=== PATIENT | male | born 1965 ===

== ENCOUNTER → 2020-02-02 14:14 | Outpatient (BNVA) | payer BC, SELFPAY | PROVIDERS: PCP Internal Medicine; Referring Provider Internal Medicine; Visit Provider Student in an Organized Health Care Education/Training Program | DX: Z76.89 Persons encountering health services in other specified circumstances (principal) ==

== ENCOUNTER → 2020-03-29 17:08 | Outpatient (BNVA) | payer BC, SELFPAY | PROVIDERS: PCP Internal Medicine; Visit Provider Student in an Organized Health Care Education/Training Program ==

== ENCOUNTER 2020-05-01 15:11 | Outpatient (REF) | payer BC, SELFPAY ==
--- NOTE | ~2020-05-01 | XR_ITS ---
EXAMINATION: XR WRIST, RIGHT CLINICAL INFORMATION: Pain COMPARISON: Previous x-ray August 2019 TECHNIQUE: PA, lateral, and oblique views of the right wrist. FINDINGS: Bone alignment is normal. No acute fracture or dislocation is seen. There is evidence of old trauma to the fifth metacarpal bone. There is arthritis at the distal radial ulnar and radiocarpal joints with joint space narrowing. There arecystic changes seen in the carpal bones, distal ulna and ulnar styloid and base of the second metacarpal bone. There are small erosions seen in the ulnar styloid and scaphoid bone. There is soft tissue swelling about the wrist. Findings are suggestive of inflammatory arthritis. XR/XR wrist RT min 3V IMPRESSION: Inflammatory arthritis.
== END 2020-05-01 15:12 | disposition home or self-care (01) ==
LOC: HO.HOSX 15:11
PROVIDERS: Visit Provider Orthopaedic Surgery
DX: M25.531 Pain in right wrist (principal)
CPT/HCPCS: 73110

== ENCOUNTER → 2020-05-02 12:54 | Outpatient (BNVA) | payer BC, SELFPAY | PROVIDERS: Visit Provider Orthopaedic Surgery | DX: M65.831 Other synovitis and tenosynovitis, right forearm (principal); M79.89 Other specified soft tissue disorders ==

== ENCOUNTER 2020-07-31 16:08 | Outpatient (REF) | payer OTHER, SELFPAY ==
--- NOTE | ~2020-07-31 | XR_ITS ---
EXAMINATION: XR ANKLE, RIGHT XR ANKLE, LEFT CLINICAL INFORMATION: M05.9 - Rheumatoid arthritis with rheumatoid factor. COMPARISON: None TECHNIQUE: Each ankle is imaged in 3 views. There are a total of 6 views. FINDINGS: Both ankles show normal bony mineralization with no fracture, dislocation, or destructive process. There is no definite ankle capsular effusion on either side. The ankle joints show no narrowing or erosive change or chondrocalcinosis. There is no osteochondral lesion of the talar dome. The subtalar joints are unremarkable. The retrocalcaneal recess is preserved on each side. XR/XR ankle RT 2V IMPRESSION: Unremarkable bilateral ankles.
--- NOTE | ~2020-07-31 | XR_ITS ---
EXAMINATION: XR ANKLE, RIGHT XR ANKLE, LEFT CLINICAL INFORMATION: M05.9 - Rheumatoid arthritis with rheumatoid factor. COMPARISON: None TECHNIQUE: Each ankle is imaged in 3 views. There are a total of 6 views. FINDINGS: Both ankles show normal bony mineralization with no fracture, dislocation, or destructive process. There is no definite ankle capsular effusion on either side. The ankle joints show no narrowing or erosive change or chondrocalcinosis. There is no osteochondral lesion of the talar dome. The subtalar joints are unremarkable. The retrocalcaneal recess is preserved on each side. XR/XR ankle LT 2V IMPRESSION: Unremarkable bilateral ankles.
== END 2020-07-31 16:09 | disposition home or self-care (01) ==
LOC: HO.XRAY 16:08
PROVIDERS: PCP Internal Medicine; Visit Provider Student in an Organized Health Care Education/Training Program
DX: M05.9 Rheumatoid arthritis with rheumatoid factor, unspecified (principal); F17.210 Nicotine dependence, cigarettes, uncomplicated; Z79.52 Long term (current) use of systemic steroids; Z79.899 Other long term (current) drug therapy
CPT/HCPCS: 73600

== ENCOUNTER → 2020-08-13 15:41 | Outpatient (BNVA) | payer OTHER, SELFPAY | PROVIDERS: Visit Provider Orthopaedic Surgery ==

== ENCOUNTER 2020-08-21 08:20 | Day surgery (SDC) | payer OTHER, SELFPAY ==
--- NOTE | 2020-08-17 08:44 | HO.ANESPROP2 ---
Documented by User: Norma Suze 08/17/20 08:46 HPI - Anesthesia Eval Consult details Narrative: 54yo M for Right Tenosynovectomy right wrist,and right sm finger, Excisional Biopsy right dorsal wrist mass,right proximal forearm mass Prednisone daily for RA PMFSH Active Problems Active Problems: All Active Problems (Updated 05/02/20 @ 15:09 by Lennei Mackey MD) Extensor tenosynovitis of right wrist (Acute) Mass of soft tissue of right upper extremity (Acute) Ganglion cyst of dorsum of right wrist (Acute) Seropositive rheumatoid arthritis (Acute) Past Medical History Medical History Seropositive rheumatoid arthritis Social History Social History Alcohol intake: current Alcohol intake frequency: 3 or more drinks per day Patient Tobacco Use Status: Current everyday Tobacco user Tobacco use type: Cigarette Cigarettes Per Day: 20 Years Smoked: 35 Second Hand Smoke Exposure: No Use of substances other than those prescribed or required for medical reasons: No Are you DNR?: No Advance Directives: No Advance Directives Information Provided: Yes Advance Directives on File: No Current occupational status: 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 missing Assessment and Plan Assessment Anesthesia Assessment: Chart Reviewed Documented by User: Cyrus Mcdonald MD 08/21/20 10:44 [facility] Past Medical History Medical History Seropositive rheumatoid arthritis Social History Social History Alcohol intake: current Alcohol intake frequency: 3 or more drinks per day Patient Tobacco Use Status: Current everyday Tobacco user Tobacco use type: Cigarette Cigarettes Per Day: 20 Years Smoked: 35 Second Hand Smoke Exposure: No Use of substances other than those prescribed or required for medical reasons: No Are you DNR?: No Advance Directives: No Advance Directives Information Provided: Yes Advance Directives on File: No Current occupational status: 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 missing Loose/Missing/Broken Teeth: Yes Heart: RRR Assessment and Plan Assessment Anesthesia Assessment: Anesthesia Plan Discussed and Chart Reviewed Final Anesthetic Review NPO: Yes ASA Class: II Final Preanesthetic Review: No Changes in Pt Med Stat, Meds/Allgs Chart Reviewed, Consent Obtained/Reviewed and Anes Risks/Benef Reviewed Patient Risk: Low Procedure Risk: Low Anesthetic Plan Anesthetic Plan: GA and Regional Block Disposition: Standard PACU
[2020-08-21 08:31] VITALS: BMI 23.6
[2020-08-21 08:45] VITALS: BP 152/104; PULSE 95; RESP 18; TEMP 36.7; O2SAT 96
[2020-08-21] MEDS: Lactated Ringers 1,000 ML 100 ML IVCONT (08:51)
--- NOTE | 2020-08-21 09:13 | MHC.SHP ---
Pre-Procedural Eval Section A Date of Service: 08/21/20 Section B Chief Complaint: tenosynovitis,ganglion,soft tissue disorder Allergies: Allergies Allergy/AdvReac Type Severity Reaction Status Date / Time No Known Allergies Allergy Verified 08/13/20 16:33 Plan I have reviewed the history and physical and performed a pertinent physical examination on my patient. No changes have occurred unless specified.
--- NOTE | 2020-08-21 09:13 | W.PM.OPN ---
Operative Note Operative Note Date of Service: 08/21/20 Narrative: Operative Note Narrative: Preop diagnosis: 1. right dorsal wrist mass 2. right wrist extensor tenosynovitis 3. Right proximal forearm soft tissue mass 4. Right small finger trigger finger in patient with rheumatoid arthritis Postop diagnosis: Same Procedure: 1. Right dorsal wrist mass excisional biopsy 2. right wrist extensor tenosynovectomies of compartments 2, 3,4, 5 and 6 3. Right proximal forearm mass excisional biopsy 4. Right small finger FDS and FDP tenosynovectomies Surgeon: Lennie Mackey MD Anesthesia: General plus regional block Findings: -- abundant house soft tissue mass about the extensor tendons of right wrist dorsal compartments 2 through 6, consistent with rheumatoid arthritis related extensor tenosynovitis. Invasion of EPL, and several of the EDC tendons noted. tendon involvement from approximately 5 cm proximal to the extensor retinaculum down to approximately the mid metacarpal area. -- Generalized inflammatory tenosynovium about the right small finger FDP and FDS tendons with invasion of the FDP and FDS tendons. A1 daphne release necessary after T no sign of ectomy in to prevent locking and catching. -- Two white soft tissue mass is each measuring perhaps 8-10 mm in diameter were removed from the extensor surface of the olecranon. Most consistent with possible rheumatoid nodules. Implants: none Tourniquet time: 104 minutes EBL: 5.0 ml Specimen: 1. Right proximal forearm soft tissue mass sent for histopathology 2. right small finger T no synovial and sent for histopathology 3. right dorsal wrist extensor tenosynovium sent for histopathology and also for cultures including AFB and fungus. Drains: None Complications: None Disposition: Brought to the recovery room in stable condition Plan: Follow-up in 10-14 days for wound check, suture removal and to check pathology Consider possible OT consult for tendon gliding exercises. Consider contact with factory clerk regarding significant rheumatoid related tenosynovitis Indications: The patient is a 54-year-old man with rheumatoid arthritis. He has a soft tissue mass over the right olecranon on, a right small finger trigger finger, and a soft tissue mass with evidence of extensor tenosynovitis involving the dorsal aspect of the right wrist. . The risks and benefits of operative treatment, including but not limited to risk of damage to blood vessels, nerves, tendons, infection, recurrence, persistent pain or numbness, incomplete resolution of preoperative symptoms, or need for further surgery were discussed with the patient and they wished to proceed with surgery. Procedure: Once consent was obtained patient was brought back to the operating suite and placed in the operating table in a supine position. A regional block was performed by the anesthesia team. Perioperative antibiotics and anesthesia was administered by the anesthesia team. A tourniquet was applied to the proximal aspect of the Right upper extremity and the limb was prepped and draped in a standard surgical fashion. The limb was elevated exsanguinated with Esmarch bandage and the tourniquet inflated to 250 mm of mercury for a total tourniquet time of 104 minutes. a Cassandra is a incision was made over the volar aspect of the right small finger. The incision was made through the skin to the subcutaneous tissues using a 15. Blade. I carefully dissected down to the level of the flexor tendon sheath using tenotomy scissors. A portion of the A1 daphne was opened longitudinally using a 15. Blade leaving the majority of the A1 daphne intact. I also opened up the flexor tendon sheath just proximal and distal to the A1 daphne using tenotomy scissors. tenosynovectomies were performed about the flexor digitorum superficialis and flexor digitorum profundus tendons. there was noted to be invasion of the FDP and FDS tendons themselves.. The finger was then taken through flexion and extension and there was Persistent catching with passive motion. at this point in A1 daphne release was performed using tenotomy scissors. The wound was irrigated with normal saline and the skin edges reapproximated with some 5 0 nylon suture material. Attention was then turned to the mass over the extensor aspect of the right forearm over the olecranon . A 2 cm longitudinal incision was made centered over the mass using a 15. Blade. The incision was made through the skin to the subcutaneous tissues using a 15. Blade. Careful dissection was then made down to the mass. there were 2 white soft tissue mass is that each measured between 8 and 10 mm in diameter. They were excised and placed on the back table to be sent for histopathology. the wound was then irrigated with normal saline. The subcutaneous layer was reapproximated with some 4-0 Vicryl suture material and the skin edges reapproximated with some 5 0 nylon suture material. I then turned my attention to the Rightdorsal wrist mass. An 8 cm central longitudinal incision was made over the dorsal aspect of the patient's right wrist. The incision was made through the skin to the subcutaneous tissues using a 15. Blade. I then carefully dissected down to the level of the mass and the extensor retinaculum and extensor tendons. there was abundant house soft tissue material about the extensor tendons extending from a point about 5 cm proximal to the extensor retinaculum to a point at about the middle of the metacarpals. Involvement was present in the 2nd 3rd 4th 5th and 6th dorsal compartments. A meticulous tenosynovectomy was performed using tenotomy scissors and a 15. Blade, as well as a rongeur. Care was taken to preserve an approximately 1.5 cm width of the extensor retinaculum. A 1 cm portion of the more proximal retinaculum was incised to facilitate tenosynovectomy, and repaired at the end of the procedure. There was some invasion of the EPL tendon as well as several of the EDC tendons, but all tendons were grossly intact. The soft tissue material was sent for histopathology as well as cultures including aerobic anaerobic,AFB and fungal cultures. At this point the tourniquet was deflated and hemostasis obtained with a brief period of local pressure and bipolar electrocautery. The Wounds were copiously irrigated with normal saline. the proximal aspect of the extensor retinaculum was reapproximated with some 5 0 Prolene suture material. The subcutaneous layer was closed with 4-0 Vicryl suture, and the skin edges were reapproximated with 4-0 And 5-0 Prolene suture. The wounds were infiltrated with some 1% lidocaine with epinephrine for postop pain control and a sterile dressings were applied. a volar wrist splint was also applied.. The patient appears to have tolerated the procedure well and with no complications. All digits were well vascularized conclusion of the case.
[2020-08-21] MEDS: ceFAZolin Sodium/Dextrose,Iso 2 GM/50 ML PIGGYBACK IV (09:23)
[2020-08-21 13:20] VITALS: BP 138/95; PULSE 87; RESP 16; TEMP 36.1; O2SAT 98
[2020-08-21 13:25] VITALS: BP 127/80; PULSE 82; RESP 14; O2SAT 99
[2020-08-21 13:30] VITALS: BP 111/74; PULSE 81; RESP 16; O2SAT 95
[2020-08-21 13:35] VITALS: BP 118/77; PULSE 84; RESP 18; O2SAT 97
[2020-08-21 13:48] VITALS: BP 134/88; PULSE 82; RESP 18; TEMP 36.3; O2SAT 97
== END 2020-08-21 14:15 ==
LOC: HO.SSS 08:20
PROVIDERS: PCP Internal Medicine; Visit Provider Orthopaedic Surgery
PROC: (CPT 26145; principal; 2020-08-21 10:00)
PROC: (CPT 26145; 2020-08-21 10:00)
DX: M79.89 Other specified soft tissue disorders (principal); M65.831 Other synovitis and tenosynovitis, right forearm; M65.841 Other synovitis and tenosynovitis, right hand; M06.341 Rheumatoid nodule, right hand; M06.031 Rheumatoid arthritis without rheumatoid factor, right wrist; M65.351 Trigger finger, right little finger
CPT/HCPCS: 26145; 26055; 25116; 25075; 87071; 87073; 87116; 87205; 88304; J0690; J1100; J2250; J2405; J3010

== ENCOUNTER → 2020-09-03 09:58 | Outpatient (BNVA) | payer OTHER, SELFPAY | PROVIDERS: Visit Provider Physician Assistant ==

== ENCOUNTER → 2020-09-17 12:39 | Outpatient (BNVA) | payer OTHER, SELFPAY | PROVIDERS: Visit Provider Physician Assistant ==

== ENCOUNTER → 2020-11-05 15:39 | Outpatient (BNVA) | payer OTHER, SELFPAY | PROVIDERS: Visit Provider Orthopaedic Surgery ==

== ENCOUNTER → 2020-11-14 09:35 | Outpatient (BNVA) | payer OTHER, SELFPAY | PROVIDERS: PCP Internal Medicine; Visit Provider Nurse Practitioner Family ==

== ENCOUNTER 2021-01-14 15:53 | Outpatient (REF) | payer OTHER, SELFPAY ==
[2021-01-14 16:11] LABS: MANUAL DIFF FLAG NO
[2021-01-14 16:37] LABS: Basophils Absolute Auto 0.1 X10*3/uL (0.0-0.2); Basophils Percent Auto 0.5 % (0-2); Eosinophils Absolute Auto 0.1 X10*3/uL (0.0-0.4); Eosinophils Percent Auto 0.6 % (0-4); Hematocrit 42.3 % (42.0-52.0); Hemoglobin 14.8 g/dl (14.0-18.0); Imm Gran Abs Auto 0.03 X10*3/uL (0.00-0.03); Imm Gran Pct Auto 0.3 % (0.0-0.4); Lymphocytes Percent Auto 40.5 % (20-40); Mean Corpuscular Hemoglobin 31.7 pg (27.0-33.0); Mean Corpuscular Volume 90.6 fL (80.0-98.0); Mean Platelet Volume 9.8 fL (9.4-12.4); Monocytes Absolute Auto 0.9 X10*3/uL (0.1-1.2); Monocytes Percent Auto 8.8 % (2-11); Neutrophils Absolute Auto 4.8 x10*3/uL (2.0-8.3); Neutrophils Percent Auto 49.3 % (45-73); Platelet Count 266 X10*3/uL (160-400); Red Blood Count 4.67 X10*6/uL (4.60-5.80); Red Cell Distribution Width 13.2 % (11.0-16.0); White Blood Count 9.8 X10*3/uL (4.8-10.8)
[2021-01-14 16:55] LABS: Alanine Aminotransferase 53 U/L (0-40); Albumin Level 4.5 g/dL (3.5-5.0); Alkaline Phosphatase 102 U/L (39-117); Anion Gap 15 (12-20); Aspartate Amino Transferase 32 U/L (5-37); Bilirubin Total 0.5 mg/dL (0.0-1.0); Blood Urea Nitrogen 15 mg/dL (9-16); C Reactive Protein 0.22 mg/dL (< or = 0.50); Calcium 10.2 mg/dL (8.4-10.2); Carbon Dioxide 25 mmol/L (22-29); Chloride 103 mmol/L (96-108); Cholesterol 270 mg/dL; Estimated Glomerular Filt Rate > 60; Glucose Random 100 mg/dL (60-115); HDL Cholesterol 36 mg/dL; Potassium 4.7 mmol/L (3.3-5.1); Sodium 138 mmol/L (135-145); Total Protein 7.7 g/dL (6.5-8.0); Triglycerides 613 mg/dL
[2021-01-14 17:37] LABS: Erythrocyte Sedimentation Rate 5 MM/HR (0-15)
[2021-01-14 18:34] LABS: Reflex LDLD? Yes
[2021-01-15 12:17] LABS: LDL Cholesterol Direct 108 mg/dL (<100)
== END 2021-01-14 15:54 | disposition home or self-care (01) ==
LOC: HO.LAB 15:53
PROVIDERS: PCP Internal Medicine; Visit Provider Nurse Practitioner Family
DX: M05.9 Rheumatoid arthritis with rheumatoid factor, unspecified (principal)
CPT/HCPCS: 36415; 80053; 80061; 83721; 85025; 85652; 86140

== ENCOUNTER 2021-03-14 16:18 | Outpatient (REF) | payer OTHER, SELFPAY ==
[2021-03-14 16:39] LABS: MANUAL DIFF FLAG NO
[2021-03-14 17:20] LABS: Basophils Absolute Auto 0.1 X10*3/uL (0.0-0.2); Basophils Percent Auto 0.5 % (0-2); Eosinophils Absolute Auto 0.1 X10*3/uL (0.0-0.4); Eosinophils Percent Auto 0.9 % (0-4); Hematocrit 41.6 % (42.0-52.0); Hemoglobin 14.2 g/dl (14.0-18.0); Imm Gran Abs Auto 0.02 X10*3/uL (0.00-0.03); Imm Gran Pct Auto 0.2 % (0.0-0.4); Lymphocytes Absolute Auto 4.3 X10*3/uL (1.2-4.9); Mean Corpuscular HGB Conc 34.1 g/dl (31.0-36.0); Mean Corpuscular Hemoglobin 31.6 pg (27.0-33.0); Mean Corpuscular Volume 92.4 fL (80.0-98.0); Mean Platelet Volume 10.3 fL (9.4-12.4); Monocytes Percent Auto 9.7 % (2-11); Neutrophils Absolute Auto 4.6 x10*3/uL (2.0-8.3); Neutrophils Percent Auto 45.7 % (45-73); Platelet Count 313 X10*3/uL (160-400); Red Cell Distribution Width 12.2 % (11.0-16.0)
[2021-03-14 17:42] LABS: Alanine Aminotransferase 45 U/L (0-40); Albumin Level 4.6 g/dL (3.5-5.0); Alkaline Phosphatase 107 U/L (39-117); Anion Gap 13 (12-20); Aspartate Amino Transferase 28 U/L (5-37); Bilirubin Total 0.4 mg/dL (0.0-1.0); Blood Urea Nitrogen 10 mg/dL (9-16); C Reactive Protein 0.11 mg/dL (< or = 0.50); Calcium 10.2 mg/dL (8.4-10.2); Carbon Dioxide 27 mmol/L (22-29); Chloride 100 mmol/L (96-108); Estimated Glomerular Filt Rate > 60; Glucose Random 98 mg/dL (60-115); Sodium 135 mmol/L (135-145); Total Protein 8.1 g/dL (6.5-8.0)
[2021-03-14 18:14] LABS: Erythrocyte Sedimentation Rate 7 MM/HR (0-15)
== END 2021-03-14 16:19 | disposition home or self-care (01) ==
LOC: HO.LAB 16:18
PROVIDERS: Absent Provider Internal Medicine; PCP Internal Medicine; Visit Provider Nurse Practitioner Family
DX: M05.9 Rheumatoid arthritis with rheumatoid factor, unspecified (principal)
CPT/HCPCS: 36415; 80053; 85025; 85652; 86140

== ENCOUNTER → 2021-04-19 08:21 | Outpatient (BNVA) | payer OTHER, SELFPAY | PROVIDERS: PCP Internal Medicine; Visit Provider Nurse Practitioner Family ==

== ENCOUNTER 2021-06-28 16:26 | Outpatient (REF) | payer OTHER, SELFPAY ==
[2021-06-28 16:38] LABS: MANUAL DIFF FLAG NO
[2021-06-28 16:47] LABS: Basophils Absolute Auto 0.1 X10*3/uL (0.0-0.2); Basophils Percent Auto 0.7 % (0-2); Eosinophils Absolute Auto 0.1 X10*3/uL (0.0-0.4); Eosinophils Percent Auto 1.1 % (0-4); Hematocrit 40.7 % (42.0-52.0); Hemoglobin 14.3 g/dl (14.0-18.0); Imm Gran Abs Auto 0.04 X10*3/uL (0.00-0.03); Imm Gran Pct Auto 0.3 % (0.0-0.4); Lymphocytes Absolute Auto 4.6 X10*3/uL (1.2-4.9); Lymphocytes Percent Auto 38.4 % (20-40); Mean Corpuscular HGB Conc 35.1 g/dl (31.0-36.0); Mean Corpuscular Hemoglobin 31.6 pg (27.0-33.0); Mean Platelet Volume 9.3 fL (9.4-12.4); Monocytes Absolute Auto 0.8 X10*3/uL (0.1-1.2); Neutrophils Absolute Auto 6.3 x10*3/uL (2.0-8.3); Neutrophils Percent Auto 52.5 % (45-73); Platelet Count 284 X10*3/uL (160-400); Red Blood Count 4.52 X10*6/uL (4.60-5.80); Red Cell Distribution Width 12.6 % (11.0-16.0); White Blood Count 11.9 X10*3/uL (4.8-10.8)
[2021-06-28 17:16] LABS: Alanine Aminotransferase 44 U/L (0-40); Albumin Level 4.6 g/dL (3.5-5.0); Alkaline Phosphatase 99 U/L (39-117); Anion Gap 13 (12-20); Aspartate Amino Transferase 27 U/L (5-37); Bilirubin Total 0.4 mg/dL (0.0-1.0); Blood Urea Nitrogen 10 mg/dL (9-16); Calcium 10.2 mg/dL (8.4-10.2); Carbon Dioxide 26 mmol/L (22-29); Chloride 102 mmol/L (96-108); Cholesterol 253 mg/dL; Estimated Glomerular Filt Rate > 60; Glucose Random 103 mg/dL (60-115); HDL Cholesterol 38 mg/dL; Potassium 4.6 mmol/L (3.3-5.1); Sodium 136 mmol/L (135-145); Triglycerides 403 mg/dL
[2021-06-28 17:39] LABS: Erythrocyte Sedimentation Rate 5 MM/HR (0-15)
[2021-06-28 17:59] LABS: Reflex LDLD? Yes
[2021-06-29 15:36] LABS: LDL Cholesterol Direct 129 mg/dL (<100)
== END 2021-06-28 16:27 | disposition home or self-care (01) ==
LOC: HO.LAB 16:26
PROVIDERS: PCP Internal Medicine; Visit Provider Nurse Practitioner Family
DX: M05.9 Rheumatoid arthritis with rheumatoid factor, unspecified (principal)
CPT/HCPCS: 36415; 80053; 80061; 83721; 85025; 85652; 86140

== ENCOUNTER → 2021-07-19 08:42 | Outpatient (BNVA) | payer OTHER, SELFPAY | PROVIDERS: PCP Internal Medicine; Visit Provider Nurse Practitioner Family | DX: Z13.89 Encounter for screening for other disorder (principal) ==

== ENCOUNTER 2021-10-05 09:27 | Outpatient (REF) | payer OTHER, SELFPAY ==
[2021-10-05 09:37] LABS: MANUAL DIFF FLAG NO
[2021-10-05 10:03] LABS: Basophils Absolute Auto 0.1 X10*3/uL (0.0-0.2); Basophils Percent Auto 0.8 % (0-2); Eosinophils Absolute Auto 0.2 X10*3/uL (0.0-0.4); Hematocrit 42.2 % (42.0-52.0); Hemoglobin 14.8 g/dl (14.0-18.0); Imm Gran Abs Auto 0.05 X10*3/uL (0.00-0.03); Imm Gran Pct Auto 0.4 % (0.0-0.4); Lymphocytes Absolute Auto 2.7 X10*3/uL (1.2-4.9); Lymphocytes Percent Auto 22.5 % (20-40); Mean Corpuscular HGB Conc 35.1 g/dl (31.0-36.0); Mean Corpuscular Hemoglobin 31.6 pg (27.0-33.0); Mean Corpuscular Volume 90.2 fL (80.0-98.0); Mean Platelet Volume 9.6 fL (9.4-12.4); Monocytes Absolute Auto 1.1 X10*3/uL (0.1-1.2); Monocytes Percent Auto 9.2 % (2-11); Neutrophils Absolute Auto 7.9 x10*3/uL (2.0-8.3); Neutrophils Percent Auto 65.1 % (45-73); Platelet Count 254 X10*3/uL (160-400); Red Blood Count 4.68 X10*6/uL (4.60-5.80); Red Cell Distribution Width 13.1 % (11.0-16.0); White Blood Count 12.1 X10*3/uL (4.8-10.8)
[2021-10-05 10:10] LABS: Alanine Aminotransferase 49 U/L (0-40); Aspartate Amino Transferase 30 U/L (5-37); C Reactive Protein 0.13 mg/dL (< or = 0.50); Estimated Glomerular Filt Rate > 60
[2021-10-05 10:56] LABS: Erythrocyte Sedimentation Rate 4 MM/HR (0-15)
== END 2021-10-05 09:28 | disposition home or self-care (01) ==
LOC: HO.LAB 09:27
PROVIDERS: PCP Internal Medicine; Visit Provider Nurse Practitioner Family
DX: M05.9 Rheumatoid arthritis with rheumatoid factor, unspecified (principal); Z79.899 Other long term (current) drug therapy
CPT/HCPCS: 36415; 82565; 84450; 84460; 85025; 85652; 86140

== ENCOUNTER 2021-12-06 16:01 | Outpatient (REF) | payer OTHER, SELFPAY ==
[2021-12-06 16:14] LABS: MANUAL DIFF FLAG NO
[2021-12-06 17:18] LABS: Basophils Absolute Auto 0.1 X10*3/uL (0.0-0.2); Basophils Percent Auto 0.8 % (0-2); Eosinophils Absolute Auto 0.1 X10*3/uL (0.0-0.4); Eosinophils Percent Auto 1.5 % (0-4); Hematocrit 40.7 % (42.0-52.0); Hemoglobin 14.6 g/dl (14.0-18.0); Imm Gran Abs Auto 0.02 X10*3/uL (0.00-0.03); Imm Gran Pct Auto 0.2 % (0.0-0.4); Lymphocytes Absolute Auto 3.9 X10*3/uL (1.2-4.9); Lymphocytes Percent Auto 44.5 % (20-40); Mean Corpuscular HGB Conc 35.9 g/dl (31.0-36.0); Mean Corpuscular Hemoglobin 32.6 pg (27.0-33.0); Mean Corpuscular Volume 90.8 fL (80.0-98.0); Mean Platelet Volume 10.2 fL (9.4-12.4); Monocytes Absolute Auto 0.8 X10*3/uL (0.1-1.2); Monocytes Percent Auto 8.9 % (2-11); Neutrophils Absolute Auto 3.9 x10*3/uL (2.0-8.3); Neutrophils Percent Auto 44.1 % (45-73); Platelet Count 295 X10*3/uL (160-400); Red Blood Count 4.48 X10*6/uL (4.60-5.80); Red Cell Distribution Width 12.9 % (11.0-16.0); White Blood Count 8.8 X10*3/uL (4.8-10.8)
[2021-12-06 17:28] LABS: Alanine Aminotransferase 72 U/L (0-40); Aspartate Amino Transferase 48 U/L (5-37); Estimated Glomerular Filt Rate > 60
[2021-12-06 18:02] LABS: Erythrocyte Sedimentation Rate 2 MM/HR (0-15)
== END 2021-12-06 16:02 | disposition home or self-care (01) ==
LOC: HO.LAB 16:01
PROVIDERS: Visit Provider Nurse Practitioner Family
DX: M05.9 Rheumatoid arthritis with rheumatoid factor, unspecified (principal); Z79.899 Other long term (current) drug therapy
CPT/HCPCS: 36415; 82565; 84450; 84460; 85025; 85652; 86140

== ENCOUNTER 2021-12-21 09:15 | Outpatient (REF) | payer OTHER, SELFPAY ==
[2021-12-21 10:45] LABS: Alanine Aminotransferase 64 U/L (0-40); Aspartate Amino Transferase 37 U/L (5-37)
== END 2021-12-21 09:16 | disposition home or self-care (01) ==
LOC: HO.LAB 09:15
PROVIDERS: PCP Internal Medicine; Visit Provider Nurse Practitioner Family
DX: Z79.899 Other long term (current) drug therapy (principal)
CPT/HCPCS: 36415; 84450; 84460

== ENCOUNTER → 2022-02-24 11:02 | Outpatient (BNVA) | payer OTHER, SELFPAY | PROVIDERS: PCP Internal Medicine; Visit Provider Nurse Practitioner Family | DX: Z13.89 Encounter for screening for other disorder (principal) ==

== ENCOUNTER 2022-02-24 19:25 | Emergency (ER) | payer OTHER, SELFPAY ==
--- NOTE | ~2022-02-24 | XR_ITS ---
EXAMINATION: XR CHEST CLINICAL INFORMATION: Chest pain COMPARISON: 08/26/2019 TECHNIQUE: Frontal view of the chest was obtained. FINDINGS: No significant abnormality is noted involving the heart, lungs, mediastinum, bony thorax or soft tissues. XR/XR chest 1V IMPRESSION: Unremarkable examination.
--- NOTE | ~2022-02-24 | CT_ITS ---
EXAMINATION: CT HEAD WITHOUT CONTRAST CLINICAL INFORMATION: Headache. Hypertension. COMPARISON: None. TECHNIQUE: Contiguous axial imaging was performed from the skull base to vertex without intravenous administration of contrast. Coronal and sagittal reformatted images are performed at the CT scanner. [This CT examination was performed using dose optimization techniques as appropriate, variously including the following: *Automated exposure control *Adjustment of mA and/or kV according to patient size (this includes techniques or standardized protocols for targeted exams where dose is matched to indication/reason for exam; i.e. extremities or head) *Use of iterative reconstruction technique] DLP: 679 mGy-cm. FINDINGS: There is no evidence of acute intracranial hemorrhage or territorial infarction. No abnormal mass-effect or midline shift is seen. Sena to white matter differentiation is well preserved. No extra-axial fluid collections are identified. The ventricles are normal in size. There is no abnormal attenuation within the brain parenchyma. There is no osseous abnormality. The mastoid air cells and visualized portions of the paranasal sinuses are well-aerated. CT/CT head/brain wo IV con IMPRESSION: No acute intracranial pathology.
[2022-02-24 19:40] VITALS: BP 186/106; PULSE 99; RESP 16; TEMP 36.8; O2SAT 98; BMI 26.7
--- NOTE | 2022-02-24 19:40 | ED_ITS ---
HPI - General Adult General Chief complaint: General Medical <HEMANT Balderas - Last Filed: 02/24/22 19:45> Stated complaint: high blood pressure? upper abd pain <HEMANT Balderas - Last Filed: 02/24/22 19:45> Time Seen by Provider: 02/24/22 22:03 <HEMANT Balderas - Last Filed: 02/24/22 19:45> Source: patient <Hannah De Los Santso NP - Last Filed: 02/25/22 02:19> Mode of arrival: ambulatory <Hannah De Los Santos NP - Last Filed: 02/25/22 02:19> Limitations: no limitations <Hannah De Los Santos NP - Last Filed: 02/25/22 02:19> History of Present Illness HPI narrative: 56-year-old male presents from his rheumatology appointment for elevated blood pressure. <Hannah De Los Santos NP - Last Filed: 02/25/22 02:19> Onset (ago): unknown <Hannah De Los Santos NP - Last Filed: 02/25/22 02:19> Severity: mild <Hannah D eLos Santos NP - Last Filed: 02/25/22 02:19> Associated symptoms: denies other symptoms <Hannah De Los Santos NP - Last Filed: 02/25/22 02:19> Treatments prior to arrival: none <Hannah De Los Santos NP - Last Filed: 02/25/22 02:19> Related Data Home medications: Home Medications Medication Instructions Recorded Confirmed omega-3 fatty acids 1,000 mg 2,000 mg PO DAILY 02/02/20 10/01/21 capsule (Fish Oil Concentrate) Previous Rx's Medication Instructions Recorded prednisone 2.5 mg tablet 2.5 mg PO DAILY #30 tabs 01/22/22 upadacitinib 15 mg tablet,extended 15 mg PO DAILY #30 tabs 02/21/22 release 24 hr (Rinvoq) lisinopril 5 mg tablet 5 mg PO DAILY #30 tabs 02/24/22 <HEMANT Balderas - Last Filed: 02/24/22 19:45> Allergies/adverse reactions: Allergies Allergy/AdvReac Type Severity Reaction Status Date / Time No Known Allergies Allergy Verified 02/24/22 11:21 <HEMANT Balderas - Last Filed: 02/24/22 19:45> Review of Systems Review of Systems: Constitutional: No Fever, No Chills Cardiovascular: No Chest Pain, No SOB Respiratory: No Cough, No Dyspnea Gastrointestinal: No Nausea, No Vomiting, No Diarrhea, No abdominal Pain Musculoskeletal: No joint pain, No Myalgias, No Joint Swelling Skin: No Skin lacerations, No rash Neuro: No Weakness, No Numbness, No Paresthesias, No Dizziness, no Headache <Hannah De Los Santos NP - Last Filed: 02/25/22 02:19> Yes all other systems are reviewed and are negative <Hannah De Los Santos NP - Last Filed: 02/25/22 02:19> [facility] Past Medical History Attestation statement: The following information was validated with the patient. <Hannah De Los Santos NP - Last Filed: 02/25/22 02:19> Source: old records reviewed <Hannah De Los Santos NP - Last Filed: 02/25/22 02:19> Medical History: Medical History Seropositive rheumatoid arthritis <HEMANT Balderas - Last Filed: 02/24/22 19:45> Surgical History: Surgical History H/O wrist surgery <HEMANT Balderas - Last Filed: 02/24/22 19:45> Family History Family History: Family History Other Mental health disorder <HEMANT Balderas - Last Filed: 02/24/22 19:45> Social History Social History: Social History Housing: House Alcohol intake: current Alcohol intake frequency: 3 or more drinks per day Alcohol type: beer Patient Tobacco Use Status: Current everyday Tobacco user Tobacco use type: Cigarette Cigarettes Per Day: 30 Years Smoked: 35 Smoked in Last 30 Days: Yes e-Cigarette/Vaping Use: Never Used Second Hand Smoke Exposure: No Advance Directives: No Advance Directives Information Provided: No Current occupational status: 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 Cognitive needs: No Hearing needs: No Vision needs: Yes <HEMANT Balderas - Last Filed: 02/24/22 19:45> Physical Exam ED Vital Signs: Vital Signs - 24 hr 02/24/22 19:40 02/24/22 21:20 02/24/22 22:55 Temperature 98.2 F 97.8 F 98.3 F Pulse Rate 99 86 76 Respiratory Rate 16 16 Blood Pressure 186/106 H 186/109 H 160/98 H Pulse Oximetry 98 96 97 Oxygen Delivery Method Room Air Room Air Room Air BMI result Body Mass Index 26.7 <HEMANT Balderas - Last Filed: 02/24/22 19:45> Vital Signs - 24 hr 02/24/22 19:40 02/24/22 21:20 02/24/22 22:55 Temperature 98.2 F 97.8 F 98.3 F Pulse Rate 99 86 76 Respiratory Rate 16 16 Blood Pressure 186/106 H 186/109 H 160/98 H Pulse Oximetry 98 96 97 Oxygen Delivery Method Room Air Room Air Room Air BMI result Body Mass Index 26.7 <Hannah De Los Santos NP - Last Filed: 02/25/22 02:19> Appearance: Alert. Oriented X3. No acute distress. Eyes: Pupils equal, round and reactive to light. ENT: Pharynx normal. Neck: Normal inspection. Neck supple. CVS: Normal heart rate and rhythm. Pulses normal. Respiratory: No respiratory distress. Breath sounds normal. Skin: Skin warm and dry. Normal skin color. Normal skin turgor. Extremities: No lower extremity edema. Gait well-balanced well coordinated. Neuro: No motor deficit. No sensory deficit. Cranial nerves 2-12 intact <Hannah De Los Santos NP - Last Filed: 02/25/22 02:19> Course Course Course Narrative: RME--56yo M w/PMHx RA c/o sent in from rheumatology office for hypertension noted in their office, patient also reports chest pain and headache x today. Patient not currently on antihypertensives. Ambulating with steady gait, blood pressure 186/106 in triage EKG, labs, head CT ordered <HEMANT Balderas - Last Filed: 02/24/22 19:45> RME--56yo M w/PMHx RA c/o sent in from rheumatology office for hypertension noted in their office, patient also reports chest pain and headache x today. Patient not currently on antihypertensives. Ambulating with steady gait, blood pressure 186/106 in triage EKG, labs, head CT ordered 56-year-old male presents for elevated blood pressure. Patient does not take any medications for blood pressure, he was referred to the emergency department by Rheumatology. He does have rheumatoid arthritis and takes prednisone and upadacitinib. Patient had labs and CT scan of head while in the emergency department waiting room. White count is elevated at 15.9, which is consistent with his prednisone use. CT scan of head is negative for acute findings requiri ng emergent intervention. NIH stroke scale is 0. Will order chest x-ray. Chest x-ray is negative for acute findings. Troponin is negative. Plan of care is to start patient on a blood pressure medication, lisinopril. Will give 1 dose tonight. Will give lisinopril 5 mg daily. I will give 3 mon ths of medication as it is difficult to get into primary care physician due to volume overload. 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 Patient verbalized understanding of and agrees to plan of care discharge home. Verbalized understanding of signs and symptoms indicating need for emergent intervention <Hannah De Los Santos NP - Last Filed: 02/25/22 02:19> Medications Administered Discontinued Medications Generic Name Dose Route Start Last Admin Trade Name Freq PRN Reason Stop Dose Admin Lisinopril 10 mg 02/24/22 22:30 02/24/22 22:44 Lisinopril 10 Mg Tablet PO 02/24/22 22:31 10 mg ONCE ONE Administration Protocol <HEMANT Balderas - Last Filed: 02/24/22 19:45> Medications Administered Discontinued Medications Generic Name Dose Route Start Last Admin Trade Name Freq PRN Reason Stop Dose Admin Lisinopril 10 mg 02/24/22 22:30 02/24/22 22:44 Lisinopril 10 Mg Tablet PO 02/24/22 22:31 10 mg ONCE ONE Administration Protocol <Hannah De Los Santos NP - Last Filed: 02/25/22 02:19> Medical Decision Making Differential Diagnosis Differential Diagnoses: The differential diagnosis associated with the presentation includes <Hannah De Los Santos NP - Last Filed: 02/25/22 02:19> Hypertension <Hannah De Los Santos NP - Last Filed: 02/25/22 02:19> Lab Data MDM Lab Attestation statement: I reviewed the patient's lab results. <Hannah De Los Santos NP - Last Filed: 02/25/22 02:19> Result Diagrams: 02/24/22 20:15 02/24/22 20:15 <HEMANT Balderas - Last Filed: 02/24/22 19:45> Labs: Lab Results 02/24/22 02/24/22 02/24/22 Range/Units 20:15 20:15 20:15 WBC 15.9 H (4.8-10.8) X10*3/uL RBC 4.99 (4.60-5.80) X10*6/uL Hgb 15.8 (14.0-18.0) g/dl Hct 45.7 (42.0-52.0) % MCV 91.6 (80.0-98.0) fL MCH 31.7 (27.0-33.0) pg MCHC 34.6 (31.0-36.0) g/dl RDW 12.6 (11.0-16.0) % Plt Count 319 (160-400) X10*3/uL MPV 9.5 (9.4-12.4) fL Immature Gran % (Auto) 0.4 (0.0-0.4) % Neut % (Auto) 67.8 (45-73) % Lymph % (Auto) 22.5 (20-40) % Horry % (Auto) 8.5 (2-11) % Eos % (Auto) 0.4 (0-4) % Baso % (Auto) 0.4 (0-2) % Lymph # (Auto) 3.6 (1.2-4.9) X10*3/uL H[place] # (Auto) 1.4 H (0.1-1.2) X10*3/uL Eos # (Auto) 0.1 (0.0-0.4) X10*3/uL Baso # (Auto) 0.1 (0.0-0.2) X10*3/uL Abs Immat Gran (auto) 0.06 H (0.00-0.03) X10*3/uL Absolute Neuts (auto) 10.8 H (2.0-8.3) x10*3/uL Absolute Nucleated RBC 0.000 (0.0-0.012) X10*3/uL Nucleated RBC % (auto) 0.0 (0.0-0.2) /100WBC PT (10.0-13.1) SEC INR (0.9-1.1) Sodium 136 (135-145) mmol/L Potassium 4.3 (3.3-5.1) mmol/L Chloride 99 (96-108) mmol/L Carbon Dioxide 24 (22-29) mmol/L Anion Gap 17 (12-20) BUN 10 (9-16) mg/dL Creatinine 0.83 (0.5-1.4) mg/dL Estim Creat Clear Calc 108.3 Estimated GFR > 60 Random Glucose 102 (60-115) mg/dL Calcium 10.1 (8.4-10.2) mg/dL Magnesium 2.4 (1.6-2.6) mg/dL Troponin I High Sens < 3.5 (<3.5-35.0) ng/L 02/24/22 Range/Units 20:15 WBC (4.8-10.8) X10*3/uL RBC (4.60-5.80) X10*6/uL Hgb (14.0-18.0) g/dl Hct (42.0-52.0) % MCV (80.0-98.0) fL MCH (27.0-33.0) pg MCHC (31.0-36.0) g/dl RDW (11.0-16.0) % Plt Count (160-400) X10*3/uL MPV (9.4-12.4) fL Immature Gran % (Auto) (0.0-0.4) % Neut % (Auto) (45-73) % Lymph % (Auto) (20-40) % Horry % (Auto) (2-11) % Eos % (Auto) (0-4) % Baso % (Auto) (0-2) % Lymph # (Auto) (1.2-4.9) X10*3/uL Horry # (Auto) (0.1-1.2) X10*3/uL Eos # (Auto) (0.0-0.4) X10*3/uL Baso # (Auto) (0.0-0.2) X10*3/uL Abs Immat Gran (auto) (0.00-0.03) X10*3/uL Absolute Neuts (auto) (2.0-8.3) x10*3/uL Absolute Nucleated RBC (0.0-0.012) X10*3/uL Nucleated RBC % (auto) (0.0-0.2) /100WBC PT 10.7 (10.0-13.1) SEC INR 0.9 (0.9-1.1) Sodium (135-145) mmol/L Potassium (3.3-5.1) mmol/L Chloride (96-108) mmol/L Carbon Dioxide (22-29) mmol/L Anion Gap (12-20) BUN (9-16) mg/dL Creatinine (0.5-1.4) mg/dL Estim Creat Clear Calc Estimated GFR Random Glucose (60-115) mg/dL Calcium (8.4-10.2) mg/dL Magnesium (1.6-2.6) mg/dL Troponin I High Sens (<3.5-35.0) ng/L <HEMANT Balderas - Last Filed: 02/24/22 19:45> Lab Results 02/24/22 02/24/22 02/24/22 Range/Units 20:15 20:15 20:15 WBC 15.9 H (4.8-10.8) X10*3/uL RBC 4.99 (4.60-5.80) X10*6/uL Hgb 15.8 (14.0-18.0) g/dl Hct 45.7 (42.0-52.0) % MCV 91.6 (80.0-98.0) fL MCH 31.7 (27.0-33.0) pg MCHC 34.6 (31.0-36.0) g/dl RDW 12.6 (11.0-16.0) % Plt Count 319 (160-400) X10*3/uL MPV 9.5 (9.4-12.4) fL Immature Gran % (Auto) 0.4 (0.0-0.4) % Neut % (Auto) 67.8 (45-73) % Lymph % (Auto) 22.5 (20-40) % Horry % (Auto) 8.5 (2-11) % Eos % (Auto) 0.4 (0-4) % Baso % (Auto) 0.4 (0-2) % Lymph # (Auto) 3.6 (1.2-4.9) X10*3/uL Horry # (Auto) 1.4 H (0.1-1.2) X10*3/uL Eos # (Auto) 0.1 (0.0-0.4) X10*3/uL Baso # (Auto) 0.1 (0.0-0.2) X10*3/uL Abs Immat Gran (auto) 0.06 H (0.00-0.03) X10*3/uL Absolute Neuts (auto) 10.8 H (2.0-8.3) x10*3/uL Absolute Nucleated RBC 0.000 (0.0-0.012) X10*3/uL Nucleated RBC % (auto) 0.0 (0.0-0.2) /100WBC PT (10.0-13.1) SEC INR (0.9-1.1) Sodium 136 (135-145) mmol/L Potassium 4.3 (3.3-5.1) mmol/L Chloride 99 (96-108) mmol/L Carbon Dioxide 24 (22-29) mmol/L Anion Gap 17 (12-20) BUN 10 (9-16) mg/dL Creatinine 0.83 (0.5-1.4) mg/dL Estim Creat Clear Calc 108.3 Estimated GFR > 60 Random Glucose 102 (60-115) mg/dL Calcium 10.1 (8.4-10.2) mg/dL Magnesium 2.4 (1.6-2.6) mg/dL Troponin I High Sens < 3.5 (<3.5-35.0) ng/L 02/24/22 Range/Units 20:15 WBC (4.8-10.8) X10*3/uL RBC (4.60-5.80) X10*6/uL Hgb (14.0-18.0) g/dl Hct (42.0-52.0) % MCV (80.0-98.0) fL MCH (27.0-33.0) pg MCHC (31.0-36.0) g/dl RDW (11.0-16.0) % Plt Count (160-400) X10*3/uL MPV (9.4-12.4) fL Immature Gran % (Auto) (0.0-0.4) % Neut % (Auto) (45-73) % Lymph % (Auto) (20-40) % H[place] % (Auto) (2-11) % Eos % (Auto) (0-4) % Baso % (Auto) (0-2) % Lymph # (Auto) (1.2-4.9) X10*3/uL [place] # (Auto) (0.1-1.2) X10*3/uL Eos # (Auto) (0.0-0.4) X10*3/uL Baso # (Auto) (0.0-0.2) X10*3/uL Abs Immat Gran (auto) (0.00-0.03) X10*3/uL Absolute Neuts (auto) (2.0-8.3) x10*3/uL Absolute Nucleated RBC (0.0-0.012) X10*3/uL Nucleated RBC % (auto) (0.0-0.2) /100WBC PT 10.7 (10.0-13.1) SEC INR 0.9 (0.9-1.1) Sodium (135-145) mmol/L Potassium (3.3-5.1) mmol/L Chloride (96-108) mmol/L Carbon Dioxide (22-29) mmol/L Anion Gap (12-20) BUN (9-16) mg/dL Creatinine (0.5-1.4) mg/dL Estim Creat Clear Calc Estimated GFR Random Glucose (60-115) mg/dL Calcium (8.4-10.2) mg/dL Magnesium (1.6-2.6) mg/dL Troponin I High Sens (<3.5-35.0) ng/L <ABBY Lindo Last Filed: 02/25/22 02:19> Independent Interpretation I performed an independent interpretation of an: EKG, Plain X-Ray and CT Scan <ABBY Lindo Last Filed: 02/25/22 02:19> Interpretation: Vent. rate 88 BPM TX interval 208 ms QRS duration 86 ms QT/QTc 346/418 ms P-R-T axes 44 51 14 Normal sinus rhythm Normal ECG No previous ECGs available 24-FEB-2022 20:05:41 <ABBY Lindo Last Filed: 02/25/22 02:19> Radiology Impression Discussion of test interpretation with radiology: I have reviewed the radiologist's reading. <ABBY Lindo Last Filed: 02/25/22 02:19> Radiologist Impression: FINDINGS: There is no evidence of acute intracranial hemorrhage or territorial infarction. No abnormal mass-effect or midline shift is seen. Sena to white matter differentiation is well preserved. No extra-axial fluid collections are identified. The ventricles are normal in size. There is no abnormal attenuation within the brain parenchyma. There is no osseous abnormality. The mastoid air cells and visualized portions of the paranasal sinuses are well-aerated. ? CT/CT head/brain wo IV con IMPRESSION: No acute intracranial pathology. ? EXAMINATION: XR CHEST CLINICAL INFORMATION: Chest pain COMPARISON: 08/26/2019 TECHNIQUE: Frontal view of the chest was obtained. FINDINGS: No significant abnormality is noted involving the heart, lungs, mediastinum, bony thorax or soft tissues. XR/XR chest 1V IMPRESSION: Unremarkable examination. <ABBY Lindo Last Filed: 02/25/22 02:19> Independent Historian Clinical information obtained from an independent historian. History obtained from or confirmed by: Spouse <ABBY Lindo Last Filed: 02/25/22 02:19> External Record Review External record reviewed: Outpatient record and Prior outpatient labs <ABBY Lindo Last Filed: 02/25/22 02:19> Prescription Management I considered prescription management with: Other (Blood pressure medication) <ABBY Lindo Last Filed: 02/25/22 02:19> Chronic Conditions Patient?s care impacted by: Hypertension <Hannah De Los Santos NP - Last Filed: 02/25/22 02:19> Discharge Plan Discharge Clinical Impression: Hypertension <HEMANT Balderas - Last Filed: 02/24/22 19:45> Patient Disposition: Home, Self-Care <HEMANT Balderas - Last Filed: 02/24/22 19:45> Instructions: Hypertension (ED) <HEMANT Balderas - Last Filed: 02/24/22 19:45> Additional Instructions: You were evaluated for elevated blood pressure. Please take lisinopril 5 mg daily. Follow up with your primary care physician in 1 month. I do understand that it is difficult to get into your primary care physician, I have given you 3 months of medication. Record your blood pressures daily, try to ta ke your blood pressure at least 5 hours after taking your medication. You will need repeat lab values to make sure that your electrolytes stay within normal limits. Your CT scan of the head is negative for acute findings there is no evidence of stroke on this image. Your chest x-ray is normal. Your EKG is normal sinus rhythm. Your cardiac enzymes are negative. Your white blood cell count is elevated, this is normal for the medications that you are taking for your rheumatoid arthritis Thank you for choosing this emergency department for evaluation. Please follow-up with primary care physician as needed. Return to the emergency department for any new, concerning, or worsening symptoms. <HEMANT Balderas - Last Filed: 02/24/22 19:45> Prescriptions: New lisinopril 5 mg tablet 5 mg PO DAILY Qty: 30 3RF No Action prednisone 2.5 mg tablet 2.5 mg PO DAILY Qty: 30 2RF Rinvoq 15 mg tablet extended release 24 hr 15 mg PO DAILY Qty: 30 1RF omega-3 fatty acids [Fish Oil Concentrate] 1,000 mg capsule 2,000 mg PO DAILY <HEMANT Balderas - Last Filed: 02/24/22 19:45> Referrals: Edinson Calle MD [Primary Care Provider] - 03/24/22 (Follow-up in 1 month for elevated blood pressure.) <HEMANT Balderas - Last Filed: 02/24/22 19:45> Interventions: ED Discharge Assessment Last Done: 02/24/22 22:56 <HEMANT Balderas - Last Filed: 02/24/22 19:45> Discharge Date/Time: 02/24/22 22:56 <HEMANT Balderas - Last Filed: 02/24/22 19:45>
--- NOTE | 2022-02-24 19:43 | ECG_ITS ---
Test Reason : chest pain Blood Pressure : / mmHG Vent. Rate : 088 BPM Atrial Rate : 088 BPM P-R Int : 208 ms QRS Dur : 086 ms QT Int : 346 ms P-R-T Axes : 044 051 014 degrees QTc Int : 418 ms Normal sinus rhythm Normal ECG No previous ECGs available Referred By: Lucina Hurd Electronically Signed By:Dimitri Wang
[2022-02-24 20:19] LABS: MANUAL DIFF FLAG NO
[2022-02-24 20:21] LABS: Basophils Absolute Auto 0.1 X10*3/uL (0.0-0.2); Basophils Percent Auto 0.4 % (0-2); Eosinophils Absolute Auto 0.1 X10*3/uL (0.0-0.4); Eosinophils Percent Auto 0.4 % (0-4); Hematocrit 45.7 % (42.0-52.0); Hemoglobin 15.8 g/dl (14.0-18.0); Imm Gran Abs Auto 0.06 X10*3/uL (0.00-0.03); Imm Gran Pct Auto 0.4 % (0.0-0.4); Lymphocytes Absolute Auto 3.6 X10*3/uL (1.2-4.9); Lymphocytes Percent Auto 22.5 % (20-40); Mean Corpuscular HGB Conc 34.6 g/dl (31.0-36.0); Mean Corpuscular Hemoglobin 31.7 pg (27.0-33.0); Mean Corpuscular Volume 91.6 fL (80.0-98.0); Mean Platelet Volume 9.5 fL (9.4-12.4); Monocytes Absolute Auto 1.4 X10*3/uL (0.1-1.2); Monocytes Percent Auto 8.5 % (2-11); Neutrophils Absolute Auto 10.8 x10*3/uL (2.0-8.3); Neutrophils Percent Auto 67.8 % (45-73); Platelet Count 319 X10*3/uL (160-400); Red Blood Count 4.99 X10*6/uL (4.60-5.80); Red Cell Distribution Width 12.6 % (11.0-16.0); White Blood Count 15.9 X10*3/uL (4.8-10.8)
[2022-02-24 20:26] LABS: INTERNATIONAL NORM RATIO 0.9 (0.9-1.1); Prothrombin Time 10.7 SEC (10.0-13.1)
[2022-02-24 20:37] LABS: Anion Gap 17 (12-20); Blood Urea Nitrogen 10 mg/dL (9-16); Calcium 10.1 mg/dL (8.4-10.2); Carbon Dioxide 24 mmol/L (22-29); Chloride 99 mmol/L (96-108); Creatinine Clr Calc Pharmacy 108.3; Estimated Glomerular Filt Rate > 60; Glucose Random 102 mg/dL (60-115); Magnesium 2.4 mg/dL (1.6-2.6); Potassium 4.3 mmol/L (3.3-5.1); Sodium 136 mmol/L (135-145)
[2022-02-24 20:44] LABS: Troponin-I High Sensitivity < 3.5 ng/L (<3.5-35.0)
[2022-02-24 21:20] VITALS: BP 186/109; PULSE 86; TEMP 36.6; O2SAT 96
[2022-02-24] MEDS: lisinopriL 10 MG TABLET PO (22:44)
[2022-02-24 22:55] VITALS: BP 160/98; PULSE 76; RESP 16; TEMP 36.8; O2SAT 97
== END 2022-02-24 22:56 | disposition home or self-care (01) ==
PROVIDERS: Physician Assistant; Emergency Provider Internal Medicine; PCP Internal Medicine
DX: I10 Essential (primary) hypertension (principal); M05.9 Rheumatoid arthritis with rheumatoid factor, unspecified
CPT/HCPCS: 36415; 70450; 71045; 80048; 83735; 84484; 85025; 85610; 93005; 99284

== ENCOUNTER 2022-03-07 06:05 | Outpatient (REF) | payer OTHER, SELFPAY ==
[2022-03-07 06:16] LABS: MANUAL DIFF FLAG NO
[2022-03-07 07:24] LABS: Basophils Absolute Auto 0.1 X10*3/uL (0.0-0.2); Basophils Percent Auto 0.8 % (0-2); Eosinophils Absolute Auto 0.2 X10*3/uL (0.0-0.4); Eosinophils Percent Auto 1.6 % (0-4); Hematocrit 42.1 % (42.0-52.0); Hemoglobin 14.3 g/dl (14.0-18.0); Imm Gran Abs Auto 0.03 X10*3/uL (0.00-0.03); Imm Gran Pct Auto 0.3 % (0.0-0.4); Lymphocytes Absolute Auto 1.9 X10*3/uL (1.2-4.9); Lymphocytes Percent Auto 18.7 % (20-40); Mean Corpuscular Hemoglobin 31.8 pg (27.0-33.0); Mean Corpuscular Volume 93.6 fL (80.0-98.0); Mean Platelet Volume 10.1 fL (9.4-12.4); Monocytes Absolute Auto 0.9 X10*3/uL (0.1-1.2); Monocytes Percent Auto 8.8 % (2-11); Neutrophils Percent Auto 69.8 % (45-73); Platelet Count 282 X10*3/uL (160-400); Red Cell Distribution Width 12.4 % (11.0-16.0); White Blood Count 10.1 X10*3/uL (4.8-10.8)
[2022-03-07 07:47] LABS: Alanine Aminotransferase 53 U/L (0-40); Aspartate Amino Transferase 31 U/L (5-37); C Reactive Protein 0.28 mg/dL (< or = 0.50); Estimated Glomerular Filt Rate > 60
[2022-03-07 08:15] LABS: Erythrocyte Sedimentation Rate 6 MM/HR (0-15)
== END 2022-03-07 06:06 | disposition home or self-care (01) ==
LOC: HO.LAB 06:05
PROVIDERS: PCP Internal Medicine; Visit Provider Nurse Practitioner Family
DX: M05.9 Rheumatoid arthritis with rheumatoid factor, unspecified (principal); Z79.899 Other long term (current) drug therapy
CPT/HCPCS: 36415; 82565; 84450; 84460; 85025; 85652; 86140

== ENCOUNTER → 2022-04-28 07:46 | Outpatient (REF) | payer OTHER, SELFPAY ==
--- NOTE | 2022-04-28 07:56 | CA_ITS ---
Acquisition Time: 2022-04-28 09:04:19 Total Exercise Time: 00:06:00 Test Indications: CP Medications: SEE H Protocol: BEN Max HR: 151 BPM 90% of Pred: 166 BPM Max BP: 210/080 mmHG Max Work Load: 7.0 METS Exercise stress test with exercise 6 min of Ben protocol, achieving 90% MPHR, with mild sob, no chest discomfort, with one ventricular cuplet in early recovery, with normotensive response to exercise, with baseline EKG showing slight downslope of ST in leads III, aVF and V4-V6, with EKG at peak not showing ischemic changes however EKG in recovery has recurrent downsloping STs inferiorly and V4-V6. Ischemia can't entirely be excluded. Test reviewed with Dr Wang. Referred By: Edinson Calle Overread By: RODRÍGUEZ BORDEN
--- NOTE | 2022-04-28 07:56 | CA_ITS ---
Transthoracic Echocardiogram Patient (Last, First, Middle): Teddy Chin, Gender: Male Date of : 1965 Age: 56 Procedure Date: 04/28/2022 Procedure Type: Transthoracic Echocardiogram Location: OP Height: 177.8 cm Weight: 81.65 kg BSA: 2.00 m2 Heart Rate: bpm BP: 134 / 90 mmHg Photography Assistant: TO Referring MD: Edinson Calle MD Symptoms: I10 - Essential (primary) hypertension Study Quality: Fair ECG Rhythm: Sinus Conclusions: - The left ventricular systolic function is normal. The calculated ejection fraction is 62% by biplane method. - No obvious valvular pathology seen on this study. Findings Left Ventricle Normal left ventricular cavity size. There is normal left ventricular wall thickness. The left ventricular systolic function is normal. The calculated ejection fraction is 62% by biplane method. There is no evidence of regional wall motion abnormalities. Diastolic function is normal for age. Right Ventricle Normal right ventricular cavity size and systolic function. Atria Both atria are normal in size. Aortic Valve There is a normal trileaflet aortic valve. There is no aortic valve stenosis. There is no aortic valve regurgitation. Mitral Valve The mitral valve appears normal. There is no mitral valve regurgitation. There is no mitral valve stenosis. Pulmonic Valve The pulmonic valve is likely normal. Tricuspid Valve Normal tricuspid valve structure. There is trace tricuspid valve regurgitation. There is no evidence of pulmonary hypertension. Great Vessels The asc aorta is normal in size. Venous The inferior vena cava is normal in size and collapses greater than 50% with inspiration. Pericardium/Pleural There is no evidence of pericardial effusion. Prior Study Comparison No prior study available for comparison. Recommendations, Care & Conclusions No obvious valvular pathology seen on this study. Measurements 2D Linear Measurements IVSd: 0.99 0.6-0.9/0.6-1.0 cm LVIDd: 4.47 3.9-5.3/4.2-5.9 cm LVIDd Index: 2.24 2.4-3.2/2.2-3.1 cm/m2 LVIDs: 3.07 2.0-3.6 cm LVPWd: 0.92 0.7-1.1 cm LA Diam: 3.00 2.7-3.8/3.0-4.0 cm LAIDs Index: 1.50 1.5-2.3 cm/m2 LV Mass: 176.81 67-162/88-224 g LV Mass Index: 88.41 43-95/49-115 g/m2 LVOT Diam: 2.20 3.0+(-)1.3 cm 2D Systolic Function EF 4C: 62.90 >55% EF 2C: 57.70 >55% EF BiP: 61.60 >55% Mitral Valve MV Pk E: 0.61 MV PK A: 0.76 MV Decel Time: 147.00 E/A: 0.80 E'Lateral: 9.79 E'Medial: 5.44 E/E' Med: 11.20 E/E' Lat: 6.20 PHT: 43.00 MVA PHT: 5.12 Decel Pinal: 4.13 Aortic Valve AoV Pk Ad: 1.23 AoV Mn Ad: 0.86 AoV VTI: 0.19 AoV Pk Grad: 6.00 Aov Mn Grad: 3.00 TAMI Cont.VTI: 3.54 LVOT LVOT Pk Ad: 1.04 LVOT Mn Ad: 0.69 LVOT VTI: 0.18 LVOT Pk Grad: 4.00 LVOT Mn Grad: 2.00 LVOT Diam: 2.20 LVOT Area: 3.80 Diastolic Function MV Pk E: 0.61 MV Pk A: 0.76 E/A: 0.80 E'Medial: 5.44 E/E' Med: 11.20 E' Laterial: 9.79 E/E' Lat: 6.20 Right Ventricle TAPSE (mm): 19.40 TVS' Ad: 12.10 Tricuspid Valve TR Pk Ad: 2.08 TR Pk Grad: 17.00 RA Press: 3.00 RVSP: 20.00 Great Vessels Aorta Sinus of Valsalva: 3.56 2.0-3.5 cm Ao Asc: 3.10 2.1-3.4 cm Updated in Other Vendor System with Status of Final Ney Vega MD electronically signed on 04/28/2022 4:01:05 PM with status of Final
== END ==
LOC: HO.CARD 07:46
PROVIDERS: Visit Provider Internal Medicine
DX: R07.89 Other chest pain (principal); I10 Essential (primary) hypertension
CPT/HCPCS: 93017; 93306

== ENCOUNTER 2022-05-22 15:43 | Outpatient (REF) | payer OTHER, SELFPAY ==
[2022-05-22 15:54] LABS: MANUAL DIFF FLAG NO
[2022-05-22 17:25] LABS: Basophils Absolute Auto 0.1 X10*3/uL (0.0-0.2); Basophils Percent Auto 0.7 % (0-2); Eosinophils Absolute Auto 0.1 X10*3/uL (0.0-0.4); Eosinophils Percent Auto 1.1 % (0-4); Hematocrit 40.6 % (42.0-52.0); Hemoglobin 13.9 g/dl (14.0-18.0); Imm Gran Abs Auto 0.03 X10*3/uL (0.00-0.03); Imm Gran Pct Auto 0.3 % (0.0-0.4); Lymphocytes Absolute Auto 3.6 X10*3/uL (1.2-4.9); Lymphocytes Percent Auto 41.1 % (20-40); Mean Corpuscular HGB Conc 34.2 g/dl (31.0-36.0); Mean Corpuscular Hemoglobin 31.4 pg (27.0-33.0); Mean Corpuscular Volume 91.6 fL (80.0-98.0); Mean Platelet Volume 10.3 fL (9.4-12.4); Monocytes Absolute Auto 0.9 X10*3/uL (0.1-1.2); Monocytes Percent Auto 10.3 % (2-11); Neutrophils Absolute Auto 4.1 x10*3/uL (2.0-8.3); Neutrophils Percent Auto 46.5 % (45-73); Platelet Count 264 X10*3/uL (160-400); Red Blood Count 4.43 X10*6/uL (4.60-5.80); Red Cell Distribution Width 12.7 % (11.0-16.0); White Blood Count 8.7 X10*3/uL (4.8-10.8)
[2022-05-22 18:13] LABS: Alanine Aminotransferase 62 U/L (0-40); Albumin Level 4.2 g/dL (3.5-5.0); Alkaline Phosphatase 82 U/L (39-117); Anion Gap 17 (12-20); Aspartate Amino Transferase 35 U/L (5-37); Bilirubin Total 0.4 mg/dL (0.0-1.0); Blood Urea Nitrogen 11 mg/dL (9-16); C Reactive Protein 0.11 mg/dL (< or = 0.50); Calcium 9.3 mg/dL (8.4-10.2); Carbon Dioxide 23 mmol/L (22-29); Chloride 106 mmol/L (96-108); Estimated Glomerular Filt Rate > 60; Glucose Random 101 mg/dL (60-115); Total Protein 6.9 g/dL (6.5-8.0)
[2022-05-22 19:19] LABS: Erythrocyte Sedimentation Rate 9 MM/HR (0-15)
== END 2022-05-22 15:44 | disposition home or self-care (01) ==
LOC: HO.LAB 15:43
PROVIDERS: PCP Internal Medicine; Visit Provider Nurse Practitioner Family
DX: M05.9 Rheumatoid arthritis with rheumatoid factor, unspecified (principal)
CPT/HCPCS: 36415; 80053; 85025; 85652; 86140

== ENCOUNTER → 2022-06-12 11:16 | Outpatient (BNVA) | payer OTHER, SELFPAY | PROVIDERS: PCP Internal Medicine; Visit Provider Nurse Practitioner Family | DX: Z13.89 Encounter for screening for other disorder (principal) ==

== ENCOUNTER → 2022-08-11 14:38 | Outpatient (BNVA) | payer OTHER, SELFPAY | PROVIDERS: PCP Internal Medicine; Referring Provider Internal Medicine; Visit Provider Internal Medicine ==

== ENCOUNTER 2022-08-27 10:01 | Outpatient (AMB) | payer OTHER, SELFPAY ==
--- NOTE | 2022-08-27 10:03 | MHC.PC.OV ---
Vital Signs 08/27/22 10:06 Height 5 ft 11 in Weight 190 lb BMI 26.5 BP 132/68 Blood Pressure Location Rt brachial Position Sitting Pulse 84 Pulse Source Pulse Oximeter Pulse Oximetry (%) 97 Oxygen Delivery Method Room Air Intake Visit Reasons: 4 month followup Allergies No Known Allergies Allergy (Verified 08/27/22 10:08) Medication List - Last Reconciled 08/27/22 by Edinson Calle MD atenolol 25 mg PO DAILY lisinopril 40 mg PO DAILY omega-3 fatty acids (Fish Oil Concentrate) 2,000 mg PO DAILY pantoprazole 40 mg PO DAILY prednisone 2 mg (2 x 1 mg) PO DAILY qzxvrkm-pqpf-wqgse-oreg-capryl 100 mg-150 mg- 50 mg-150 mg caps PO upadacitinib ER (Rinvoq) 15 mg PO DAILY Tobacco use date assessed: 08/27/22 Dental Screening Dental Screen Date: 08/27/22 Did you have a dental visit in the last 12 months?: No Did you have a dental problem in the last 6 months where you did not have access to dental care?: No Was dental information given to patient?: No HPI 4 month followup HPI Details Patient is a 56-year-old gentleman came in today for follow-up on blood pressure Patient has seen Cardiology Dr. Vega August 08, note reviewed, his stress test was slightly abnormal, CTA chest was ordered patient is still waiting the appointment. Patient does admit to drinking alcohol daily , he tells me that he has cut down to half of what he was drinking before Last visit I added pantoprazole 40 mg any complain of continues throat irritation. He is feeling better Hypertension: Blood pressure is 132/68 patient is on atenolol 25 mg and lisinopril 40 mg, tolerating medications no side effects. Rheumatoid arthritis management through rheumatology [facility]. Patient says that he has labs ordered by Rheumatology, we will review those and will add if more labs are needed before next visit. Follow-up 4 months [facility] Medical History Essential hypertension Seropositive rheumatoid arthritis Surgical History H/O wrist surgery Family History Father Hypertension Stented coronary artery Mother Hypertension Other Mental health disorder Social History Housing: House Alcohol intake: current Alcohol intake frequency: 3 or more drinks per day Alcohol type: beer Patient Tobacco Use Status: Current everyday Tobacco user Tobacco use type: Cigarette Cigarettes Per Day: 30 Years Smoked: 35 e-Cigarette/Vaping Use: Never Used Second Hand Smoke Exposure: No Current occupational status: 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 How often do you have a drink containing alcohol?: 4 or more times a week 2. How many drinks containing alcohol do you have on a typical day when you are drinking?: 3 or 4 3. How often do you have six or more drinks on one occasion?: Never Total Score: 5 Score Reviewed/Action Taken: Yes COLUMBA-7 AMB Questionnaire COLUMBA-7 Date COLUMBA - 7 assessed: 01/22/21 Source: Developed by Drs. Lorenzo Rojas, Shira Roche, Agus Chen and colleagues, with an educational mer from [employer]. Review of Systems Const Denies chills and Denies fever(s) ENT Denies epistaxis and Denies nasal discharge Card Denies chest pain Resp Denies chest congestion, Denies cough and Denies hemoptysis GI Denies diarrhea and Denies nausea Skin/Breast Denies rash Neuro Reports no additional complaints Psych Reports no additional complaints Endo Reports no additional complaints Physical exam (Primary Care) Vital Signs: Last Vital Signs Pulse 84 08/27/22 10:06 BP 132/68 08/27/22 10:06 Pulse Ox 97 08/27/22 10:06 Oxygen Delivery Method Room Air 08/27/22 10:06 BMI result Body Mass Index 26.5 Tobacco/Smoking Status: Tobacco use Status Tobacco use date assessed 08/27/22 08/27/22 10:08 Patient Tobacco Use Status Current everyday Tobacco 08/27/22 10:04 Tobacco use type Cigarette 08/27/22 10:04 e-Cigarette/Vaping Use Never Used 08/27/22 10:04 Thrive Assessment: Date of Thrive Assessment Date Thrive assessed 01/22/21 08/27/22 10:04 Const General: cooperative, comfortable and no acute distress Orientation/consciousness: patient oriented x3 HENMT Head: Yes normocephalic Eyes General: appearance normal, both eyes and all related structures Neck Neck: Yes supple Resp Effort & Inspection: normal respiratory effort, no cough and no stridor Cardio Rhythm: regular rhythm Heart sounds: S1 normal heart sound present and S2 normal heart sound present Skin General skin exam: turgor normal Neuro General: patient oriented x3, tone normal and moves all extremities Extrem Right lower extremity: no edema Left lower extremity: no edema Assessment and Plan Assessment & Plan (1) Essential hypertension: Code(s): I10 - Essential (primary) hypertension (2) Chronic GERD: Code(s): K21.9 - Gastro-esophageal reflux disease without esophagitis (3) Alcoholism: Comment: CONSEQUENCES OF DRINKING PROBLEMS There are a number of serious consequences of drinking alcohol excessively -------Excessive alcohol consumption is a leading preventable cause of in the [place]. --------Drinking alcohol increases the risk of traffic accidents, suicide, drowning, and other serious injuries. -------Alcohol use continues to be the leading cause of injuries treated in trauma centers and emergency departments . --------Alcohol-related liver disease may lead to end-stage liver disease (cirrhosis) and . --------Alcohol increases the risk of certain cancers of the mouth, esophagus, throat, liver, and breast. Code(s): F10.20 - Alcohol dependence, uncomplicated (4) Abnormal stress test: Code(s): R94.39 - Abnormal result of other cardiovascular function study (5) Rheumatoid arthritis: Code(s): M06.9 - Rheumatoid arthritis, unspecified Plan Patient is a 56-year-old gentleman came in today for follow-up on blood pressure Patient has seen Cardiology Dr. Vega August 08, note reviewed, his stress test was slightly abnormal, CTA chest was ordered patient is still waiting the appointment. Patient does admit to drinking alcohol daily , he tells me that he has cut down to half of what he was drinking before Last visit I added pantoprazole 40 mg any complain of continues throat irritation. He is feeling better Hypertension: Blood pressure is 132/68 patient is on atenolol 25 mg and lisinopril 40 mg, tolerating medications no side effects. Rheumatoid arthritis management through rheumatology [facility]. Patient says that he has labs ordered by Rheumatology, we will review those and will add if more labs are needed before next visit. Follow-up 4 months Coding Level of Care Code Est Pt Level 4 (04561) Diagnoses Essential hypertension I10 Chronic GERD K21.9 Alcoholism F10.20 Abnormal stress test R94.39 Rheumatoid arthritis M06.9
[2022-08-27 10:06] VITALS: BP 132/68; PULSE 84; O2SAT 97; BMI 26.5
== END 2022-08-27 11:18 | disposition home or self-care (01) ==
PROVIDERS: Visit Provider Internal Medicine
DX: I10 Essential (primary) hypertension (principal); K21.9 Gastro-esophageal reflux disease without esophagitis; F10.20 Alcohol dependence, uncomplicated; M06.9 Rheumatoid arthritis, unspecified; R94.39 Abnormal result of other cardiovascular function study
CPT/HCPCS: 99214

== ENCOUNTER 2022-10-09 10:05 | Outpatient (AMB) | payer OTHER, SELFPAY ==
--- NOTE | 2022-10-09 10:17 | A.OFFVIS_ITS ---
Intake Vital Signs 10/09/22 10:18 Height 5 ft 11 in Weight 188 lb 7.924 oz BMI 26.3 BP 120/60 Blood Pressure Location Lt brachial Position Sitting Pulse 104 H Pulse Source Pulse Oximeter Temp 98.8 F Temp Source Skin Pulse Oximetry (%) 96 Oxygen Delivery Method Room Air Intake Visit Reasons: ra Intake Note: Here for RA follow up Direct Customer Service Representative Required: No Accompanied by: Self / Same As Patient Allergies No Known Allergies Allergy (Verified 10/09/22 10:18) Medication List - Last Reconciled 10/09/22 by Ace Houston MD atenolol 25 mg PO DAILY lisinopril 40 mg PO DAILY omega-3 fatty acids (Fish Oil Concentrate) 2,000 mg PO DAILY pantoprazole 40 mg PO DAILY prednisone 2 mg (2 x 1 mg) PO DAILY rosuvastatin (Crestor) 20 mg PO DAILY tptqyzt-ptib-rvrtm-oreg-capryl 100 mg-150 mg- 50 mg-150 mg caps PO upadacitinib ER (Rinvoq) 15 mg PO DAILY HPI HPI Comments History of Present Illness Details The patient returns for evaluation of his rheumatoid arthritis. He was last seen by Lennie in May. He remains on Rinvoq 15 mg daily and prednisone 2 mg daily. On good days he occasionally does not take the prednisone. Recently there has been about a week or two of pain in the left wrist. This is felt on the dorsum but no redness or swelling has been noted. He has not had any injury to the area. There are much less frequent times of discomfort in the left knee, mostly laterally. There is also some occasional left instep pain. He is undergoing cardiac workup for possible coronary disease. He did have an equivocal stress test. Cardiac CT is being planned. 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 There is a history of a tenosynovectomy in the right wrist done about 2 years ago. That does not seem to bother him. [facility] Medical History Essential hypertension Seropositive rheumatoid arthritis Surgical History H/O wrist surgery Family History (Updated 10/09/22 @ 10:29 by MYKEL [facility]) Father Hypertension Stented coronary artery Mother Hypertension Other Mental health disorder Social History Housing: House Alcohol intake: current Alcohol intake frequency: 3 or more drinks per day Alcohol type: beer Patient Tobacco Use Status: Current everyday Tobacco user Tobacco use type: Cigarette Cigarettes Per Day: 30 Years Smoked: 35 e-Cigarette/Vaping Use: Never Used Second Hand Smoke Exposure: No Current occupational status: 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 Card Details: Negative chest pain, edema and syncope Resp Details: Negative for SOB, cough and wheezing GI Details: Negative indigestion/heartburn, nausea, abdominal pain, bowel changes, diarrhea, constipation and bloody stool. Endo Details: Negative for polyuria and polydypsia Aníbal/Lymph Details: Negative for excessive bruising or bleeding. Physical Exam Vital Signs: Last Vital Signs Temp 98.8 F 10/09/22 10:18 Pulse 104 H 10/09/22 10:18 BP 120/60 10/09/22 10:18 Pulse Ox 96 10/09/22 10:18 Oxygen Delivery Method Room Air 10/09/22 10:18 BMI result Body Mass Index 26.3 APPEARANCE: Patient in no acute distress EYES no redness, pupils equal and reactive to light, eyelids normal EXTREMITIES: No edema, no calf tenderness, normal peripheral pulses. JOINT EXAM: Cervical Spine: Full range of motion without pain; no tenderness. Thoracic Spine:?No tenderness on palpation. Lumbar Spine: Alignment normal.? Full range of motion without pain, no tenderness. Hands:? LEFT: Normal pain-free range of motion without tenderness, swelling, increased warmth or erythema. There is some slight tenderness and bony enlargement at the 3rd PIP. No thenar atrophy or sensory loss. Able to make a full fist and has good grinder set up operator universal strength. ? RIGHT:? Normal pain free range of motion without tenderness, swelling, increased warmth or erythema.? Able to make a full fist and has good grinder set up operator universal strength.? Well-healed scar over the dorsum of the hand. No thenar atrophy or sensory loss. Wrists: Right: Normal pain-free range of motion without tenderness, swelling, increased warmth or erythema. There is a large scar on the dorsum of the wrist which is the side of the extensor tendon synovectomy. This seems well healed without tenderness. Left: Pain-free range of motion to 75 degrees flexion or extension. There is some slight dorsal tenderness but no redness or swelling. Elbows: Normal pain-free range of motion without tenderness, swelling, increased warmth or erythema. Shoulders:? Full range of motion without pain. No tenderness, weakness, swelling, increased warmth or erythema. Hips: Full range of motion without pain. Hip bursa:? No tenderness. Knees:? Normal pain-free range of motion without tenderness.? There is no effusion or crepitation Ankles: Left: Normal pain-free range of motion with some slight lateral tenderness. Normal pain-free range of motion without tenderness, swelling, increased warmth or erythema. Feet:? Left: Slight bony enlargement at the 1st MTP but no tenderness. Right: Normal pain-free range of motion without tenderness, swelling, increased warmth or erythema. Results Reviewed Results Reviewed: Laboratory Tests 05/22/22 05/22/22 05/22/22 15:52 15:52 15:52 WBC 8.7 Hgb 13.9 L ESR 9 Creatinine 0.86 AST 35 ALT 62 H C-Reactive Protein 0.11 Assessment & Plan Assessment & Plan (1) Hyperlipidemia: Code(s): E78.5 - Hyperlipidemia, unspecified (2) Long-term use of immunosuppressant medication: Code(s): Z79.60 - MCFP (current) use of unspecified immunomodulators and immunosuppressants (3) Seropositive rheumatoid arthritis: Comment: Humira 09/04- 03/2020 Enbrel March 2020 - September 2020 discontinued due to insurance O[place] denied by insurance Rinvoq September 2020 - present Prednisone 09/05/2019 - present Code(s): M05.9 - Rheumatoid arthritis with rheumatoid factor, unspecified Plan RA with good control of synovitis with present treatment. The left wrist is not swollen but it is tender. There could be long-standing change there due to RA given the cystic and erosive change in the right wrist so we will check an xray. He wants to check his lipids so we will order a lipid panel. Labs are due to monitor the Rinvoq use. A follow-up at three months is recommended. For now we will keep the prednisone at 2 mg daily. Orders: Orders XR hand LT min 3V Today M05.9 - Rheumatoid arthritis with rheumatoid factor, unspecified Lipid Panel Today E78.5 - Hyperlipidemia, unspecified Coding Level of Care Code Est Pt Level 3 (88576) Diagnoses Hyperlipidemia E78.5 Long-term use of immunosuppressant medication Z79.60 Seropositive rheumatoid arthritis M05.9
[2022-10-09 10:18] VITALS: BP 120/60; PULSE 104; TEMP 37.1; O2SAT 96; BMI 26.3
== END 2022-10-09 11:11 | disposition home or self-care (01) ==
PROVIDERS: PCP Internal Medicine; Visit Provider Internal Medicine Rheumatology
DX: M05.732 Rheumatoid arthritis with rheumatoid factor of left wrist without organ or systems involvement (principal); Z79.52 Long term (current) use of systemic steroids; Z79.60 Long term (current) use of unspecified immunomodulators and immunosuppressants; E78.5 Hyperlipidemia, unspecified
CPT/HCPCS: 99213

== ENCOUNTER → 2022-10-09 10:05 | Outpatient (BNVA) | payer OTHER, SELFPAY | PROVIDERS: PCP Internal Medicine; Visit Provider Internal Medicine Rheumatology ==

== ENCOUNTER 2022-10-13 13:36 | Outpatient (AMB) | payer OTHER, SELFPAY ==
--- NOTE | 2022-10-13 14:00 | A.OFFVIS_ITS ---
Intake Vital Signs 10/13/22 14:01 Height 5 ft 11 in Weight 189 lb 9.561 oz BMI 26.4 BP 140/82 H Blood Pressure Location Lt brachial Position Sitting Pulse 88 Pulse Source Pulse Oximeter Intake Visit Reasons: FOLLOW UP AFTER CTA. Intake Note: f/u after CTA Expediter Clerk Required: No Allergies No Known Allergies Allergy (Verified 10/13/22 14:04) Medication List - Last Reconciled 10/13/22 by Bessie Potter NP-C atenolol 25 mg PO DAILY lisinopril 40 mg PO DAILY omega-3 fatty acids (Fish Oil Concentrate) 2,000 mg PO DAILY pantoprazole 40 mg PO DAILY prednisone 2 mg (2 x 1 mg) PO DAILY rosuvastatin (Crestor) 20 mg PO DAILY syqvpvi-btuh-vbbhd-oreg-capryl 100 mg-150 mg- 50 mg-150 mg caps PO upadacitinib ER (Rinvoq) 15 mg PO DAILY HPI FOLLOW UP AFTER CTA. HPI Details Teddy is a 56-year-old male with past medical history of hypertension, hyperlipidemia, alcohol use, previously reported chest discomfort and underwent a stress test which was abnormal. He then had a coronary artery CTA and now presents for follow-up. Today he reports he has been feeling very well recently. He has no reports of chest discomfort at rest or with activity. He has not been getting the burning sensation that he had felt in the past. He denies shortness of breath, palpitations, dizziness, presyncope, syncope, PND, orthopnea or edema. He is taking his medications as directed. 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 Cognitive needs: No Hearing needs: No Vision needs: Yes Review of Systems Const All systems reviewed & are unremarkable except as noted in HPI and below ENT Denies dizziness Card Denies chest pain, Denies chest pain at rest, Denies chest pain with activity, Denies rapid heart rate, Denies pedal edema, Denies edema, Denies leg edema, Denies lightheadedness, Denies palpitations, Denies dyspnea, Denies dyspnea on exertion and Denies orthopnea Resp Denies cough, Denies dyspnea and Denies dyspnea on exertion GI Denies hematochezia and Denies change in stool character Musc Denies abnormal gait, Denies limited range of motion, Denies muscle cramps, Denies muscle weakness, Denies numbness, Denies radiating pain into limb, Denies stiffness and Denies tingling Neuro Denies abnormal gait, Denies dizziness, Denies numbness and Denies tingling Endo Denies palpitations Physical Exam Vital Signs: Last Vital Signs Pulse 88 10/13/22 14:01 BP 140/82 H 10/13/22 14:01 BMI result Body Mass Index 26.4 Const General: cooperative, healthy appearing, comfortable and no acute distress Orientation/consciousness: patient oriented x3 Neck Neck: Yes normal visual inspection and Yes no JVD Resp Effort & Inspection: normal respiratory effort Auscultation: clear to auscultation bilaterally, no crackles, no rales, no rhonchi and no wheezes Cardio Jugular venous distension: no JVD Rate: regular rate Rhythm: regular rhythm Heart sounds: S1 normal heart sound present, S2 normal heart sound present, no gallops, no murmurs and no rubs Neuro General: patient oriented x3 Extrem General: Yes normal to inspection and No no pedal edema Psych Appearance: grossly normal Mental Status: mental status grossly normal Speech and movement: Normal speech and movement present Assessment & Plan Assessment & Plan (1) Abnormal stress test: Code(s): R94.39 - Abnormal result of other cardiovascular function study Plan: Prior reports of chest discomfort, burning. Exercise stress test done on 04/28/2022 showed exercise 6 minutes with mild shortness of breath, no chest discomfort with EKG changes, ischemia could not be excluded. He has cardiac risk factors of hypertension, hyperlipidemia. He underwent a CTA of the coronary arteries on 10/03/2022 showing mild coronary artery calcifications, lad less than 40% stenosis, left circumflex overall mild to moderate plaque burden, proximal 40% stenosis, mid up to 50% stenosis, RCA proximal normal, mid degraded by cardiac motion, distal normal. Reviewed findings of coronary artery atherosclerosis with him. Signs and symptoms of angina reviewed. At this point he denies having any chest discomfort at rest or with exertion. His prior burning has resolved. He is on atenolol, Crestor. Will have him start aspirin 81 mg daily. Instructed to call this office if he has any recurrent symptoms, angiogram will then be recommended. Emergency care if needed for symptoms. Cardiology office visit in 6 months, sooner if needed (2) Coronary atherosclerosis: Code(s): I25.10 - Atherosclerotic heart disease of [place] coronary artery without angina pectoris (3) Essential hypertension: Code(s): I10 - Essential (primary) hypertension Plan: Mildly elevated today. Recheck done by me 130/80. He tells me his home blood pressures range 110 to 120 systolic. Will have him continue on atenolol and lis inopril. (4) Hyperlipidemia: Code(s): E78.5 - Hyperlipidemia, unspecified Plan: [place] LDL goal less than 70. He is on Crestor 20 mg daily. He tells me he is due for labs by his PCP including lipid profile. Further titrate Crestor dose if warranted Coding Level of Care Code Est Pt Level 4 (17585) Diagnoses Abnormal stress test R94.39 Coronary atherosclerosis I25.10 Essential hypertension I10 Hyperlipidemia E78.5 Time Spent (min) 28 Comment Chart review, documentation, interview, assessment
[2022-10-13 14:01] VITALS: BP 140/82; PULSE 88; BMI 26.4
== END 2022-10-13 14:41 | disposition home or self-care (01) ==
PROVIDERS: PCP Internal Medicine; Referring Provider Internal Medicine; Visit Provider Nurse Practitioner Family
DX: R94.39 Abnormal result of other cardiovascular function study (principal); I25.10 Atherosclerotic heart disease of native coronary artery without angina pectoris; I10 Essential (primary) hypertension; E78.5 Hyperlipidemia, unspecified
CPT/HCPCS: 99214

== ENCOUNTER 2022-10-13 13:36 | Outpatient (REF) | payer OTHER, SELFPAY ==
--- NOTE | ~2022-10-13 | XR_ITS ---
EXAMINATION: XR HAND, LEFT CLINICAL INFORMATION: Rheumatoid arthritis. COMPARISON: Radiographs dated 05/02/2020 and 08/26/2019. TECHNIQUE: PA, lateral, and oblique views of the left hand. FINDINGS: Bony alignment and mineralization are normal. There is a mild ulnar positive variance. No fracture or dislocation is seen. Small cysts are again seen within the carpal bones, in particular the trapezium. A small cyst is again noted within the base of the second metacarpal bone. No fracture or dislocation is seen. There is a small periarticular calcification seen adjacent to the second distal interphalangeal joint. No focal bone erosion is seen. There is no focal soft tissue swelling, gas or foreign body. XR/XR hand LT min 3V IMPRESSION: There are cystic degenerative changes of the distal carpal row and second metacarpal base. No abnormal bone erosion is seen. No fracture or dislocation is seen.
== END 2022-10-13 13:37 | disposition home or self-care (01) ==
LOC: HO.XRAY 13:36
PROVIDERS: PCP Internal Medicine; Referring Provider Internal Medicine; Visit Provider Nurse Practitioner Family
DX: M05.9 Rheumatoid arthritis with rheumatoid factor, unspecified (principal)
CPT/HCPCS: 73130

== ENCOUNTER 2022-10-16 06:15 | Outpatient (REF) | payer OTHER, SELFPAY ==
[2022-10-16 06:33] LABS: MANUAL DIFF FLAG NO
[2022-10-16 07:03] LABS: Basophils Absolute Auto 0.1 X10*3/uL (0.0-0.2); Basophils Percent Auto 0.9 % (0-2); Eosinophils Absolute Auto 0.2 X10*3/uL (0.0-0.4); Eosinophils Percent Auto 1.5 % (0-4); Hematocrit 41.4 % (42.0-52.0); Hemoglobin 14.5 g/dl (14.0-18.0); Imm Gran Abs Auto 0.05 X10*3/uL (0.00-0.03); Imm Gran Pct Auto 0.5 % (0.0-0.4); Lymphocytes Absolute Auto 2.4 X10*3/uL (1.2-4.9); Lymphocytes Percent Auto 22.5 % (20-40); Mean Corpuscular Hemoglobin 32.1 pg (27.0-33.0); Mean Corpuscular Volume 91.6 fL (80.0-98.0); Monocytes Percent Auto 9.8 % (2-11); Neutrophils Absolute Auto 6.9 x10*3/uL (2.0-8.3); Neutrophils Percent Auto 64.8 % (45-73); Platelet Count 241 X10*3/uL (160-400); Red Blood Count 4.52 X10*6/uL (4.60-5.80); White Blood Count 10.6 X10*3/uL (4.8-10.8)
[2022-10-16 07:22] LABS: Aspartate Amino Transferase 39 U/L (5-37); C Reactive Protein 0.17 mg/dL (< or = 0.50); Cholesterol 262 mg/dL (<200); Estimated Glomerular Filt Rate > 60; HDL Cholesterol 32 mg/dL (>40); Triglycerides 542 mg/dL (<150)
[2022-10-16 07:52] LABS: Erythrocyte Sedimentation Rate 6 MM/HR (0-15)
== END 2022-10-16 06:16 | disposition home or self-care (01) ==
LOC: HO.LAB 06:15
PROVIDERS: PCP Internal Medicine; Visit Provider Internal Medicine Rheumatology
DX: M05.9 Rheumatoid arthritis with rheumatoid factor, unspecified (principal); E78.5 Hyperlipidemia, unspecified; Z79.899 Other long term (current) drug therapy
CPT/HCPCS: 36415; 80061; 82565; 84450; 85025; 85652; 86140

== ENCOUNTER 2022-10-30 15:04 | Outpatient (REF) | payer OTHER, SELFPAY ==
--- NOTE | ~2022-10-30 | US_ITS ---
EXAMINATION: US EXTRACRANIAL CAROTID DUPLEX, BILATERAL CLINICAL INFORMATION: Coronary artery disease. COMPARISON: None available. TECHNIQUE: Real-time ultrasound and Doppler techniques (integrating B-mode 2-D vascular images, Doppler spectral analysis and color-flow Doppler imaging) were utilized to interrogate the extracranial carotid arteries, the vertebral arteries and proximal subclavian arteries bilaterally. The degree of stenosis is determined by criteria similar to NASCET. FINDINGS: Right Side: 1. There is mild atherosclerotic plaque seen in the bifurcation/proximal ICA region. 2. The common carotid artery PSV proximally is 159 cm/s and distally 122 cm/s. 3. The proximal internal carotid artery velocities are 79 cm/s systolic and 38 cm/s diastolic. 4. The proximal external carotid artery PSV is 123 cm/s. 5. The vertebral artery shows antegrade flow. 6. The subclavian artery waveforms are normal. Left Side: 1. There is mild atherosclerotic plaque seen in the bifurcation/proximal ICA region. 2. The common carotid artery PSV proximally is 117 cm/s and distally 104 cm/s. 3. The proximal internal carotid artery velocities are 104 cm/s systolic and 39 cm/s diastolic. 4. The proximal external carotid artery PSV is 101 cm/s. 5. The vertebral artery shows and to flow. 6. The subclavian artery waveforms are normal. US/US carotid duplex BI IMPRESSION: 1. RIGHT: Minimal, non-hemodynamically significant stenosis of the proximal right internal carotid artery corresponding to a 0-49% stenosis by velocity criteria. 2. LEFT: Minimal, non-hemodynamically significant stenosis of the proximal left internal carotid artery corresponding to a 0-49% stenosis by velocity criteria.
== END 2022-10-30 15:05 | disposition home or self-care (01) ==
LOC: HO.US 15:04
PROVIDERS: PCP Internal Medicine; Visit Provider Nurse Practitioner Family
DX: I25.10 Atherosclerotic heart disease of native coronary artery without angina pectoris (principal); I70.0 Atherosclerosis of aorta; R09.89 Other specified symptoms and signs involving the circulatory and respiratory systems
CPT/HCPCS: 93880

== ENCOUNTER 2022-12-22 11:43 | Emergency (ER) | payer OTHER, SELFPAY ==
--- NOTE | ~2022-12-22 | XR_ITS ---
EXAMINATION: XR RIBS, RIGHT CLINICAL INFORMATION: Right-sided rib pain post fall COMPARISON: None available. TECHNIQUE: Frontal view the chest and 3 oblique views of the right ribs were obtained. FINDINGS: Lungs are clear. No consolidation, pneumothorax, or pleural effusion. The cardiomediastinal silhouette and pulmonary vasculature are normal. On one oblique view there is a subtle nondisplaced fracture of the posterior lateral right 10th rib XR/XR ribs RT min 3V w CXR1V IMPRESSION: Subtle nondisplaced fracture of the posterior lateral right 10th rib.
--- NOTE | ~2022-12-22 | XR_ITS ---
EXAMINATION: XR THORACIC SPINE CLINICAL INFORMATION: Back pain post fall COMPARISON: 08/26/2019 TECHNIQUE: 3 views of the thoracic spine were obtained. FINDINGS: Bones are in normal anatomic alignment with no acute fracture or spondylolisthesis. Vertebral body heights and disc heights are preserved. Mild anterior osteophyte formation seen in the lower thoracic spine. Paravertebral soft tissues unremarkable. XR/XR thoracic spine 3V IMPRESSION: Mild degenerative changes but no acute fracture or spondylolisthesis.
--- NOTE | ~2022-12-22 | XR_ITS ---
EXAMINATION: XR LUMBOSACRAL SPINE CLINICAL INFORMATION: Fall COMPARISON: None available. TECHNIQUE: Three views of the lumbosacral spine. FINDINGS: Bone alignment is normal. No fracture or dislocation. Mild disc space narrowing at L5-S1. Lower lumbar spine facet arthritis. Mild atherosclerotic disease. XR/XR lumbar spine 2-3V IMPRESSION: No fracture or dislocation. Mild degenerative changes.
[2022-12-22 12:47] VITALS: BP 131/80; PULSE 103; RESP 18; TEMP 36.7; O2SAT 98; BMI 26.5
--- NOTE | 2022-12-22 12:48 | ED_ITS ---
HPI - General Adult General Chief complaint: Back Pain/Injury Stated complaint: lower back pain Time Seen by Provider: 12/22/22 15:35 Source: patient, RN notes reviewed and old records reviewed Mode of arrival: ambulatory History of Present Illness HPI narrative: 57-year-old male with a past medical history of rheumatoid arthritis, CAD, HTN, presenting to the ED complaining of right upper back/side pain s/p syncopal episode with fall landing on corner of countertop yesterday. Patient states he was smoking cigarette developed coughing fit which caused him to syncopized falling backwards, denies head trauma, + LOC. Denies taking anticoagulation. Denies injury to other area, or symptoms prior to fall including lightheadedness/dizziness, CP/SOB. Denies CP/SOB at present, abdominal pain, nausea/vomiting, incontinence/retention, hematuria Related Data Home Medications Medication Instructions Recorded Confirmed omega-3 fatty acids 1,000 mg 2,000 mg PO DAILY 02/02/20 10/13/22 capsule (Fish Oil Concentrate) tumeric 100 mg-adolph 150 mg-olive cap PO 04/15/22 10/13/22 50 mg-oreg 150 mg-caprylate capsule Previous Rx's Medication Instructions Recorded prednisone 1 mg tablet 2 mg (2 x 1 mg) PO DAILY #60 tabs 09/19/22 rosuvastatin 20 mg tablet (Crestor) 20 mg PO DAILY #30 tabs 10/07/22 pantoprazole 40 mg tablet,delayed 40 mg PO DAILY #90 tabs 10/31/22 release upadacitinib 15 mg tablet,extended 15 mg PO DAILY #30 tabs 11/06/22 release 24 hr (Rinvoq) atenolol 25 mg tablet 25 mg PO DAILY 90 days #90 tabs 11/07/22 lisinopril 40 mg tablet 40 mg PO DAILY #90 tabs 11/18/22 acetaminophen 500 mg tablet 500 mg PO Q6H PRN fever or pain 12/22/22 (Tylenol Extra Strength) #14 tabs cyclobenzaprine 5 mg tablet 5 mg PO Q8H PRN pain (scale score 12/22/22 7-10) 5 days #14 tabs ketorolac 10 mg tablet 10 mg PO TID PRN pain 5 days #15 12/22/22 tabs lidocaine 5 % topical patch 1 patch topical DAILY PRN pain #30 12/22/22 (Lidoderm) ea Allergies Allergy/AdvReac Type Severity Reaction Status Date / Time No Known Allergies Allergy Verified 10/13/22 14:04 Review of Systems 2 Review of Systems: Constitutional: No Fever, No Chills, No Fatigue, No Malaise ENT/Mouth: No Ear Pain, No Nasal Congestion, No sore throat, No Rhinorrhea, No Swallowing Difficulty Eyes: No Eye Pain, No Swelling, No Redness, No Vision Changes Cardiovascular: +Posterior Chest Wall Pain, No SOB, No Edema, No Palpitations Respiratory: No Cough, No Sputum, No Dyspnea Gastrointestinal: No Nausea, No Vomiting, No Diarrhea, No Constipation, No Abdominal pain Genitourinary: No Dysuria, No Urinary Frequency, No Hematuria, No Urinary Incontinence/retention, No Flank Pain Musculoskeletal: No joint pain, No Myalgias, No Joint Swelling Skin: No Skin Lesions, No rash Neuro: No Weakness, No Numbness, No Paresthesias, + Loss of Consciousness, No Dizziness, No Headache Yes all other systems are reviewed and are negative Constitutional: Constitutional: Reports as per HPI Neurologic: Denies Abnormal speech present FOR[facility] Past Medical History Attestation statement: The following information was validated with the patient. Source: old records reviewed Medical History Thoracic aortic atherosclerosis Essential hypertension Seropositive rheumatoid arthritis Surgical History H/O wrist surgery Family History Family History Father Hypertension Stented coronary artery Mother Hypertension Other Mental health disorder Social History Social History Housing: House Alcohol intake: current Alcohol intake frequency: 3 or more drinks per day Alcohol type: beer Patient Tobacco Use Status: Current everyday Tobacco user Tobacco use type: Cigarette Cigarettes Per Day: 30 Years Smoked: 35 e-Cigarette/Vaping Use: Never Used Second Hand Smoke Exposure: No Advance Directives: No Advance Directives Information Provided: No Current occupational status: 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 Cognitive needs: No Hearing needs: No Vision needs: Yes Physical Exam ED Vital Signs: Vital Signs - 24 hr 12/22/22 12:47 Temperature 98.0 F Pulse Rate 103 H Respiratory Rate 18 Blood Pressure 131/80 Pulse Oximetry 98 Oxygen Delivery Method Room Air BMI result Body Mass Index 26.5 Const General: cooperative, healthy appearing and no acute distress Orientation/consciousness: patient oriented x3 Limitations: no limitations HENMT Head: Yes normal to inspection, Yes atraumatic, No Arango's sign and No raccoon eyes Ears: hearing grossly normal bilaterally General nose exam: Normal external nose present Face and sinus: Yes normal facial exam Mouth: Normal oral and palatal mucosa present Throat: Yes posterior oropharynx normal, Yes tonsils normal, Yes uvula midline, No peritonsillar mass, No uvula laterally displaced and No uvular edema Eyes General: appearance normal, both eyes and all related structures Pupils: Equal, round and reactive pupils present EOM: EOMs intact bilaterally Neck Neck: Yes normal visual inspection and Yes no meningeal signs Resp Effort & Inspection: normal respiratory effort and no respiratory distress Auscultation: clear to auscultation bilaterally, no rhonchi and no wheezes Cardio Rate: regular rate Heart sounds: S1 normal heart sound present and S2 normal heart sound present GI Inspection: Yes normal to inspection Palpation (GI): Soft to palpation, nontender, no guarding and not rigid General: Yes no CVA tenderness Back/Spine/Pelvis Other: No midline cervical/thoracic/lumbar spinous tenderness/step-off or deformity. + right upper thoracic paraspinal/MSK/posterior lateral rib tenderness to palpation, reproducing subjective complaint. No erythema/ecchymosis, rash or swelling. No flail chest. Back: no CVA tenderness Skin Rashes: no rashes Wounds: no wounds Neuro Other: Strength intact throughout. No saddle anesthesia. Sensation intact to light touch. Neurovascular intact distally General: patient oriented x3, gait normal, tone normal, moves all extremities, no meningeal signs, no focal motor deficits and CN's II-XI intact bilaterally Cranial nerves: Yes CN's II-XII intact bilaterally, Yes Equal, round and reactive pupils present and Yes Bilaterally intact EOM present Cognition (Neuro): normal cognition Speech: No Abnormal speech present Gait exam (Neuro): Normal gait present Motor exam (neuro): 5/5 motor strength present throughout Extrem General: Yes normal to inspection Course Course Course Narrative: RME- 57-year-old male presents for evaluation lower back pain after falling into a countertop yesterday. Plan for x-ray -1735--mild leukocytosis of 11.4. AST/ALT acute on chronically elevated -COVID and influenza negative -troponin negative. Orthostatic vital signs negative XR thoracic spine 3V IMPRESSION: Mild degenerative changes but no acute fracture or spondylolisthesis. XR ribs RT min 3V w CXR1V IMPRESSION: Subtle nondisplaced fracture of the posterior lateral right 10th rib. XR lumbar spine 2-3V IMPRESSION: No fracture or dislocation. Mild degenerative changes. Results discussed with patient including worrisome signs and symptoms and strict return precautions, and when to return to the emergency department. They verbalized understanding and feel safe for discharge at this time. Medications Administered Discontinued Medications Generic Name Dose Route Start Last Admin Trade Name Freq PRN Reason Stop Dose Admin Cyclobenzaprine HCl 10 mg 12/22/22 16:07 12/22/22 16:42 Cyclobenzaprine Hcl 10 Mg Tablet PO 12/22/22 16:08 10 mg ONCE ONE Administration Ketorolac Tromethamine 30 mg 12/22/22 16:07 12/22/22 16:43 Ketorolac Tromethamine 30 Mg/Ml Vial IM 12/22/22 16:08 30 mg ONCE ONE Administration Lidocaine 1 patch 12/22/22 17:34 12/22/22 17:43 Lidocaine 4 % Patch Adh..Patch TRANSDERMA 12/22/22 17:35 1 patch ONCE ONE Administration Protocol Medical Decision Making Medical Decision Making MDM Narrative: 57-year-old male with a past medical history of rheumatoid arthritis, CAD, HTN, presenting to the ED complaining of right upper back/side pain s/p syncopal episode with fall landing on corner of countertop yesterday. On exam mildly tachycardic likely from pain, appears uncomfortable, physical exam as above, no midline spinous tenderness throughout, right-sided posterior lateral rib/back tenderness noted without appreciable deformity. No focal neuro deficits. Ambulating with steady gait. Concern for rib fracture vs contusion. Concern for vasovagal syncope secondary to coughing fit. Low suspicion for ACS/PE or pneumonia. Unlikely ICH, CVA, intrathoracic/intra-abdominal bleeding/hematoma or renal stone. Unlikely cauda equina/cord compression or epidural abscess Plan: EKG, labs, UA, x-rays, orthostatics, pain control, re-evaluate Please refer to course for remaining clinical decision making, interpretation of labs/imaging results, and discussions with consultants and/or family members. Differential Diagnosis Differential Diagnoses: The differential diagnosis associated with the presentation includes As above Admission/Observation Consideration of admission/observation: Escalation of care including admission/observation considered Lab Data MDM Lab Attestation statement: I reviewed the patient's lab results. 12/22/22 16:54 12/22/22 16:54 Labs: Lab Results 12/22/22 12/22/22 Range/Units 16:54 17:31 WBC 11.4 H (4.8-10.8) X10*3/uL RBC 4.68 (4.60-5.80) X10*6/uL Hgb 14.8 (14.0-18.0) g/dl Hct 42.6 (42.0-52.0) % MCV 91.0 (80.0-98.0) fL MCH 31.6 (27.0-33.0) pg MCHC 34.7 (31.0-36.0) g/dl RDW 12.3 (11.0-16.0) % Plt Count 283 (160-400) X10*3/uL MPV 9.7 (9.4-12.4) fL Immature Gran % (Auto) 0.3 (0.0-0.4) % Neut % (Auto) 61.0 (45-73) % Lymph % (Auto) 30.2 (20-40) % [place] % (Auto) 7.4 (2-11) % Eos % (Auto) 0.7 (0-4) % Baso % (Auto) 0.4 (0-2) % Lymph # (Auto) 3.5 (1.2-4.9) X10*3/uL [place] # (Auto) 0.9 (0.1-1.2) X10*3/uL Eos # (Auto) 0.1 (0.0-0.4) X10*3/uL Baso # (Auto) 0.1 (0.0-0.2) X10*3/uL Abs Immat Gran (auto) 0.04 H (0.00-0.03) X10*3/uL Absolute Neuts (auto) 7.0 (2.0-8.3) x10*3/uL Absolute Nucleated RBC 0.000 (0.0-0.012) X10*3/uL Nucleated RBC % (auto) 0.0 (0.0-0.2) /100WBC Sodium 136 (135-145) mmol/L Potassium 4.8 (3.3-5.1) mmol/L Chloride 102 (96-108) mmol/L Carbon Dioxide 25 (22-29) mmol/L Anion Gap 14 (12-20) BUN 10 (9-16) mg/dL Creatinine 0.80 (0.5-1.4) mg/dL Estim Creat Clear Calc 107.7 Estimated GFR > 60 Random Glucose 101 (60-115) mg/dL Calcium 10.2 D (8.4-10.2) mg/dL Magnesium 2.2 (1.6-2.6) mg/dL Total Bilirubin 0.6 (0.0-1.0) mg/dL Direct Bilirubin 0.2 (0.0-0.5) mg/dL AST 61 H (5-37) U/L ALT 109 H (0-40) U/L Alkaline Phosphatase 94 (39-117) U/L Troponin I High Sens < 2.7 (<3.5-35.0) ng/L Total Protein 8.1 H (6.5-8.0) g/dL Albumin 4.7 (3.5-5.0) g/dL Urine Color Yellow Urine Appearance Clear Urine pH 5.5 (5.0-9.0) Ur Specific Brick 1.010 (1.005-1.025) Urine Protein Negative (Neg-Trace) mg/dL Urine Glucose (UA) Negative (Negative) mg/dL Urine Ketones Negative (Negative) mg/dL Urine Blood Negative (Negative) Urine Nitrite Negative (Negative) Ur Leukocyte Esterase Negative (Negative) COVID-19 (CHRISTI) Negative (Negative) COVID-19 Clin Com See Note Influenza Type A (MAYITO) Negative (Negative) Influenza Type B (MAYITO) Negative (Negative) Influenza A & B Note See Note Independent Interpretation I performed an independent interpretation of an: EKG (My interpretation EKG normal sinus rhythm with first-degree AV block rate of 82. QRS 80. QTC 413. No STEMI) Radiology Impression Discussion of test interpretation with radiology: I have reviewed the radiologist's reading. External Record Review External record reviewed: Inpatient record, Office record, Outpatient record, Prior outpatient labs, Prior outpatient radiology, Primary care record and Outside ED record Tests considered The following testing was considered but not selected: As above Discharge Plan Discharge Clinical Impression: Closed rib fracture, Syncope Patient Disposition: Home, Self-Care Instructions: Syncope (DC), Contusion in Adults (ED), Back Pain (ED) Additional Instructions: Your blood work is reassuring You have a 10th rib fracture. Please use incentive spirometer at home daily Flexeril is a muscle relaxer, take at night as it makes you drowsy, do not drive, drink alcohol, or operate machinery while taking it Toradol as an anti-inflammatory / pain medication, take with food. Please do not take both Toradol and ibuprofen/Motrin/Aleve and or naproxen as they are similar medications, pick 1 Lidoderm patches are numbing patches, apply to painful area In addition take Tylenol at home If symptoms persist or worsen, pain becomes unbearable, you developed urinary retention or incontinence, or weakness return to the ED Prescriptions: New acetaminophen [Tylenol Extra Strength] 500 mg tablet 500 mg PO Q6H PRN (Reason: fever or pain) Qty: 14 0RF ketorolac 10 mg tablet 10 mg PO TID PRN (Reason: pain) 5 Days Qty: 15 0RF lidocaine [Lidoderm] 5 % adhesive patch,medicated 1 patch topical DAILY MDD remove after 12 hours PRN (Reason: pain) Qty: 30 0RF Rx Instructions: leave on most painful area for up to 12 hrs cyclobenzaprine 5 mg tablet 5 mg PO Q8H PRN (Reason: pain (scale score 7-10)) 5 Days Qty: 14 0RF No Action prednisone 1 mg tablet 2 mg PO DAILY Qty: 60 3RF rosuvastatin [Crestor] 20 mg tablet 20 mg PO DAILY Qty: 30 5RF pantoprazole 40 mg tablet,delayed release (DR/EC) 40 mg PO DAILY Qty: 90 0RF Rinvoq 15 mg tablet extended release 24 hr 15 mg PO DAILY Qty: 30 1RF atenolol 25 mg tablet 25 mg PO DAILY 90 Days Qty: 90 3RF lisinopril 40 mg tablet 40 mg PO DAILY Qty: 90 0RF reektvk-wryj-wdwbm-oreg-capryl 100 mg-150 mg- 50 mg-150 mg capsule PO omega-3 fatty acids [Fish Oil Concentrate] 1,000 mg capsule 2,000 mg PO DAILY Referrals: Edinson Calle MD [Primary Care Provider] - 5 days
[2022-12-22 16:06] VITALS: BP 151/88; PULSE 72
--- NOTE | 2022-12-22 16:06 | ECG_ITS ---
Test Reason : CHEST PAIN Blood Pressure : / mmHG Vent. Rate : 082 BPM Atrial Rate : 082 BPM P-R Int : 218 ms QRS Dur : 080 ms QT Int : 354 ms P-R-T Axes : 031 056 036 degrees QTc Int : 413 ms Sinus rhythm with 1st degree A-V block Otherwise normal ECG When compared with ECG of 24-FEB-2022 20:05, No significant change was found Referred By: Lucina Hurd Electronically Signed By:DAVID DUTTON MD
--- NOTE | 2022-12-22 16:16 | PC.NURSE ---
pt currently in xray at this time.
[2022-12-22] MEDS: Cyclobenzaprine HCl 10 MG TABLET PO (16:42)
[2022-12-22] MEDS: Ketorolac Tromethamine 30 MG/ML VIAL IM (16:43)
[2022-12-22 17:01] LABS: MANUAL DIFF FLAG NO
[2022-12-22 17:02] LABS: Basophils Absolute Auto 0.1 X10*3/uL (0.0-0.2); Basophils Percent Auto 0.4 % (0-2); Eosinophils Absolute Auto 0.1 X10*3/uL (0.0-0.4); Eosinophils Percent Auto 0.7 % (0-4); Hematocrit 42.6 % (42.0-52.0); Hemoglobin 14.8 g/dl (14.0-18.0); Imm Gran Abs Auto 0.04 X10*3/uL (0.00-0.03); Imm Gran Pct Auto 0.3 % (0.0-0.4); Lymphocytes Absolute Auto 3.5 X10*3/uL (1.2-4.9); Lymphocytes Percent Auto 30.2 % (20-40); Mean Corpuscular HGB Conc 34.7 g/dl (31.0-36.0); Mean Corpuscular Hemoglobin 31.6 pg (27.0-33.0); Mean Platelet Volume 9.7 fL (9.4-12.4); Monocytes Absolute Auto 0.9 X10*3/uL (0.1-1.2); Monocytes Percent Auto 7.4 % (2-11); Platelet Count 283 X10*3/uL (160-400); Red Blood Count 4.68 X10*6/uL (4.60-5.80); Red Cell Distribution Width 12.3 % (11.0-16.0); White Blood Count 11.4 X10*3/uL (4.8-10.8)
[2022-12-22 17:20] LABS: COVID-19 Test Negative (Negative); IDNOW Serial# 9DB6401D; IDNOW Serial# BCCEAD1C; Influenza A Negative (Negative); Influenza B2 Negative (Negative)
[2022-12-22 17:32] LABS: Alanine Aminotransferase 109 U/L (0-40); Albumin Level 4.7 g/dL (3.5-5.0); Alkaline Phosphatase 94 U/L (39-117); Anion Gap 14 (12-20); Aspartate Amino Transferase 61 U/L (5-37); Bilirubin Direct 0.2 mg/dL (0.0-0.5); Bilirubin Total 0.6 mg/dL (0.0-1.0); Blood Urea Nitrogen 10 mg/dL (9-16); Calcium 10.2 mg/dL (8.4-10.2); Carbon Dioxide 25 mmol/L (22-29); Chloride 102 mmol/L (96-108); Creatinine Clr Calc Pharmacy 107.7; Estimated Glomerular Filt Rate > 60; Glucose Random 101 mg/dL (60-115); Magnesium 2.2 mg/dL (1.6-2.6); Potassium 4.8 mmol/L (3.3-5.1); Sodium 136 mmol/L (135-145); Total Protein 8.1 g/dL (6.5-8.0)
[2022-12-22] MEDS: Lidocaine 4 % Patch ADH..PATCH 1 PATCH TRANSDERMA (17:43)
[2022-12-22 17:45] LABS: Troponin-I High Sensitivity < 2.7 ng/L (<3.5-35.0)
[2022-12-22 17:45] LABS: Appearance Urine Clear; Color Urine Yellow; Glucose Urine UA Negative (Negative); Leukocyte Esterase Urine Negative (Negative); Nitrite Urine Negative (Negative); PH 5.5 (5.0-9.0); Urine Blood Negative (Negative); Urine Ketones Negative (Negative); Urine Protein Negative (Neg-Trace)
--- NOTE | 2022-12-22 17:46 | PC.NURSE ---
medication administered per provider order. pt verbalizing no relief in prior medication administration - still stating 8/10 level at this time. will reassess pain level shortly. bedside.
[2022-12-22 18:15] VITALS: BP 140/88; BP 142/81; PULSE 77; PULSE 79
--- NOTE | 2022-12-22 18:27 | PC.NURSE ---
pt provided w/ incentive spirometer teaching. pt understands/demonstrated teachback method.
== END 2022-12-22 18:28 | disposition home or self-care (01) ==
PROVIDERS: Physician Assistant; Emergency Provider Student in an Organized Health Care Education/Training Program; PCP Internal Medicine
DX: S22.31XA Fracture of one rib, right side, initial encounter for closed fracture (principal); R55 Syncope and collapse; M54.50 Low back pain, unspecified; R07.89 Other chest pain; I25.10 Atherosclerotic heart disease of native coronary artery without angina pectoris; I10 Essential (primary) hypertension; F17.210 Nicotine dependence, cigarettes, uncomplicated; R05.9 Cough, unspecified; W01.10XA Fall on same level from slipping, tripping and stumbling with subsequent striking against unspecified object, initial encounter; Y93.9 Activity, unspecified; Y92.9 Unspecified place or not applicable; Y99.9 Unspecified external cause status; Z71.6 Tobacco abuse counseling; Z79.899 Other long term (current) drug therapy
CPT/HCPCS: 71101; 72072; 72100; 80048; 80076; 81003; 83735; 84484; 85025; 87502; 87635; 93005; 96372; 99284; J1885

== ENCOUNTER 2022-12-30 11:48 | Outpatient (AMB) | payer OTHER, SELFPAY ==
[2022-12-30 11:50] VITALS: BP 138/60; PULSE 107; O2SAT 98; BMI 28.2
--- NOTE | 2022-12-30 11:50 | MHC.PC.OV ---
Vital Signs 12/30/22 11:50 Height 5 ft 10 in Weight 196 lb 8 oz BMI 28.2 BP 138/60 Blood Pressure Location Rt brachial Position Sitting Pulse 107 H Pulse Source Pulse Oximeter Pulse Oximetry (%) 98 Oxygen Delivery Method Room Air Intake Visit Reasons: 4m follow up Allergies No Known Allergies Allergy (Verified 12/30/22 11:50) Medication List - Last Reconciled 12/30/22 by Edinson Calle MD acetaminophen (Tylenol Extra Strength) 500 mg PO Q6H PRN atenolol 25 mg PO DAILY 90 days lidocaine 5% (Lidoderm) 1 patch topical DAILY PRN MDD remove after 12 hours lisinopril 40 mg PO DAILY omega-3 fatty acids (Fish Oil Concentrate) 2,000 mg PO DAILY pantoprazole 40 mg PO DAILY prednisone 2 mg (2 x 1 mg) PO DAILY rosuvastatin (Crestor) 20 mg PO DAILY okkylls-kpdu-rrulz-oreg-capryl 100 mg-150 mg- 50 mg-150 mg caps PO upadacitinib ER (Rinvoq) 15 mg PO DAILY Tobacco use date assessed: 12/30/22 Dental Screening Dental Screen Date: 12/30/22 Did you have a dental visit in the last 12 months?: Yes Did you have a dental problem in the last 6 months where you did not have access to dental care?: No Was dental information given to patient?: Patient has dentist HPI 4m follow up HPI Details Patient is a 57-year-old gentleman came in today for follow-up on blood pressure Patient is on atenolol 25 mg, and lisinopril 40 mg, blood pressure is stable he is tolerating medications Patient is seeing Dr. Vega, his stress test was slightly abnormal, Currently patient is taking Crestor for lipid control, his triglycerides are very high He has appointment with cardiology coming up in March I have ordered a new set of labs for the patient to be done fasting before the visit.. Patient does admit to drinking alcohol daily , he tells me that he drinks beer Recent labs shows his liver enzymes getting worse there are double off his baseline. In March if they continue to increase his statin will need to be stopped. Meanwhile we talked about alcohol consumption and liver toxicity, I would recommend that he stop drinking. Patient had upper respiratory tract infection and was having coughing fit Her recently he had fracture of his right 10th rib. He is recovering gradually. His cough is better. Rheumatoid arthritis management through rheumatology [facility]. He is smoking for many years, currently smoking 1 pack per day He says that he has tried many time and has failed. He is not interested in any help at this time. Since patient has fractured rib currently I will order pulmonary function test when I will see him in April Patient have follow-up appointment in April [facility] Medical History Thoracic aortic atherosclerosis Essential hypertension Seropositive rheumatoid arthritis Surgical History H/O wrist surgery Family History Father Hypertension Stented coronary artery Mother Hypertension Other Mental health disorder Social History Housing: House Alcohol intake: current Alcohol intake frequency: 3 or more drinks per day Alcohol type: beer Patient Tobacco Use Status: Current everyday Tobacco user Tobacco use type: Cigarette Cigarettes Per Day: 30 Years Smoked: 35 Packs per year/per ci.50 e-Cigarette/Vaping Use: Never Used Second Hand Smoke Exposure: No Current occupational status: 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 1. Little interest or pleasure in doing things: not at all 2. Feeling down, depressed, or hopeless: not at all 3. Trouble falling or staying asleep, or sleeping too much: several days 4. Feeling tired or having little energy: several days 5. Poor appetite or overeating: not at all 6. Feeling bad about yourself - or that you are a failure or have let yourself or your family down: not at all 7. Trouble concentrating on things, such as reading the newspaper or watching television: not at all 8. Moving or speaking so slowly that other people could have noticed. Or the opposite - being so fidgety or restless that you have been moving around a lot more than usual: not at all 9. Thoughts that you would be better off or of hurting yourself in some way: not at all Total score: 2 Depression Screening Interpretation: Negative Depression Screening Done: Yes 73502 - PHQ-9 Billing: Yes Source: Developed by Drs. Lorenzo Rojas, Shira Roche, Agus Chen and colleagues, with an educational mer from [employer]. Thrive Questionnaire Date Thrive assessed: 01/22/21 AUDIT C Alcohol Use Questionnaire (AUDIT-C) 1. How often do you have a drink containing alcohol?: Never 3. How often do you have six or more drinks on one occasion?: Never Total Score: 0 Score Reviewed/Action Taken: Yes COLUMBA-7 AMB Questionnaire COLUMBA-7 Date COLUMBA - 7 assessed: 01/22/21 Source: Developed by Drs. Lorenzo Rojas, Shira Roche, Agus Chen and colleagues, with an educational mer from [employer]. Review of Systems Const Denies chills and Denies fever(s) ENT Denies epistaxis and Denies nasal discharge Resp Denies chest congestion and Denies hemoptysis GI Denies diarrhea and Denies nausea Skin/Breast Denies rash Neuro Reports no additional complaints Psych Reports no additional complaints Endo Reports no additional complaints Physical exam (Primary Care) Vital Signs: Last Vital Signs Pulse 107 H 12/30/22 11:50 BP 138/60 12/30/22 11:50 Pulse Ox 98 12/30/22 11:50 Oxygen Delivery Method Room Air 12/30/22 11:50 BMI result Body Mass Index 28.2 Tobacco/Smoking Status: Tobacco use Status Tobacco use date assessed 12/30/22 12/30/22 11:56 Patient Tobacco Use Status Current everyday Tobacco 12/30/22 11:56 Tobacco use type Cigarette 12/30/22 11:56 e-Cigarette/Vaping Use Never Used 12/30/22 11:56 Depression Screening Interpretation: Negative Thrive Assessment: Date of Thrive Assessment Date Thrive assessed 01/22/21 12/30/22 11:56 Const General: cooperative, comfortable and no acute distress Orientation/consciousness: patient oriented x3 HENMT Head: Yes normocephalic Eyes General: appearance normal, both eyes and all related structures Neck Neck: Yes supple Chest Other: Tender over right 10th rib posteriorly Resp Effort & Inspection: normal respiratory effort, no cough and no stridor Cardio Rhythm: regular rhythm Heart sounds: S1 normal heart sound present and S2 normal heart sound present Skin General skin exam: turgor normal Neuro General: patient oriented x3, tone normal and moves all extremities Extrem Right lower extremity: no edema Left lower extremity: no edema Assessment and Plan Assessment & Plan (1) LFT elevation: Code(s): R79.89 - Other specified abnormal findings of blood chemistry (2) Right rib fracture: Code(s): S22.31XA - Fracture of one rib, right side, initial encounter for closed fracture Qualifiers: Encounter type: initial encounter Fracture type: closed Rib fracture type: single rib Qualified Code(s): S22.31XA - Fracture of one rib, right side, initial encounter for closed fracture (3) Thoracic aortic atherosclerosis: Comment: CTA coronary artery shows moderate atherosclerosis of the descending aorta with mural thrombus 10/06/2022 Code(s): I70.0 - Atherosclerosis of aorta (4) Coronary atherosclerosis: Code(s): I25.10 - Atherosclerotic heart disease of [place] coronary artery without angina pectoris Qualifiers: Associated angina: without angina Coronary Disease-Associated Artery/Lesion type: [place] artery [place] vs. transplanted heart: [place] heart Qualified Code(s): I25.10 - Atherosclerotic heart disease of [place] coronary artery without angina pectoris (5) Long-term use of immunosuppressant medication: Code(s): Z79.60 - detention (current) use of unspecified immunomodulators and immunosuppressants (6) Chronic GERD: Code(s): K21.9 - Gastro-esophageal reflux disease without esophagitis (7) Smoking: Code(s): F17.200 - Nicotine dependence, unspecified, uncomplicated (8) Essential hypertension: Code(s): I10 - Essential (primary) hypertension (9) Alcoholism: Comment: CONSEQUENCES OF DRINKING PROBLEMS There are a number of serious consequences of drinking alcohol excessively -------Excessive alcohol consumption is a leading preventable cause of in the [place]. --------Drinking alcohol increases the risk of traffic accidents, suicide, drowning, and other serious injuries. -------Alcohol use continues to be the leading cause of injuries treated in trauma centers and emergency departments . --------Alcohol-related liver disease may lead to end-stage liver disease (cirrhosis) and . --------Alcohol increases the risk of certain cancers of the mouth, esophagus, throat, liver, and breast. Code(s): F10.20 - Alcohol dependence, uncomplicated (10) Seropositive rheumatoid arthritis: Comment: Davon 09/04- 03/2020 Enbrel March 2020 - September 2020 discontinued due to insurance Orencia denied by insurance Rinvoq September 2020 - present Prednisone 09/05/2019 - present Code(s): M05.9 - Rheumatoid arthritis with rheumatoid factor, unspecified Plan Patient is a 57-year-old gentleman came in today for follow-up on blood pressure Patient is on atenolol 25 mg, and lisinopril 40 mg, blood pressure is stable he is tolerating medications Patient is seeing Dr. Vega, his stress test was slightly abnormal, Currently patient is taking Crestor for lipid control, his triglycerides are very high He has appointment with cardiology coming up in March I have ordered a new set of labs for the patient to be done fasting before the visit.. Patient does admit to drinking alcohol daily , he tells me that he drinks beer Recent labs shows his liver enzymes getting worse there are double off his baseline. In March if they continue to increase his statin will need to be stopped. Meanwhile we talked about alcohol consumption and liver toxicity, I would recommend that he stop drinking. Patient had upper respiratory tract infection and was having coughing fit Her recently he had fracture of his right 10th rib. He is recovering gradually. His cough is better. Rheumatoid arthritis management through rheumatology [facility]. He is smoking for many years, currently smoking 1 pack per day He says that he has tried many time and has failed. He is not interested in any help at this time. Since patient has fractured rib currently I will order pulmonary function test when I will see him in April Patient have follow-up appointment in April Orders: Orders Complete Blood Count Auto Diff Today F10.20 - Alcohol dependence, uncomplicated, F17.200 - Nicotine dependence, unspecified, uncomplicated, I10 - Essential (primary) hypertension, I25.10 - Atherosclerotic heart disease of [place] coronary artery without angina pectoris, I70.0 - Atherosclerosis of aorta, K21.9 - Gastro-esophageal reflux disease without esophagitis, M05.9 - Rheumatoid arthritis with rheumatoid factor, unspecified, R79.89 - Other specified abnormal findings of blood chemistry, Z79.60 - superintendent container terminal (current) use of unspecified immunomodulators and immunosuppressants Comprehensive [place]. Panel Fast Today F10.20 - Alcohol dependence, uncomplicated, F17.200 - Nicotine dependence, unspecified, uncomplicated, I10 - Essential (primary) hypertension, I25.10 - Atherosclerotic heart disease of [place] coronary artery without angina pectoris, I70.0 - Atherosclerosis of aorta, K21.9 - Gastro-esophageal reflux disease without esophagitis, M05.9 - Rheumatoid arthritis with rheumatoid factor, unspecified, R79.89 - Other specified abnormal findings of blood chemistry, Z79.60 - superintendent container terminal (current) use of unspecified immunomodulators and immunosuppressants Lipid Panel Today F10.20 - Alcohol dependence, uncomplicated, F17.200 - Nicotine dependence, unspecified, uncomplicated, I10 - Essential (primary) hypertension, I25.10 - Atherosclerotic heart disease of [place] coronary artery without angina pectoris, I70.0 - Atherosclerosis of aorta, K21.9 - Gastro-esophageal reflux disease without esophagitis, M05.9 - Rheumatoid arthritis with rheumatoid factor, unspecified, R79.89 - Other specified abnormal findings of blood chemistry, Z79.60 - detention (current) use of unspecified immunomodulators and immunosuppressants Medications: Refilled atenolol 25 mg PO DAILY 90 tabs 3RF 90 days Coding Level of Care Code Est Pt Level 4 (85757) Diagnoses LFT elevation R79.89 Closed fracture of one rib of right side, initial encounter S22.31XA Encounter type: initial encounter Fracture type: closed Rib fracture type: single rib Thoracic aortic atherosclerosis I70.0 Atherosclerosis of [place] coronary artery of [place] heart without angina pectoris I25.10 Associated angina: without angina Coronary Disease-Associated Artery/Lesion type: [place] artery [place] vs. transplanted heart: [place] heart Long-term use of immunosuppressant medication Z79.60 Chronic GERD K21.9 Smoking F17.200 Essential hypertension I10 Alcoholism F10.20 Seropositive rheumatoid arthritis M05.9
== END 2022-12-30 12:46 | disposition home or self-care (01) ==
PROVIDERS: PCP Internal Medicine; Visit Provider Internal Medicine
DX: R79.89 Other specified abnormal findings of blood chemistry (principal); I70.0 Atherosclerosis of aorta; F10.20 Alcohol dependence, uncomplicated; M05.9 Rheumatoid arthritis with rheumatoid factor, unspecified; S22.31XA Fracture of one rib, right side, initial encounter for closed fracture; I25.10 Atherosclerotic heart disease of native coronary artery without angina pectoris; Z79.60 Long term (current) use of unspecified immunomodulators and immunosuppressants; K21.9 Gastro-esophageal reflux disease without esophagitis; F17.210 Nicotine dependence, cigarettes, uncomplicated; I10 Essential (primary) hypertension
CPT/HCPCS: 99214

== ENCOUNTER 2023-01-06 10:08 | Outpatient (AMB) | payer OTHER, SELFPAY ==
--- NOTE | 2023-01-06 10:27 | A.OFFVIS_ITS ---
Intake Vital Signs 01/06/23 10:28 Height 5 ft 10 in Weight 190 lb 4.143 oz BMI 27.3 BP 130/66 Blood Pressure Location Lt brachial Position Sitting Pulse 101 H Pulse Source Pulse Oximeter Temp 98.1 F Temp Source Skin Pulse Oximetry (%) 97 Oxygen Delivery Method Room Air Intake Visit Reasons: RA Intake Note: Patient presents today to follow up on RA. Last seen by Dr. Houston on 10/09/22. Reports falling at home about 2 wks ago. Seen at [facility]. Reprots having broken ribs. [employer] Director Required: No Accompanied by: Self / Same As Patient Allergies No Known Allergies Allergy (Verified 01/06/23 10:29) Medication List - Last Reconciled 01/06/23 by Ace Houston MD atenolol 25 mg PO DAILY 90 days chlorhexidine gluconate 0.12% PO lidocaine 5% (Lidoderm) 1 patch topical DAILY PRN MDD remove after 12 hours lisinopril 40 mg PO DAILY omega-3 fatty acids (Fish Oil Concentrate) 2,000 mg PO DAILY pantoprazole 40 mg PO DAILY prednisone 2 mg (2 x 1 mg) PO DAILY rosuvastatin (Crestor) 20 mg PO DAILY icprduo-iwmb-wvhrr-oreg-capryl 100 mg-150 mg- 50 mg-150 mg caps PO upadacitinib ER (Rinvoq) 15 mg PO DAILY HPI HPI Comments History of Present Illness Details The patient returns for evaluation of his rheumatoid arthritis. At his last visit he was having some left wrist pain but that eventually subsided. So currently he has no swollen or painful joints. He remains on Rinvoq 15 mg daily and prednisone 2 mg daily with good control of joint symptoms. He finally had a workup to look for coronary disease and was found to have 2 vessel disease with modest, 40% or less, occlusions. He remains on cholesterol medicine, aspirin, but unfortunately still is smoking. The transaminases have been mildly elevated. His PCP advised him to stop the alcohol use. He says he finds that easier to do than the smoking. He has been a steady smoker without any days off for the last 10 or 12 years. He smokes around 1 pack to 1 and 1/2 pack per day. There are no cardiac symptoms currently. [facility] Medical History Thoracic aortic atherosclerosis Essential hypertension Seropositive rheumatoid arthritis Surgical History H/O wrist surgery Family History Father Hypertension Stented coronary artery Mother Hypertension Other Mental health disorder Housing: House Alcohol intake: current Alcohol intake frequency: 3 or more drinks per day Alcohol type: beer Patient Tobacco Use Status: Current everyday Tobacco user Tobacco use type: Cigarette Cigarettes Per Day: 30 Years Smoked: 35 e-Cigarette/Vaping Use: Never Used Second Hand Smoke Exposure: No Current occupational status: 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 Skin/Breast Details: Negative for itching, rash, hives, Raynaud's symptoms, sun sensitivity, and skin cancer Psych Details: Negative for anxiety, depression and stress Endo Details: Negative for polyuria and polydypsia Aníbal/Lymph Details: Negative for excessive bruising or bleeding. Physical Exam Vital Signs: Last Vital Signs Temp 98.1 F 01/06/23 10:28 Pulse 101 H 01/06/23 10:28 BP 130/66 01/06/23 10:28 Pulse Ox 97 01/06/23 10:28 Oxygen Delivery Method Room Air 01/06/23 10:28 BMI result Body Mass Index 27.3 APPEARANCE: Patient in no acute distress EYES no redness, pupils equal and reactive to light, eyelids normal Joint exam: Cervical Spine: Full range of motion without pain; no tenderness. Thoracic Spine:?No tenderness on palpation. Lumbar Spine: Alignment normal.? Full range of motion without pain, no tenderness. Hands:? LEFT: Normal pain-free range of motion without tenderness, swelling, increased warmth or erythema. There is some slight nontender bony enlargement at the 3rd PIP. No thenar atrophy or sensory loss. Able to make a full fist and has good mechanical door repairer strength. ? RIGHT:? Normal pain free range of motion without tenderness, swelling, increased warmth or erythema.? Able to make a full fist and has good mechanical door repairer strength.? Well-healed scar over the dorsum of the hand. No thenar atrophy or sensory loss. Wrists: Right: Normal pain-free range of motion without tenderness, swelling, increased warmth or erythema. There is a large scar on the dorsum of the wrist which is the side of the extensor tendon synovectomy. This seems well healed without tenderness. Left: Pain-free range of motion to 75 degrees flexion or extension. There is no tenderness, no tenderness, redness or swelling. Elbows: Normal pain-free range of motion without tenderness, swelling, increased warmth or erythema. Shoulders:? Full range of motion without pain. No tenderness, weakness, swelling, increased warmth or erythema. Hips: Full range of motion without pain. Hip bursa:? No tenderness. Knees:? Normal pain-free range of motion without tenderness.? There is no effusion or crepitation Ankles: Left: Normal pain-free range of motion with some slight lateral tenderness. Normal pain-free range of motion without tenderness, swelling, increased warmth or erythema. Feet:? Left: Slight bony enlargement at the 1st MTP but no tenderness. Right: Normal pain-free range of motion without tenderness, swelling, increased warmth or erythema. Results Reviewed Results Reviewed: Laboratory Tests 10/16/22 10/16/22 12/22/22 06:31 06:31 16:54 WBC 11.4 H ESR 6 AST ALT C-Reactive Protein 0.17 12/22/22 16:54 WBC ESR AST 61 H ALT 109 H C-Reactive Protein Assessment & Plan Assessment & Plan (1) Long-term use of immunosuppressant medication: Code(s): Z79.60 - MCFP (current) use of unspecified immunomodulators and immunosuppressants (2) LFT elevation: Code(s): R79.89 - Other specified abnormal findings of blood chemistry (3) Coronary atherosclerosis: Comment: 09/2022 [facility] heart: 40-50% stenosis in LAD, left circumflex Code(s): I25.10 - Atherosclerotic heart disease of [place] coronary artery without angina pectoris Qualifiers: Associated angina: without angina Coronary Disease-Associated Artery/Lesion type: [place] artery [place] vs. transplanted heart: [place] heart Qualified Code(s): I25.10 - Atherosclerotic heart disease of [place] coronary artery without angina pectoris (4) Seropositive rheumatoid arthritis: Comment: Humira 09/04- 03/2020 Enbrel March 2020 - September 2020 discontinued due to insurance Orencia denied by insurance Rinvoq September 2020 - present Prednisone 09/05/2019 - present Code(s): M05.9 - Rheumatoid arthritis with rheumatoid factor, unspecified Plan Rheumatoid arthritis with excellent control of synovitis with current regimen. Indeed with the lack of swelling and tenderness in joints this is a remission. However I am concerned bout now is that he has now a certain diagnosis of coronary artery disease. He is on appropriate measures to mitigate the risk although still is unable to stop smoking. So the risk of the Rinvoq use is that it may increase the likelihood of coronary artery thromboses or other blood clotting events given his heavy cardiac risk profile. Additionally the transaminases are elevated; this could be related to alcohol use or the Rinvoq. I think therefore we need to try to get approval of a different medication for his RA. My choice would be the TNF inhibitor, Humira. He says previous insurance would not allow that to be used but we will see if we can convince them otherwise. In the meantime he will stay with the Rinvoq. I will check for serologic evidence for hepatitis and TB infection. We will get back to him if and when we get approval of the use of Humira. He had previously used an in jectable, he thinks it might have been Enbrel so he is probably able to do the injections but may need some supervision. We will aim for follow-up at 3 months, hopefully by then he will be established on the Humira and further attempts at reducing his prednisone can be pursued. Orders: Orders Erythrocyte Sedimentation Rate Today M05.9 - Rheumatoid arthritis with rheumatoid factor, unspecified, Z79.60 - MCFP (current) use of unspecified immunomodulators and immunosuppressants T Spot TB Today M05.9 - Rheumatoid arthritis with rheumatoid factor, unspecified, Z79.60 - energy trader (current) use of unspecified immunomodulators and immunosuppressants Hepatitis A,B,C Profile Today M05.9 - Rheumatoid arthritis with rheumatoid factor, unspecified, Z79.60 - MCFP (current) use of unspecified immunomodulators and immunosuppressants Complete Blood Count Auto Diff Today M05.9 - Rheumatoid arthritis with rheumatoid factor, unspecified, Z79.60 - energy trader (current) use of unspecified immunomodulators and immunosuppressants C Reactive Protein Today M05.9 - Rheumatoid arthritis with rheumatoid factor, unspecified, Z79.60 - energy trader (current) use of unspecified immunomodulators and immunosuppressants Medications: Refilled upadacitinib ER (Rinvoq) 15 mg PO DAILY 30 tabs 1RF M05.9 - Rheumatoid arthritis with rheumatoid factor, unspecified Coding Level of Care Code Est Pt Level 4 (17212) Diagnoses Long-term use of immunosuppressant medication Z79.60 LFT elevation R79.89 Atherosclerosis of [place] coronary artery of [place] heart without angina pectoris I25.10 Associated angina: without angina Coronary Disease-Associated Artery/Lesion type: [place] artery [place] vs. transplanted heart: [place] heart Seropositive rheumatoid arthritis M05.9
[2023-01-06 10:28] VITALS: BP 130/66; PULSE 101; TEMP 36.7; O2SAT 97; BMI 27.3
== END 2023-01-06 11:00 | disposition home or self-care (01) ==
PROVIDERS: PCP Internal Medicine; Visit Provider Internal Medicine Rheumatology
DX: M05.79 Rheumatoid arthritis with rheumatoid factor of multiple sites without organ or systems involvement (principal); Z79.60 Long term (current) use of unspecified immunomodulators and immunosuppressants; R79.89 Other specified abnormal findings of blood chemistry; I25.10 Atherosclerotic heart disease of native coronary artery without angina pectoris
CPT/HCPCS: 99214

== ENCOUNTER → 2023-01-06 10:08 | Outpatient (BNVA) | payer OTHER, SELFPAY | PROVIDERS: PCP Internal Medicine; Visit Provider Internal Medicine Rheumatology ==

== ENCOUNTER 2023-01-06 11:07 | Outpatient (REF) | payer OTHER, SELFPAY ==
[2023-01-06 13:12] LABS: MANUAL DIFF FLAG NO
[2023-01-06 13:18] LABS: Basophils Absolute Auto 0.1 X10*3/uL (0.0-0.2); Basophils Percent Auto 0.6 % (0-2); Eosinophils Absolute Auto 0.1 X10*3/uL (0.0-0.4); Eosinophils Percent Auto 0.8 % (0-4); Hematocrit 42.4 % (42.0-52.0); Hemoglobin 14.7 g/dl (14.0-18.0); Imm Gran Abs Auto 0.05 X10*3/uL (0.00-0.03); Imm Gran Pct Auto 0.5 % (0.0-0.4); Lymphocytes Absolute Auto 2.9 X10*3/uL (1.2-4.9); Lymphocytes Percent Auto 26.7 % (20-40); Mean Corpuscular HGB Conc 34.7 g/dl (31.0-36.0); Mean Corpuscular Hemoglobin 32.1 pg (27.0-33.0); Mean Corpuscular Volume 92.6 fL (80.0-98.0); Mean Platelet Volume 10.4 fL (9.4-12.4); Monocytes Absolute Auto 0.8 X10*3/uL (0.1-1.2); Neutrophils Percent Auto 64.4 % (45-73); Platelet Count 294 X10*3/uL (160-400); Red Blood Count 4.58 X10*6/uL (4.60-5.80); Red Cell Distribution Width 12.4 % (11.0-16.0); White Blood Count 10.8 X10*3/uL (4.8-10.8)
[2023-01-06 13:32] LABS: C Reactive Protein 0.32 mg/dL (< or = 0.50)
[2023-01-06 14:01] LABS: Erythrocyte Sedimentation Rate 7 MM/HR (0-15)
[2023-01-07 04:39] LABS: HBS Num1 60.81 mIU/mL (0-7.99); HBc Num1 0.07 S/CO (0.00-0.79); HBsAGNum1 0.37 S/CO (0.00-0.99); Hepatitis B Core Antibody Nonreactive (Nonreactive); Hepatitis B Surface Antigen Negative (Negative); ~Hepatitis B Surface Antibody REACTIVE (Nonreactive); ~Hepatitis C Antibody Nonreactive (Nonreactive)
[2023-01-07 05:05] LABS: Hepatitis A Antibody IgM 0.76 Index (0-0.79); ~Hepatitis A Antibody IgM Nonreactive (Nonreactive)
[2023-01-08 22:59] LABS: TS Negative Control Passed; TS Panel A 1; TS Panel B 0; TS Positive Control Passed; TSpotTB Negative (Negative)
== END 2023-01-06 11:08 | disposition home or self-care (01) ==
LOC: HO.10HDL 11:07
PROVIDERS: Visit Provider Internal Medicine Rheumatology
DX: Z11.1 Encounter for screening for respiratory tuberculosis (principal); M05.9 Rheumatoid arthritis with rheumatoid factor, unspecified; Z79.60 Long term (current) use of unspecified immunomodulators and immunosuppressants
CPT/HCPCS: 36415; 85025; 85652; 86140; 86481; 86704; 86706; 86709; 86803; 87340

== ENCOUNTER 2023-02-12 08:12 | Outpatient (AMB) | payer OTHER, SELFPAY ==
--- NOTE | 2023-02-12 08:15 | MHC.OFFVIS ---
Intake Vital Signs 02/12/23 08:24 Height 5 ft 10 in Weight 188 lb 7.924 oz BMI 27.0 BP 102/68 Blood Pressure Location Lt brachial Position Sitting Pulse 113 H Pulse Source Pulse Oximeter Temp 97.9 F Temp Source Skin Pulse Oximetry (%) 98 Oxygen Delivery Method Room Air Intake Visit Reasons: Follow Up (Allergic Reaction) Intake Note: Patient presents today for possible allergic reaction to Humira. Reports using Humira in the past with no reaction. Reports using only one those. Vp [employer] Partnerships Required: No Accompanied by: Self / Same As Patient Allergies No Known Allergies Allergy (Verified 02/12/23 08:16) HPI HPI Comments History of Present Illness Details The patient presents for evaluation of skin rash. This developed about 5 days ago. It is slightly itchy involving just the face and ears. He does not recall similar rashes. He had been started on Humira about 10 days ago for his rheumatoid arthritis. We had switched him off the Rinvoq because he had developed coronary artery disease and we were concerned about Rinvoq exacerbating that condition. He had been on the Humira years ago. He does not recall exactly why it was stopped but he does not think it was related to any kind of skin rash or side effect. He thinks it was effective for his RA. He thinks it might have been mostly an insurance issue. The joints have been stable. He has tried some moisturizing cream to the face. 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 He gets that lubricating substance on his hands usually but not on his face. The hands are not involved with the rash. [facility] Medical History Thoracic aortic atherosclerosis Essential hypertension Seropositive rheumatoid arthritis Surgical History H/O wrist surgery Family History Father Hypertension Stented coronary artery Mother Hypertension Other Mental health disorder Social History Housing: House Alcohol intake: current Alcohol intake frequency: 3 or more drinks per day Alcohol type: beer Patient Tobacco Use Status: Current everyday Tobacco user Tobacco use type: Cigarette Cigarettes Per Day: 30 Years Smoked: 35 e-Cigarette/Vaping Use: Never Used Second Hand Smoke Exposure: No Current occupational status: 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 Card Details: Negative chest pain, edema and syncope Resp Details: Negative for SOB, cough and wheezing GI Details: Negative indigestion/heartburn, nausea, abdominal pain, bowel changes, diarrhea, constipation and bloody stool. Endo Details: Negative for polyuria and polydypsia Aníbal/Lymph Details: Negative for excessive bruising or bleeding. Physical Exam Vital Signs: Last Vital Signs Temp 97.9 F 02/12/23 08:24 Pulse 113 H 02/12/23 08:24 BP 102/68 02/12/23 08:24 Pulse Ox 98 02/12/23 08:24 Oxygen Delivery Method Room Air 02/12/23 08:24 BMI result Body Mass Index 27.0 APPEARANCE: Patient in no acute distress EYES no redness, pupils equal and reactive to light, eyelids normal EARS: External ear normal, canal clear and tympanic membrane normal. EXTREMITIES: No edema, no calf tenderness, normal peripheral pulses. Mouth: No oral lesions. SKIN: Face has some rather diffuse redness. This is a bit more prominent over the ears where there also is some fine scaling. There is some scaling at the scalp margin over the forehead as well. There are no palpable lesions. There are no signs of psoriasis in the scalp. Examination of the chest, abdomen, arms, hands, and legs failed to reveal any other skin rash. The side of the Humira injection was in the abdominal wall on the right and there is no skin inflammation at that point. Assessment & Plan Assessment & Plan (1) Long-term use of immunosuppressant medication: Code(s): Z79.60 - nursing home (current) use of unspecified immunomodulators and immunosuppressants (2) Seropositive rheumatoid arthritis: Comment: Humira 09/04- 03/2020 Enbrel March 2020 - September 2020 discontinued due to insurance Orencia denied by insurance Rinvoq September 2020 - present Prednisone 09/05/2019 - present Code(s): M05.9 - Rheumatoid arthritis with rheumatoid factor, unspecified (3) Seborrheic dermatitis: Code(s): L21.9 - Seborrheic dermatitis, unspecified Plan The picture looks like mostly some seborrheic dermatitis involving the face. The localized skin reaction here is not typical of course for allergic reactions to medications. I am prescribing 1% hydrocortisone ointment to put on twice a day. He should avoid soaps on the face. We will hold the next dose of Humira this week but when the rash starts to improve I think he could restart it. We talked about a dermatology evaluation but he wants to see if the hydrocortisone works first. He does have a follow-up with us in March. Medications: New hydrocortisone 1% 1 appl topical BID 28.35 grams 2RF L21.9 - Seborrheic dermatitis, unspecified Coding Level of Care Code Est Pt Level 3 (80775) Diagnoses Long-term use of immunosuppressant medication Z79.60 Seropositive rheumatoid arthritis M05.9 Seborrheic dermatitis L21.9
[2023-02-12 08:24] VITALS: BP 102/68; PULSE 113; TEMP 36.6; O2SAT 98; BMI 27.0
== END 2023-02-12 08:53 | disposition home or self-care (01) ==
PROVIDERS: PCP Internal Medicine; Visit Provider Internal Medicine Rheumatology
DX: M05.79 Rheumatoid arthritis with rheumatoid factor of multiple sites without organ or systems involvement (principal); Z79.60 Long term (current) use of unspecified immunomodulators and immunosuppressants; L21.9 Seborrheic dermatitis, unspecified
CPT/HCPCS: 99213

== ENCOUNTER → 2023-02-12 08:12 | Outpatient (BNVA) | payer OTHER, SELFPAY | PROVIDERS: PCP Internal Medicine; Visit Provider Internal Medicine Rheumatology ==

== ENCOUNTER 2023-02-24 08:51 | Outpatient (AMB) | payer OTHER, SELFPAY ==
--- NOTE | 2023-02-24 09:04 | MHC.PC.OV ---
Vital Signs 02/24/23 09:06 Height 5 ft 10 in Weight 187 lb 4 oz BMI 26.9 BP 136/80 Blood Pressure Location Lt brachial Position Sitting Pulse 93 Pulse Source Pulse Oximeter Pulse Oximetry (%) 96 Oxygen Delivery Method Room Air Intake Visit Reasons: rash on hands and face Allergies No Known Allergies Allergy (Verified 02/24/23 09:09) Medication List - Last Reconciled 02/24/23 by Edinson Calle MD adalimumab (Humira(CF) Pen) 40 mg (0.4 mL) subcut Q2W 56 days atenolol 25 mg PO DAILY 90 days chlorhexidine gluconate 0.12% PO hydrocortisone 1% 1 appl topical BID lisinopril 40 mg PO DAILY omega-3 fatty acids (Fish Oil Concentrate) 2,000 mg PO DAILY pantoprazole 40 mg PO DAILY rosuvastatin (Crestor) 20 mg PO DAILY rcewhcj-zmvz-mpmnl-oreg-capryl 100 mg-150 mg- 50 mg-150 mg caps PO Tobacco use date assessed: 02/24/23 Dental Screening Dental Screen Date: 02/24/23 Did you have a dental visit in the last 12 months?: Yes Did you have a dental problem in the last 6 months where you did not have access to dental care?: No Was dental information given to patient?: Patient has dentist HPI rash on hands and face HPI Details Patient is a 57-year-old a history of rheumatoid arthritis and is seeing Rheumatology patient is being treated with Humira Came in to be evaluated for the rash she has developed on his hands Patient says that similar rash appeared on his face which is better and the rash on his hands is getting better as well He has not taken his Humira injection in past few days, usually he takes it 2 times a month He has discussed with his geochemistry teacher who has suggested to skip the dose. His rash is erythematous with scales at the edges on hand both side left worse than right mostly dorsum of the hand and in between the fingers I am treating him with Lotrisone cream he can use the cream at night or b.i.d. for 10 days and then stop. [facility] Medical History Thoracic aortic atherosclerosis Essential hypertension Seropositive rheumatoid arthritis Surgical History H/O wrist surgery Family History Father Hypertension Stented coronary artery Mother Hypertension Other Mental health disorder Social History Housing: House Alcohol intake: current Alcohol intake frequency: 3 or more drinks per day Alcohol type: beer Patient Tobacco Use Status: Current everyday Tobacco user Tobacco use type: Cigarette Cigarettes Per Day: 30 Years Smoked: 35 Packs per year/per ci.50 e-Cigarette/Vaping Use: Never Used Second Hand Smoke Exposure: No Current occupational status: 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 33840 - PHQ-9 Billing: Patient declined-do not bill Source: Developed by Drs. Lorenzo Rojas, Shira Roche, Agus Chen and colleagues, with an educational mer from [employer]. Thrive Questionnaire Date Thrive assessed: 02/24/23 I am a: Patient What is your living situation today?: I choose not to answer this question Within the past 12 months, did the food you bought not last and you didn't have the money to get more?: I choose not to answer this question Within the past 12 months, did you worry whether your food would run out before you got money to buy more?: I choose not to answer this question Do you have trouble paying for medicines?: I choose not to answer this question Do you have trouble getting transportation to medical appointments?: I choose not to answer this question Do you have trouble paying your heating and electricity bill?: I choose not to answer this question Do you have trouble taking care of your child, family member or friend?: I choose not to answer this question Do you have trouble with day-to-day activities such as bathing, preparing meals, shopping, managing finances, etc.?: I choose not to answer this question Are you currently unemployed and looking for a job?: I choose not to answer this question Are you interested in more education?: I choose not to answer this question Currently or been in a relationship where the following occur: no concerns reported AUDIT C Alcohol Use Questionnaire (AUDIT-C) 1. How often do you have a drink containing alcohol?: Never 3. How often do you have six or more drinks on one occasion?: Never Total Score: 0 Score Reviewed/Action Taken: Yes COLUMBA-7 AMB Questionnaire COLUMBA-7 Date COLUMBA - 7 assessed: 02/24/23 Source: Developed by Drs. Lorenzo Rojas, Shira Roche, Agus Chen and colleagues, with an educational mer from [employer]. COLUMBA-7 Assessment Billing COLUMBA-7 Assessment Tool: pt declined-do not bill Review of Systems Const Denies chills and Denies fever(s) ENT Denies epistaxis and Denies nasal discharge Card Denies chest pain Resp Denies chest congestion, Denies cough and Denies hemoptysis GI Denies diarrhea and Denies nausea Neuro Reports no additional complaints Psych Reports no additional complaints Endo Reports no additional complaints Physical exam (Primary Care) Vital Signs: Last Vital Signs Pulse 93 02/24/23 09:06 BP 136/80 02/24/23 09:06 Pulse Ox 96 02/24/23 09:06 Oxygen Delivery Method Room Air 02/24/23 09:06 BMI result Body Mass Index 26.9 Tobacco/Smoking Status: Tobacco use Status Tobacco use date assessed 02/24/23 02/24/23 09:10 Patient Tobacco Use Status Current everyday Tobacco 02/24/23 09:06 Tobacco use type Cigarette 02/24/23 09:06 e-Cigarette/Vaping Use Never Used 02/24/23 09:06 Thrive Assessment: Date of Thrive Assessment Date Thrive assessed 02/24/23 02/24/23 09:13 Currently or been in a relationship where the following occur: no concerns reported Const General: cooperative, comfortable and no acute distress Orientation/consciousness: patient oriented x3 HENMT Head: Yes normocephalic Eyes General: appearance normal, both eyes and all related structures Neck Neck: Yes supple Resp Effort & Inspection: normal respiratory effort, no cough and no stridor Cardio Rhythm: regular rhythm Heart sounds: S1 normal heart sound present and S2 normal heart sound present Skin General skin exam: turgor normal Neuro General: patient oriented x3, tone normal and moves all extremities Extrem Other: Scaly erythematous rash dorsum aspect of both hands left more than right Right lower extremity: no edema Left lower extremity: no edema Assessment and Plan Assessment & Plan (1) Rash of both hands: Code(s): R21 - Rash and other nonspecific skin eruption (2) Seropositive rheumatoid arthritis: Comment: Humira 09/04- 03/2020 Enbrel March 2020 - September 2020 discontinued due to insurance Orencia denied by insurance Rinvoq September 2020 - present Prednisone 09/05/2019 - present Code(s): M05.9 - Rheumatoid arthritis with rheumatoid factor, unspecified (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 His rash is erythematous with scales at the edges on hand both side left worse than right mostly dorsum of the hand and in between the fingers I am treating him with Lotrisone cream he can use the cream at night or b.i.d. for 10 days and then stop. 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
[2023-02-24 09:06] VITALS: BP 136/80; PULSE 93; O2SAT 96; BMI 26.9
== END 2023-02-24 09:59 | disposition home or self-care (01) ==
PROVIDERS: PCP Internal Medicine; Visit Provider Internal Medicine
DX: R21 Rash and other nonspecific skin eruption (principal); M05.9 Rheumatoid arthritis with rheumatoid factor, unspecified; Z79.69 Long term (current) use of other immunomodulators and immunosuppressants
CPT/HCPCS: 99214

== ENCOUNTER 2023-03-12 11:12 | Outpatient (AMB) | payer OTHER, SELFPAY ==
--- NOTE | 2023-03-12 11:18 | MHC.OFFVIS ---
Intake Vital Signs 03/12/23 11:20 Height 5 ft 10 in Weight 189 lb 2.506 oz BMI 27.1 BP 140/92 H Blood Pressure Location Lt brachial Position Sitting Pulse 96 Pulse Source Pulse Oximeter Temp 96.8 F Temp Source Skin Pulse Oximetry (%) 97 Oxygen Delivery Method Room Air Intake Visit Reasons: Humira Intake Note: Patient last seen January, by Dr. Houston, presents today for medication discussion. Requesting work note. [employer] Supervisor Required: No Accompanied by: Self / Same As Patient Allergies No Known Allergies Allergy (Verified 03/12/23 11:26) HPI HPI Comments History of Present Illness Details Mr. Farris, 57 yoM patient presents for urgent follow-up of skin rash and to discuss new medication options. He dis see DERM and was told not to restart HUMIRA. Since then, the joints have flared. He says the pain jumps from limb to limb but today it is the right wrist and left knee mainly. He received a 5 day course of Prednisone 20 mg QD from PCP. Prior visit 01/2023: This developed about 5 days ago. It is slightly itchy involving just the face and ears. He does not recall similar rashes. He had been started on Humira about 10 days ago for his rheumatoid arthritis. We had switched him off the Rinvoq because he had developed coronary artery disease and we were concerned about Rinvoq exacerbating that condition. He had been on the Humira years ago. He does not recall exactly why it was stopped but he does not think it was related to any kind of skin rash or side effect. He thinks it was effective for his RA. He thinks it might have been mostly an insurance issue. The joints have been stable. He has tried some moisturizing cream to the face. 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 He gets that lubricating substance on his hands usually but not on his face. The hands are not involved with the rash. [facility] Medical History (Updated 03/12/23 @ 11:43 by ALEJANDRA Lobo) Pain in joint involving multiple sites Rheumatoid arthritis flare Thoracic aortic atherosclerosis Essential hypertension Seropositive rheumatoid arthritis Surgical History H/O wrist surgery Family History Father Hypertension Stented coronary artery Mother Hypertension Other Mental health disorder Social History Housing: House Alcohol intake: current Alcohol intake frequency: 3 or more drinks per day Alcohol type: beer Patient Tobacco Use Status: Current everyday Tobacco user Tobacco use type: Cigarette Cigarettes Per Day: 30 Years Smoked: 35 e-Cigarette/Vaping Use: Never Used Second Hand Smoke Exposure: No Current occupational status: 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 EYES no redness, eyelids normal EARS: External ear normal, canal clear and tympanic membrane normal. EXTREMITIES: No edema, no calf tenderness, normal peripheral pulses. Tenderness to right wrist with mild swelling and tenderness to left knee, no swelling but no redness, increased warmth or erythema. Mouth: No oral lesions. SKIN: Face has some rather diffuse redness that is resolving. The rash over the ears has resolved. There is some scaling at the scalp margin over the forehead as well. There are no palpable lesions. There are no signs of psoriasis in the scalp. Examination of the chest, abdomen, arms, hands, and legs failed to reveal any other skin rash. The side of the Humira injection was in the abdominal wall on the right and there is no skin inflammation at that point. Assessment & Plan Assessment & Plan (1) Long-term use of immunosuppressant medication: Code(s): Z79.60 - [facility] (current) use of unspecified immunomodulators and immunosuppressants (2) Seropositive rheumatoid arthritis: Comment: Humira 09/04- 03/2020 Enbrel March 2020 - September 2020 discontinued due to insurance Orencia denied by insurance Rinvoq September 2020 - present Prednisone 09/05/2019 - present Code(s): M05.9 - Rheumatoid arthritis with rheumatoid factor, unspecified (3) Rheumatoid arthritis flare: Code(s): M06.9 - Rheumatoid arthritis, unspecified Plan #SeroPosRA/Flare: We will switch the patient to ACTEMRA so I have sen the PA for that. Given the past medication profile and insurance preferences we hope this will be approved. The patient had inquired about oral medication options. I did explain, that the oral medications available were of the same class of medication (ALIZA) as RINVOQ which was stopped because of his CV profile. To mitigate the flare, I will RX Prednisone 5mg. He can take 2 to 3 pills per day until he starts the ACTEMRA and overlapp until Actemra ramps up for about 1 month. I have also given an RX for Ibuprofen 800 md TID PRN and cautioned him to take with food and to stop for any adverse effects. His Kidney function is adequate for the NSAID at this time. #[employer] Use: He will obtain monitoring labs 1 week before next visit in 6 weeks. Orders: Orders Erythrocyte Sedimentation Rate Today M05.9 - Rheumatoid arthritis with rheumatoid factor, unspecified C Reactive Protein Today M05.9 - Rheumatoid arthritis with rheumatoid factor, unspecified Medications: New prednisone Can take up to three tablets per day if needed 10 mg (2 x 5 mg) PO DIRECTED 60 tabs 0RF M06.9 - Rheumatoid arthritis, unspecified ibuprofen 800 mg PO TID PRN 90 tabs 0RF pain M06.9 - Rheumatoid arthritis, unspecified, M25.50 - Pain in unspecified joint Discontinued prednisone Discontinued Reason: Doctor's Order 20 mg PO DAILY 5 days 5 tabs 0RF adalimumab (Humira(CF) Pen) Discontinued Reason: Doctor's Order 40 mg (0.4 mL) subcut Q2W 56 days 1.6 ea 5RF M05.9 - Rheumatoid arthritis with rheumatoid factor, unspecified Coding Level of Care Code Est Pt Level 3 (36423) Diagnoses Long-term use of immunosuppressant medication Z79.60 Seropositive rheumatoid arthritis M05.9 Rheumatoid arthritis flare M06.9
[2023-03-12 11:20] VITALS: BP 140/92; PULSE 96; TEMP 36; O2SAT 97; BMI 27.1
== END 2023-03-12 12:01 | disposition home or self-care (01) ==
PROVIDERS: PCP Internal Medicine; Visit Provider Nurse Practitioner Family
DX: M05.79 Rheumatoid arthritis with rheumatoid factor of multiple sites without organ or systems involvement (principal); Z79.60 Long term (current) use of unspecified immunomodulators and immunosuppressants
CPT/HCPCS: 99214

== ENCOUNTER → 2023-03-12 11:12 | Outpatient (BNVA) | payer OTHER, SELFPAY | PROVIDERS: PCP Internal Medicine; Visit Provider Nurse Practitioner Family ==

== ENCOUNTER 2023-04-03 06:13 | Outpatient (REF) | payer OTHER, SELFPAY ==
[2023-04-03 06:31] LABS: MANUAL DIFF FLAG NO
[2023-04-03 07:32] LABS: Basophils Absolute Auto 0.1 X10*3/uL (0.0-0.2); Basophils Percent Auto 1.4 % (0-2); Eosinophils Absolute Auto 0.3 X10*3/uL (0.0-0.4); Eosinophils Percent Auto 3.5 % (0-4); Hematocrit 41.2 % (42.0-52.0); Hemoglobin 14.2 g/dl (14.0-18.0); Imm Gran Abs Auto 0.01 X10*3/uL (0.00-0.03); Imm Gran Pct Auto 0.1 % (0.0-0.4); Lymphocytes Absolute Auto 2.3 X10*3/uL (1.2-4.9); Lymphocytes Percent Auto 31.2 % (20-40); Mean Corpuscular HGB Conc 34.5 g/dl (31.0-36.0); Mean Corpuscular Hemoglobin 30.3 pg (27.0-33.0); Mean Corpuscular Volume 87.8 fL (80.0-98.0); Mean Platelet Volume 9.9 fL (9.4-12.4); Monocytes Percent Auto 13.1 % (2-11); Neutrophils Absolute Auto 3.7 x10*3/uL (2.0-8.3); Neutrophils Percent Auto 50.7 % (45-73); Platelet Count 287 X10*3/uL (160-400); Red Blood Count 4.69 X10*6/uL (4.60-5.80); Red Cell Distribution Width 12.6 % (11.0-16.0); White Blood Count 7.3 X10*3/uL (4.8-10.8)
[2023-04-03 07:53] LABS: C Reactive Protein < 0.10 mg/dL (< or = 0.50)
[2023-04-03 07:54] LABS: Alanine Aminotransferase 63 U/L (0-40); Albumin Level 4.2 g/dL (3.5-5.0); Alkaline Phosphatase 79 U/L (39-117); Anion Gap 14 (12-20); Aspartate Amino Transferase 35 U/L (5-37); Bilirubin Total 0.5 mg/dL (0.0-1.0); Blood Urea Nitrogen 11 mg/dL (9-16); Calcium 9.5 mg/dL (8.4-10.2); Carbon Dioxide 25 mmol/L (22-29); Chloride 102 mmol/L (96-108); Cholesterol 162 mg/dL (<200); Estimated Glomerular Filt Rate > 60; Glucose Fasting 108 mg/dL (60-99); Glucose Random 107 mg/dL (60-115); HDL Cholesterol 34 mg/dL (>40); LDL Cholesterol Calculated 62 mg/dL (<100); Potassium 3.6 mmol/L (3.3-5.1); Sodium 137 mmol/L (135-145); Total Protein 7.1 g/dL (6.5-8.0); Triglycerides 332 mg/dL (<150)
[2023-04-03 08:30] LABS: Erythrocyte Sedimentation Rate 7 MM/HR (0-15)
[2023-04-04 12:23] LABS: LDL Cholesterol Direct 75 mg/dL (<100)
== END 2023-04-03 06:14 | disposition home or self-care (01) ==
LOC: HO.LAB 06:13
PROVIDERS: Absent Provider Internal Medicine; PCP Internal Medicine; Visit Provider Nurse Practitioner Family
DX: M05.9 Rheumatoid arthritis with rheumatoid factor, unspecified (principal); I70.0 Atherosclerosis of aorta; I25.10 Atherosclerotic heart disease of native coronary artery without angina pectoris; Z79.60 Long term (current) use of unspecified immunomodulators and immunosuppressants; K21.9 Gastro-esophageal reflux disease without esophagitis; F17.200 Nicotine dependence, unspecified, uncomplicated; I10 Essential (primary) hypertension; F10.20 Alcohol dependence, uncomplicated; E78.5 Hyperlipidemia, unspecified; R94.39 Abnormal result of other cardiovascular function study; R07.89 Other chest pain; R79.89 Other specified abnormal findings of blood chemistry
CPT/HCPCS: 36415; 80048; 80053; 80061; 83721; 85025; 85652; 86140

== ENCOUNTER 2023-04-09 09:51 | Outpatient (AMB) | payer OTHER, SELFPAY ==
[2023-04-09 09:59] VITALS: BP 124/70; PULSE 108; O2SAT 97; BMI 27.6
--- NOTE | 2023-04-09 09:59 | A.OFFVIS_ITS ---
Intake Vital Signs 04/09/23 09:59 Height 5 ft 10 in Weight 192 lb 3.889 oz BMI 27.6 BP 124/70 Blood Pressure Location Lt brachial Position Sitting Pulse 108 H Pulse Source Pulse Oximeter Pulse Oximetry (%) 97 Oxygen Delivery Method Room Air Intake Visit Reasons: 6 mth f/up Intake Note: pt presents to office today for a 6 month follow up. Allergies adalimumab [From Humira] Allergy (Intermediate, Verified 04/09/23 10:03) Rash Medication List - Last Reconciled 04/09/23 by Ney Vega MD aspirin (Aspirin Childrens) 81 mg PO DAILY chlorhexidine gluconate 0.12% PO ibuprofen 800 mg PO TID PRN lisinopril 40 mg PO DAILY omega-3 fatty acids (Fish Oil Concentrate) 2,000 mg PO DAILY pantoprazole 40 mg PO DAILY prednisone 10 mg (2 x 5 mg) PO DIRECTED rosuvastatin 20 mg PO DAILY tocilizumab (Actemra ACTPen) 162 mg (0.9 mL) subcut QWEEK gipimsyo-vsao-fnmfx-oreg-capry 100 mg-150 mg- 50 mg-150 mg caps PO HPI HPI Comments History of Present Illness Details Teddy returns for follow-up. Recently seen in consultation regarding chest discomfort. Nonexertional and was happening randomly. However, he states that is completely gone at this time he does not have it anymore. History of hypertension, smoking. He underwent a comprehensive workup including echocardiogram, stress test as well as coronary CTA. Overall, he states he is feeling fine. No new issues. No further chest pains. [facility] Medical History Pain in joint involving multiple sites Rheumatoid arthritis flare Thoracic aortic atherosclerosis Essential hypertension Seropositive rheumatoid arthritis Surgical History H/O wrist surgery Family History Father Hypertension Stented coronary artery Mother Hypertension Other Mental health disorder Social History (Updated 04/09/23 @ 10:07 by Alaina Bedolla MA) Housing: House Alcohol intake: current Alcohol intake frequency: a few times a week Alcohol type: beer Patient Tobacco Use Status: Current everyday Tobacco user Tobacco use type: Cigarette Cigarettes Per Day: 30 Years Smoked: 35 e-Cigarette/Vaping Use: Never Used Second Hand Smoke Exposure: No Current occupational status: 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 Cognitive needs: No Hearing needs: No Vision needs: Yes Review of Systems Const All systems reviewed & are unremarkable except as noted in HPI and below Reports as per HPI and Reports no additional complaints Eyes Reports as per HPI and Denies no additional complaints ENT Denies no additional complaints and Reports as per HPI Card Denies as per HPI, Denies no additional complaints, Denies acrocyanosis, Denies chest pain, Denies chest pain at rest, Denies chest pain with activity, Denies diaphoresis, Denies syncope, Denies rapid heart rate, Denies pedal edema, Denies edema, Denies irregular heart rhythm, Denies claudication, Denies leg ulcers, Denies leg edema, Denies lightheadedness, Denies radiating jaw, neck or arm pain, Denies palpitations, Denies dyspnea, Denies dyspnea on exertion, Denies orthopnea, Denies paroxysmal nocturnal dyspnea, Denies slow heart rate and Denies other Resp Denies dyspnea and Denies dyspnea on exertion GI Reports as per HPI and Denies no additional complaints Reports no additional complaints and Reports as per HPI Musc Reports no additional complaints and Reports as per HPI Skin/Breast Reports system reviewed and no additional complaints, except as documented Neuro Denies syncope Psych Reports no additional complaints and Reports as per HPI Endo Denies palpitations Aníbal/Lymph Reports no additional complaints and Reports as per HPI Aller/Immun Reports no additional complaints and Reports as per HPI Physical Exam Vital Signs: Last Vital Signs Pulse 108 H 04/09/23 09:59 BP 124/70 04/09/23 09:59 Pulse Ox 97 04/09/23 09:59 Oxygen Delivery Method Room Air 04/09/23 09:59 BMI result Body Mass Index 27.6 Const General: comfortable and no acute distress Orientation/consciousness: patient oriented x3 HEENT Other: Unremarkable Head: Yes normal to inspection Neck Neck: Yes normal visual inspection Chest Chest palpation & inspection: normal inspection of the chest Resp Auscultation: clear to auscultation bilaterally Cardio Palpation: normal PMI Heart sounds: S1 normal heart sound present, S2 normal heart sound present, no gallops, no murmurs and no rubs GI Palpation (GI): Soft to palpation Back/Spine/Pelvis Other: unremarkable Skin General skin exam: no rashes or lesions noted Neuro General: patient oriented x3 Extrem General: Yes normal to inspection Psych Mental Status: mental status grossly normal Assessment & Plan Assessment & Plan (1) Atherosclerotic cardiovascular disease: Code(s): I25.10 - Atherosclerotic heart disease of [place] coronary artery without angina pectoris (2) Essential hypertension: Code(s): I10 - Essential (primary) hypertension (3) Smoking: Code(s): F17.200 - Nicotine dependence, unspecified, uncomplicated (4) Hyperlipidemia: Code(s): E78.5 - Hyperlipidemia, unspecified Plan Cardiac studies reviewed. Baseline EKG shows sinus rhythm at 94/Min; possible left atrial enlargement; no nspecific inferior changes; normal CT and corrected QT. Echocardiogram with LVEF of 60%. No wall motion abnormalities. Otherwise unremarkable. In the stress test, he is 90% of max predicted heart rate with some shortness of breath but no chest pain. Borderline EKG changes. Hypertensive blood pressure response. In the coronary CTA, mostly nonobstructive CAD with mild to moderate stenosis. RCA not well visualized due to motion artifact. Distal RCA described to be normal supplying a small PDA/PLV. There was moderate atherosclerosis of the descending aorta with mural thrombus. Overall, established CAD, smoking, hypertension, high triglycerides. Discussed about smoking cessation again today. He states difficult to do that as he is smoked for many years. Blood pressure seems stable. LDL seems okay but triglycerides still high. We can increase the statins further and recheck lipids in 3 months. He does have slightly abnormal alt and hence that needs to be followed as well. Orders: Orders Liver Panel 3 Months I25.10 - Atherosclerotic heart disease of [place] coronary artery without angina pectoris Medications: New rosuvastatin (Crestor) 40 mg PO DAILY 90 tabs 3RF Discontinued rosuvastatin Discontinued Reason: Doctor's Order 20 mg PO DAILY 90 tabs 3RF Coding Level of Care Code Est Pt Level 4 (03177) Diagnoses Atherosclerotic cardiovascular disease I25.10 Essential hypertension I10 Smoking F17.200 Hyperlipidemia E78.5
== END 2023-04-09 10:21 | disposition home or self-care (01) ==
PROVIDERS: PCP Internal Medicine; Visit Provider Internal Medicine
DX: I25.10 Atherosclerotic heart disease of native coronary artery without angina pectoris (principal); I10 Essential (primary) hypertension; F17.200 Nicotine dependence, unspecified, uncomplicated; E78.5 Hyperlipidemia, unspecified
CPT/HCPCS: 99214

== ENCOUNTER → 2023-04-09 09:51 | Outpatient (BNVA) | payer OTHER, SELFPAY | PROVIDERS: PCP Internal Medicine; Visit Provider Internal Medicine ==

== ENCOUNTER 2023-04-20 11:32 | Outpatient (AMB) | payer OTHER, SELFPAY ==
--- NOTE | 2023-04-20 11:36 | A.OFFVIS_ITS ---
Intake Vital Signs 04/20/23 11:44 Height 5 ft 10 in Weight 186 lb 1.122 oz BMI 26.7 BP 124/70 Blood Pressure Location Rt brachial Position Sitting Pulse 122 H Pulse Source Pulse Oximeter Temp 97 F Temp Source Skin Pulse Oximetry (%) 98 Oxygen Delivery Method Room Air Intake Visit Reasons: RA Intake Note: Patient last seen 03/12/23 by Marcella, presents today for follow up and test results. c/o shelbie hand pain, shelbie shoulder pain- everyday pain, worse in the morning Small Stock Facer Required: No Accompanied by: Self / Same As Patient Allergies adalimumab [From Humira] Allergy (Intermediate, Verified 04/20/23 11:37) Rash HPI HPI Comments History of Present Illness Details Mr. Farris, 57 yoM patient presents for urgent follow-up rheumatoid arthritis. He has recently started Actemra 162 mg q.week. Actemra was prescribed after he encountered skin rash on Humira. He has had some improvement in his joints that he found favorable considering that he has been off Humira for the better part of 2 months. There is some morning stiffness that does not last more than 10 minutes and the deep med allergies shoulder pain persist. However, he is feeling better overall but hopes to see more improvement as he continues to use Actemra. 03/12/2023 Mr. Farris, 57 yoM patient presents for urgent follow-up of skin rash and to discuss new medication options. He dis see DERM and was told not to restart HUMIRA. Since then, the joints have flared. He says the pain jumps from limb to limb but today it is the right wrist and left knee mainly. He received a 5 day course of Prednisone 20 mg QD from PCP. Prior visit 01/2023: This developed about 5 days ago. It is slightly itchy involving just the face and ears. He does not recall similar rashes. He had been started on Humira about 10 days ago for his rheumatoid arthritis. We had switched him off the Rinvoq because he had developed coronary artery disease and we were concerned about Rinvoq exacerbating that condition. He had been on the Humira years ago. He does not recall exactly why it was stopped but he does not think it was related to any kind of skin rash or side effect. He thinks it was effective for his RA. He thinks it might have been mostly an insurance issue. The joints have been stable. He has tried some moisturizing cream to the face. 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 He gets that lubricating substance on his hands usually but not on his face. The hands are not involved with the rash. [facility] Medical History Pain in joint involving multiple sites Rheumatoid arthritis flare Thoracic aortic atherosclerosis Essential hypertension Seropositive rheumatoid arthritis Surgical History H/O wrist surgery Family History Father Hypertension Stented coronary artery Mother Hypertension Other Mental health disorder Social History Housing: House Alcohol intake: current Alcohol intake frequency: a few times a week Alcohol type: beer Patient Tobacco Use Status: Current everyday Tobacco user Tobacco use type: Cigarette Cigarettes Per Day: 30 Years Smoked: 35 e-Cigarette/Vaping Use: Never Used Second Hand Smoke Exposure: No Current occupational status: 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 EYES no redness, eyelids normal EARS: External ear normall. HEART:? Regular rhythm, S1-S2 heard, no murmurs, rubs or gallops. LUNG:? Clear to percussion and auscultation EXTREMITIES: No edema, no calf tenderness, normal peripheral pulses. Tenderness to right wrist with mild swelling and tenderness to left knee, no swelling but no redness, increased warmth or erythema. Mouth: No oral lesions. SKIN: There are no palpable lesions. There are no signs of psoriasis in the scalp. Examination of the chest, abdomen, arms, hands, and legs failed to reveal any other skin rash. The side of the Humira injection was in the abdominal wall on the right and there is no skin inflammation at that point. Cervical Spine: Full range of motion without pain; no tenderness. Thoracic Spine:?No tenderness on palpation. Lumbar Spine: Alignment normal.? Full range of motion without pain, no tenderness. Hands:? LEFT: Normal pain-free range of motion without tenderness, swelling, increased warmth or erythema. There is some slight tenderness and bony enlargement at the 3rd PIP. No thenar atrophy or sensory loss. Able to make a full fist and has good barrel rifler broach strength. ? RIGHT:? Normal pain free range of motion without tenderness, swelling, increased warmth or erythema.? Able to make a full fist and has good barrel rifler broach strength.? Well-healed scar over the dorsum of the hand. No thenar atrophy or sensory loss. Wrists: Right: Normal pain-free range of motion without tenderness, swelling, increased warmth or erythema. There is a large scar on the dorsum of the wrist which is the side of the extensor tendon synovectomy. This seems well healed without tenderness. Left: Pain-free range of motion to 75 degrees flexion or extension. There is some slight dorsal tenderness but no redness or swelling. Elbows: Normal pain-free range of motion without tenderness, swelling, increased warmth or erythema. Shoulders:? Full range of motion without pain. No tenderness, weakness, swelling, increased warmth or erythema. Hips: Full range of motion without pain. Hip bursa:? No tenderness. Knees:? Normal pain-free range of motion without tenderness.? There is no effusion or crepitation Ankles: Left: Normal pain-free range of motion with some slight lateral tenderness. Normal pain-free range of motion without tenderness, swelling, increased warmth or erythema. Feet:? Left: Slight bony enlargement at the 1st MTP but no tenderness. Right: Normal pain-free range of motion without tenderness, swelling, increased warmth or erythema. Results Reviewed Results Reviewed: Laboratory Tests 04/03/23 04/03/23 04/03/23 06:25 06:30 06:30 WBC 7.3 RBC 4.69 Hgb 14.2 Hct 41.2 L ESR 7 Creatinine 0.72 Estimated GFR > 60 AST 35 ALT 63 H C-Reactive Protein < 0.10 Triglycerides 332 H Cholesterol 162 Assessment & Plan Assessment & Plan (1) Long-term use of immunosuppressant medication: Code(s): Z79.60 - joint terminal attack controller (current) use of unspecified immunomodulators and immunosuppressants (2) Seropositive rheumatoid arthritis: Comment: Humira 09/04- 03/2020 Enbrel March 2020 - September 2020 discontinued due to insurance [employer] denied by insurance Rinvoq September 2020 - present Prednisone 09/05/2019 - present Rinvoq: Elevated liver Enzymes and Cholesterol Humira 11/2022: Skin Rash Code(s): M05.9 - Rheumatoid arthritis with rheumatoid factor, unspecified (3) Rheumatoid arthritis flare: Code(s): M06.9 - Rheumatoid arthritis, unspecified Plan #SeroPosRA/Flare: We have switched the patient to ACTEMRA 162 mg q.week. Given the past medication profile and insurance preferences we hope this will be effective. The patient had inquired about oral medication options. I did explain, that the oral medications available were of the same class of medication (ALIZA) as RINVOQ which was stopped because of his CV profile, elevated liver enzymes and cholesterol. He will continue prednisone 5 mg for 2 more weeks and then stopped. He can also continue to take Ibuprofen 800 md TID PRN and I cautioned him to take with food and to stop for any adverse effects. His Kidney function is adequate for the NSAID at this time. #Prison Use: He will obtain monitoring labs 1 week before next visit in 12 weeks. I spent 25 minutes assessing and discussing treatment options with patient and documenting Coding Level of Care Code Est Pt Level 3 (84788) Diagnoses Long-term use of immunosuppressant medication Z79.60 Seropositive rheumatoid arthritis M05.9 Rheumatoid arthritis flare M06.9
[2023-04-20 11:44] VITALS: BP 124/70; PULSE 122; TEMP 36.1; O2SAT 98; BMI 26.7
== END 2023-04-20 12:18 | disposition home or self-care (01) ==
PROVIDERS: PCP Internal Medicine; Visit Provider Nurse Practitioner Family
DX: M05.79 Rheumatoid arthritis with rheumatoid factor of multiple sites without organ or systems involvement (principal); Z79.60 Long term (current) use of unspecified immunomodulators and immunosuppressants
CPT/HCPCS: 99213

== ENCOUNTER → 2023-04-20 11:32 | Outpatient (BNVA) | payer OTHER, SELFPAY | PROVIDERS: PCP Internal Medicine; Visit Provider Nurse Practitioner Family ==

== ENCOUNTER 2023-04-28 09:35 | Outpatient (AMB) | payer OTHER, SELFPAY ==
[2023-04-28 09:36] VITALS: BP 140/66; PULSE 103; O2SAT 96; BMI 27.0
--- NOTE | 2023-04-28 09:36 | MHC.PC.OV ---
Vital Signs 04/28/23 09:36 Height 5 ft 10 in Weight 188 lb 6 oz BMI 27.0 BP 140/66 H Blood Pressure Location Rt brachial Position Sitting Pulse 103 H Pulse Source Pulse Oximeter Pulse Oximetry (%) 96 Oxygen Delivery Method Room Air Intake Visit Reasons: 8m follow up Allergies adalimumab [From Humira] Allergy (Intermediate, Verified 04/28/23 09:42) Rash Medication List - Last Reconciled 04/28/23 by Edinson Calle MD aspirin (Aspirin Childrens) 81 mg PO DAILY chlorhexidine gluconate 0.12% PO ibuprofen 800 mg PO TID PRN lisinopril 40 mg PO DAILY omega-3 fatty acids (Fish Oil Concentrate) 2,000 mg PO DAILY pantoprazole 40 mg PO DAILY prednisone 5 mg PO DIRECTED rosuvastatin (Crestor) 40 mg PO DAILY tocilizumab (Actemra ACTPen) 162 mg (0.9 mL) subcut QWEEK lmkdrgbe-mgvo-ffxyv-oreg-capry 100 mg-150 mg- 50 mg-150 mg caps PO Tobacco use date assessed: 04/28/23 Dental Screening Dental Screen Date: 04/28/23 Did you have a dental visit in the last 12 months?: Yes Did you have a dental problem in the last 6 months where you did not have access to dental care?: No Was dental information given to patient?: Patient has dentist HPI 8m follow up HPI Details Patient is a 57-year-old gentleman came in today for follow-up Continued to have nasal congestion off and on he is using Flonase nasal spray which is helping However he is not using it regularly, advised patient to start using it regularly. Need to follow-up on liver enzymes and sugar Last labs his ALT was 63 and fasting sugar was 106 patient is prediabetic Patient is on lisinopril 40 mg, blood pressure is slightly elevated today Patient is seeing Dr. Vega, his stress test was slightly abnormal, patient has appointment coming up next month Currently patient is taking Crestor for lipid control, his triglycerides are very high managed by Cardiology He complained of feeling of bloating sensation in his epigastric area, currently patient is on pantoprazole 40 mg We talked about stopping alcohol altogether today, and I have placed a referral for to see Gastroenterology he is due for colonoscopy as well Rheumatoid arthritis management through rheumatology [facility]. He is smoking for many years, currently smoking 1 pack per day He says that he has tried many time and has failed. He is not interested in any help at this time. Follow-up 6 months [facility] Medical History Pain in joint involving multiple sites Rheumatoid arthritis flare Thoracic aortic atherosclerosis Essential hypertension Seropositive rheumatoid arthritis Surgical History H/O wrist surgery Family History Father Hypertension Stented coronary artery Mother Hypertension Other Mental health disorder Social History Housing: House Alcohol intake: current Alcohol intake frequency: a few times a week Alcohol type: beer Patient Tobacco Use Status: Current everyday Tobacco user Tobacco use type: Cigarette Cigarettes Per Day: 30 Years Smoked: 35 e-Cigarette/Vaping Use: Never Used Second Hand Smoke Exposure: No Current occupational status: 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 How often do you have a drink containing alcohol?: Never 3. How often do you have six or more drinks on one occasion?: Never Total Score: 0 Score Reviewed/Action Taken: Yes COLUMBA-7 AMB Questionnaire COLUMBA-7 Date COLUMBA - 7 assessed: 02/24/23 Source: Developed by Drs. Lorenzo Rojas, Shira Roche, Agus Chen and colleagues, with an educational mer from [employer]. Review of Systems Const Denies chills and Denies fever(s) ENT Denies epistaxis and Denies nasal discharge Card Denies chest pain Resp Denies chest congestion, Denies cough and Denies hemoptysis GI Denies diarrhea and Denies nausea Skin/Breast Denies rash Neuro Reports no additional complaints Psych Reports no additional complaints Endo Reports no additional complaints Physical exam (Primary Care) Vital Signs: Last Vital Signs Pulse 103 H 04/28/23 09:36 BP 140/66 H 04/28/23 09:36 Pulse Ox 96 04/28/23 09:36 Oxygen Delivery Method Room Air 04/28/23 09:36 BMI result Body Mass Index 27.0 Tobacco/Smoking Status: Tobacco use Status Tobacco use date assessed 04/28/23 04/28/23 09:44 Patient Tobacco Use Status Current everyday Tobacco 04/28/23 09:37 Tobacco use type Cigarette 04/28/23 09:37 e-Cigarette/Vaping Use Never Used 04/28/23 09:37 Thrive Assessment: Date of Thrive Assessment Date Thrive assessed 02/24/23 04/28/23 09:37 Const General: cooperative, comfortable and no acute distress Orientation/consciousness: patient oriented x3 HENMT Head: Yes normocephalic Eyes General: appearance normal, both eyes and all related structures Neck Neck: Yes supple Resp Effort & Inspection: normal respiratory effort, no cough and no stridor Cardio Rhythm: regular rhythm Heart sounds: S1 normal heart sound present and S2 normal heart sound present Skin General skin exam: turgor normal Neuro General: patient oriented x3, tone normal and moves all extremities Extrem Right lower extremity: no edema Left lower extremity: no edema Assessment and Plan Assessment & Plan (1) Essential hypertension: Code(s): I10 - Essential (primary) hypertension (2) Seropositive rheumatoid arthritis: Comment: Humira 09/04- 03/2020 Enbrel March 2020 - September 2020 discontinued due to insurance Orencia denied by insurance Rinvoq September 2020 - present Prednisone 09/05/2019 - present Rinvoq: Elevated liver Enzymes and Cholesterol Humira 11/2022: Skin Rash Tocilizumab Code(s): M05.9 - Rheumatoid arthritis with rheumatoid factor, unspecified (3) Smoking: Code(s): F17.200 - Nicotine dependence, unspecified, uncomplicated (4) Chronic GERD: Code(s): K21.9 - Gastro-esophageal reflux disease without esophagitis (5) Hyperlipidemia: Code(s): E78.5 - Hyperlipidemia, unspecified Qualifiers: Hyperlipidemia type: mixed hyperlipidemia Qualified Code(s): E78.2 - Mixed hyperlipidemia (6) Long-term use of immunosuppressant medication: 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 immunomodulators and immunosuppressants (7) LFT elevation: Code(s): R79.89 - Other specified abnormal findings of blood chemistry (8) Seborrheic dermatitis: Code(s): L21.9 - Seborrheic dermatitis, unspecified (9) Atherosclerotic cardiovascular disease: Code(s): I25.10 - Atherosclerotic heart disease of [place] coronary artery without angina pectoris (10) Impaired fasting blood sugar: Code(s): R73.01 - Impaired fasting glucose (11) Alcoholism: Comment: CONSEQUENCES OF DRINKING PROBLEMS There are a number of serious consequences of drinking alcohol excessively -------Excessive alcohol consumption is a leading preventable cause of in the [place]. --------Drinking alcohol increases the risk of traffic accidents, suicide, drowning, and other serious injuries. -------Alcohol use continues to be the leading cause of injuries treated in trauma centers and emergency departments . --------Alcohol-related liver disease may lead to end-stage liver disease (cirrhosis) and . --------Alcohol increases the risk of certain cancers of the mouth, esophagus, throat, liver, and breast. Code(s): F10.20 - Alcohol dependence, uncomplicated (12) Bloating: Code(s): R14.0 - Abdominal distension (gaseous) Plan Patient is a 57-year-old gentleman came in today for follow-up Continued to have nasal congestion off and on he is using Flonase nasal spray which is helping However he is not using it regularly, advised patient to start using it regularly. Need to follow-up on liver enzymes and sugar Last labs his ALT was 63 and fasting sugar was 106 patient is prediabetic Patient is on lisinopril 40 mg, blood pressure is slightly elevated today Patient is seeing Dr. Vega, his stress test was slightly abnormal, patient has appointment coming up next month Currently patient is taking Crestor for lipid control, his triglycerides are very high managed by Cardiology He complained of feeling of bloating sensation in his epigastric area, currently patient is on pantoprazole 40 mg We talked about stopping alcohol altogether today, and I have placed a referral for to see Gastroenterology he is due for colonoscopy as well Rheumatoid arthritis management through rheumatology [facility]. He is smoking for many years, currently smoking 1 pack per day He says that he has tried many time and has failed. He is not interested in any help at this time. Follow-up 6 months Orders: Orders Comprehensive Met. Panel Today E78.5 - Hyperlipidemia, unspecified, F17.200 - Nicotine dependence, unspecified, uncomplicated, I10 - Essential (primary) hypertension, I25.10 - Atherosclerotic heart disease of [place] coronary artery without angina pectoris, K21.9 - Gastro-esophageal reflux disease without esophagitis, L21.9 - Seborrheic dermatitis, unspecified, M05.9 - Rheumatoid arthritis with rheumatoid factor, unspecified, R73.01 - Impaired fasting glucose, R79.89 - Other specified abnormal findings of blood chemistry, Z79.60 - [facility] (current) use of unspecified immunomodulators and immunosuppressants Hemoglobin A1c Today E78.5 - Hyperlipidemia, unspecified, F17.200 - Nicotine dependence, unspecified, uncomplicated, I10 - Essential (primary) hypertension, I25.10 - Atherosclerotic heart disease of [place] coronary artery without angina pectoris, K21.9 - Gastro-esophageal reflux disease without esophagitis, L21.9 - Seborrheic dermatitis, unspecified, M05.9 - Rheumatoid arthritis with rheumatoid factor, unspecified, R73.01 - Impaired fasting glucose, R79.89 - Other specified abnormal findings of blood chemistry, Z79.60 - [facility] (current) use of unspecified immunomodulators and immunosuppressants Referrals Gastroenterology Referral K21.9 - Gastro-esophageal reflux disease without esophagitis, R14.0 - Abdominal distension (gaseous) Coding Level of Care Code Est Pt Level 4 (18762) Diagnoses Essential hypertension I10 Seropositive rheumatoid arthritis M05.9 Smoking F17.200 Chronic GERD K21.9 Mixed hyperlipidemia E78.2 Hyperlipidemia type: mixed hyperlipidemia Long-term use of immunosuppressant medication Z79.60 LFT elevation R79.89 Seborrheic dermatitis L21.9 Atherosclerotic cardiovascular disease I25.10 Impaired fasting blood sugar R73.01 Alcoholism F10.20 Bloating R14.0
== END 2023-04-28 10:02 | disposition home or self-care (01) ==
PROVIDERS: PCP Internal Medicine; Visit Provider Internal Medicine
DX: I10 Essential (primary) hypertension (principal); M05.9 Rheumatoid arthritis with rheumatoid factor, unspecified; F10.20 Alcohol dependence, uncomplicated; F17.200 Nicotine dependence, unspecified, uncomplicated; K21.9 Gastro-esophageal reflux disease without esophagitis; E78.2 Mixed hyperlipidemia; Z79.60 Long term (current) use of unspecified immunomodulators and immunosuppressants; R79.89 Other specified abnormal findings of blood chemistry; L21.9 Seborrheic dermatitis, unspecified; I25.10 Atherosclerotic heart disease of native coronary artery without angina pectoris; R73.01 Impaired fasting glucose; R14.0 Abdominal distension (gaseous)
CPT/HCPCS: 99214

== ENCOUNTER 2023-07-10 06:21 | Outpatient (REF) | payer OTHER, SELFPAY ==
[2023-07-10 08:05] LABS: Estimated Average Glucose 114 mg/dL; Hemoglobin A1c % 5.6 % (<6.0)
[2023-07-10 08:11] LABS: Alanine Aminotransferase 85 U/L (0-40); Albumin Level 4.3 g/dL (3.5-5.0); Alkaline Phosphatase 62 U/L (39-117); Anion Gap 12 (12-20); Aspartate Amino Transferase 46 U/L (5-37); Bilirubin Direct 0.2 mg/dL (0.0-0.5); Bilirubin Total 0.8 mg/dL (0.0-1.0); Blood Urea Nitrogen 11 mg/dL (9-16); Calcium 9.2 mg/dL (8.4-10.2); Carbon Dioxide 24 mmol/L (22-29); Chloride 103 mmol/L (96-108); Cholesterol 161 mg/dL (<200); Estimated Glomerular Filt Rate > 60; Glucose Random 100 mg/dL (60-115); HDL Cholesterol 35 mg/dL (>40); LDL Cholesterol Calculated 69 mg/dL (<100); Potassium 3.8 mmol/L (3.3-5.1); Sodium 135 mmol/L (135-145); Triglycerides 287 mg/dL (<150)
== END 2023-07-10 06:22 | disposition home or self-care (01) ==
LOC: HO.LAB 06:21
PROVIDERS: Absent Provider Internal Medicine; PCP Internal Medicine; Visit Provider Internal Medicine
DX: I10 Essential (primary) hypertension (principal); M05.9 Rheumatoid arthritis with rheumatoid factor, unspecified; F17.200 Nicotine dependence, unspecified, uncomplicated; K21.9 Gastro-esophageal reflux disease without esophagitis; E78.5 Hyperlipidemia, unspecified; R79.89 Other specified abnormal findings of blood chemistry; L21.9 Seborrheic dermatitis, unspecified; I25.10 Atherosclerotic heart disease of native coronary artery without angina pectoris; R73.01 Impaired fasting glucose; Z79.60 Long term (current) use of unspecified immunomodulators and immunosuppressants
CPT/HCPCS: 36415; 80053; 80061; 82248; 83036

== ENCOUNTER 2023-07-21 09:56 | Outpatient (REF) | payer OTHER, SELFPAY ==
--- NOTE | ~2023-07-21 | XR_ITS ---
EXAMINATION: XR SHOULDER, LEFT CLINICAL INFORMATION: Pain in left shoulder COMPARISON: Same-day right shoulder TECHNIQUE: AP external rotation, Grashey, scapular Y, and axillary views of the left shoulder. FINDINGS: The bones are intact. No fracture. Glenohumeral and acromioclavicular alignment is anatomic with normal glenohumeral joint space. Mild degenerative change of the acromioclavicular joint. No abnormal soft tissue calcifications. XR/XR shoulder LT min 2V IMPRESSION: Mild degenerative change of the acromioclavicular joint.
--- NOTE | ~2023-07-21 | XR_ITS ---
EXAMINATION: XR SHOULDER, RIGHT CLINICAL INFORMATION: Pain in right shoulder COMPARISON: None available. TECHNIQUE: AP external rotation, Grashey, scapular Y, and axillary views of the right shoulder. FINDINGS: The bones are intact. No fracture. Glenohumeral and acromioclavicular alignment is anatomic with normal glenohumeral joint space. Mild degenerative change of acromioclavicular joint. Small sliver of ossific or calcific density seen adjacent to the acromium. This may be related to old trauma. No abnormal soft tissue calcifications concerning for calcific tendinitis. XR/XR shoulder RT min 2V IMPRESSION: 1. No acute bony abnormality. 2. Mild degenerative change of the acromioclavicular joint. 3. No evidence of calcific tendinitis.
== END 2023-07-21 09:57 | disposition home or self-care (01) ==
LOC: HO.XRAY 09:56
PROVIDERS: PCP Internal Medicine; Visit Provider Nurse Practitioner Family
DX: M05.9 Rheumatoid arthritis with rheumatoid factor, unspecified (principal); M25.511 Pain in right shoulder; M25.512 Pain in left shoulder; G89.29 Other chronic pain; Z79.60 Long term (current) use of unspecified immunomodulators and immunosuppressants
CPT/HCPCS: 73030

== ENCOUNTER 2023-07-21 09:56 | Outpatient (AMB) | payer OTHER, SELFPAY ==
[2023-07-21 09:57] VITALS: BP 130/70; PULSE 105; O2SAT 97; BMI 26.9
--- NOTE | 2023-07-21 09:57 | MHC.OFFVIS ---
Vital Signs 07/21/23 09:57 Height 5 ft 10 in Weight 187 lb 6.287 oz BMI 26.9 BP 130/70 Blood Pressure Location Rt brachial Position Sitting Pulse 105 H Pulse Oximetry (%) 97 Intake Visit Reasons: RA Intake Note: Patient last seen 04/20/23 by Marcella, presents today for RA follow up. Patient reports he does not think new medication, Actemra, is working. Allergies adalimumab [From Humira] Allergy (Intermediate, Verified 08/03/23 10:04) Rash HPI Comments Details: Mr. Espinal, 57 yoM patient presents for follow-up rheumatoid arthritis. He has recently started Actemra 162 mg q.week. Actemra was prescribed after he encountered skin rash on Humira. At last visit, he has had some improvement in his joints that he found favorable considering that he had been off Humira for the better part of 2 months. At the last visit he also identified morning stiffness that does not last more than 10 minutes but the shoulder pain persisted. At that time he was feeling better overall but hopes to see more improvement as he continued to use Actemra. Today the story is different, that flares are more frequent, the shoulder pain and hand swelling too and knee and he does not think this is as effective as the RINVOQ and desires to switch back to RINVOQ despite the reasons he was told. He reports being on RINVOQ is the best he felt with RA. 04/20/2023: Mr. Espinal, 57 yoM patient presents for urgent follow-up rheumatoid arthritis. He has recently started Actemra 162 mg q.week. Actemra was prescribed after he encountered skin rash on Humira. He has had some improvement in his joints that he found favorable considering that he has been off Humira for the better part of 2 months. There is some morning stiffness that does not last more than 10 minutes and the deep med allergies shoulder pain persist. However, he is feeling better overall but hopes to see more improvement as he continues to use Actemra. 03/12/2023 Mr. Farris, 57 yoM patient presents for urgent follow-up of skin rash and to discuss new medication options. He dis see DERM and was told not to restart HUMIRA. Since then, the joints have flared. He says the pain jumps from limb to limb but today it is the right wrist and left knee mainly. He received a 5 day course of Prednisone 20 mg QD from PCP. Prior visit 01/2023: This developed about 5 days ago. It is slightly itchy involving just the face and ears. He does not recall similar rashes. He had been started on Humira about 10 days ago for his rheumatoid arthritis. We had switched him off the Rinvoq because he had developed coronary artery disease and we were concerned about Rinvoq exacerbating that condition. He had been on the Humira years ago. He does not recall exactly why it was stopped but he does not think it was related to any kind of skin rash or side effect. He thinks it was effective for his RA. He thinks it might have been mostly an insurance issue. The joints have been stable. He has tried some moisturizing cream to the face. 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 He gets that lubricating substance on his hands usually but not on his face. The hands are not involved with the rash. [facility], [facility] Medical History Bilateral shoulder pain Pain in joint involving multiple sites Rheumatoid arthritis flare Thoracic aortic atherosclerosis Essential hypertension Seropositive rheumatoid arthritis Surgical History H/O wrist surgery Family History Father Hypertension Stented coronary artery Mother Hypertension Other Mental health disorder Social History Housing: House Alcohol intake: current Alcohol intake frequency: a few times a week Alcohol type: beer Patient Tobacco Use Status: Current everyday Tobacco user Tobacco use type: Cigarette Cigarettes Per Day: 30 Years Smoked: 35 e-Cigarette/Vaping Use: Never Used Second Hand Smoke Exposure: No Current occupational status: 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 EYES no redness, eyelids normal EARS: External ear normall. HEART:? Regular rhythm, S1-S2 heard, no murmurs, rubs or gallops. LUNG:? Clear to percussion and auscultation EXTREMITIES: No edema, no calf tenderness, normal peripheral pulses. The Tenderness to right wrist with mild swelling has improved, there is no more swelling. tenderness to left knee, no swelling but no redness, increased warmth or erythema. Mouth: No oral lesions. SKIN: There are no palpable lesions. There are no signs of psoriasis in the scalp. Examination of the chest, abdomen, arms, hands, and legs failed to reveal any other skin rash. The side of the Humira injection was in the abdominal wall on the right and there is no skin inflammation at that point. Cervical Spine: Full range of motion without pain; no tenderness. Thoracic Spine:?No tenderness on palpation. Lumbar Spine: Alignment normal.? Full range of motion without pain, no tenderness. Hands:? LEFT: Normal pain-free range of motion without tenderness, swelling, increased warmth or erythema. There is some slight tenderness and bony enlargement at the 3rd PIP. No thenar atrophy or sensory loss. Able to make a full fist and has good commissioned sales associate strength. ? RIGHT:? Normal pain free range of motion without tenderness, swelling, increased warmth or erythema.? Able to make a full fist and has good commissioned sales associate strength.? Well-healed scar over the dorsum of the hand. No thenar atrophy or sensory loss. Wrists: Right: Normal pain-free range of motion without tenderness, swelling, increased warmth or erythema. There is a large scar on the dorsum of the wrist which is the side of the extensor tendon synovectomy. This seems well healed without tenderness. Left: Pain-free range of motion to 75 degrees flexion or extension. There is some slight dorsal tenderness but no redness or swelling. Elbows: Normal pain-free range of motion without tenderness, swelling, increased warmth or erythema. Shoulders:? Full range of motion without pain. No tenderness, weakness, swelling, increased warmth or erythema. Hips: Full range of motion without pain. Hip bursa:? No tenderness. Knees:? Normal pain-free range of motion without tenderness.? There is no effusion or crepitation Ankles: Left: Normal pain-free range of motion with some slight lateral tenderness. Normal pain-free range of motion without tenderness, swelling, increased warmth or erythema. Feet:? Left: Slight bony enlargement at the 1st MTP but no tenderness. Right: Normal pain-free range of motion without tenderness, swelling, increased warmth or erythema. 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 of unspecified immunomodulators and immunosuppressants Category: Medical (2) Seropositive rheumatoid arthritis: Comment: Humira 09/04- 03/2020 Enbrel March 2020 - September 2020 discontinued due to insurance Orencia denied by insurance Rinvoq September 2020 - present Prednisone 09/05/2019 - present Rinvoq: Elevated liver Enzymes and Cholesterol Humira 11/2022: Skin Rash Tocilizumab since 03/2023 Code(s): M05.9 - Rheumatoid arthritis with rheumatoid factor, unspecified Category: Medical (3) Bilateral shoulder pain: Code(s): M25.511 - Pain in right shoulder; M25.512 - Pain in left shoulder Category: Medical Qualifiers: Chronicity: chronic Qualified Code(s): M25.511 - Pain in right shoulder; M25.512 - Pain in left shoulder; G89.29 - Other chronic pain Plan #SeroPosRA/Flare: We had switched the patient to ACTEMRA 162 mg q.week. Given his Tried medication profiles and insurance formulary preferences we had hoped ACTEMRA would be effective for this RA. I do believe it provided releif but his flares are frequent and he has had to use Prednisone twice since the last visit in April 2023. When the patient had inquired about oral medication options. I did explain, that the oral medications available were of the same class of medication (ALIZA) as RINVOQ which was stopped because of his CV profile, elevated liver enzymes and cholesterol. Today patient expresses strongly that he desires to switch back to RINVOQ. Patient feels none of the other medication works as well as the RINVOQ and desires to restart. I discussed at length with him his CV risk - smoker, elevated lipids, and possible elevated liver enzymes. We discussed signs and symptoms of thrombocenthesis. He is aware and still wants to proceed. He will finish the last two weeks of Actemra and restart the RINVOQ. I did discuss with Dr. Kwon who also recommends that we restart the RINVOQ to better control the RA. He will continue the prednisone for 2 weeks. He can also continue to take Ibuprofen 800 md TID PRN and I cautioned him to take with food and to stop for any adverse effects. His Kidney function is adequate for the NSAID at this time. #Foot Miter Operator Use: His liver enzymes have increased with since being on ACTEMRA. He will obtain monitoring labs 1 week before next visit in 8 weeks. #Bilateral Shoulder Pain: Possible OA. 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 I did explain to him the the shoulder pain is likely OA related and can be due to overuse with work. We will obtain Xray to assess. Cortisone injections is an option but it has to be timed so that he will have a few days to rest the shoulder before returning to work, likely a Thursday since he does not work on the weekends. I spent 30 minutes assessing and discussing treatment options with patient and documenting Orders: Orders Complete Blood Count Auto Diff 07/21/23 Z79.60 - quality control tester (current) use of unspecified immunomodulators and immunosuppressants, M05.9 - Rheumatoid arthritis with rheumatoid factor, unspecified Comprehensive Met. Panel 07/21/23 Z79.60 - [facility] (current) use of unspecified immunomodulators and immunosuppressants, M05.9 - Rheumatoid arthritis with rheumatoid factor, unspecified C Reactive Protein 07/21/23 Z79.60 - [facility] (current) use of unspecified immunomodulators and immunosuppressants, M05.9 - Rheumatoid arthritis with rheumatoid factor, unspecified XR shoulder RT min 2V 07/21/23 M25.511 - Pain in right shoulder, M25.512 - Pain in left shoulder XR shoulder LT min 2V 07/21/23 M25.511 - Pain in right shoulder, M25.512 - Pain in left shoulder Erythrocyte Sedimentation Rate 07/21/23 Z79.60 - [facility] (current) use of unspecified immunomodulators and immunosuppressants, M05.9 - Rheumatoid arthritis with rheumatoid factor, unspecified Medications: New upadacitinib ER (Rinvoq) 15 mg PO DAILY 90 tabs 0RF M05.9 - Rheumatoid arthritis with rheumatoid factor, unspecified upadacitinib ER (Rinvoq) 15 mg PO DAILY 90 tabs 0RF M05.9 - Rheumatoid arthritis with rheumatoid factor, unspecified Changed From prednisone Can take up to three tablets per day if needed 10 mg (2 x 5 mg) PO DAILY 20 tabs 0RF M06.9 - Rheumatoid arthritis, unspecified To prednisone 10 mg (2 x 5 mg) PO DAILY PRN 30 tabs 0RF Hand Swelling and pain M06.9 - Rheumatoid arthritis, unspecified Coding Level of Care Code Est Pt Level 4 (84496) Complex EM visit Add On G2211 Diagnoses Long-term use of immunosuppressant medication Z79.60 Seropositive rheumatoid arthritis M05.9 Chronic pain of both shoulders M25.511; M25.512; G89.29 Chronicity: chronic
== END 2023-07-21 11:45 | disposition home or self-care (01) ==
PROVIDERS: PCP Internal Medicine; Visit Provider Nurse Practitioner Family
DX: M05.79 Rheumatoid arthritis with rheumatoid factor of multiple sites without organ or systems involvement (principal); Z79.60 Long term (current) use of unspecified immunomodulators and immunosuppressants; M25.511 Pain in right shoulder; M25.512 Pain in left shoulder; G89.29 Other chronic pain
CPT/HCPCS: 99214; G2211

== ENCOUNTER 2023-08-03 09:49 | Outpatient (AMB) | payer OTHER, SELFPAY ==
--- NOTE | 2023-08-03 09:59 | A.OFFVIS_ITS ---
Vital Signs 08/03/23 10:04 Height 5 ft 10 in Weight 184 lb 11.958 oz BMI 26.5 BP 140/80 H Blood Pressure Location Rt brachial Position Sitting Pulse 98 Pulse Source Pulse Oximeter Pulse Oximetry (%) 96 Oxygen Delivery Method Room Air Intake Visit Reasons: GERD/colo screening Intake Note: Teddy presents in office today for a scheduled colo scrn; CC: Pt has hx of bloating and GERD sx which prompted referral for routine colo s.p. Pt reports that his sx are related more to a pressure he feels underneath his rib cage as well as unspecified bloating. Pt reports that he often eats small meals and feels more full than he should. Autism Teacher Required: No Allergies adalimumab [From Humira] Allergy (Intermediate, Verified 08/03/23 10:04) Rash HPI HPI GERD/colo screening: Details: 57 year old? male with past medical history of atherosclerotic cardiovascular disease, rheumatoid arthritis, transaminitis, hyperlipidemia, chronic GERD, hypertension, ETOH use is here today for pre colonoscopy screening.? Patient was sent to us by his PCP.? This is his first colonoscopy screening.? Patient reports chronic acid reflux and postprandial epigastric pain. Patient has been on pantoprazole for over a year. Patient drinks alcohol daily. Patient reports that he feels sometimes like he does not empty his bowels well. He does not feel like he is constipated though.? Denies any personal or family history of gastrointestinal disease, colon polyps, or CRC.? Denies history of difficulty with sedation or anesthesia in the past.? Negative for history of sleep apnea.? Denies any history of cardiac, renal, pulmonary, or hepatic disease.?? No history of infectious? diseases like hepatitis A, B, C, HIV or tuberculosis.? Patient is on low-dose aspirin PFSH Medical History Bilateral shoulder pain Pain in joint involving multiple sites Rheumatoid arthritis flare Thoracic aortic atherosclerosis Essential hypertension Seropositive rheumatoid arthritis Surgical History H/O wrist surgery Family History Father Hypertension Stented coronary artery Mother Hypertension Other Mental health disorder Social History Housing: House Alcohol intake: current Alcohol intake frequency: a few times a week Alcohol type: beer Patient Tobacco Use Status: Current everyday Tobacco user Tobacco use type: Cigarette Cigarettes Per Day: 30 Years Smoked: 35 e-Cigarette/Vaping Use: Never Used Second Hand Smoke Exposure: No Current occupational status: 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 Cognitive needs: No Hearing needs: No Vision needs: Yes Review of Systems Const Denies weight gain and Denies weight loss ENT Reports no additional complaints, Denies dysphagia and Denies odynophagia Card Reports no additional complaints Resp Reports no additional complaints GI Denies abdominal pain, Denies belching, Denies melena, Denies bloating, Denies change in bowel habits, Denies dysphagia, Denies excessive flatus, Denies dyspe psia, Denies heartburn, Denies diarrhea, Denies loose stools, Denies nausea, Denies odynophagia and Denies vomiting Reports no additional complaints Musc Reports no additional complaints Neuro Reports no additional complaints Psych Reports no additional complaints Endo Reports no additional complaints Physical Exam Vital Signs: Last Vital Signs Pulse 98 08/03/23 10:04 BP 140/80 H 08/03/23 10:04 Pulse Ox 96 08/03/23 10:04 Oxygen Delivery Method Room Air 08/03/23 10:04 BMI result Body Mass Index 26.5 Const General: healthy appearing, no acute distress and well developed Nutritional Appearance: well nourished Orientation/consciousness: patient oriented x3 HEENT Throat: Yes posterior oropharynx normal, Yes tonsils normal and Yes uvula midline Neck Neck: Yes normal visual inspection, Yes full ROM and Yes trachea midline Thyroid: Thyroid normal Resp Effort & Inspection: normal respiratory effort, able to speak in complete sentences, no tracheal deviation and symmetric chest movement Auscultation: clear to auscultation bilaterally Cardio Rate: regular rate GI Inspection: Yes normal to inspection and No distended Palpation (GI): Soft to palpation, not firm, nontender and No hepatosplenomegaly present Auscultation: normal bowel sounds General: Yes no CVA tenderness Back/Spine/Pelvis Back: no CVA tenderness Skin General skin exam: elasticity normal, turgor normal and dry skin Neuro General: patient oriented x3 Psych Appearance: grossly normal Mental Status: mental status grossly normal Assessment & Plan Assessment & Plan (1) Chronic GERD: Code(s): K21.9 - Gastro-esophageal reflux disease without esophagitis Category: Medical (2) Screen for colon cancer: Code(s): Z12.11 - Encounter for screening for malignant neoplasm of colon (3) Postprandial abdominal bloating: Code(s): R14.0 - Abdominal distension (gaseous) (4) Postprandial epigastric pain: Code(s): R10.13 - Epigastric pain Plan Patient denies any cardiac or respiratory symptoms.? However patient does have a history of coronary artery disease and is following with management technician. Patient has an appointment in September and we will ask for risk stratification before sending him for procedure. Denies any issues with anesthesia in the past.? Denies any history of sleep apnea.? Patient is an every day smoker smokes about 30 cigarettes a day. No history infectious diseases in the past or present.? Patient is on low-dose aspirin.? No family or personal history of colon cancer or polyps.? Patient reports to occasionally feel like he does not empty his bowels completely. Patient will increase fluid intake and activity to promote better bowel motility. Patient will try to take Dulcolax few days before procedure to help him empty better. Patient reports that he has been having acid reflux for over a year and has been taking pantoprazole daily. Discussed with patient the importance of avoiding alcohol. Importance of avoiding dietary triggers and late night snacking discussed with patient as well. Patient denies melena, hematochezia, unintentional weight loss or ribbon like stools.? Discussed at length the pre-procedure,? prep, diet & medications as well as what to expect prior, during and after the procedure.?? Stressed the importance of good bowel prep.? Recommended the use of Vaseline or Calmoseptine OTC & baby wipes with bowel movements to promote comfort.? ?Patient verbalizes understanding and agrees to plan of care.? She was given the opportunity to ask questions and all questions answered.? We will see her after the procedure.? Medications: New bisacodyl (Dulcolax (bisacodyl)) Start taking 2 tablet every night 7 days before the procedure and 1 day before procedure take 4 tablets at noon time followed by MiraLax prep 10 mg (2 x 5 mg) PO BEDTIME 16 tabs 0RF Z12.11 - Encounter for screening for malignant neoplasm of colon bisacodyl (Dulcolax (bisacodyl)) Start taking 2 tablet every night 7 days before the procedure and 1 day before procedure take 4 tablets at noon time followed by MiraLax prep 10 mg (2 x 5 mg) PO BEDTIME 16 tabs 0RF Z12.11 - Encounter for screening for malignant neoplasm of colon polyethylene glycol 3350 (Miralax) As directed by gastroenterology department at [facility] 238 grams PO ONCE 238 grams 0RF Z12.11 - Encounter for screening for malignant neoplasm of colon polyethylene glycol 3350 (Miralax) As directed by gastroenterology department at [facility] 238 gra ms PO ONCE 238 grams 0RF Z12.11 - Encounter for screening for malignant neoplasm of colon Coding Level of Care Code New Pt Level 4 (05311) Diagnoses Chronic GERD K21.9 Screen for colon cancer Z12.11 Postprandial abdominal bloating R14.0 Postprandial epigastric pain R10.13 Time Spent (min) 45 Comment 30 minutes spent with patient and additional 15 minutes spent reviewing his records
[2023-08-03 10:04] VITALS: BP 140/80; PULSE 98; O2SAT 96; BMI 26.5
== END 2023-08-03 10:40 | disposition home or self-care (01) ==
PROVIDERS: PCP Internal Medicine; Visit Provider Nurse Practitioner Family
DX: K21.9 Gastro-esophageal reflux disease without esophagitis (principal); Z12.11 Encounter for screening for malignant neoplasm of colon; R14.0 Abdominal distension (gaseous); R10.13 Epigastric pain
CPT/HCPCS: 99204

== ENCOUNTER → 2023-08-03 09:49 | Outpatient (BNVA) | payer OTHER, SELFPAY | PROVIDERS: PCP Internal Medicine; Visit Provider Nurse Practitioner Family ==

== ENCOUNTER 2023-09-18 06:13 | Outpatient (REF) | payer OTHER, SELFPAY ==
[2023-09-18 06:31] LABS: MANUAL DIFF FLAG NO
[2023-09-18 07:22] LABS: Basophils Absolute Auto 0.1 X10*3/uL (0.0-0.2); Basophils Percent Auto 0.7 % (0-2); Eosinophils Absolute Auto 0.2 X10*3/uL (0.0-0.4); Eosinophils Percent Auto 1.4 % (0-4); Hemoglobin 14.1 g/dl (14.0-18.0); Imm Gran Abs Auto 0.03 X10*3/uL (0.00-0.03); Imm Gran Pct Auto 0.2 % (0.0-0.4); Lymphocytes Absolute Auto 3.9 X10*3/uL (1.2-4.9); Lymphocytes Percent Auto 30.5 % (20-40); Mean Corpuscular HGB Conc 35.3 g/dl (31.0-36.0); Mean Corpuscular Hemoglobin 31.3 pg (27.0-33.0); Mean Corpuscular Volume 88.9 fL (80.0-98.0); Mean Platelet Volume 9.7 fL (9.4-12.4); Monocytes Percent Auto 7.6 % (2-11); Neutrophils Absolute Auto 7.5 x10*3/uL (2.0-8.3); Neutrophils Percent Auto 59.6 % (45-73); Platelet Count 267 X10*3/uL (160-400); Red Cell Distribution Width 12.5 % (11.0-16.0); White Blood Count 12.6 X10*3/uL (4.8-10.8)
[2023-09-18 07:46] LABS: Alanine Aminotransferase 82 U/L (0-40); Albumin Level 4.4 g/dL (3.5-5.0); Alkaline Phosphatase 74 U/L (39-117); Anion Gap 14 (12-20); Aspartate Amino Transferase 52 U/L (5-37); Bilirubin Total 0.8 mg/dL (0.0-1.0); Blood Urea Nitrogen 10 mg/dL (9-16); C Reactive Protein < 0.04 mg/dL (< or = 0.50); Calcium 9.9 mg/dL (8.4-10.2); Carbon Dioxide 25 mmol/L (22-29); Chloride 102 mmol/L (96-108); Estimated Glomerular Filt Rate > 60; Glucose Random 108 mg/dL (60-115); Sodium 137 mmol/L (135-145); Total Protein 7.3 g/dL (6.5-8.0)
[2023-09-18 08:08] LABS: Erythrocyte Sedimentation Rate 4 MM/HR (0-15)
== END 2023-09-18 06:14 | disposition home or self-care (01) ==
LOC: HO.LAB 06:13
PROVIDERS: PCP Internal Medicine; Visit Provider Nurse Practitioner Family
DX: Z79.60 Long term (current) use of unspecified immunomodulators and immunosuppressants (principal); M05.9 Rheumatoid arthritis with rheumatoid factor, unspecified
CPT/HCPCS: 36415; 80053; 85025; 85652; 86140

== ENCOUNTER 2023-09-23 09:52 | Outpatient (AMB) | payer OTHER, SELFPAY ==
[2023-09-23 09:55] VITALS: BP 134/70; PULSE 94; BMI 26.6
--- NOTE | 2023-09-23 09:55 | A.OFFVIS_ITS ---
Vital Signs 09/23/23 09:55 Height 5 ft 10 in Weight 185 lb 3.013 oz BMI 26.6 BP 134/70 Blood Pressure Location Lt brachial Position Sitting Pulse 94 Intake Visit Reasons: 6 month /clearance for colonoscopy Day Care Supervisor Required: No Accompanied by: Self / Same As Patient Allergies adalimumab [From Humira] Allergy (Intermediate, Verified 08/03/23 10:04) Rash Medication List - Last Reconciled 09/23/23 by Ney Vega MD aspirin (Aspirin Childrens) 81 mg PO DAILY bisacodyl (Dulcolax (bisacodyl)) 10 mg (2 x 5 mg) PO BEDTIME ibuprofen 800 mg PO TID PRN lisinopril 40 mg PO DAILY omega-3 fatty acids (Fish Oil Concentrate) 2,000 mg PO DAILY pantoprazole 40 mg PO DAILY polyethylene glycol 3350 (Miralax) 238 grams PO ONCE prednisone 10 mg (2 x 5 mg) PO DAILY PRN rosuvastatin (Crestor) 40 mg PO DAILY izpkykme-whzl-guuja-oreg-capry 100 mg-150 mg- 50 mg-150 mg caps PO upadacitinib ER (Rinvoq) 15 mg PO DAILY HPI Comments Details: Teddy returns for follow-up regarding coronary artery disease. In the past, he was seen regarding nonexertional chest discomfort which led to further workup. Heavy smoker and still smokes about 30 cigarettes a day. History of hypertension. He underwent a comprehensive workup including echocardiogram, stress test as well as coronary CTA. Now he needs to go for endoscopy/colonoscopy. Hence requesting preoperative clearance. From cardiac, no specific symptoms. No angina. [facility] Medical History Bilateral shoulder pain Pain in joint involving multiple sites Rheumatoid arthritis flare Thoracic aortic atherosclerosis Essential hypertension Seropositive rheumatoid arthritis Surgical History H/O wrist surgery Family History Father Hypertension Stented coronary artery Mother Hypertension Other Mental health disorder Social History Housing: House Alcohol intake: current Alcohol intake frequency: a few times a week Alcohol type: beer Patient Tobacco Use Status: Current everyday Tobacco user Tobacco use type: Cigarette Cigarettes Per Day: 30 Years Smoked: 35 e-Cigarette/Vaping Use: Never Used Second Hand Smoke Exposure: No Current occupational status: 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 Cognitive needs: No Hearing needs: No Vision needs: Yes Review of Systems Const Denies chills, Denies fatigue, Denies fever(s), Denies weight gain and Denies weight loss ENT Denies dizziness Card Denies chest pain, Denies leg edema, Denies lightheadedness, Denies palpitations, Denies dyspnea on exertion, Denies orthopnea and Denies other Resp Denies cough and Denies dyspnea on exertion GI Denies hematochezia and Denies change in stool character Musc Denies abnormal gait, Denies muscle weakness, Denies numbness, Denies radiating pain into limb and Denies tingling Neuro Denies abnormal gait, Denies dizziness, Denies numbness and Denies tingling Endo Denies fatigue and Denies palpitations Physical Exam Vital Signs: Last Vital Signs Pulse 94 09/23/23 09:55 BP 134/70 09/23/23 09:55 BMI result Body Mass Index 26.6 Const General: comfortable and no acute distress Orientation/consciousness: patient oriented x3 HEENT Other: Unremarkable Head: Yes normal to inspection Neck Neck: Yes normal visual inspection Chest Chest palpation & inspection: normal inspection of the chest Resp Auscultation: clear to auscultation bilaterally Cardio Palpation: normal PMI Heart sounds: S1 normal heart sound present, S2 normal heart sound present, no gallops, no murmurs and no rubs GI Palpation (GI): Soft to palpation Back/Spine/Pelvis Other: unremarkable Skin General skin exam: no rashes or lesions noted Neuro General: patient oriented x3 Extrem General: Yes normal to inspection Psych Mental Status: mental status grossly normal Office Procedures EKG Details: EKG with underlying sinus rhythm at 94/Min; slight downsloping STs in the inferior leads and V5/V6 but otherwise unremarkable. Borderline IL prolongation to 202 millisecond; normal corrected QT. no significant change compared to prior. [id number], Complete Assessment & Plan Assessment & Plan (1) Atherosclerotic cardiovascular disease: Code(s): I25.10 - Atherosclerotic heart disease of [place] coronary artery without angina pectoris Category: Medical (2) Essential hypertension: Code(s): I10 - Essential (primary) hypertension Category: Medical (3) Smoking: Code(s): F17.200 - Nicotine dependence, unspecified, uncomplicated Category: Social Hx (4) Hyperlipidemia: Code(s): E78.5 - Hyperlipidemia, unspecified Category: Medical Qualifiers: Hyperlipidemia type: mixed hyperlipidemia Qualified Code(s): E78.2 - Mixed hyperlipidemia (5) Preoperative cardiovascular examination: Code(s): Z01.810 - Encounter for preprocedural cardiovascular examination Category: Medical Plan Cardiac studies reviewed. Echocardiogram with LVEF of 60%. No wall motion abnormalities. Otherwise unremarkable. In the stress test, he reached 90% of max predicted heart rate, 7 METS, some shortness of breath but no chest pain. Borderline EKG changes. Hypertensive blood pressure response. In the coronary CTA, mostly nonobstructive CAD with mild to moderate stenosis. RCA not well visualized due to motion artifact. Distal RCA described to be normal supplying a small PDA/PLV. There was moderate atherosclerosis of the descending aorta with mural thrombus. For meds, continue aspirin, blood pressure meds, statins. He does have slightly abnormal LFTs which have been chronic. They will need to be followed why he is on statins. Otherwise, mainly smoking cessation. Discussed about this but unclear if he will actually stopped. A prior carotid Doppler does not show any significant carotid disease. Obtain screening ultrasound for abdominal aortic aneurysm. With regard to GI workup, may proceed as planned. Low to intermediate cardiac risk. Orders: Orders US abdominal aortic aneurysm Today I71.40 - Abdominal aortic aneurysm, without rupture, unspecified Coding Level of Care Code Est Pt Level 4 (12379) Diagnoses Atherosclerotic cardiovascular disease I25.10 Essential hypertension I10 Smoking F17.200 Mixed hyperlipidemia E78.2 Hyperlipidemia type: mixed hyperlipidemia Preoperative cardiovascular examination Z01.810 CPT Codes EKG - CPT: 04261-[id number], Complete ([id number])
== END 2023-09-23 10:22 | disposition home or self-care (01) ==
PROVIDERS: PCP Internal Medicine; Visit Provider Internal Medicine
DX: I25.10 Atherosclerotic heart disease of native coronary artery without angina pectoris (principal); I10 Essential (primary) hypertension; F17.200 Nicotine dependence, unspecified, uncomplicated; E78.2 Mixed hyperlipidemia; Z01.810 Encounter for preprocedural cardiovascular examination
CPT/HCPCS: 93010; 99214

== ENCOUNTER → 2023-09-23 09:52 | Outpatient (BNVA) | payer OTHER, SELFPAY | PROVIDERS: PCP Internal Medicine; Visit Provider Internal Medicine | DX: Z01.810 Encounter for preprocedural cardiovascular examination (principal); I25.10 Atherosclerotic heart disease of native coronary artery without angina pectoris; I10 Essential (primary) hypertension; E78.5 Hyperlipidemia, unspecified; F17.210 Nicotine dependence, cigarettes, uncomplicated | CPT/HCPCS: 93005 ==

== ENCOUNTER 2023-09-24 07:49 | Outpatient (AMB) | payer OTHER, SELFPAY ==
--- NOTE | 2023-09-24 07:52 | A.OFFVIS_ITS ---
Vital Signs 09/24/23 07:55 Height 5 ft 10 in Weight 187 lb 6.287 oz BMI 26.9 BP 132/80 Blood Pressure Location Lt brachial Position Sitting Pulse 75 Pulse Source Pulse Oximeter Pulse Oximetry (%) 98 Oxygen Delivery Method Room Air Intake Visit Reasons: RA/Rinvoq/CM Intake Note: Patient presents for RA/Rinvoq. Allergies adalimumab [From Humira] Allergy (Intermediate, Verified 09/24/23 07:56) Rash Medication List - Last Reconciled 09/24/23 by Martha Kwon MD aspirin (Aspirin Childrens) 81 mg PO DAILY bisacodyl (Dulcolax (bisacodyl)) 10 mg (2 x 5 mg) PO BEDTIME ibuprofen 800 mg PO TID PRN lisinopril 40 mg PO DAILY omega-3 fatty acids (Fish Oil Concentrate) 2,000 mg PO DAILY pantoprazole 40 mg PO DAILY polyethylene glycol 3350 (Miralax) 238 grams PO ONCE prednisone 10 mg (2 x 5 mg) PO DAILY PRN rosuvastatin (Crestor) 40 mg PO DAILY chsyuacd-yzym-sfmpp-oreg-capry 100 mg-150 mg- 50 mg-150 mg caps PO upadacitinib ER (Rinvoq) 15 mg PO DAILY HPI Comments Details: This is a 57-year-old male with seropositive RA who presents for follow-up. Patient was on Actemra last visit and it did not work well for him and he was switched back to Rinvoq. He has been taking Rinvoq for the last 2 months now. States that he feels much better overall. Not use prednisone in the last month. Does not have any side effects related to Rinvoq. Continues to smoke at least a pack and half a day. [facility] Medical History Bilateral shoulder pain Pain in joint involving multiple sites Rheumatoid arthritis flare Thoracic aortic atherosclerosis Essential hypertension Seropositive rheumatoid arthritis Surgical History H/O wrist surgery Family History Father Hypertension Stented coronary artery Mother Hypertension Other Mental health disorder Social History Housing: House Alcohol intake: current Alcohol intake frequency: a few times a week Alcohol type: beer Patient Tobacco Use Status: Current everyday Tobacco user Tobacco use type: Cigarette Cigarettes Per Day: 30 Years Smoked: 35 e-Cigarette/Vaping Use: Never Used Second Hand Smoke Exposure: No 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 occupational 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: 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 Cognitive needs: No Hearing needs: No Vision needs: Yes Review of Systems Musc Denies arthralgias, Denies joint swelling and Denies stiffness Physical Exam Vital Signs: Last Vital Signs Pulse 75 09/24/23 07:55 BP 132/80 09/24/23 07:55 Pulse Ox 98 09/24/23 07:55 Oxygen Delivery Method Room Air 09/24/23 07:55 BMI result Body Mass Index 26.9 Const General: cooperative, healthy appearing and comfortable Nutritional Appearance: obese Orientation/consciousness: patient oriented x3 Limitations: no limitations HEENT Head: Yes normocephalic and Yes atraumatic Mouth: moist mucous membranes Resp Effort & Inspection: normal respiratory effort and able to speak in complete sentences Auscultation: clear to auscultation bilaterally Cardio Rate: regular rate Rhythm: regular rhythm Skin General skin exam: no rashes or lesions noted Neuro General: patient oriented x3 Extrem Other: No active synovitis today Assessment & Plan Assessment & Plan (1) Seropositive rheumatoid arthritis: Comment: +++RF+++CCP Humira 09/04- 03/2020 Enbrel March 2020 - September 2020 discontinued due to insurance [employer] denied by insurance Rinvoq September 2020 - present Prednisone 09/05/2019 - present Rinvoq: Elevated liver Enzymes and Cholesterol Humira 11/2022: Skin Rash Tocilizumab since 03/2023 DC 07/2023 ineffective Rinvoq restarted 07/2023 effective Code(s): M05.9 - Rheumatoid arthritis with rheumatoid factor, unspecified Category: Medical Plan: This is a 57-year-old male with seropositive RA who presents for follow-up. This is 1st visit with me. Patient has been taking Rinvoq regularly for the last 2 months. Doing much better overall with no active synovitis on exam. Inflammatory markers are normal. Patient has multiple factors for cardiovascular disease including heavy smoking, dyslipidemia, patient has known nonobstructive CAD as well. In his case patient failed multiple DMARDs. Rinvoq seems to be most effective. With regards to lowering cardiovascular risk it is important to maximize RA control which seems to be achieved with Rinvoq in his case. I again reiterated the importance of controlling his cardiovascular risks, he continues to smoke heavily and has no intention to quit Has nonobstructive CAD and is on baby aspirin He has significant dyslipidemia and is on high doses of rosuvastatin Continue Rinvoq 15 mg p.o. daily. 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 Patient fully aware. Advised patient to seek medical care ANAMARIA if patient has an infection and advised patient to stop the medication until the infection is resolved. I will discuss risks vaccination next visit (3) LFT elevation: Code(s): R79.89 - Other specified abnormal findings of blood chemistry Category: Medical Plan: I think patient should be formally evaluated by GI for his chronic transaminitis. Will discuss next visit (4) Smoking: Code(s): F17.200 - Nicotine dependence, unspecified, uncomplicated Category: Social Hx Plan This is patient's First visit with me I spent 46 minutes reviewing patient's ch art, evaluating patient, ordering diagnostic workup, counseling patient and documenting in the chart Orders: Orders Comprehensive Met. Panel 3 Months M05.9 - Rheumatoid arthritis with rheumatoid factor, unspecified C Reactive Protein 3 Months M05.9 - Rheumatoid arthritis with rheumatoid factor, unspecified Complete Blood Count Auto Diff 3 Months M05.9 - Rheumatoid arthritis with rheumatoid factor, unspecified Erythrocyte Sedimentation Rate 3 Months M05.9 - Rheumatoid arthritis with rheumatoid factor, unspecified Coding Level of Care Code Est Pt Level 5 (28488) Diagnoses Seropositive rheumatoid arthritis M05.9 Long-term use of immunosuppressant medication Z79.60 LFT elevation R79.89 Smoking F17.200
[2023-09-24 07:55] VITALS: BP 132/80; PULSE 75; O2SAT 98; BMI 26.9
== END 2023-09-24 08:43 | disposition home or self-care (01) ==
PROVIDERS: PCP Internal Medicine; Visit Provider Student in an Organized Health Care Education/Training Program
DX: M05.79 Rheumatoid arthritis with rheumatoid factor of multiple sites without organ or systems involvement (principal); Z79.60 Long term (current) use of unspecified immunomodulators and immunosuppressants; R79.89 Other specified abnormal findings of blood chemistry; F17.200 Nicotine dependence, unspecified, uncomplicated
CPT/HCPCS: 99215

== ENCOUNTER → 2023-09-24 07:49 | Outpatient (BNVA) | payer OTHER, SELFPAY | PROVIDERS: PCP Internal Medicine; Visit Provider Student in an Organized Health Care Education/Training Program ==

== ENCOUNTER 2023-10-02 07:50 | Outpatient (REF) | payer OTHER, SELFPAY ==
--- NOTE | ~2023-10-02 | US_ITS ---
EXAMINATION: US RETROPERITONEAL LIMITED (AORTA) CLINICAL INFORMATION: Hypertension, hyperlipidemia. COMPARISON: None available. TECHNIQUE: Sena-scale, color Doppler and spectral Doppler evaluation of the abdominal aorta. FINDINGS: Atherosclerotic plaque in the abdominal aorta. The measurements of the aorta in maximum AP and transverse dimensions respectively are as follows: Proximal: 2.7 x 2.6 cm. Mid: 2.2 x 2.2 cm. Distal: 1.7 x 1.7 cm. PSV: 61.5 cm/s. The measurements of the common iliac arteries in maximum AP and TRV dimensions are as follows: Right Common Iliac Artery: 1.1 x 1.1 cm. Left Common Iliac Artery: 1.3 x 1.4 cm. US/US aorta IMPRESSION: No sonographic evidence of abdominal aortic aneurysm.
== END 2023-10-02 07:51 | disposition home or self-care (01) ==
LOC: HO.US 07:50
PROVIDERS: PCP Internal Medicine; Visit Provider Internal Medicine
DX: I71.40 Abdominal aortic aneurysm, without rupture, unspecified (principal)
CPT/HCPCS: 76775

== ENCOUNTER 2023-11-03 10:54 | Outpatient (AMB) | payer OTHER, SELFPAY ==
--- NOTE | 2023-11-03 11:00 | MHC.PC.OV ---
Vital Signs 11/03/23 11:01 Height 5 ft 10 in Weight 185 lb BMI 26.5 BP 162/84 H Blood Pressure Location Rt brachial Position Sitting Pulse 102 H Pulse Source Pulse Oximeter Pulse Oximetry (%) 98 Oxygen Delivery Method Room Air Intake Visit Reasons: Annual PE - see comments Allergies adalimumab [From Humira] Allergy (Intermediate, Verified 11/03/23 11:02) Rash Medication List - Last Reconciled 11/03/23 by Edinson Calle MD aspirin (Aspirin Childrens) 81 mg PO DAILY bisacodyl (Dulcolax (bisacodyl)) 10 mg (2 x 5 mg) PO BEDTIME ibuprofen 800 mg PO TID PRN lisinopril 40 mg PO DAILY omega-3 fatty acids (Fish Oil Concentrate) 2,000 mg PO DAILY pantoprazole 40 mg PO DAILY polyethylene glycol 3350 (Miralax) 238 grams PO ONCE rosuvastatin (Crestor) 40 mg PO DAILY wntrdjtz-frhi-sgwfm-oreg-capry 100 mg-150 mg- 50 mg-150 mg caps PO upadacitinib ER (Rinvoq) 15 mg PO DAILY Tobacco use date assessed: 11/03/23 Dental Screening Dental Screen Date: 11/03/23 Did you have a dental visit in the last 12 months?: Yes Did you have a dental problem in the last 6 months where you did not have access to dental care?: No Was dental information given to patient?: Patient has dentist HPI Annual PE - see comments HPI Details Patient is a 58-year-old gentleman came today for physical examination Blood pressure is elevated today at 162/84, his heart rate is also elevated Patient says that he monitor his blood pressure every now and then in it runs usually high 130s systolic He will be having colonoscopies in December at [facility] Complaining of nasal congestion most nights which is causing difficulty sleeping and then feel tired all day I am prescribing Flonase nasal spray 1 squirt each nostril every night He also have history of rib fracture posterior right side Complaining of pain mid back and in that area X-ray order placed for thoracic spine and rib along with lung Patient will return in 4 weeks for follow-up appointment LFT continued to be elevated mildly, once again we talked about quitting alcohol altogether Patient has cut down a lot he tells me [facility] Medical History Bilateral shoulder pain Pain in joint involving multiple sites Rheumatoid arthritis flare Thoracic aortic atherosclerosis Essential hypertension Seropositive rheumatoid arthritis Surgical History H/O wrist surgery Family History Father Hypertension Stented coronary artery Mother Hypertension Other Mental health disorder Social History Housing: House Alcohol intake: current Alcohol intake frequency: a few times a week Alcohol type: beer Patient Tobacco Use Status: Current everyday Tobacco user Tobacco use type: Cigarette Cigarettes Per Day: 30 Years Smoked: 35 e-Cigarette/Vaping Use: Never Used Second Hand Smoke Exposure: No service: No Current occupational status: 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 1. Little interest or pleasure in doing things: not at all 2. Feeling down, depressed, or hopeless: not at all 3. Trouble falling or staying asleep, or sleeping too much: not at all 4. Feeling tired or having little energy: not at all 5. Poor appetite or overeating: not at all 6. Feeling bad about yourself - or that you are a failure or have let yourself or your family down: not at all 7. Trouble concentrating on things, such as reading the newspaper or watching television: not at all 8. Moving or speaking so slowly that other people could have noticed. Or the opposite - being so fidgety or restless that you have been moving around a lot more than usual: not at all 9. Thoughts that you would be better off or of hurting yourself in some way: not at all Total score: 0 Depression Screening Interpretation: Negative Depression Screening Done: Yes 99407 - PHQ-9 Billing: Yes Source: Developed by Drs. Lorenzo Rojas, Shira Roche, Agus Chen and colleagues, with an educational mer from [employer]. Thrive Questionnaire Date Thrive assessed: 11/03/23 I am a: Patient What is your living situation today?: I choose not to answer this question Within the past 12 months, did the food you bought not last and you didn't have the money to get more?: I choose not to answer this question Within the past 12 months, did you worry whether your food would run out before you got money to buy more?: I choose not to answer this question Do you have trouble paying for medicines?: I choose not to answer this question Do you have trouble getting transportation to medical appointments?: I choose not to answer this question Do you have trouble paying your heating and electricity bill?: I choose not to answer this question Do you have trouble taking care of your child, family member or friend?: I choose not to answer this question Do you have trouble with day-to-day activities such as bathing, preparing meals, shopping, managing finances, etc.?: I choose not to answer this question Are you interested in more education?: I choose not to answer this question Please select the resources that you would like help with: None Currently or been in a relationship where the following occur: I choose not to answer THRIVE Score: 0 AUDIT C Alcohol Use Questionnaire (AUDIT-C) 1. How often do you have a drink containing alcohol?: 4 or more times a week 2. How many drinks containing alcohol do you have on a typical day when you are drinking?: 1 or 2 3. How often do you have six or more drinks on one occasion?: Weekly Total Score: 7 Score Reviewed/Action Taken: Yes COLUMBA-7 AMB Questionnaire COLUMBA-7 Date COLUMBA - 7 assessed: 11/03/23 Feeling nervous, anxious, or on edge: 2 = More than half the days Not being able to stop or control worryin = Several days Worrying too much about different things: 1 = Several days Trouble relaxin = Several days Being so restless that it is hard to sit still: 1 = Several days Becoming easily annoyed or irritable: 1 = Several days Feeling afraid as if something awful might happen: 1 = Several days Total COLUMBA-7 score (0-4 normal; 5-9 mild; 10-14 moderate; 15-21 severe): 8 Source: Developed by Drs. Lorenzo Rojas, Shira Roche, Agus Chen and colleagues, with an educational mer from [employer]. COLUMBA-7 Assessment Billing COLUMBA-7 Assessment Tool: COLUMBA-7 Assessment 85597 Review of Systems Const Denies chills, Denies fever(s) and Denies headache(s) Eyes Denies blurry vision ENT Denies headache(s) and Denies odynophagia Card Denies chest pain at rest and Denies chest pain with activity Resp Denies cough and Denies hemoptysis GI Denies diarrhea, Denies odynophagia, Denies vomiting and Denies hematemesis Reports as per HPI Musc Denies abnormal gait Skin/Breast Reports as per HPI Neuro Denies Neuro-related abnormal movements, Denies Abnormal speech present, Denies abnormal gait, Denies headache(s) and Denies Sensory deficit (Neuro) Psych Denies mood swings and Denies paranoia Endo Reports as per HPI Aníbal/Lymph Reports as per HPI Aller/Immun Reports as per HPI Physical exam (Primary Care) Vital Signs: Last Vital Signs Pulse 102 H 11/03/23 11:01 BP 162/84 H 11/03/23 11:01 Pulse Ox 98 11/03/23 11:01 Oxygen Delivery Method Room Air 11/03/23 11:01 BMI result Body Mass Index 26.5 Tobacco/Smoking Status: Tobacco use Status Tobacco use date assessed 11/03/23 11/03/23 11:02 Patient Tobacco Use Status Current everyday Tobacco 11/03/23 11:02 Tobacco use type Cigarette 11/03/23 11:02 e-Cigarette/Vaping Use Never Used 11/03/23 11:02 PHQ-9: PHQ-9 Score PHQ-9: Total score 0 11/03/23 11:02 Depression Screening Interpretation: Negative Thrive Assessment: Date of Thrive Assessment Date Thrive assessed 11/03/23 11/03/23 11:02 Currently or been in a relationship where the following occur: I choose not to answer Const General: cooperative, comfortable and no acute distress Orientation/consciousness: patient oriented x3 HENMT Head: Yes normocephalic and Yes atraumatic Eyes General: appearance normal, both eyes and all related structures Pupils: Equal, round and reactive pupils present EOM: EOMs intact bilaterally Neck Neck: Yes supple and No lymphadenopathy Thyroid: Thyroid normal Lymphatic: no lymphadenopathy noted Resp Effort & Inspection: normal respiratory effort and able to speak in complete sentences Auscultation: clear to auscultation bilaterally Cardio Heart sounds: S1 normal heart sound present and S2 normal heart sound present GI Palpation (GI): Soft to palpation and nontender Auscultation: normal bowel sounds General: Yes no CVA tenderness Back/Spine/Pelvis Back: no CVA tenderness Back/spine/pelvis image: 1. Site of pain, but no pain with palpation, no skin findings, patient is able to take a deep breath without any pain Skin General skin exam: elasticity normal and turgor normal Neuro General: patient oriented x3 and gait normal Cranial nerves: Yes Equal, round and reactive pupils present Speech: No Abnormal speech present Sensory Exam: No Sensory deficit (Neuro) Coordination: tandem gait normal and Romberg test negative Extrem General: Yes normal exam except as noted and No edema Assessment and Plan Assessment & Plan (1) Encounter for general adult medical examination with abnormal findings: Code(s): Z00.01 - Encounter for general adult medical examination with abnormal findings (2) Mid back pain: Code(s): M54.9 - Dorsalgia, unspecified (3) History of rib fracture: Code(s): Z87.81 - Personal history of (healed) traumatic fracture (4) Impaired fasting blood sugar: Code(s): R73.01 - Impaired fasting glucose (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 --------Drinking alcohol increases the risk of traffic accidents, suicide, drowning, and other serious injuries. -------Alcohol use continues to be the leading cause of injuries treated in trauma centers and emergency departments . --------Alcohol-related liver disease may lead to end-stage liver disease (cirrhosis) and . --------Alcohol increases the risk of certain cancers of the mouth, esophagus, throat, liver, and breast. Code(s): F10.20 - Alcohol dependence, uncomplicated Plan Patient is a 58-year-old gentleman came today for physical examination Blood pressure is elevated today at 162/84, his heart rate is also elevated Patient says that he monitor his blood pressure every now and then in it runs usually high 130s systolic He will be having colonoscopies in December at [facility] Complaining of nasal congestion most nights which is causing difficulty sleeping and then feel tired all day I am prescribing Flonase nasal spray 1 squirt each nostril every night He also have history of rib fracture posterior right side Complaining of pain mid back and in that area X-ray order placed for thoracic spine and rib along with lung Patient will return in 4 weeks for follow-up appointment LFT continued to be elevated mildly, once again we talked about quitting alcohol altogether Patient has cut down a lot he tells me Orders: Orders XR ribs RT min 3V w CXR1V Today M54.9 - Dorsalgia, unspecified, Z87.81 - Personal history of (healed) traumatic fracture XR thoracic spine 2V Today M54.9 - Dorsalgia, unspecified, Z87.81 - Personal history of (healed) traumatic fracture Medications: New fluticasone propionate 50 mcg/actuation (Flonase Allergy Relief) administer into each nostril 1 spray intranasal DAILY 16 grams 1RF Coding Level of Care Code Est Pt Level 3 (33040) Est Pt Prev Care 40-64y(34579) Diagnoses Encounter for general adult medical examination with abnormal findings Z00.01 Mid back pain M54.9 History of rib fracture Z87.81 Impaired fasting blood sugar R73.01 care home (current) use of other immunomodulators and immunosuppressants Z79.69 LFT elevation R79.89 Essential hypertension I10 Alcoholism F10.20 Additional Codes COLUMBA-7 Assessment Billing - COLUMBA-7 Assessment Tool: COLUMBA-7 Assessment 76071 ([id number])
[2023-11-03 11:01] VITALS: BP 162/84; PULSE 102; O2SAT 98; BMI 26.5
== END 2023-11-03 12:08 | disposition home or self-care (01) ==
PROVIDERS: PCP Internal Medicine; Visit Provider Internal Medicine
DX: Z00.00 Encounter for general adult medical examination without abnormal findings (principal); M54.9 Dorsalgia, unspecified; F10.20 Alcohol dependence, uncomplicated; Z87.81 Personal history of (healed) traumatic fracture; R73.01 Impaired fasting glucose; Z79.69 Long term (current) use of other immunomodulators and immunosuppressants; R79.89 Other specified abnormal findings of blood chemistry; I10 Essential (primary) hypertension

== ENCOUNTER → 2023-11-03 10:54 | Outpatient (BNVA) | payer OTHER, SELFPAY | PROVIDERS: PCP Internal Medicine; Visit Provider Internal Medicine | DX: Z00.01 Encounter for general adult medical examination with abnormal findings (principal); M54.9 Dorsalgia, unspecified; R73.01 Impaired fasting glucose; R79.89 Other specified abnormal findings of blood chemistry; I10 Essential (primary) hypertension; F10.20 Alcohol dependence, uncomplicated; Z79.69 Long term (current) use of other immunomodulators and immunosuppressants; Z87.81 Personal history of (healed) traumatic fracture | CPT/HCPCS: 96127 ==

== ENCOUNTER 2023-11-11 06:18 | Outpatient (REF) | payer OTHER, SELFPAY ==
--- NOTE | ~2023-11-11 | XR_ITS ---
EXAMINATION: XR THORACIC SPINE XR RIGHT RIBS CLINICAL INFORMATION: Back pain COMPARISON: XR thoracic spine and right ribs 12/22/2022, chest 03/06/2022 and 08/27/2019. TECHNIQUE: 3 views thoracic spine 3 views right RIBS. Radiopaque marker placed by technologist to indicate the area of concern as indicated by the patient overlying the lower right ribs. FINDINGS: THORACIC SPINE: Levoscoliosis of the thoracic spine. Mild multilevel degenerative changes in the thoracic spine with small anterior osteophytes. Redemonstration of mild loss of height of midthoracic vertebral body. RIGHT RIBS: There are fractures with mild displacement along the posterolateral aspects of the right 9th and 10th ribs. S-shaped thoracolumbar scoliosis. No pleural effusion. Heart size is normal. XR/XR ribs RT min 3V w CXR1V IMPRESSION: 1. Mildly displaced fractures along the posterolateral aspects of the right 9th and 10th ribs. 2. Mild multilevel degenerative changes in the thoracic spine. This study was presented to me on December 14, 2023 for interpretation. PSA staff will provide results to referring provider at this time. Electronically signed by: Cassidy Zavala MD 12/14/2023 06:54 AM EDT
--- NOTE | ~2023-11-11 | XR_ITS ---
EXAMINATION: XR THORACIC SPINE XR RIGHT RIBS CLINICAL INFORMATION: Back pain COMPARISON: XR thoracic spine and right ribs 12/22/2022, chest 03/06/2022 and 08/27/2019. TECHNIQUE: 3 views thoracic spine 3 views right RIBS. Radiopaque marker placed by technologist to indicate the area of concern as indicated by the patient overlying the lower right ribs. FINDINGS: THORACIC SPINE: Levoscoliosis of the thoracic spine. Mild multilevel degenerative changes in the thoracic spine with small anterior osteophytes. Redemonstration of mild loss of height of midthoracic vertebral body. RIGHT RIBS: There are fractures with mild displacement along the posterolateral aspects of the right 9th and 10th ribs. S-shaped thoracolumbar scoliosis. No pleural effusion. Heart size is normal. XR/XR thoracic spine 2V IMPRESSION: 1. Mildly displaced fractures along the posterolateral aspects of the right 9th and 10th ribs. 2. Mild multilevel degenerative changes in the thoracic spine. This study was presented to me on December 14, 2023 for interpretation. PSA staff will provide results to referring provider at this time. Electronically signed by: Cassidy Zavala MD 12/14/2023 06:54 AM EDT
== END 2023-11-11 06:19 | disposition home or self-care (01) ==
LOC: HO.XRAY 06:18
PROVIDERS: PCP Internal Medicine; Visit Provider Internal Medicine
DX: M54.9 Dorsalgia, unspecified (principal); Z87.81 Personal history of (healed) traumatic fracture
CPT/HCPCS: 71101; 72070

== ENCOUNTER 2023-12-09 10:50 | Outpatient (AMB) | payer OTHER, SELFPAY ==
[2023-12-09 10:58] VITALS: BP 148/86; PULSE 99; O2SAT 96; BMI 26.7
--- NOTE | 2023-12-09 10:58 | MHC.PC.OV ---
Vital Signs 12/09/23 10:58 Height 5 ft 10 in Weight 186 lb BMI 26.7 BP 148/86 H Blood Pressure Location Lt brachial Position Sitting Pulse 99 Pulse Source Pulse Oximeter Pulse Oximetry (%) 96 Oxygen Delivery Method Room Air Intake Visit Reasons: 1 month follow up Allergies adalimumab [From Humira] Allergy (Intermediate, Verified 12/09/23 10:59) Rash Medication List - Last Reconciled 12/09/23 by Edinson Calle MD aspirin (Aspirin Childrens) 81 mg PO DAILY bisacodyl (Dulcolax (bisacodyl)) 10 mg (2 x 5 mg) PO BEDTIME fluticasone propionate 50 mcg/actuation (Flonase Allergy Relief) 1 spray intranasal DAILY ibuprofen 800 mg PO TID PRN lisinopril 40 mg PO DAILY omega-3 fatty acids (Fish Oil Concentrate) 2,000 mg PO DAILY pantoprazole 40 mg PO DAILY polyethylene glycol 3350 (Miralax) 238 grams PO ONCE rosuvastatin (Crestor) 40 mg PO DAILY frmrsjfx-dfja-fvgez-oreg-capry 100 mg-150 mg- 50 mg-150 mg caps PO upadacitinib ER (Rinvoq) 15 mg PO DAILY Tobacco use date assessed: 12/09/23 Dental Screening Dental Screen Date: 12/09/23 Did you have a dental visit in the last 12 months?: Yes Did you have a dental problem in the last 6 months where you did not have access to dental care?: No Was dental information given to patient?: Patient has dentist HPI 1 month follow up HPI Details Came in for his follow-up appointment on hypertension Patient is on lisinopril 40 mg, tolerating medication however blood pressure continued to be elevated Changing it to losartan 50-hydrochlorothiazide 12.5 mg, patient is to continue monitoring his blood pressure at home [place] blood pressure for this patient is 120 x 80 systolic Nasal congestion has improved a lot with the use of Flonase nasal spray, refill sent Chest x-ray report is not available still, we will reach out to radiology department Follow-up 4 months [facility] Medical History Bilateral shoulder pain Pain in joint involving multiple sites Rheumatoid arthritis flare Thoracic aortic atherosclerosis Essential hypertension Seropositive rheumatoid arthritis Surgical History H/O wrist surgery Family History Father Hypertension Stented coronary artery Mother Hypertension Other Mental health disorder Social History Housing: House Alcohol intake: current Alcohol intake frequency: a few times a week Alcohol type: beer Patient Tobacco Use Status: Current everyday Tobacco user Tobacco use type: Cigarette Cigarettes Per Day: 30 Years Smoked: 35 e-Cigarette/Vaping Use: Never Used Second Hand Smoke Exposure: No service: No Current occupational status: 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 Cognitive needs: No Hearing needs: No Vision needs: Yes Questionnaire Thrive Questionnaire Date Thrive assessed: 12/09/23 I am a: Patient What is your living situation today?: I choose not to answer this question Within the past 12 months, did the food you bought not last and you didn't have the money to get more?: I choose not to answer this question Within the past 12 months, did you worry whether your food would run out before you got money to buy more?: I choose not to answer this question Do you have trouble paying for medicines?: I choose not to answer this question Do you have trouble getting transportation to medical appointments?: I choose not to answer this question Do you have trouble paying your heating and electricity bill?: I choose not to answer this question Do you have trouble taking care of your child, family member or friend?: I choose not to answer this question Do you have trouble with day-to-day activities such as bathing, preparing meals, shopping, managing finances, etc.?: I choose not to answer this question Are you currently unemployed and looking for a job?: I choose not to answer this question Are you interested in more education?: I choose not to answer this question Please select the resources that you would like help with: None Currently or been in a relationship where the following occur: I choose not to answer THRIVE Score: 0 AUDIT C Alcohol Use Questionnaire (AUDIT-C) 1. How often do you have a drink containing alcohol?: 4 or more times a week 2. How many drinks containing alcohol do you have on a typical day when you are drinking?: 1 or 2 3. How often do you have six or more drinks on one occasion?: Weekly Total Score: 7 Score Reviewed/Action Taken: Yes COLUMBA-7 AMB Questionnaire COLUMBA-7 Date COLUMBA - 7 assessed: 11/03/23 Source: Developed by Drs. Lorenzo Rojas, Shira Roche, Agus Chen and colleagues, with an educational mer from [facility]. Review of Systems Const Denies chills and Denies fever(s) ENT Denies epistaxis and Denies nasal discharge Card Denies chest pain Resp Denies chest congestion, Denies cough and Denies hemoptysis GI Denies diarrhea and Denies nausea Skin/Breast Denies rash Neuro Reports no additional complaints Psych Reports no additional complaints Endo Reports no additional complaints Physical exam (Primary Care) Vital Signs: Last Vital Signs Pulse 99 12/09/23 10:58 BP 148/86 H 12/09/23 10:58 Pulse Ox 96 12/09/23 10:58 Oxygen Delivery Method Room Air 12/09/23 10:58 BMI result Body Mass Index 26.7 Tobacco/Smoking Status: Tobacco use Status Tobacco use date assessed 12/09/23 12/09/23 10:59 Patient Tobacco Use Status Current everyday Tobacco 12/09/23 10:59 Tobacco use type Cigarette 12/09/23 10:59 e-Cigarette/Vaping Use Never Used 12/09/23 10:59 Thrive Assessment: Date of Thrive Assessment Date Thrive assessed 12/09/23 12/09/23 10:59 Currently or been in a relationship where the following occur: I choose not to answer Const General: cooperative, comfortable and no acute distress Orientation/consciousness: patient oriented x3 HENMT Head: Yes normocephalic Eyes General: appearance normal, both eyes and all related structures Neck Neck: Yes supple Resp Effort & Inspection: normal respiratory effort, no cough and no stridor Cardio Rhythm: regular rhythm Heart sounds: S1 normal heart sound present and S2 normal heart sound present Skin General skin exam: turgor normal Neuro General: patient oriented x3, tone normal and moves all extremities Extrem Right lower extremity: no edema Left lower extremity: no edema Coding Level of Care Code Est Pt Level 3 (73021) Diagnoses Essential hypertension I10 Chronic nasal congestion R09.81 Assessment & Plan Assessment & Plan (1) Essential hypertension: Code(s): I10 - Essential (primary) hypertension Category: Medical (2) Chronic nasal congestion: Code(s): R09.81 - Nasal congestion Category: Medical Plan Came in for his follow-up appointment on hypertension Patient is on lisinopril 40 mg, tolerating medication however blood pressure continued to be elevated Changing it to losartan 50-hydrochlorothiazide 12.5 mg, patient is to continue monitoring his blood pressure at home [place] blood pressure for this patient is 120 x 80 systolic Nasal congestion has improved a lot with the use of Flonase nasal spray, refill sent Chest x-ray report is not available still, we will reach out to radiology department Follow-up 4 months Medications: New losartan-hydrochlorothiazide 50-12.5 mg 1 tab PO DAILY 90 tabs 0RF Refilled fluticasone propionate 50 mcg/actuation (Flonase Allergy Relief) administer into each nostril 1 spray intranasal DAILY 16 grams 4RF Discontinued lisinopril Discontinued Reason: Doctor's Order 40 mg PO DAILY 90 tabs 0RF
== END 2023-12-09 11:13 | disposition home or self-care (01) ==
PROVIDERS: PCP Internal Medicine; Visit Provider Internal Medicine
DX: I10 Essential (primary) hypertension (principal); R09.81 Nasal congestion

== ENCOUNTER → 2023-12-09 10:50 | Outpatient (BNVA) | payer OTHER, SELFPAY | PROVIDERS: PCP Internal Medicine; Visit Provider Internal Medicine ==

== ENCOUNTER 2023-12-22 06:02 | Outpatient (REF) | payer OTHER, SELFPAY ==
[2023-12-22 06:16] LABS: MANUAL DIFF FLAG NO
[2023-12-22 07:44] LABS: Basophils Absolute Auto 0.1 X10*3/uL (0.0-0.2); Eosinophils Absolute Auto 0.3 X10*3/uL (0.0-0.4); Hematocrit 43.2 % (42.0-52.0); Hemoglobin 14.9 g/dl (14.0-18.0); Imm Gran Abs Auto 0.04 X10*3/uL (0.00-0.03); Imm Gran Pct Auto 0.4 % (0.0-0.4); Lymphocytes Absolute Auto 2.4 X10*3/uL (1.2-4.9); Lymphocytes Percent Auto 26.4 % (20-40); Mean Corpuscular HGB Conc 34.5 g/dl (31.0-36.0); Mean Corpuscular Hemoglobin 31.4 pg (27.0-33.0); Mean Corpuscular Volume 90.9 fL (80.0-98.0); Mean Platelet Volume 10.2 fL (9.4-12.4); Monocytes Absolute Auto 0.8 X10*3/uL (0.1-1.2); Monocytes Percent Auto 8.4 % (2-11); Neutrophils Absolute Auto 5.5 x10*3/uL (2.0-8.3); Neutrophils Percent Auto 60.8 % (45-73); Platelet Count 294 X10*3/uL (160-400); Red Blood Count 4.75 X10*6/uL (4.60-5.80); Red Cell Distribution Width 12.8 % (11.0-16.0); White Blood Count 9.1 X10*3/uL (4.8-10.8)
[2023-12-22 08:26] LABS: Alanine Aminotransferase 75 U/L (0-40); Albumin Level 4.5 g/dL (3.5-5.0); Alkaline Phosphatase 78 U/L (39-117); Anion Gap 12 (12-20); Aspartate Amino Transferase 46 U/L (5-37); Bilirubin Total 0.6 mg/dL (0.0-1.0); Blood Urea Nitrogen 7 mg/dL (9-16); C Reactive Protein < 0.10 mg/dL (< or = 0.50); Calcium 9.7 mg/dL (8.4-10.2); Carbon Dioxide 25 mmol/L (22-29); Chloride 105 mmol/L (96-108); Estimated Glomerular Filt Rate > 60; Glucose Random 87 mg/dL (60-115); Potassium 4.9 mmol/L (3.3-5.1); Sodium 137 mmol/L (135-145); Total Protein 7.6 g/dL (6.5-8.0)
[2023-12-22 08:32] LABS: Erythrocyte Sedimentation Rate 4 MM/HR (0-15)
== END 2023-12-22 06:03 | disposition home or self-care (01) ==
LOC: HO.LAB 06:02
PROVIDERS: PCP Internal Medicine; Visit Provider Student in an Organized Health Care Education/Training Program
DX: M05.9 Rheumatoid arthritis with rheumatoid factor, unspecified (principal)
CPT/HCPCS: 36415; 80053; 85025; 85652; 86140

== ENCOUNTER 2023-12-24 10:09 | Outpatient (AMB) | payer OTHER, SELFPAY ==
--- NOTE | 2023-12-24 10:14 | A.OFFVIS_ITS ---
Vital Signs 12/24/23 10:18 Height 5 ft 10 in Weight 186 lb 11.704 oz BMI 26.8 BP 134/70 Blood Pressure Location Rt brachial Position Sitting Pulse 93 Pulse Source Pulse Oximeter Pulse Oximetry (%) 97 Oxygen Delivery Method Room Air Intake Visit Reasons: RA/CM Intake Note: Patient presents for RA. Allergies adalimumab [From Humira] Allergy (Intermediate, Verified 12/24/23 10:18) Rash Medication List - Last Reconciled 12/24/23 by Martha Kwon MD aspirin (Aspirin Childrens) 81 mg PO DAILY bisacodyl (Dulcolax (bisacodyl)) 10 mg (2 x 5 mg) PO BEDTIME fluticasone propionate 50 mcg/actuation (Flonase Allergy Relief) 1 spray intranasal DAILY ibuprofen 800 mg PO TID PRN losartan-hydrochlorothiazide 50-12.5 mg 1 tab PO DAILY omega-3 fatty acids (Fish Oil Concentrate) 2,000 mg PO DAILY pantoprazole 40 mg PO DAILY polyethylene glycol 3350 (Miralax) 238 grams PO ONCE rosuvastatin (Crestor) 40 mg PO DAILY hgtqgdjd-obbp-exgfe-oreg-capry 100 mg-150 mg- 50 mg-150 mg caps PO upadacitinib ER (Rinvoq) 15 mg PO DAILY HPI Comments Details: This is a 58-year-old male with seropositive RA who presents for follow-up. Remains on Rinvoq 15 mg p.o. daily. He states that he is doing well overall. 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 He states that sometimes he gets intermittent achy joints, usually in the morning and associated with stiffness lasting 15-30 minutes. Last week he was having pain in his left thumb. He took prednisone 5 mg daily for 7 days with resolution of his symptoms. [facility] Medical History Bilateral shoulder pain Thoracic aortic atherosclerosis Essential hypertension Seropositive rheumatoid arthritis Surgical History H/O wrist surgery Family History Father Hypertension Stented coronary artery Mother Hypertension Other Mental health disorder Social History Housing: House Alcohol intake: current Alcohol intake frequency: a few times a week Alcohol type: beer Patient Tobacco Use Status: Current everyday Tobacco user Tobacco use type: Cigarette Cigarettes Per Day: 30 Years Smoked: 35 e-Cigarette/Vaping Use: Never Used Second Hand Smoke Exposure: No service: No Current occupational status: 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 Cognitive needs: No Hearing needs: No Vision needs: Yes Review of Systems Musc Denies arthralgias, Denies joint swelling and Denies stiffness Physical Exam Vital Signs: Last Vital Signs Pulse 93 12/24/23 10:18 BP 134/70 12/24/23 10:18 Pulse Ox 97 12/24/23 10:18 Oxygen Delivery Method Room Air 12/24/23 10:18 BMI result Body Mass Index 26.8 Const General: cooperative, healthy appearing and comfortable Nutritional Appearance: obese Orientation/consciousness: patient oriented x3 Limitations: no limitations HEENT Head: Yes normocephalic and Yes atraumatic Mouth: moist mucous membranes Resp Effort & Inspection: normal respiratory effort and able to speak in complete sentences Auscultation: clear to auscultation bilaterally Cardio Rate: regular rate Rhythm: regular rhythm Skin General skin exam: no rashes or lesions noted Neuro General: patient oriented x3 Extrem Other: No active synovitis today Assessment & Plan Assessment & Plan (1) Seropositive rheumatoid arthritis: Comment: +++RF+++CCP Humira 09/04- 03/2020 Enbrel March 2020 - September 2020 discontinued due to insurance Orencia denied by insurance Rinvoq September 2020 - present Prednisone 09/05/2019 - present Rinvoq: Elevated liver Enzymes and Cholesterol Humira 11/2022: Skin Rash Tocilizumab since 03/2023 DC 07/2023 ineffective Rinvoq restarted 07/2023 effective Code(s): M05.9 - Rheumatoid arthritis with rheumatoid factor, unspecified Category: Medical Plan: This is a 58-year-old male with seropositive RA who presents for follow-up. This is 1st visit with me. Patient has been taking Rinvoq regularly for the last 2 months. Doing very well with no active synovitis on exam. Inflammatory markers are normal. Patient has multiple factors for cardiovascular disease including heavy smoking, dyslipidemia, patient has known nonobstructive CAD as well. In his case patient failed multiple DMARDs. Rinvoq seems to be most effective. With regards to lowering cardiovascular risk it is important to maximize RA control which seems to be achieved with Rinvoq in his case. I again reiterated the importance of controlling his cardiovascular risks, he continues to smoke heavily and has no intention to quit Has nonobstructive CAD and is on baby aspirin He has significant dyslipidemia and is on high doses of rosuvastatin Continue Rinvoq 15 mg p.o. daily. 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 Patient fully aware. Advised patient to seek medical care ANAMARIA if patient has an infection and advised patient to stop the medication until the infection is resolved. (3) LFT elevation: Code(s): R79.89 - Other specified abnormal findings of blood chemistry Category: Medical Plan: Follow-up with PCP (4) Smoking: Code(s): F17.200 - Nicotine dependence, unspecified, uncomplicated Category: Social Hx Plan: Again discussed the risks of smoking. Patient already has CAD. Discussed the association of smoking with rheumatoid arthritis disease activity. Advised patient to quit (5) Immunization counseling: Code(s): Z71.85 - Encounter for immunization safety counseling Category: Medical Plan: Patient stated that since the COVID vaccine controversy he does not have confidence in vaccination. Discuss they importance of flu vaccine and Shingrix vaccination. Discussed the association of shingles infections with Rinvoq. Patient will think about it Plan I spent 30 minutes reviewing patient's chart, evaluating patient, ordering diagnostic workup, counseling patient and documenting in the chart Orders: Orders Erythrocyte Sedimentation Rate 4 Months M05.9 - Rheumatoid arthritis with rheumatoid factor, unspecified Lipid Panel 4 Months E78.2 - Mixed hyperlipidemia Complete Blood Count Auto Diff 4 Months M05.9 - Rheumatoid arthritis with rheumatoid factor, unspecified Comprehensive Met. Panel 4 Months M05.9 - Rheumatoid arthritis with rheumatoid factor, unspecified C Reactive Protein 4 Months M05.9 - Rheumatoid arthritis with rheumatoid factor, unspecified Medications: New prednisone 5 mg PO DAILY PRN 30 tabs 0RF Joint pain Coding Level of Care Code Est Pt Level 4 (31792) Complex EM visit Add On G2211 Diagnoses Seropositive rheumatoid arthritis M05.9 Long-term use of immunosuppressant medication Z79.60 LFT elevation R79.89 Smoking F17.200 Immunization counseling Z71.85
[2023-12-24 10:18] VITALS: BP 134/70; PULSE 93; O2SAT 97; BMI 26.8
== END 2023-12-24 10:48 | disposition home or self-care (01) ==
LOC: HO.RHE 10:10
PROVIDERS: PCP Internal Medicine; Visit Provider Student in an Organized Health Care Education/Training Program
DX: M05.79 Rheumatoid arthritis with rheumatoid factor of multiple sites without organ or systems involvement (principal); Z79.60 Long term (current) use of unspecified immunomodulators and immunosuppressants; R79.89 Other specified abnormal findings of blood chemistry; F17.200 Nicotine dependence, unspecified, uncomplicated; Z71.85 Encounter for immunization safety counseling
CPT/HCPCS: 99214

== ENCOUNTER 2023-12-31 06:42 | Day surgery (SDC) | payer OTHER, SELFPAY ==
[2023-12-29 13:49] VITALS: BMI 26.8
[2023-12-31 07:22] VITALS: BP 128/84; PULSE 86; RESP 15; TEMP 36.5; O2SAT 98
[2023-12-31] MEDS: Lactated Ringers 1,000 ML 100 ML IVCONT (07:23)
--- NOTE | 2023-12-31 07:25 | HO.ANESPROP2 ---
Documented by User: Norma Arciniega NP 12/30/23 08:38 HPI - Anesthesia Eval Consult details Narrative: 58yo M for Upper Endoscopy and Colonoscopy PRN prednisone for RA Cardiac optimized PMFSH Active Problems Active Problems: All Active Problems Immunization counseling (Acute) Chronic nasal congestion (Acute) History of rib fracture (Acute) Mid back pain (Acute) Preoperative cardiovascular examination (Acute) Bloating (Acute) Impaired fasting blood sugar (Acute) Atherosclerotic cardiovascular disease (Acute) Rash (Acute) senior care (current) use of other immunomodulators and immunosuppressants (Acute) Rash of both hands (Acute) Seborrheic dermatitis (Acute) Right rib fracture (Acute) LFT elevation (Acute) Coronary atherosclerosis (Acute) Long-term use of immunosuppressant medication (Acute) Hyperlipidemia (Acute) Chronic GERD (Acute) Smoking (Acute) Abnormal stress test (Acute) Alcoholism (Acute) Hemorrhoids (Acute) Bilateral shoulder pain (Acute) Thoracic aortic atherosclerosis (Acute) Essential hypertension (Acute) Seropositive rheumatoid arthritis (Acute) Past Medical History Medical History (Updated 12/29/23 @ 13:45 by Alma Delia Smith RN) Impaired fasting glucose Back pain Alcohol dependence GERD (gastroesophageal reflux disease) CAD (coronary artery disease) Bilateral shoulder pain Thoracic aortic atherosclerosis Essential hypertension Seropositive rheumatoid arthritis Family History Family History Father Hypertension Stented coronary artery Mother Hypertension Other Mental health disorder Surgical History Surgical History H/O wrist surgery Social History Social History Housing: House Alcohol intake: current Alcohol intake frequency: a few times a week Alcohol type: beer Patient Tobacco Use Status: Current everyday Tobacco user Tobacco use type: Cigarette Cigarettes Per Day: 30 Years Smoked: 35 e-Cigarette/Vaping Use: Never Used Second Hand Smoke Exposure: No Advance Directives: No Advance Directives Information Provided: Yes service: No Current occupational status: 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 Cognitive needs: No Hearing needs: No Vision needs: Yes Meds Allergies Allergy/AdvReac Type Severity Reaction Status Date / Time adalimumab [From Humira] Allergy Intermediate Rash Verified 12/24/23 10:18 Home Medications ?Medication ?Instructions ?Recorded ?Confirmed ?Last Taken ?Type omega-3 fatty acids 1,000 mg 2,000 mg PO DAILY 02/02/20 12/29/23 Unknown History capsule (Fish Oil Concentrate) turmeric 100 mg-adolph 150 1 cap PO DAILY 04/15/22 12/29/23 Unknown History mg-olive 50 mg-oreg 150 mg-capryl capsule aspirin 81 mg chewable tablet 81 mg PO DAILY 04/09/23 12/29/23 Unknown History (Aspirin Childrens) Exam Height,Weight and Vital Signs: Height 5 ft 10 in Weight 84.822 kg Pertinent Lab Results Pertinent Lab Results: Laboratory Tests 12/22/23 06:14 WBC 9.1 Hgb 14.9 Hct 43.2 Plt Count 294 Sodium 137 Potassium 4.9 D Chloride 105 Carbon Dioxide 25 BUN 7 L Creatinine 0.81 Narrative Narrative: EKG 09/2023 Details: EKG with underlying sinus rhythm at 94/Min; slight downsloping STs in the inferior leads and V5/V6 but otherwise unremarkable. Borderline OH prolongation to 202 millisecond; normal corrected QT. no significant change compared to prior. Per cardiac note: Echocardiogram with LVEF of 60%. No wall motion abnormalities. Otherwise unremarkable. In the stress test, he reached 90% of max predicted heart rate, 7 METS, some shortness of breath but no chest pain. Borderline EKG changes. Hypertensive blood pressure response. In the coronary CTA, mostly nonobstructive CAD with mild to moderate stenosis. RCA not well visualized due to motion artifact. Distal RCA described to be normal supplying a small PDA/PLV. There was moderate atherosclerosis of the descending aorta with mural thrombus. Assessment and Plan Assessment Anesthesia Assessment: Chart Reviewed Documented by User: Joanie Tam DO 12/31/23 07:44 HPI - Anesthesia Eval Consult details Narrative: 58yo M for Upper Endoscopy and Colonoscopy. Jehovah Witness. PRN prednisone for RA Cardiac optimized [facility] Past Medical History Medical History (Updated 12/29/23 @ 13:45 by Alma Delia Smith RN) Impaired fasting glucose Back pain Alcohol dependence GERD (gastroesophageal reflux disease) CAD (coronary artery disease) Bilateral shoulder pain Thoracic aortic atherosclerosis Essential hypertension Seropositive rheumatoid arthritis Family History Family History Father Hypertension Stented coronary artery Mother Hypertension Other Mental health disorder Family history of problems with anesthesia: No Surgical History Surgical History H/O wrist surgery History of Problems with Anesthesia: No Social History Social History Housing: House Alcohol intake: current Alcohol intake frequency: a few times a week Alcohol type: beer Patient Tobacco Use Status: Current everyday Tobacco user Tobacco use type: Cigarette Cigarettes Per Day: 30 Years Smoked: 35 e-Cigarette/Vaping Use: Never Used Second Hand Smoke Exposure: No Advance Directives: No Advance Directives Information Provided: Yes service: No Current occupational status: 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 Cognitive needs: No Hearing needs: No Vision needs: Yes Meds Allergies Allergy/AdvReac Type Severity Reaction Status Date / Time adalimumab [From Humira] Allergy Intermediate Rash Verified 12/24/23 10:18 Home Medications ?Medication ?Instructions ?Recorded ?Confirmed ?Last Taken ?Type omega-3 fatty acids 1,000 mg 2,000 mg PO DAILY 02/02/20 12/29/23 Unknown History capsule (Fish Oil Concentrate) turmeric 100 mg-adolph 150 1 cap PO DAILY 04/15/22 12/29/23 Unknown History mg-olive 50 mg-oreg 150 mg-capryl capsule aspirin 81 mg chewable tablet 81 mg PO DAILY 04/09/23 12/29/23 Unknown History (Aspirin Childrens) Exam Exam Date and Time: 12/31/23 0725 Height,Weight and Vital Signs: Height 5 ft 10 in Weight 84.822 kg Vital Signs Temperature 97.7 F 12/31/23 07:22 Pulse Rate 86 12/31/23 07:22 Respiratory Rate 15 12/31/23 07:22 Blood Pressure 128/84 12/31/23 07:22 Pulse Oximetry 98 12/31/23 07:22 Oxygen Delivery Method Room Air 12/31/23 07:22 Temperature 97.7 F 12/31/23 07:22 Pulse Rate 86 12/31/23 07:22 Respiratory Rate 15 12/31/23 07:22 Blood Pressure 128/84 12/31/23 07:22 Pulse Oximetry 98 12/31/23 07:22 Oxygen Delivery Method Room Air 12/31/23 07:22 Airway Mallampati Class: I TM Dist: >3cm Neck ROM: Full Partial: Upper and Lower Heart: S1S2 Lungs: CTAB Assessment and Plan Assessment Anesthesia Assessment: Anesthesia Plan Discussed and Chart Reviewed Final Anesthetic Review Family History of Problems with Anesthesia: No History of Problems with Anesthesia: No NPO: Yes ASA Class: III Final Preanesthetic Review: No Changes in Pt Med Stat, Meds/Allgs Chart Reviewed, Consent Obtained/Reviewed and Anes Risks/Benef Reviewed Patient Risk: Low Procedure Risk: Low Anesthetic Plan Anesthetic Plan: GA and Agree w/ Assess. and Plan Disposition: Standard PACU
--- NOTE | 2023-12-31 07:46 | P.HPSUR_ITS ---
Pre-Procedural Eval Section A - 24 Hr Update-Section A only Date of Service: 12/31/23 Section B - Complete if H&P > 30 days Chief Complaint: gerd,epigastric pain,abdominal distension Details of Present Illness: Bilateral shoulder pain Pain in joint involving multiple sites Rheumatoid arthritis flare Thoracic aortic atherosclerosis Essential hypertension Seropositive rheumatoid arthritis Surgical History H/O wrist surgery Allergies: Allergies Allergy/AdvReac Type Severity Reaction Status Date / Time adalimumab [From Humira] Allergy Intermediate Rash Verified 12/24/23 10:18 Review of Systems Review of Systems Comment: Ten point ROS negative Exam Exam Comment: Gen appear: No acute distress HEENT: no icterus Chest: No overt resp distress Abd: soft, nontender, nondistended Psych: Stable affect, answering questions appropriately Neuro: A/Ox3 noted to move all extremities spontaneously Ext: no peripheral edema Plan Diagnosis/Plan: Unchanged I have reviewed the history and physical and performed a pertinent physical examination on my patient. No changes have occurred unless specified. Time Spent With Patient Time: Total time managing care of this patient today ____ minutes.
--- NOTE | 2023-12-31 07:51 | P.OPN-COLO_ITS ---
Colonoscopy Operative Note Operative Note Date of Service: 12/31/23 Narrative: Procedure: Upper endoscopy and colonoscopy Indication: GERD, screening Endoscopist: Luz Elena Grayson MD Anesthesia Provider: Adeola Collado CRNA Anesthesia type: MAC Instrument: [id number] and [id number] Colonoscopy Procedure:? The procedure, indications, preparation and potential complications were reviewed with the patient, who indicated understanding and gave written informed consent to proceed. A digital rectal exam was performed which was abnormal for external hemorrhoids. A distal attachment cap was affixed to the tip of the scope and the colonoscope was then inserted through the anus and advanced through the colon and advanced to the cecum at 75 cm and terminal ileum.? Appendiceal orifice and ileocecal valve were identified. Mucosa was carefully examined under high definition white light as the instrument was slowly withdraw n in a retrograde panoramic fashion. Retroflexion was performed in rectum. The procedure was not difficult. The quality of the prep was BBPS: 3+2+3 = adequate Withdrawal time 18 minutes Limitations: No limitations Findings: Mucosa: Ulceration and edema in the cecum. Focal linear ulceration was also noted in the sigmoid colon at 40 cm from the anal orifice. Jumbo forceps biopsies were taken. Remaining colon and terminal ileum mucosa appeared normal endoscopically. Protruding lesions: * 1 sessile polyp of size 3 mm transverse colon. Jumbo cold forceps polypectomy was performed. The polyp was completely removed and retrieved. * 1 sessile polyp of size 5 mm in sigmoid colon. Jumbo cold forceps polypectomy was performed. The polyp was completely removed and retrieved. * 1 pedunculated polyp of size 12 mm in rectum. Hot snare polypectomy was performed. The polyp was completely removed and retrieved. * Large internal hemorrhoids with stigmata of recent bleeding. Excavated lesions: * Mild diverticulosis of left side of the colon. EGD Procedure:?? The patient was then turned for upper endocopy. The endoscope was introduced through the bite block, and advanced to the 2nd part of the duodenum. The mucosa was carefully examined on slow withdrawal of the endoscope. The patient tolerated the procedure well. There were no immediate complications.? EGD Findings:? * Esophagus:? Normal esophageal mucosa was noted. The Z-line was at 38 cm. * Stomach:? Normal gastric mucosa. Retroflexion was performed in the cardia. Random cold forceps biopsies were taken from the stomach to rule out H Pylori. * Duodenum:? Erythema, edema and erosions were noted in the duodenal bulb and sweep. Cold forceps biopsies were taken from the duodenal bulb and 2nd portion of the duodenum for histology. Impression: 1. Normal esophagus 2. Normal stomach (biopsy) 3. Peptic duodenitis (biopsy) 4. Abnormal colon mucosa (biopsy) 5. 3 polyps removed 6. Diverticulosis 7. Internal and external hemorrhoids Recommendations:?? * Follow-up path results for ? inflammatory colitis vs ischemic colitis vs acute colitis * Avoid NSAIDs and smoking. * Start omeprazole 20 mg once daily * H Pylori treatment if biopsies + * Management and repeat colo contingent on results of path. If acute inflammation only, repeat colo in 3 years for polyp surveillance. If ischemic colitis, recommend repeat within 6 months to document healing.
[2023-12-31 08:40] VITALS: BP 95/62; PULSE 83; RESP 16; TEMP 36.1; O2SAT 97
[2023-12-31 08:55] VITALS: BP 127/84; PULSE 81; RESP 18; O2SAT 100
[2023-12-31 09:10] VITALS: BP 154/95; PULSE 66; RESP 18; TEMP 36.3; O2SAT 100
== END 2023-12-31 10:19 | disposition home or self-care (01) ==
PROVIDERS: PCP Internal Medicine; Visit Provider Internal Medicine
PROC: (CPT 45385; principal; 2023-12-31 08:20)
DX: Z12.11 Encounter for screening for malignant neoplasm of colon (principal); D12.3 Benign neoplasm of transverse colon; D12.5 Benign neoplasm of sigmoid colon; D12.8 Benign neoplasm of rectum; K63.3 Ulcer of intestine; K57.30 Diverticulosis of large intestine without perforation or abscess without bleeding; K64.8 Other hemorrhoids; K64.4 Residual hemorrhoidal skin tags; K63.89 Other specified diseases of intestine; R14.0 Abdominal distension (gaseous); R10.13 Epigastric pain; K21.9 Gastro-esophageal reflux disease without esophagitis; K29.80 Duodenitis without bleeding; I10 Essential (primary) hypertension; I70.0 Atherosclerosis of aorta; M05.9 Rheumatoid arthritis with rheumatoid factor, unspecified; Z88.8 Allergy status to other drugs, medicaments and biological substances
CPT/HCPCS: 45385; 45380; 88305; 88313; 88342; J1100; J1596; J2003; J2704

== ENCOUNTER → 2023-12-31 06:42 | Outpatient (BNV) | payer OTHER, SELFPAY | PROVIDERS: PCP Internal Medicine; Visit Provider Internal Medicine | DX: Z12.11 Encounter for screening for malignant neoplasm of colon (principal); D12.3 Benign neoplasm of transverse colon; D12.5 Benign neoplasm of sigmoid colon; D12.8 Benign neoplasm of rectum; K57.30 Diverticulosis of large intestine without perforation or abscess without bleeding; K64.8 Other hemorrhoids; K21.9 Gastro-esophageal reflux disease without esophagitis; K29.80 Duodenitis without bleeding | CPT/HCPCS: 43239; 45380; 45385 ==

== ENCOUNTER 2024-01-13 10:34 | Outpatient (AMB) | payer OTHER, SELFPAY ==
[2024-01-13 10:40] VITALS: BP 140/82; PULSE 94; O2SAT 97; BMI 26.3
--- NOTE | 2024-01-13 10:40 | A.OFFVIS_ITS ---
Vital Signs 01/13/24 10:40 Height 5 ft 10 in Weight 182 lb 15.739 oz BMI 26.3 BP 140/82 H Blood Pressure Location Rt brachial Position Sitting Pulse 94 Pulse Source Pulse Oximeter Pulse Oximetry (%) 97 Oxygen Delivery Method Room Air Intake Visit Reasons: s/p egd/colon Intake Note: Relevant Flags or Indicators ? 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 N Teddy presents in office today for a scheduled s/p FUV Relevant GI Sx as reported per pt? * None ?Hx of any recent surgeries? Double w/ BZ Director [employer]ing Required: No Allergies adalimumab [From Humira] Allergy (Intermediate, Verified 01/13/24 10:40) Rash HPI HPI s/p egd/colon: Details: LAST VISIT: Chronic GERD Screen for colon cancer Postprandial abdominal bloating Postprandial epigastric pain Plan Patient denies any cardiac or respiratory symptoms.? However patient does have a history of coronary artery disease and is following with hog cooler. Patient has an appointment in September and we will ask for risk stratification before sending him for procedure. Denies any issues with anesthesia in the past.? Denies any history of sleep apnea.? Patient is an every day smoker smokes about 30 cigarettes a day. No history infectious diseases in the past or present.? Patient is on low-dose aspirin.? No family or personal history of colon cancer or polyps.? Patient reports to occasionally feel like he does not empty his bowels completely. Patient will increase fluid intake and activity to promote better bowel motility. Patient will try to take Dulcolax few days before procedure to help him empty better. Patient reports that he has been having acid reflux for over a year and has been taking pantoprazole daily. Discussed with patient the importance of avoiding alcohol. Importance of avoiding dietary triggers and late night snacking discussed with patient as well. Patient denies melena, hematochezia, unintentional weight loss or ribbon like stools.? Discussed at length the pre-procedure,? prep, diet & medications as well as what to expect prior, during and after the procedure.?? Stressed the importance of good bowel prep.? Recommended the use of Vaseline or Calmoseptine OTC & baby wipes with bowel movements to promote comfort.? ?Patient verbalizes understanding and agrees to plan of care.? He was given the opportunity to ask questions and all questions answered.? We will see him after the procedure.? Medications New bisacodyl (Dulcolax (bisacodyl)) Start taking 2 tablet every night 7 days before the procedure and 1 day before procedure take 4 tablets at noon time followed by MiraLax prep 10 mg (2 x 5 mg) PO BEDTIME 16 tabs 0RF Z12.11 bisacodyl (Dulcolax (bisacodyl)) Start taking 2 tablet every night 7 days before the procedure and 1 day before procedure take 4 tablets at noon time followed by MiraLax prep 10 mg (2 x 5 mg) PO BEDTIME 16 tabs 0RF Z12.11 polyethylene glycol 3350 (Miralax) As directed by gastroenterology department at [facility] 238 grams PO ONCE 238 grams 0RF Z12.11 polyethylene glycol 3350 (Miralax) As directed by gastroenterology department at [facility] 238 grams PO ONCE 238 grams 0RF Z12.11 ENDOSCOPY AND COLONOSCOPY: Findings: Mucosa: Ulceration and edema in the cecum. Focal linear ulceration was also noted in the sigmoid colon at 40 cm from the anal orifice. Jumbo forceps biopsies were taken. Remaining colon and terminal ileum mucosa appeared normal endoscopically. Protruding lesions: * 1 sessile polyp of size 3 mm transverse colon. Jumbo cold forceps polypectomy was performed. The polyp was completely removed and retrieved. * 1 sessile polyp of size 5 mm in sigmoid colon. Jumbo cold forceps polypectomy was performed. The polyp was completely removed and retrieved. * 1 pedunculated polyp of size 12 mm in rectum. Hot snare polypectomy was performed. The polyp was completely removed and retrieved. * Large internal hemorrhoids with stigmata of recent bleeding. Excavated lesions: * Mild diverticulosis of left side of the colon. EGD Findings:? * Esophagus:? Normal esophageal mucosa was noted. The Z-line was at 38 cm. * Stomach:? Normal gastric mucosa. Retroflexion was performed in the cardia. Random cold forceps biopsies were taken from the stomach to rule out H Pylori. * Duodenum:? Erythema, edema and erosions were noted in the duodenal bulb and sweep. Cold forceps biopsies were taken from the duodenal bulb and 2nd portion of the duodenum for histology. Impression: 1. Normal esophagus 2. Normal stomach (biopsy) 3. Peptic duodenitis (biopsy) 4. Abnormal colon mucosa (biopsy) 5. 3 polyps removed 6. Diverticulosis 7. Internal and external hemorrhoids Recommendations:?? * Follow-up path results for ? inflammatory colitis vs ischemic colitis vs acute colitis * Avoid NSAIDs and smoking. * Start omeprazole 20 mg once daily * H Pylori treatment if biopsies + * Management and repeat colo contingent on results of path. If acute inflammation only, repeat colo in 3 years for polyp surveillance. If ischemic colitis, recommend repeat within 6 months to document healing. PATHOLOGY RESULTS: Diagnosis A. Colon, abnormal cecal mucosa, biopsy: Colonic mucosa with focal ischemic-type mucosal injury/ colitis (see comment). B. Colon, transverse, polypectomy: Tubular adenoma; negative for high-grade dysplasia. C. Colon, sigmoid, polypectomy: Tubular adenoma; negative for high-grade dysplasia. D. Colon, abnormal sigmoid mucosa, biopsy: Colonic mucosa with ischemic-type mucosal injury/colitis (see comment). E. Rectum, polypectomy: Tubular adenoma; negative for high-grade dysplasia. F. Duodenum, biopsy: Duodenal mucosa within normal limits; preserved villous architecture and no increased intraepithelial lymphocytes. G. Stomach, random, biopsy: Gastric antral and body mucosa within normal limits; negative for Helicobacter pylori, intestinal metaplasia and dysplasia. COMMENT (A&D): Possible etiologies for this ischemic-type mucosal injury include true ischemic colitis, infection and a drug reaction (e.g. NSAIDs, etc). Clinical and endoscopic correlation is recommended TODAY'S VISIT Patient is here today for follow-up and to discuss upper endoscopy and colonoscopy results. Patient was found to have tubular adenoma in transverse colon, sigmoid colon and in his rectum. No high-grade dysplasia or carcinoma found. In right part of his colon possible ischemic colitis, recommendation was made for patient to repeat colonoscopy in 6 months to check the right side for healing. Patient denies any melena, hematochezia. Denies dyspepsia, dysphagia or odynophagia. Stomach biopsy without any inflammation, normal duodenum. Patient denies any GI concerning symptoms. Occasional abdominal bloating depending on what he eats. Reports that he is moving his bowels well. [facility] Medical History Impaired fasting glucose Back pain Alcohol dependence GERD (gastroesophageal reflux disease) CAD (coronary artery disease) Bilateral shoulder pain Thoracic aortic atherosclerosis Essential hypertension Seropositive rheumatoid arthritis Surgical History H/O wrist surgery Family History Father Hypertension Stented coronary artery Mother Hypertension Other Mental health disorder Social History Housing: House Alcohol intake: current Alcohol intake frequency: a few times a week Alcohol type: beer Patient Tobacco Use Status: Current everyday Tobacco user Tobacco use type: Cigarette Cigarettes Per Day: 30 Years Smoked: 35 e-Cigarette/Vaping Use: Never Used Second Hand Smoke Exposure: No service: No Current occupational status: 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 Cognitive needs: No Hearing needs: No Vision needs: Yes Review of Systems Const Denies weight gain and Denies weight loss ENT Reports no additional complaints, Denies dysphagia and Denies odynophagia Card Reports no additional complaints Resp Reports no additional complaints GI Denies abdominal pain, Denies belching, Denies melena, Denies bloating, Denies change in bowel habits, Denies dysphagia, Denies excessive flatus, Denies dyspepsia, Denies heartburn, Denies diarrhea, Denies loose stools, Denies nausea, Denies odynophagia and Denies vomiting Reports no additional complaints Musc Reports no additional complaints Neuro Reports no additional complaints Psych Reports no additional complaints Endo Reports no additional complaints Physical Exam Vital Signs: Last Vital Signs Pulse 94 01/13/24 10:40 BP 140/82 H 01/13/24 10:40 Pulse Ox 97 01/13/24 10:40 Oxygen Delivery Method Room Air 01/13/24 10:40 BMI result Body Mass Index 26.3 Const General: healthy appearing, no acute distress and well developed Nutritional Appearance: well nourished Orientation/consciousness: patient oriented x3 Resp Effort & Inspection: normal respiratory effort, able to speak in complete sentences, no tracheal deviation and symmetric chest movement Auscultation: clear to auscultation bilaterally Cardio Rate: regular rate GI Inspection: Yes normal to inspection and No distended Palpation (GI): Soft to palpation, not firm, nontender and No hepatosplenomegaly present Auscultation: normal bowel sounds General: Yes no CVA tenderness Back/Spine/Pelvis Back: no CVA tenderness Skin General skin exam: elasticity normal, turgor normal and dry skin Neuro General: patient oriented x3 Psych Appearance: grossly normal Mental Status: mental status grossly normal Assessment & Plan Assessment & Plan (1) Duodenitis: Code(s): K29.80 - Duodenitis without bleeding Category: Medical (2) Screen for colon cancer: Code(s): Z12.11 - Encounter for screening for malignant neoplasm of colon (3) Postprandial abdominal bloating: Code(s): R14.0 - Abdominal distension (gaseous) (4) Postprandial epigastric pain: Code(s): R10.13 - Epigastric pain (5) Ischemic colitis: Code(s): K55.9 - Vascular disorder of intestine, unspecified Plan Message sent to surgical schedulers to book procedure for patient. Prep discussed with patient. The importance of good bowel prep and clear liquid diet discussed with patient. Avoid dietary triggers and late night snacking. Staying upright for minimum 3 hours after meals discussed with patient. Patient will follow-up in the office after the procedure. He will call us if he will have any GI concerning symptoms. He is agreeable to this plan and verbalizes understanding of instructions. He was given the opportunity to ask questions and all questions answered. Thank you for allowing me to participate in his care Medications: New polyethylene glycol 3350 (Miralax) As directed by gastroenterology department at [facility] 238 grams PO ONCE 238 grams 0RF Z12.11 - Encounter for screening for malignant neoplasm of colon Refilled bisacodyl (Dulcolax (bisacodyl)) Start taking 2 tablet every night 7 days before the procedure and 1 day before procedure take 4 tablets at noon time followed by MiraLax prep 10 mg (2 x 5 mg) PO BEDTIME 16 tabs 0RF Z12.11 - Encounter for screening for malignant neoplasm of colon Coding Level of Care Code Est Pt Level 3 (31544) Diagnoses Duodenitis K29.80 Screen for colon cancer Z12.11 Postprandial abdominal bloating R14.0 Postprandial epigastric pain R10.13 Ischemic colitis K55.9 Time Spent (min) 30 Comment 20 minutes spent with patient and additional 10 minutes spent reviewing his records
== END 2024-01-13 11:40 | disposition home or self-care (01) ==
PROVIDERS: PCP Internal Medicine; Visit Provider Nurse Practitioner Family
DX: K29.80 Duodenitis without bleeding (principal); Z12.11 Encounter for screening for malignant neoplasm of colon; R14.0 Abdominal distension (gaseous); R10.13 Epigastric pain; K55.9 Vascular disorder of intestine, unspecified
CPT/HCPCS: 99213

== ENCOUNTER 2024-03-29 09:52 | Outpatient (AMB) | payer OTHER, SELFPAY ==
--- NOTE | 2024-03-29 09:57 | MHC.OFFVIS ---
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 Required: No Accompanied by: Self / Same As Patient Allergies adalimumab [From Humira] Allergy (Intermediate, Verified 01/13/24 10:40) Rash Medication List - Last Reconciled 03/29/24 by Ney Vega MD aspirin (Aspirin Childrens) 81 mg PO DAILY bisacodyl (Dulcolax (bisacodyl)) 10 mg (2 x 5 mg) PO BEDTIME fluticasone propionate 50 mcg/actuation (Flonase Allergy Relief) 1 spray intranasal DAILY lisinopril 40 mg PO DAILY omega-3 fatty acids (Fish Oil Concentrate) 2,000 mg PO DAILY pantoprazole 20 mg PO DAILY polyethylene glycol 3350 (Miralax) 238 grams PO ONCE prednisone 5 mg PO DAILY PRN rosuvastatin (Crestor) 40 mg PO DAILY rofssmws-yhkh-fakru-oreg-capry 100 mg-150 mg- 50 mg-150 mg 1 cap PO DAILY upadacitinib ER (Rinvoq) 15 mg PO DAILY HPI Comments Details: Teddy returns for follow-up regarding coronary artery disease. In the past, he was seen regarding nonexertional chest discomfort which led to further workup. Heavy smoker and still smokes about 30 cigarettes a day. Also drinks frequently. History of hypertension. He underwent a comprehensive workup including echocardiogram, stress test as well as coronary CTA. From the cardiac perspective, he states he feels fine. Does not have any clear-cut symptoms. No angina. [facility] Medical History Impaired fasting glucose Back pain Alcohol dependence GERD (gastroesophageal reflux disease) CAD (coronary artery disease) Bilateral shoulder pain Thoracic aortic atherosclerosis Essential hypertension Seropositive rheumatoid arthritis Surgical History H/O wrist surgery Family History Father Hypertension Stented coronary artery Mother Hypertension Other Mental health disorder Social History Housing: House Alcohol intake: current Alcohol intake frequency: a few times a week Alcohol type: beer Patient Tobacco Use Status: Current everyday Tobacco user Tobacco use type: Cigarette Cigarettes Per Day: 30 Years Smoked: 35 e-Cigarette/Vaping Use: Never Used Second Hand Smoke Exposure: No service: No 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 occupational status: 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 Cognitive needs: No Hearing needs: No Vision needs: Yes Review of Systems Const Denies chills, Denies fatigue, Denies fever(s), Denies weight gain and Denies weight loss ENT Denies dizziness Card Denies chest pain, Denies leg edema, Denies lightheadedness, Denies palpitations, Denies dyspnea on exertion, Denies orthopnea and Denies other Resp Denies cough and Denies dyspnea on exertion GI Denies hematochezia and Denies change in stool character Musc Denies abnormal gait, Denies muscle weakness, Denies numbness, Denies radiating pain into limb and Denies tingling Neuro Denies abnormal gait, Denies dizziness, Denies numbness and Denies tingling Endo Denies fatigue and Denies palpitations Physical Exam Vital Signs: Last Vital Signs Pulse 81 03/29/24 09:58 BP 148/62 H 03/29/24 09:58 BMI result Body Mass Index 27.5 Const General: comfortable and no acute distress Orientation/consciousness: patient oriented x3 HEENT Other: Unremarkable Head: Yes normal to inspection Neck Neck: Yes normal visual inspection Chest Chest palpation & inspection: normal inspection of the chest Resp Auscultation: clear to auscultation bilaterally Cardio Palpation: normal PMI Heart sounds: S1 normal heart sound present, S2 normal heart sound present, no gallops, no murmurs and no rubs GI Palpation (GI): Soft to palpation Back/Spine/Pelvis Other: unremarkable Skin General skin exam: no rashes or lesions noted Neuro General: patient oriented x3 Extrem General: Yes normal to inspection Psych Mental Status: mental status grossly normal Assessment & Plan Assessment & Plan (1) Atherosclerotic cardiovascular disease: Code(s): I25.10 - Atherosclerotic heart disease of [place] coronary artery without angina pectoris Category: Medical (2) Essential hypertension: Code(s): I10 - Essential (primary) hypertension Category: Medical (3) Smoking: Code(s): F17.200 - Nicotine dependence, unspecified, uncomplicated Category: Social Hx (4) Hyperlipidemia: Code(s): E78.5 - Hyperlipidemia, unspecified Category: Medical Qualifiers: Hyperlipidemia type: mixed hyperlipidemia Qualified Code(s): E78.2 - Mixed hyperlipidemia (5) Alcoholism: Code(s): F10.20 - Alcohol dependence, uncomplicated Category: Medical Plan Cardiac studies reviewed. Echocardiogram with LVEF of 62%. No wall motion abnormalities. Otherwise unremarkable. In the stress test, he reached 90% of max predicted heart rate, 7 METS, some shortness of breath but no chest pain. Borderline EKG changes. Hypertensive blood pressure response. In the coronary CTA, mostly nonobstructive CAD with mild to moderate stenosis. RCA not well visualized due to motion artifact. Distal RCA described to be normal supplying a small PDA/PLV. There was moderate atherosclerosis of the descending aorta with mural thrombus. Carotid Doppler does not show any significant carotid disease. Abdominal ultrasound does not show any evidence of abdominal aortic aneurysm. Mainly risk factor modification. Continue aspirin. Blood pressure is on the higher side. According to PCP note, lisinopril was stopped and losartan/hydrochlorothiazide started but patient is not aware of this. Advised him to check with PCP about the change. With regard to lipids, continue statins. Last LDL 69 mg/dL. Slightly abnormal LFTs but chronic- may be related to alcohol excess. Needs to cut back drinking. Also discussed smoking cessation but not clear how much he will comply. Follow-up in 6 months. Medications: Refilled rosuvastatin (Crestor) 40 mg PO DAILY 90 tabs 3RF Coding Level of Care Code Est Pt Level 4 (96979) Complex EM visit Add On G2211 Diagnoses Atherosclerotic cardiovascular disease I25.10 Essential hypertension I10 Smoking F17.200 Mixed hyperlipidemia E78.2 Hyperlipidemia type: mixed hyperlipidemia Alcoholism F10.20
[2024-03-29 09:58] VITALS: BP 148/62; PULSE 81; BMI 27.5
== END 2024-03-29 10:27 | disposition home or self-care (01) ==
PROVIDERS: PCP Internal Medicine; Visit Provider Internal Medicine
DX: I25.10 Atherosclerotic heart disease of native coronary artery without angina pectoris (principal); I10 Essential (primary) hypertension; F17.200 Nicotine dependence, unspecified, uncomplicated; E78.2 Mixed hyperlipidemia; F10.20 Alcohol dependence, uncomplicated
CPT/HCPCS: 99214

== ENCOUNTER → 2024-03-29 09:52 | Outpatient (BNVA) | payer OTHER, SELFPAY | PROVIDERS: PCP Internal Medicine; Visit Provider Internal Medicine ==

== ENCOUNTER 2024-04-12 10:06 | Outpatient (AMB) | payer OTHER, SELFPAY ==
--- NOTE | 2024-04-12 10:11 | MHC.PC.OV ---
Vital Signs 04/12/24 10:13 Height 5 ft 10 in Weight 192 lb 4 oz BMI 27.6 BP 142/78 H Blood Pressure Location Rt brachial Position Sitting Pulse 108 H Pulse Source Pulse Oximeter Pulse Oximetry (%) 98 Oxygen Delivery Method Room Air Intake Visit Reasons: 4 months follow up Allergies adalimumab [From Humira] Allergy (Intermediate, Verified 04/12/24 10:16) Rash Medication List - Last Reconciled 04/12/24 by Edinson Calle MD aspirin (Aspirin Childrens) 81 mg PO DAILY bisacodyl (Dulcolax (bisacodyl)) 10 mg (2 x 5 mg) PO BEDTIME fluticasone propionate 50 mcg/actuation (Flonase Allergy Relief) 1 spray intranasal DAILY lisinopril 40 mg PO DAILY omega-3 fatty acids (Fish Oil Concentrate) 2,000 mg PO DAILY pantoprazole 20 mg PO DAILY prednisone 5 mg PO DAILY PRN rosuvastatin (Crestor) 40 mg PO DAILY wfzkhvae-zzqe-abjpl-oreg-capry 100 mg-150 mg- 50 mg-150 mg 1 cap PO DAILY upadacitinib ER (Rinvoq) 15 mg PO DAILY Tobacco use date assessed: 04/12/24 Dental Screening Dental Screen Date: 04/12/24 Did you have a dental visit in the last 12 months?: Yes Did you have a dental problem in the last 6 months where you did not have access to dental care?: No Was dental information given to patient?: Patient has dentist HPI 4 months follow up HPI Details - The patient is a 58-year-old male presenting with issues related to blood pressure control and ongoing musculoskeletal and gastrointestinal complaints. - Blood pressure readings have been variable, recorded as high as 142 mmHg, with typical measurements reported in the 130 mmHg range. Current management includes Lisinopril 40 mg daily. - For gastrointestinal complaints, he previously was on Pantoprazole but switched to Omeprazole post-colonoscopy in December 2023 due to findings of tubular adenomas requiring polyp removal and routine follow-up is anticipated in July. - The patient experiences heel pain and chest pain attributed to musculoskeletal conditions. He began a prednisone course 1-2 weeks prior to address arthritis-related symptoms. Through Rheumatology - Hypertension management strategies are critical due to the compounding factor of prednisone contributing to elevated blood pressure. - The patient also expressed fatigue and lack of energy, partially attributed to potential vitamin and mineral deficiencies. Problem List - Essential Hypertension - Gastroesophageal Reflux Disease (GERD) - Tubular Adenoma - Pain secondary to Arthritis - Musculoskeletal Pain Patient Instructions - Continue monitoring blood pressure at home and keep a log of the readings. - Initiate amlodipine 5 mg for blood pressure control if readings exceed 140 mmHg. - Schedule a follow-up colonoscopy with the radiation therapy technologist as advised. - Ensure completion of blood tests for vitamins B and D along with fasting blood tests for cholesterol as ordered. - Resume regular appointments with the occupational medicine officer for arthritis management. - Add a multivitamin and consider Vitamin B group supplementation for fatigue. - Contact my office if any significant changes in symptoms occur prior to the next scheduled visit. Review of Systems - General: No fever no chills - Neurological: No headaches no dizziness - Ear nose throat: No sore throat no hearing difficulty no ear pain - Cardiovascular: No syncope, no chest pain, no palpitations - Gastrointestinal: No nausea vomiting or diarrhea - Endocrine: No polyuria polydipsia no heat intolerance - Genitourinary: No dysuria , no blood in urine Physical Exam General: No acute distress HEENT: No acute findings Neck: Supple Respiratory system: Lungs are clear, able to talk in full sentences, no audible wheeze cardiovascular: S1-S2 regular in rate and rhythm Gastrointestinal: No pain Extremities: Pain on the heel, possibly related to arthritis [employer]CH[employer]: Alert awake oriented x3 motor sensory intact Skin: Normal turgor PFSH Medical History Impaired fasting glucose Back pain Alcohol dependence GERD (gastroesophageal reflux disease) CAD (coronary artery disease) Bilateral shoulder pain Thoracic aortic atherosclerosis Essential hypertension Seropositive rheumatoid arthritis Surgical History H/O wrist surgery Family History Father Hypertension Stented coronary artery Mother Hypertension Other Mental health disorder Social History Housing: House Alcohol intake: current Alcohol intake frequency: a few times a week Alcohol type: beer Patient Tobacco Use Status: Current everyday Tobacco user Tobacco use type: Cigarette Cigarettes Per Day: 30 Years Smoked: 35 Packs per year/per ci.50 e-Cigarette/Vaping Use: Never Used Second Hand Smoke Exposure: No service: No Current occupational status: 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 01206 - PHQ-9 Billing: Patient declined-do not bill Source: Developed by Drs. Lorenzo Rojas, Shira Roche, Agus Chen and colleagues, with an educational mer from [employer]. Thrive Questionnaire Date Thrive assessed: 04/12/24 I am a: Patient What is your living situation today?: I choose not to answer this question Within the past 12 months, did the food you bought not last and you didn't have the money to get more?: I choose not to answer this question Within the past 12 months, did you worry whether your food would run out before you got money to buy more?: I choose not to answer this question Do you have trouble paying for medicines?: I choose not to answer this question Do you have trouble getting transportation to medical appointments?: I choose not to answer this question Do you have trouble paying your heating and electricity bill?: I choose not to answer this question Do you have trouble taking care of your child, family member or friend?: I choose not to answer this question Do you have trouble with day-to-day activities such as bathing, preparing meals, shopping, managing finances, etc.?: I choose not to answer this question Are you currently unemployed and looking for a job?: I choose not to answer this question Are you interested in more education?: I choose not to answer this question Please select the resources that you would like help with: None Currently or been in a relationship where the following occur: I choose not to answer THRIVE Score: 0 AUDIT C Alcohol Use Questionnaire (AUDIT-C) 1. How often do you have a drink containing alcohol?: 4 or more times a week 2. How many drinks containing alcohol do you have on a typical day when you are drinking?: 1 or 2 3. How often do you have six or more drinks on one occasion?: Monthly Total Score: 6 Score Reviewed/Action Taken: Yes COLUMBA-7 AMB Questionnaire COLUMBA-7 Date COLUMBA - 7 assessed: 04/12/24 Feeling nervous, anxious, or on edge: 3 = Nearly every day Not being able to stop or control worryin = Nearly every day Worrying too much about different things: 3 = Nearly every day Trouble relaxin = Nearly every day Being so restless that it is hard to sit still: 3 = Nearly every day Becoming easily annoyed or irritable: 3 = Nearly every day Feeling afraid as if something awful might happen: 3 = Nearly every day Total COLUMBA-7 score (0-4 normal; 5-9 mild; 10-14 moderate; 15-21 severe): 21 Source: Developed by Drs. Lorenzo Rojas, Shira Roche, Agus Chen and colleagues, with an educational mer from [employer]. COLUMBA-7 Assessment Billing COLUMBA-7 Assessment Tool: COLUMBA-7 Assessment 04499 Physical exam (Primary Care) Vital Signs: Last Vital Signs Pulse 108 H 04/12/24 10:13 BP 142/78 H 04/12/24 10:13 Pulse Ox 98 04/12/24 10:13 Oxygen Delivery Method Room Air 04/12/24 10:13 BMI result Body Mass Index 27.6 Tobacco/Smoking Status: Tobacco use Status Tobacco use date assessed 04/12/24 04/12/24 10:17 Patient Tobacco Use Status Current everyday Tobacco 04/12/24 10:17 Tobacco use type Cigarette 04/12/24 10:17 e-Cigarette/Vaping Use Never Used 04/12/24 10:17 Thrive Assessment: Date of Thrive Assessment Date Thrive assessed 04/12/24 04/12/24 10:17 Currently or been in a relationship where the following occur: I choose not to answer Coding Level of Care Code Est Pt Level 4 (54621) Diagnoses Essential hypertension I10 Tired R53.83 Atherosclerotic cardiovascular disease I25.10 Smoking F17.200 Mixed hyperlipidemia E78.2 Hyperlipidemia type: mixed hyperlipidemia Impaired fasting blood sugar R73.01 manager intermediate (current) use of other immunomodulators and immunosuppressants Z79.69 LFT elevation R79.89 Chronic GERD K21.9 Seropositive rheumatoid arthritis M05.9 Additional Codes COLUMBA-7 Assessment Billing - COLUMBA-7 Assessment Tool: COLUMBA-7 Assessment 86521 ([id number]) Assessment & Plan Assessment & Plan (1) Essential hypertension: Code(s): I10 - Essential (primary) hypertension Category: Medical (2) Tired: Code(s): R53.83 - Other fatigue Category: Medical (3) Atherosclerotic cardiovascular disease: Code(s): I25.10 - Atherosclerotic heart disease of [place] coronary artery without angina pectoris Category: Medical (4) Smoking: Comment: Smoking damages our blood vessels, causes scaring of lungs leading to COPD and shortness of breath. It can also cause coronary artery disease leading to heart attack, and can cause degenerative disc disease , it can also predispose our body to certain cancers. Try to decrease cigarette use by 1 to 2 cigarettes/ week. When you are ready to quit let your primary care Know, or you can buy the nicotine patches there [id number]. Code(s): F17.200 - Nicotine dependence, unspecified, uncomplicated Category: Social Hx (5) Hyperlipidemia: Code(s): E78.5 - Hyperlipidemia, unspecified Category: Medical Qualifiers: Hyperlipidemia type: mixed hyperlipidemia Qualified Code(s): E78.2 - Mixed hyperlipidemia (6) Impaired fasting blood sugar: Code(s): R73.01 - Impaired fasting glucose Category: Medical (7) manager intermediate (current) use of other immunomodulators and immunosuppressants: Code(s): Z79.69 - manager intermediate (current) use of other immunomodulators and immunosuppressants Category: Medical (8) LFT elevation: Code(s): R79.89 - Other specified abnormal findings of blood chemistry Category: Medical (9) Chronic GERD: Code(s): K21.9 - Gastro-esophageal reflux disease without esophagitis Category: Medical (10) Seropositive rheumatoid arthritis: Comment: +++RF+++CCP Humira 09/04- 03/2020 Enbrel March 2020 - September 2020 discontinued due to insurance Orencia denied by insurance Rinvoq September 2020 - present Prednisone 09/05/2019 - present Rinvoq: Elevated liver Enzymes and Cholesterol Humira 11/2022: Skin Rash Tocilizumab since 03/2023 DC 07/2023 ineffective Rinvoq restarted 07/2023 effective Code(s): M05.9 - Rheumatoid arthritis with rheumatoid factor, unspecified Category: Medical Plan - The patient is a 58-year-old male presenting with issues related to blood pressure control and ongoing musculoskeletal and gastrointestinal complaints. - Blood pressure readings have been variable, recorded as high as 142 mmHg, with typical measurements reported in the 130 mmHg range. Current management includes Lisinopril 40 mg daily. - For gastrointestinal complaints, he previously was on Pantoprazole but switched to Omeprazole post-colonoscopy in December 2023 due to findings of tubular adenomas requiring polyp removal and routine follow-up is anticipated in July. - The patient experiences heel pain and chest pain attributed to musculoskeletal conditions. He began a prednisone course 1-2 weeks prior to address arthritis-related symptoms. Through Rheumatology - Hypertension management strategies are critical due to the compounding factor of prednisone contributing to elevated blood pressure. - The patient also expressed fatigue and lack of energy, partially attributed to potential vitamin and mineral deficiencies. Problem List - Essential Hypertension - Gastroesophageal Reflux Disease (GERD) - Tubular Adenoma - Pain secondary to Arthritis - Musculoskeletal Pain Patient Instructions - Continue monitoring blood pressure at home and keep a log of the readings. - Initiate amlodipine 5 mg for blood pressure control if readings exceed 140 mmHg. - Schedule a follow-up colonoscopy with the radiation therapy technologist as advised. - Ensure completion of blood tests for vitamins B and D along with fasting blood tests for cholesterol as ordered. - Resume regular appointments with the occupational medicine officer for arthritis management. - Add a multivitamin and consider Vitamin B group supplementation for fatigue. - Contact my office if any significant changes in symptoms occur prior to the next scheduled visit. Orders: Orders Vitamin D 25-OH (D2 and D3) Today R53.83 - Other fatigue Vitamin B12 Today R53.83 - Other fatigue Medications: New amlodipine 5 mg PO DAILY 90 tabs 0RF Discontinued polyethylene glycol 3350 (Miralax) As directed by gastroenterology department at [facility] Discontinued Reason: Doctor's Order 238 grams PO ONCE 238 grams 0RF Z12.11 - Encounter for screening for malignant neoplasm of colon
[2024-04-12 10:13] VITALS: BP 142/78; PULSE 108; O2SAT 98; BMI 27.6
--- OUTSIDE RECORDS SUMMARY | 2024-04-12 11:50 | XMS_ITS | Clinical Summary ---
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 Role Phone Unavailable Primary Care Provider Unavailabl e Social History Tobacco Use Types Packs/Day Years Used Date Smoking Tobacco: Never Assessed Sex and Gender Information Value Date Recorded Sex Assigned at Not on file Legal Sex Male 4:14 PM EST Gender Identity Not on file Sexual Orientation Not on file Plan of Treatment Health Maintenance Due Date Last Done Comments DTaP,Tdap,and Td Vaccines (1 - Tdap) 10/17/1986 Hepatitis B Vaccines (1 of 3 - 19+ 3-dose series) 10/17/1986 Pneumococcal Vaccine: 50+ Ye ars (1 of 1 - PCV) 10/17/2017 Zoster Vaccines (1 of 2) 10/17/2017 COVID-19 Vaccine ( - 2023-2 5 season) 2023 Influenza Vaccine (#1) 2023 HIB Vaccines Aged Out No longer eligi ble based on patient's age to complete this topic HPV Vaccines Aged Out No longer eligi ble based on patient's age to complete this topic Hepatitis A Vaccines Aged Out No long er eligible based on patient's age to complete this topic IPV Vaccines Aged Out No longer eligi ble based on patient's age to complete this topic MMR Vaccines Aged Out No longer eligi ble based on patient's age to complete this topic Meningococcal ACWY Vaccine Aged Out N o longer eligible based on patient's age to complete this topic Meningococcal B Vacine Aged Out No lo nger eligible based on patient's age to complete this topic Pneumococcal Vaccine: Pediat rics (0 to 5 Years) and At-Risk Patients (6 to 64 Years) Aged Out No longer eligible b ased on patient's age to complete this topic RSV Immunization Patients Un quita 20 months Aged Out No longer eligible b ased on patient's age to complete this topic Varicella Vaccines Aged Out No longer eligible based on patient's age to complete this topic
== END 2024-04-12 10:42 | disposition home or self-care (01) ==
PROVIDERS: PCP Internal Medicine; Visit Provider Internal Medicine
DX: I10 Essential (primary) hypertension (principal); R53.83 Other fatigue; I25.10 Atherosclerotic heart disease of native coronary artery without angina pectoris; M05.9 Rheumatoid arthritis with rheumatoid factor, unspecified; F17.200 Nicotine dependence, unspecified, uncomplicated; E78.2 Mixed hyperlipidemia; R73.01 Impaired fasting glucose; Z79.69 Long term (current) use of other immunomodulators and immunosuppressants; R79.89 Other specified abnormal findings of blood chemistry; K21.9 Gastro-esophageal reflux disease without esophagitis

== ENCOUNTER → 2024-04-12 10:06 | Outpatient (BNVA) | payer OTHER, SELFPAY | PROVIDERS: PCP Internal Medicine; Visit Provider Internal Medicine | DX: I10 Essential (primary) hypertension (principal); R53.83 Other fatigue; I25.10 Atherosclerotic heart disease of native coronary artery without angina pectoris; E78.2 Mixed hyperlipidemia; R73.01 Impaired fasting glucose; R79.89 Other specified abnormal findings of blood chemistry; K21.9 Gastro-esophageal reflux disease without esophagitis; M05.9 Rheumatoid arthritis with rheumatoid factor, unspecified; F17.210 Nicotine dependence, cigarettes, uncomplicated; Z79.69 Long term (current) use of other immunomodulators and immunosuppressants | CPT/HCPCS: 96127 ==

== ENCOUNTER 2024-04-16 09:30 | Outpatient (REF) | payer OTHER, SELFPAY ==
--- OUTSIDE RECORDS SUMMARY | 2024-04-16 09:33 | XMS_ITS | Clinical Summary ---
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
[2024-04-16 09:47] LABS: MANUAL DIFF FLAG NO
[2024-04-16 11:09] LABS: Basophils Absolute Auto 0.1 X10*3/uL (0.0-0.2); Basophils Percent Auto 0.6 % (0-2); Eosinophils Absolute Auto 0.1 X10*3/uL (0.0-0.4); Eosinophils Percent Auto 0.9 % (0-4); Hematocrit 44.4 % (42.0-52.0); Hemoglobin 15.3 g/dl (14.0-18.0); Imm Gran Abs Auto 0.06 X10*3/uL (0.00-0.03); Imm Gran Pct Auto 0.4 % (0.0-0.4); Lymphocytes Absolute Auto 2.7 X10*3/uL (1.2-4.9); Lymphocytes Percent Auto 19.4 % (20-40); Mean Corpuscular HGB Conc 34.5 g/dl (31.0-36.0); Mean Corpuscular Hemoglobin 30.9 pg (27.0-33.0); Mean Corpuscular Volume 89.7 fL (80.0-98.0); Mean Platelet Volume 9.5 fL (9.4-12.4); Monocytes Absolute Auto 0.9 X10*3/uL (0.1-1.2); Monocytes Percent Auto 6.7 % (2-11); Platelet Count 300 X10*3/uL (160-400); Red Blood Count 4.95 X10*6/uL (4.60-5.80); Red Cell Distribution Width 12.9 % (11.0-16.0); White Blood Count 13.8 X10*3/uL (4.8-10.8)
[2024-04-16 11:53] LABS: Erythrocyte Sedimentation Rate 3 MM/HR (0-15)
[2024-04-16 12:06] LABS: Alanine Aminotransferase 100 U/L (0-40); Albumin Level 4.8 g/dL (3.5-5.0); Alkaline Phosphatase 88 U/L (39-117); Anion Gap 14 (12-20); Aspartate Amino Transferase 66 U/L (5-37); Bilirubin Total 0.8 mg/dL (0.0-1.0); Blood Urea Nitrogen 14 mg/dL (9-16); C Reactive Protein < 0.04 mg/dL (< or = 0.50); Calcium 9.9 mg/dL (8.4-10.2); Carbon Dioxide 25 mmol/L (22-29); Chloride 101 mmol/L (96-108); Cholesterol 152 mg/dL (<200); Estimated Glomerular Filt Rate > 60; Glucose Random 102 mg/dL (60-115); HDL Cholesterol 47 mg/dL (>40); LDL Cholesterol Calculated 59 mg/dL (<100); Potassium 4.8 mmol/L (3.3-5.1); Sodium 135 mmol/L (135-145); Total Protein 8.2 g/dL (6.5-8.0); Triglycerides 231 mg/dL (<150)
[2024-04-16 12:27] LABS: Vitamin B12 449 pg/mL (200-900)
[2024-04-21 13:32] LABS: Vitamin D 25-OH, D2 <4 ng/mL; Vitamin D 25-OH, D3 9 ng/mL; Vitamin D 25-OH, Total 9 ng/mL (30-100)
== END 2024-04-16 09:31 | disposition home or self-care (01) ==
LOC: HO.LAB 09:30
PROVIDERS: Absent Provider Internal Medicine; PCP Internal Medicine; Visit Provider Student in an Organized Health Care Education/Training Program
DX: M05.9 Rheumatoid arthritis with rheumatoid factor, unspecified (principal); R53.83 Other fatigue; E78.2 Mixed hyperlipidemia; Z13.228 Encounter for screening for other metabolic disorders
CPT/HCPCS: 36415; 80053; 80061; 82306; 82607; 85025; 85652; 86140

== ENCOUNTER 2024-04-22 09:51 | Outpatient (AMB) | payer OTHER, SELFPAY ==
--- NOTE | 2024-04-22 09:54 | MHC.OFFVIS ---
Vital Signs 04/22/24 10:01 Height 5 ft 10 in Weight 192 lb 10.944 oz BMI 27.6 BP 140/80 H Blood Pressure Location Rt brachial Position Sitting Pulse 99 Pulse Source Pulse Oximeter Pulse Oximetry (%) 98 Oxygen Delivery Method Room Air Intake Visit Reasons: RA Intake Note: Patient presents for RA. Allergies adalimumab [From Humira] Allergy (Intermediate, Verified 04/22/24 09:59) Rash Medication List - Last Reconciled 04/22/24 by Maria Mueller MD amlodipine 5 mg PO DAILY aspirin (Aspirin Childrens) 81 mg PO DAILY bisacodyl (Dulcolax (bisacodyl)) 10 mg (2 x 5 mg) PO BEDTIME fluticasone propionate 50 mcg/actuation (Flonase Allergy Relief) 1 spray intranasal DAILY lisinopril 40 mg PO DAILY omega-3 fatty acids (Fish Oil Concentrate) 2,000 mg PO DAILY pantoprazole 20 mg PO DAILY prednisone 5 mg PO DAILY PRN rosuvastatin (Crestor) 40 mg PO DAILY cxlcnyqz-czwj-bmoue-oreg-capry 100 mg-150 mg- 50 mg-150 mg 1 cap PO DAILY upadacitinib ER (Rinvoq) 15 mg PO DAILY HPI Comments Details: Patient is a 58-year-old male current everyday smoker with hypertension complicated by CAD, hyperlipidemia, chronic GERD and seropositive rheumatoid arthritis here today for follow up Interval History: Patient last seen 12/24/[address] Kwon. At that time he was taking Rinvoq 15 mg daily and reported he was doing all over well apart from a few intermittent achy joints and about 15-30 minutes of morning stiffness. He does take 5 mg of prednisone intermittently for intermittent pain. Currently take prednisone 5 mg every day instead of prn Has been having left foot heel pain for the past several weeks and has been taking the prednisolone for this improvement. Denies AM stiffness Rheumatologic History: Seropositive rheumatoid arthritis +++RF+++CCP Humira 09/04- 03/2020 Enbrel March 2020 - September 2020 discontinued due to insurance Orencia denied by insurance Rinvoq September 2020 - present Prednisone 09/05/2019 - present Rinvoq: Elevated liver Enzymes and Cholesterol Humira 11/2022: Skin Rash Tocilizumab since 03/2023 DC 07/2023 ineffective Rinvoq restarted 07/2023 effective Current Rheumatology Medication(s): Rinvoq 15 mg daily Prednisolone 5 mg daily p.r.n. [facility] Medical History Impaired fasting glucose Back pain Alcohol dependence GERD (gastroesophageal reflux disease) CAD (coronary artery disease) Bilateral shoulder pain Thoracic aortic atherosclerosis Essential hypertension Seropositive rheumatoid arthritis Surgical History H/O wrist surgery Family History Father Hypertension Stented coronary artery Mother Hypertension Other Mental health disorder Social History Housing: House Alcohol intake: current Alcohol intake frequency: a few times a week Alcohol type: beer Patient Tobacco Use Status: Current everyday Tobacco user Tobacco use type: Cigarette Cigarettes Per Day: 30 Years Smoked: 35 e-Cigarette/Vaping Use: Never Used Second Hand Smoke Exposure: No service: No Current occupational status: 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 Cognitive needs: No Hearing needs: No Vision needs: Yes Review of Systems Const Details: Review of Systems Constitutional: Denies fever, chills, weight loss ENT: Denies vision changes, eye pain or eye redness, dental caries, dry mouth GI: Denies nausea, vomiting, diarrhea, abdominal pain, change in BM Pulm: Denies SOB, PRICE, hemoptysis, wheezing Cards: Denies chest pain, palpitations Skin: Denies Raynaud's, rash, nail changes, photosensitivity, AIRFIELD DEFENCE GUARD: Denies headaches, weakness, paresthesias, recurrent falls MSK: as per HPI All other systems reviewed and are unremarkable except noted above Physical Exam Vital Signs: Last Vital Signs Pulse 99 04/22/24 10:01 BP 140/80 H 04/22/24 10:01 Pulse Ox 98 04/22/24 10:01 Oxygen Delivery Method Room Air 04/22/24 10:01 BMI result Body Mass Index 27.6 Vital signs reviewed Physical Examination CONSTITUITIONAL Patient alert and cooperative. Well appearing and in no apparent painful distress HEENT Conjunctiva and sclera clear. ?Pupils equal round and reactive to light. ?No lymphadenopathy. ? CHEST/RESPIRATORY SYSTEM Normal respiratory effort and able to speak in complete sentences. ?Clear to auscultation bilaterally. ?No crackles, rales, rhonchi, wheezes heard. CARDIAC SYSTEM Regular rate and rhythm. ?S1 and S2 heard no murmurs. 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 No deformities noted. ?No synovitis noted to the MCPs, PIPs or DIPs. ?No tenderness to palpation of these joints. Wrists: ?Full range of motion at the wrists without pain. ?No tenderness to palpation or synovitis noted to the wrists. Elbows: Full range of motion without pain. No tenderness, weakness, swelling, increased warmth or erythema. Shoulders: Full range of motion without pain. No tenderness, weakness, swelling, increased warmth or erythema. Hips: Full range of motion without pain. Hip bursa: No tenderness to palpation Knees: ?Full range of motion. ?No tenderness, swelling, increased warmth or erythema.?No effusion or crepitations Ankles: Full range of motion. ?No tenderness, swelling, increased warmth or erythema.? Feet: ?Negative squeeze test. ?No tenderness to palpation or swelling of the MTPs. Tenderness to palpation of the left heel Tender points:?No tenderness to palpation of the bilateral trapezius, supraspinatus, greater trochanters, anterior costochondral junctions, bilateral gluteal areas, bilateral suboccipital muscle insertions SKIN Skin intact without rashes. Results Reviewed Results Reviewed: Laboratory Tests 04/16/24 09:45 WBC 13.8 H RBC 4.95 Hgb 15.3 Hct 44.4 Plt Count 300 ESR 3 Sodium 135 Potassium 4.8 Chloride 101 Carbon Dioxide 25 BUN 14 Creatinine 0.81 AST 66 H ALT 100 H Alkaline Phosphatase 88 C-Reactive Protein < 0.04 Total Protein 8.2 H Albumin 4.8 25-OH Vitamin D Total 9 L Immunology labs 08/30/19 06:17 Rheumatoid Factor 362.4 H Cycl Citrul Peptide IgG >250 H Serology labs 01/06/23 11:10 Hepatitis A IgM Ab Nonreactive Hep Bs Antigen Negative Hep Bs Antibody REACTIVE Hep B Core Total Ab Nonreactive Hepatitis C Ab (EIA) Nonreactive TB Test (T-Spot) Com Negative Assessment & Plan Assessment & Plan (1) Seropositive rheumatoid arthritis: Comment: +++RF+++CCP Humira 09/04- 03/2020 Enbrel March 2020 - September 2020 discontinued due to insurance Orencia denied by insurance Rinvoq September 2020 - present Prednisone 09/05/2019 - present Rinvoq: Elevated liver Enzymes and Cholesterol Humira 11/2022: Skin Rash Tocilizumab since 03/2023 DC 07/2023 ineffective Rinvoq restarted 07/2023 effective Code(s): M05.9 - Rheumatoid arthritis with rheumatoid factor, unspecified Category: Medical Plan: #Seropositive RA Patient is a 58-year-old male with seropositive RA who presents for follow-up. This is 1st visit with me. Patient has been taking Rinvoq regularly, doing well with no active synovitis on exam. Inflammatory markers are normal. Patient has multiple factors for cardiovascular disease including heavy smoking, chronic ETOH use (3 beers everyday), and hyperlipidemia with known nonobstructive CAD as well. In his case patient failed multiple DMARDs. Rinvoq seems to be most effective. With regards to lowering cardiovascular risk it is important to maximize RA control which seems to be achieved with Rinvoq in his case. I spoke about the importance of controlling his cardiovascular risks, he continues to smoke heavily and has no intention to quit Plan - Rinvoq 15mg PO daily - Decrease prednisone to 2.5mg PO prn - RTC 3 months - Labs before visit: CBC, CMP, ESR, CRP, hepatitis panel, T spot (2) Transaminitis: Code(s): R74.01 - Elevation of levels of liver transaminase levels Plan: #Transaminitis Patient is a current everyday drinker, drinking about 3 beers every day hormone my suspicion is he is drinking more than that. Today he has worsening LFTs. No ultrasound seen on file we will get an ultrasound with elastography Plan - discussed ETOH cessation patient not interested - ultrasound abdomen with elastography (3) Vitamin D deficiency: Code(s): E55.9 - Vitamin D deficiency, unspecified Plan: #Vit D deficiency Patient with severe vitamin-D deficiency. We will start him on high-dose vitamin-D once a week for the next 3 months and then re check levels Plan - Vitamin d 36032 every week x 3 months - Recheck Vit D before next visit (4) Plantar fasciitis, left: Code(s): M72.2 - Plantar fascial fibromatosis Plan: #Plantar fasciiitis Patient with left heel pain consistent with plantar fasciitis. 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 Plan: #Long-term Use of ALIZA inhibitor: Rinvoq Discussed with patient the benefits and risks of ALIZA inhibitors for the management of the rheumatic condition Benefits include reduce pain, maintenance of remission and reduction of flares Risks include thromboembolic events, skin cancer and nonmelanoma skin cancers, other forms of cancer, cardiovascular alcohol and mortality Advise patient that they are to hold the medication and for up to 1 week after a febrile illness or an open skin wound Plan I spent 45 minutes reviewing the record and labs, taking a history, examining the patient, discussing the treatment plan, smoking cessation and ETOH cessation counseling and documenting in the medical record Orders: Orders US abdomen comp w elastography Today R74.01 - Elevation of levels of liver transaminase levels XR foot LT min 3V Today M72.2 - Plantar fascial fibromatosis Complete Blood Count Auto Diff 3 Months E55.9 - Vitamin D deficiency, unspecified, M05.9 - Rheumatoid arthritis with rheumatoid factor, unspecified Comprehensive Met. Panel 3 Months E55.9 - Vitamin D deficiency, unspecified, M05.9 - Rheumatoid arthritis with rheumatoid factor, unspecified Erythrocyte Sedimentation Rate 3 Months E55.9 - Vitamin D deficiency, unspecified, M05.9 - Rheumatoid arthritis with rheumatoid factor, unspecified Hepatitis A,B,C Profile 3 Months E55.9 - Vitamin D deficiency, unspecified, M05.9 - Rheumatoid arthritis with rheumatoid factor, unspecified T Spot TB 3 Months E55.9 - Vitamin D deficiency, unspecified, M05.9 - Rheumatoid arthritis with rheumatoid factor, unspecified Vitamin D 25-OH (D2 and D3) 3 Months E55.9 - Vitamin D deficiency, unspecified, M05.9 - Rheumatoid arthritis with rheumatoid factor, unspecified C Reactive Protein 3 Months E55.9 - Vitamin D deficiency, unspecified, M05.9 - Rheumatoid arthritis with rheumatoid factor, unspecified Referrals Podiatry Referral M72.2 - Plantar fascial fibromatosis Medications: New cholecalciferol (vitamin D3) 1,250 mcg PO QWEEK 90 days 13 caps 0RF E55.9 - Vitamin D deficiency, unspecified Changed From prednisone 5 mg PO DAILY PRN 30 tabs 2RF Joint pain M05.9 - Rheumatoid arthritis with rheumatoid factor, unspecified To prednisone 2.5 mg (1/2 x 5 mg) PO DAILY PRN 30 tabs 2RF Joint pain M05.9 - Rheumatoid arthritis with rheumatoid factor, unspecified Refilled upadacitinib ER (Rinvoq) 15 mg PO DAILY 30 tabs 3RF M05.9 - Rheumatoid arthritis with rheumatoid factor, unspecified Coding Level of Care Code Est Pt Level 5 (67426) Complex EM visit Add On G2211 Diagnoses Seropositive rheumatoid arthritis M05.9 Transaminitis R74.01 Vitamin D deficiency E55.9 Plantar fasciitis, left M72.2 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
[2024-04-22 10:01] VITALS: BP 140/80; PULSE 99; O2SAT 98; BMI 27.6
--- OUTSIDE RECORDS SUMMARY | 2024-04-22 10:50 | XMS_ITS | Clinical Summary ---
Author Organization [facility] Address [address] [place] [address] Care Team Providers Care Broommaker Name Role Phone Unavailable Primary Care Provider [...]
== END 2024-04-22 10:36 | disposition home or self-care (01) ==
PROVIDERS: PCP Internal Medicine; Visit Provider Student in an Organized Health Care Education/Training Program
DX: M05.79 Rheumatoid arthritis with rheumatoid factor of multiple sites without organ or systems involvement (principal); R74.01 Elevation of levels of liver transaminase levels; E55.9 Vitamin D deficiency, unspecified; M72.2 Plantar fascial fibromatosis; Z79.622 Long term (current) use of Janus kinase inhibitor
CPT/HCPCS: 99215

== ENCOUNTER 2024-04-22 09:51 | Outpatient (REF) | payer OTHER, SELFPAY ==
--- NOTE | ~2024-04-22 | XR_ITS ---
EXAMINATION: XR FOOT 3 OR MORE VIEWS LEFT HISTORY: M72.2 - Plantar fascial fibromatosis COMPARISON: There are no prior studies available for comparison. FINDINGS: Three views of the left foot are submitted. Osseous mineralization is normal. There are small erosions involving the 4th and 5th metatarsal heads and the head of the proximal phalanx of the great toe. There is no fracture or dislocation. The joint spaces are preserved. The soft tissues are unremarkable. XR/XR foot LT min 3V IMPRESSION: Erosions involving the 4th and 5th metatarsal heads in the head of the 1st proximal phalanx. No significant joint space narrowing. Electronically signed by: Lorenzo Simon MD 04/25/2024 01:08 PM EDT
--- OUTSIDE RECORDS SUMMARY | 2024-04-22 12:12 | XMS_ITS | Clinical Summary ---
Author Organization [facility] Address [address] [place] [address] Care Team Providers Care Florist Designer Name Role Phone Unavailable Primary Care Provider [...]
== END 2024-04-22 09:52 | disposition home or self-care (01) ==
LOC: HO.XRAY 09:51
PROVIDERS: PCP Internal Medicine; Visit Provider Student in an Organized Health Care Education/Training Program
DX: M72.2 Plantar fascial fibromatosis (principal); M05.9 Rheumatoid arthritis with rheumatoid factor, unspecified; R74.01 Elevation of levels of liver transaminase levels; E55.9 Vitamin D deficiency, unspecified
CPT/HCPCS: 73630

== ENCOUNTER → 2024-04-22 10:52 | Outpatient (BNV) | payer OTHER, SELFPAY | PROVIDERS: PCP Internal Medicine; Visit Provider Radiology Diagnostic Radiology | DX: M72.2 Plantar fascial fibromatosis (principal) | CPT/HCPCS: 73630 ==

== ENCOUNTER 2024-06-01 08:05 | Outpatient (REF) | payer OTHER, SELFPAY ==
--- NOTE | ~2024-06-01 | US_ITS ---
EXAMINATION: US ABDOMEN COMPLETE WITH LIVER ELASTOGRAPHY HISTORY: R74.01 - Elevation of levels of liver transaminase levels TECHNIQUE: Real-time grayscale ultrasound imaging of the abdomen was performed and images were reviewed. COMPARISON: There are no prior studies for comparison. FINDINGS: Liver: The right lobe of the liver measures 15.6 cm in size. The left lobe of the liver measures 11.1 cm in size. The liver demonstrates increased echotexture, consistent with steatosis. There is focal fatty sparing adjacent to the gallbladder. There is a 1.4 x 1.7 x 1.7 cm irregularly-shaped hypoechoic focus in the right lobe which could represent an additional area of focal fatty sparing or a mass. No intrahepatic biliary ductal dilatation is identified. There is normal hepatopedal flow in the portal vein. Ultrasound elastography of the liver was performed with 10 separate measurements of the liver parenchyma with the patient in the supine position. Measurements were obtained approximately 2 cm below Beata's capsule and perpendicular to the capsule. Images are of satisfactory quality. The median shear wave velocity is 1.67 m/s. The interquartile range/median (IQR/median) is 0.10. The Ultrasound Derived Fat Fraction (UDFF) is 17%. Gallbladder and biliary tree: The gallbladder is unremarkable, without evidence of calculi, wall thickening, or pericholecystic fluid. There is no sonographic Rodríguez sign. The common bile duct is normal in caliber measuring 4 mm. Kidneys: The right kidney measures 11.8 cm in length. The left kidney measures 13.0 cm in length. The kidneys are unremarkable, without evidence of masses, hydronephrosis, or calculi. Pancreas: The pancreatic head, neck, and body are unremarkable. The pancreatic tail is obscured by bowel gas. Spleen: The spleen is normal in size and contour, measuring 8.8 cm in length. Abdominal aorta and inferior vena cava: The visualized portions of the abdominal aorta and inferior vena cava are normal in caliber. There is no free fluid in the abdomen. US/US abdomen comp w elastography IMPRESSION: Hepatomegaly and hepatic steatosis with an Elevated Ultrasound Derived Fat Fraction of 17%. Focal fatty sparing adjacent to the gallbladder. 1.4 x 1.7 x 1.7 cm hypoechoic focus in the right lobe which may represent an additional area of focal fatty sparing or a mass. This could be further evaluated with MRI. The median shear wave velocity in the liver is 1.67 m/s, corresponding to a median liver stiffness of 8.4 kPa. The IQR/median value is 0.10. This is indicative of a quality data set. Findings are indicative of a high elastography value suggestive of compensated advanced chronic liver disease. REFERENCE: Society of Radiologists in Ultrasound Liver Stiffness Thresholds (2020): LIVER STIFFNESS THRESHOLDS: *Shear wave velocity less than 1.3 m/s (Liver Stiffness equal or less than 5 kPa): High probability of being normal. *Shear wave velocity less than 1.7 m/s (Liver Stiffness less than 9 kPa): In the absence of other known clinical signs, rules out compensated advanced chronic liver disease. *Shear wave velocity between 1.7-2.1 m/s (Liver Stiffness 9-13 kPa): Suggestive of compensated advanced chronic liver disease but need further test for confirmation. *Shear wave velocity between 2.1-2.4 m/s (Liver Stiffness 13-17 kPa): Rules in compensated advanced chronic liver disease. *Shear wave velocity greater than 2.4 m/s (Liver Stiffness over 17 kPa): Suggestive of clinically significant portal hypertension. QUALITY OF DATA SET: *IQR/Median value equal or less than 0.15 implies a quality data set. *IQR/Median value over 0.15 implies a poor quality data set. SIGNIFICANT CHANGE FROM PRIOR EXAM: Significant change if liver stiffness measurement is 10% or greater from prior exam. OTHER CONSIDERATIONS: The stage of liver fibrosis may be overestimated in the setting of acute hepatitis, liver inflammation, elevated liver function tests, hepatic vascular congestion, obstructive cholestasis, non-fasting state, and infiltrative diseases such as amyloidosis and lymphoma. In some patients with NAFLD, the liver stiffness thresholds for compensated advanced chronic liver disease may be lower. In causes other than viral hepatitis and NAFLD, liver stiffness thresholds are not well established. Electronically signed by: Lorenzo Simon MD 06/01/2024 09:43 AM EDT
--- OUTSIDE RECORDS SUMMARY | 2024-06-01 08:09 | XMS_ITS | Clinical Summary ---
Author Organization [facility] Address [address] [place] [address] Care Team Providers Care Equipment Manager Name Role Phone Unavailable Primary Care Provider [...] - 2023-2 5 season) 2023 Influenza Vaccine (Season Ended) 2024 HIB Vaccines Aged Out No longer eligi [...] age to complete this topic Meningococcal B Vaccine Aged Out No l onger eligible based on patient's age to complete [...]
== END 2024-06-01 08:06 | disposition home or self-care (01) ==
LOC: HO.US 08:05
PROVIDERS: PCP Internal Medicine; Visit Provider Student in an Organized Health Care Education/Training Program
DX: R74.01 Elevation of levels of liver transaminase levels (principal)
CPT/HCPCS: 76700; 76981

== ENCOUNTER → 2024-06-01 08:06 | Outpatient (BNV) | payer OTHER, SELFPAY | PROVIDERS: PCP Internal Medicine; Visit Provider Radiology Diagnostic Radiology | DX: R74.01 Elevation of levels of liver transaminase levels (principal) | CPT/HCPCS: 76700; 76981 ==

== ENCOUNTER 2024-06-07 14:01 | Outpatient (AMB) | payer OTHER, SELFPAY ==
--- NOTE | 2024-06-07 14:10 | A.OFFVIS_ITS ---
Vital Signs 06/07/24 14:11 Height 5 ft 10 in Weight 191 lb BMI 27.4 BP 126/80 Blood Pressure Location Rt brachial Position Sitting Pulse 86 Pulse Source Pulse Oximeter Pulse Oximetry (%) 96 Oxygen Delivery Method Room Air Intake Visit Reasons: Elevated LFTs. Requested appt - Rheum Intake Note: ESTABLISHED PATIENT for abn lab management. Rhematology requested appt for pt. Chief Complaint; Pt reports that rheumatology is hoping for abd US for the pt based on recent lab work. Pt also reports questions regarding repeat colo that has not been scheduled yet. Fiscal Services Manager Required: No Accompanied by: Self / Same As Patient Allergies adalimumab [From Humira] Allergy (Intermediate, Verified 06/07/24 14:22) Rash HPI HPI Elevated LFTs. Requested appt - Rheum: Details: LAST VISIT: Duodenitis Screen for colon cancer Postprandial abdominal bloating Postprandial epigastric pain Ischemic colitis Plan Message sent to surgical schedulers to book procedure for patient. Prep discussed with patient. The importance of good bowel prep and clear liquid diet discussed with patient. Avoid dietary triggers and late night snacking. Staying upright for minimum 3 hours after meals discussed with patient. Patient will follow-up in the office after the procedure. He will call us if he will have any GI concerning symptoms. He is agreeable to this plan and verbalizes understanding of instructions. He was given the opportunity to ask questions and all questions answered. ? Thank you for allowing me to participate in his care Medications New polyethylene glycol 3350 (Miralax) As directed by gastroenterology department at [facility] 238 grams PO ONCE 238 grams 0RF Z12.11 Refilled bisacodyl (Dulcolax (bisacodyl)) Start taking 2 tablet every night 7 days before the procedure and 1 day before procedure take 4 tablets at noon time followed by MiraLax prep 10 mg (2 x 5 mg) PO BEDTIME 16 tabs 0RF Z12.11 TODAY'S VISIT Patient is here today per request of his key account director. MRI was done and patient was found to have fatty liver. His enzymes elevated. Patient admits to be drinking every day. He has been drinking for very long time. Patient believes that he is eating fairly healthy. However he does admit that occasionally he will eat food that is high in fat. Patient denies any abdominal pain or discomfort. Not on any particular diet. Patient is not exercising regularly. Patient denies melena, hematochezia, unintentional weight loss or ribbon like stools. Patient denies any dyspepsia, dysphagia or odynophagia. Ultrasound was ordered by key account director with liver elastography that showed mass versus fatty sparing. Recommendation was made for MRI. We will order that today. Patient elastography showed compensated advanced chronic liver disease. Patient continues to drink alcohol daily. [facility] Medical History (Updated 06/27/24 @ 20:03 by Vi Gay [facility]) Impaired fasting glucose Back pain Alcohol dependence GERD (gastroesophageal reflux disease) CAD (coronary artery disease) Bilateral shoulder pain Thoracic aortic atherosclerosis Essential hypertension Seropositive rheumatoid arthritis Surgical History H/O wrist surgery Family History Father Hypertension Stented coronary artery Mother Hypertension Other Mental health disorder Social History Housing: House Alcohol intake: current Alcohol intake frequency: a few times a week Alcohol type: beer Patient Tobacco Use Status: Current everyday Tobacco user Tobacco use type: Cigarette Cigarettes Per Day: 30 Years Smoked: 35 e-Cigarette/Vaping Use: Never Used Second Hand Smoke Exposure: No service: No Current occupational status: 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 Cognitive needs: No Hearing needs: No Vision needs: Yes Review of Systems Const Denies weight gain and Denies weight loss ENT Reports no additional complaints, Denies dysphagia and Denies odynophagia Card Reports no additional complaints Resp Reports no additional complaints GI Denies abdominal pain, Denies belching, Denies melena, Denies bloating, Denies change in bowel habits, Denies dysphagia, Denies excessive flatus, Denies dyspepsia, Denies heartburn, Denies diarrhea, Denies loose stools, Denies nausea, Denies odynophagia and Denies vomiting Reports no additional complaints Musc Reports no additional complaints Neuro Reports no additional complaints Psych Reports no additional complaints Endo Reports no additional complaints Physical Exam Vital Signs: Last Vital Signs Pulse 86 06/07/24 14:11 BP 126/80 06/07/24 14:11 Pulse Ox 96 06/07/24 14:11 Oxygen Delivery Method Room Air 06/07/24 14:11 BMI result Body Mass Index 27.4 Const General: healthy appearing, no acute distress and well developed Nutritional Appearance: well nourished Orientation/consciousness: patient oriented x3 Resp Effort & Inspection: normal respiratory effort, able to speak in complete sentences, no tracheal deviation and symmetric chest movement Auscultation: clear to auscultation bilaterally Cardio Rate: regular rate GI Inspection: Yes normal to inspection and No distended Palpation (GI): Soft to palpation, not firm, nontender and No hepatosplenomegaly present Auscultation: normal bowel sounds General: Yes no CVA tenderness Back/Spine/Pelvis Back: no CVA tenderness Skin General skin exam: elasticity normal, turgor normal and dry skin Neuro General: patient oriented x3 Psych Appearance: grossly normal Mental Status: mental status grossly normal Results Reviewed Results Reviewed: ABDOMINAL ULTRASOUND WITH LIVER ELASTOGRAPHY 06/01/2024 IMPRESSION: Hepatomegaly and hepatic steatosis with an Elevated Ultrasound Derived Fat Fraction of 17%. Focal fatty sparing adjacent to the gallbladder. 1.4 x 1.7 x 1.7 cm hypoechoic focus in the right lobe which may represent an additional area of focal fatty sparing or a mass. This could be further evaluated with MRI. The median shear wave velocity in the liver is 1.67 m/s, corresponding to a median liver stiffness of 8.4 kPa. The IQR/median value is 0.10. This is indicative of a quality data set. Findings are indicative of a high elastography value suggestive of compensated advanced chronic liver disease. Assessment & Plan Assessment & Plan (1) LFT elevation: Code(s): R79.89 - Other specified abnormal findings of blood chemistry Category: Medical (2) Chronic GERD: Code(s): K21.9 - Gastro-esophageal reflux disease without esophagitis Category: Medical (3) Alcohol dependence: Code(s): F10.20 - Alcohol dependence, uncomplicated Category: Medical Qualifiers: Substance use status: uncomplicated Qualified Code(s): F10.20 - Alcohol dependence, uncomplicated (4) Transaminitis: Code(s): R74.01 - Elevation of levels of liver transaminase levels (5) Alcohol induced fatty liver: Code(s): K70.0 - Alcoholic fatty liver Plan Will send patient for more lab work. Will rule out autoimmune disorders. Patient will also have MRI as liver ultrasound showed fatty sparing versus mass adjacent to gallbladder. Patient has follow-up with cardiology in September. Will try to send him for colonoscopy end of September, beginning of October. Patient will follow-up with our office after the procedure. He is agreeable to this plan and verbalizes understanding of instructions. He was given the opportunity to ask questions and all questions answered. Thank you for allowing me to participate in his care Orders: Orders Prothrombin Time INR 06/07/24 R74.8 - Abnormal levels of other serum enzymes Smooth Muscle Antibody 06/07/24 R79.89 - Other specified abnormal findings of blood chemistry Transglutaminase IgA 06/07/24 R10.9 - Unspecified abdominal pain Ferritin 06/07/24 R74.8 - Abnormal levels of other serum enzymes Alpha Fetoprotein 06/07/24 R79.89 - Other specified abnormal findings of blood chemistry Ceruloplasmin 06/07/24 R79.89 - Other specified abnormal findings of blood chemistry IRON PROFILE 06/07/24 D64.9 - Anemia, unspecified Mitochondrial Antibody 06/07/24 R79.89 - Other specified abnormal findings of blood chemistry MR abdomen wo/w con 06/13/24 R74.01 - Elevation of levels of liver transaminase levels, K76.9 - Liver disease, unspecified Liver Fibrosis Pnl 06/07/24 K76.0 - Fatty (change of) liver, not elsewhere classified Coding Level of Care Code Est Pt Level 4 (42352) Complex EM visit Add On G2211 Diagnoses LFT elevation R79.89 Chronic GERD K21.9 Uncomplicated alcohol dependence F10.20 Substance use status: uncomplicated Transaminitis R74.01 Alcohol induced fatty liver K70.0 Time Spent (min) 40 Comment 25 minutes spent with patient and additional 15 minutes spent reviewing his records
[2024-06-07 14:11] VITALS: BP 126/80; PULSE 86; O2SAT 96; BMI 27.4
--- OUTSIDE RECORDS SUMMARY | 2024-06-07 16:52 | XMS_ITS | Clinical Summary ---
Author Organization [facility] Address [address] [place] [address] Care Team Providers Care Curer Acid Drum Name Role Phone Unavailable Primary Care Provider [...]
== END 2024-06-07 15:00 | disposition home or self-care (01) ==
PROVIDERS: PCP Internal Medicine; Visit Provider Nurse Practitioner Family
DX: R79.89 Other specified abnormal findings of blood chemistry (principal); K21.9 Gastro-esophageal reflux disease without esophagitis; F10.20 Alcohol dependence, uncomplicated; R74.01 Elevation of levels of liver transaminase levels; K70.0 Alcoholic fatty liver
CPT/HCPCS: 99214

== ENCOUNTER 2024-06-07 14:01 | Outpatient (REF) | payer OTHER, SELFPAY ==
[2024-06-07 15:50] LABS: Prothrombin Time 11.3 SEC (10.9-12.4)
[2024-06-07 16:32] LABS: Iron 57 mcg/dL (45-160); Percent Iron Saturation 20 % (15-50); Total Iron Binding Capacity 291 mcg/dL (228-428); Unsaturated Iron Binding 234 ug/dL
[2024-06-07 16:47] LABS: Ferritin 174 ng/mL (20-250)
--- OUTSIDE RECORDS SUMMARY | 2024-06-07 18:01 | XMS_ITS | Clinical Summary ---
Author Organization [facility] Address [address] [place] [address] Care Team Providers Care Bank Manager Name Role Phone Unavailable Primary Care [...]
[2024-06-08 04:19] LABS: Ceruloplasmin 23 mg/dL (14-30)
[2024-06-08 12:29] LABS: Alpha Fetoprotein 3.4 ng/mL (<6.1)
[2024-06-08 16:49] LABS: Mitochondrial Antibodies NEGATIVE (NEGATIVE)
[2024-06-08 21:48] LABS: Transglutaminase IgA <1.0 U/mL
[2024-06-11 10:04] LABS: Smooth Muscle Antibody <20 U (<20)
[2024-06-11 19:29] LABS: FIB-ALT 48 U/L (9-46); FIB-Alpha-2-Macroglobulin 130 mg/dL (106-279); FIB-Apolipoprotein A1 134 mg/dL (94-176); FIB-GGT 80 U/L (3-85); FIB-Haptoglobin 183 mg/dL (43-212); FIB-Total Bilirubin 0.4 mg/dL (0.2-1.2); Liver Fibrosis Score 0.16; Liver Fibrosis Stage F0; Nec Inflam Act Grade A0-A1; Nec Inflam Act Score 0.23; Reference ID 5456190
== END 2024-06-07 14:02 | disposition home or self-care (01) ==
LOC: HO.LAB 14:01
PROVIDERS: PCP Internal Medicine; Visit Provider Nurse Practitioner Family
DX: R79.89 Other specified abnormal findings of blood chemistry (principal); D64.9 Anemia, unspecified; K76.0 Fatty (change of) liver, not elsewhere classified; R10.9 Unspecified abdominal pain; R74.8 Abnormal levels of other serum enzymes
CPT/HCPCS: 36415; 81596; 82105; 82390; 82728; 83540; 85610; 86015; 86364; 86381

== ENCOUNTER 2024-06-13 15:46 | Outpatient (REF) | payer OTHER, SELFPAY ==
--- NOTE | ~2024-06-13 | MR_ITS ---
CLINICAL HISTORY: R74.01 - Elevation of levels of liver transaminase levels MR abdomen with and without gadolinium Comparison: US/AK/SR - US ABDOMEN COMP W ELASTOGRAPHY - 06/01/24 08:35 EDT Findings: The liver measures 16.8 cm in length. There is a subcentimeter cyst within the caudate lobe. There is a 1 cm nodular focus within the superior aspect of the medial segment of the liver. This demonstrates restricted diffusion and enhancement on arterial phase images (Series 13, image 18).. Minimal residual enhancement on venous phase. The nodule is isointense on remaining sequences There is a very mild degree of fatty infiltration. The spleen is normal-size. The pancreas and adrenal glands are unremarkable. There are 2 tiny cysts within the left kidney. There is no hydronephrosis. The gallbladder is unremarkable. There is no biliary dilatation. There is no free fluid or lymphadenopathy. Visualized bowel is unremarkable. There is no suspicious focal bone lesion. IMPRESSION: 1. 1 cm nonspecific nodule within the superior aspect of the medial segment of the liver. A benign nodule is favored. Suggest follow-up MRI. 2. Very mild fatty infiltration of the liver. This document has been electronically signed by: Perri Hoang MD on 06/13/2024 17:46:07
[2024-06-13] MEDS: gadobutroL 10 ML VIAL IVPUSH (16:38)
--- OUTSIDE RECORDS SUMMARY | 2024-06-13 18:31 | XMS_ITS | Clinical Summary ---
Author Organization [facility] Address [address] [place] [address] Care Team Providers Care Pharmacy Resident Name Role Phone Unavailable Primary Care Provider [...]
== END 2024-06-13 15:47 | disposition home or self-care (01) ==
LOC: HO.MRI 15:46
PROVIDERS: PCP Internal Medicine; Visit Provider Nurse Practitioner Family
DX: K76.9 Liver disease, unspecified (principal); R74.01 Elevation of levels of liver transaminase levels
CPT/HCPCS: 74183; A9585

== ENCOUNTER → 2024-06-13 15:56 | Outpatient (BNV) | payer OTHER, SELFPAY | PROVIDERS: PCP Internal Medicine; Visit Provider Radiology Diagnostic Radiology | DX: K76.89 Other specified diseases of liver (principal) | CPT/HCPCS: 74183 ==

== ENCOUNTER 2024-08-23 11:35 | Outpatient (AMB) | payer OTHER, SELFPAY ==
[2024-08-23 11:39] VITALS: BP 118/70; PULSE 93; O2SAT 97; BMI 26.7
--- NOTE | 2024-08-23 11:39 | MHC.OFFVIS ---
Vital Signs 08/23/24 11:39 Height 5 ft 10 in Weight 186 lb 1.122 oz BMI 26.7 BP 118/70 Blood Pressure Location Lt brachial Position Sitting Pulse 93 Pulse Source Pulse Oximeter Pulse Oximetry (%) 97 Oxygen Delivery Method Room Air Intake Visit Reasons: RA Intake Note: Patient presents today for follow up on RA and lab review. Patient is requesting refill of Rinvoq. Allergies adalimumab (From Humira) Allergy (Intermediate, Verified 08/23/24 11:40) Rash Medication List - Last Reconciled 08/23/24 by Maria Mueller MD amlodipine 5 mg PO DAILY aspirin (Aspirin Childrens) 81 mg PO DAILY cholecalciferol (vitamin D3) 1,250 mcg PO QWEEK 90 days fluticasone propionate 50 mcg/actuation (Flonase Allergy Relief) 1 spray intranasal DAILY omega-3 fatty acids (Fish Oil Concentrate) 2,000 mg PO DAILY omeprazole 20 mg PO DAILY prednisone 2.5 mg (1/2 x 5 mg) PO DAILY PRN rosuvastatin (Crestor) 40 mg PO DAILY ppigdgat-izzu-ojecw-oreg-capry 100 mg-150 mg- 50 mg-150 mg 1 cap PO DAILY upadacitinib ER (Rinvoq) 15 mg PO DAILY HPI Comments Details: Patient is a 58-year-old male current everyday smoker with hypertension complicated by CAD, hyperlipidemia, chronic GERD and seropositive rheumatoid arthritis here today for follow up Interval History: Patient last seen 04/22/24 with me - On Rinvoq 15mg daily - overall improvement but few aches and pains - 15-30 min AM stiffness - prednisone 5mg daily for heel pain - elevated AST/ALT, patient declined EtOH counselling - Decreased prednisone to 2.5mg Today, - Saw podiatry, they recommended exercises and special shoes. pain improved - Has been having joint pain, involving his knees and wrists. Had to take prednisone which improved the pain - Taking prednisone 5mg and not 2.5mg, not taking it everyday Rheumatologic History: Seropositive rheumatoid arthritis +++RF+++CCP Humira 09/04- 03/2020 Enbrel March 2020 - September 2020 discontinued due to insurance Orencia denied by insurance Rinvoq September 2020 - present Prednisone 09/05/2019 - present Rinvoq: Elevated liver Enzymes and Cholesterol Humira 11/2022: Skin Rash Tocilizumab since 03/2023 DC 07/2023 ineffective Rinvoq restarted 07/2023 effective Current Rheumatology Medication(s): Rinvoq 15 mg daily Prednisone 5 mg daily p.r.n. [facility] Medical History (Updated 06/27/24 @ 20:03 by Vi Gay [facility]) Impaired fasting glucose Back pain Alcohol dependence GERD (gastroesophageal reflux disease) CAD (coronary artery disease) Bilateral shoulder pain Thoracic aortic atherosclerosis Essential hypertension Seropositive rheumatoid arthritis Surgical History H/O wrist surgery Family History Father Hypertension Stented coronary artery Mother Hypertension Other Mental health disorder Social History Housing: House Alcohol intake: current Alcohol intake frequency: a few times a week Alcohol type: beer Patient Tobacco Use Status: Current everyday Tobacco user Tobacco use type: Cigarette Cigarettes Per Day: 30 Years Smoked: 35 e-Cigarette/Vaping Use: Never Used Second Hand Smoke Exposure: No service: No Current occupational status: 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 Cognitive needs: No Hearing needs: No Vision needs: Yes Review of Systems Const Details: Review of Systems Constitutional: Denies fever, chills, weight loss ENT: Denies vision changes, eye pain or eye redness, dental caries, dry mouth GI: Denies nausea, vomiting, diarrhea, abdominal pain, change in BM Pulm: Denies SOB, PRICE, hemoptysis, wheezing Cards: Denies chest pain, palpitations Skin: Denies Raynaud's, rash, nail changes, photosensitivity, INDEPENDENT LIVING ADVISOR: Denies headaches, weakness, paresthesias, recurrent falls MSK: as per HPI All other systems reviewed and are unremarkable except noted above Physical Exam Vital Signs: Last Vital Signs Pulse 93 08/23/24 11:39 BP 118/70 08/23/24 11:39 Pulse Ox 97 08/23/24 11:39 Oxygen Delivery Method Room Air 08/23/24 11:39 BMI result Body Mass Index 26.7 Vital signs reviewed Physical Examination CONSTITUITIONAL Patient alert and cooperative. Well appearing and in no apparent painful distress HEENT Conjunctiva and sclera clear. ?Pupils equal round and reactive to light. ?No lymphadenopathy. ? MSK Hands: ?Good senior qa tester strength bilaterally. No deformities noted. ?No synovitis noted to the MCPs, PIPs or DIPs. ?No tenderness to palpation of these joints. Scattered herbedens nodes noted bilaterally Wrists: ?Full range of motion at the wrists without pain. ?No tenderness to palpation or synovitis noted to the wrists. Elbows: Full range of motion without pain. No tenderness, weakness, swelling, increased warmth or erythema. Shoulders: Full range of motion without pain. No tenderness, weakness, swelling, increased warmth or erythema. Knees: ?Full range of motion. ?No tenderness, swelling, increased warmth or erythema.?Crepitations felt bilaterally Ankles: Full range of motion. ?No tenderness, swelling, increased warmth or erythema.? Feet: ?Negative squeeze test. ?No tenderness to palpation or swelling of the MTPs. Tender points:?No tenderness to palpation of the bilateral trapezius, supraspinatus, greater trochanters, anterior costochondral junctions, bilateral gluteal areas, bilateral suboccipital muscle insertions SKIN Skin intact without rashes. Results Reviewed Results Reviewed: Laboratory Tests 04/16/24 09:45 WBC 13.8 H RBC 4.95 Hgb 15.3 Hct 44.4 Plt Count 300 ESR 3 Sodium 135 Potassium 4.8 Chloride 101 Carbon Dioxide 25 BUN 14 Creatinine 0.81 Total Bilirubin 0.8 AST 66 H ALT 100 H C-Reactive Protein < 0.04 Total Protein 8.2 H Albumin 4.8 25-OH Vitamin D Total 9 L Immunology labs 08/30/19 06:17 Rheumatoid Factor 362.4 H Cycl Citrul Peptide IgG >250 H Serology labs 01/06/23 11:10 Hepatitis A IgM Ab Nonreactive Hep Bs Antigen Negative Hep Bs Antibody REACTIVE Hep B Core Total Ab Nonreactive Hepatitis C Ab (EIA) Nonreactive TB Test (T-Spot) Com Negative Assessment & Plan Assessment & Plan (1) Seropositive rheumatoid arthritis: Comment: +++RF+++CCP Humira 09/04- 03/2020 Enbrel March 2020 - September 2020 discontinued due to insurance Orencia denied by insurance Rinvoq September 2020 - present Prednisone 09/05/2019 - present Rinvoq: Elevated liver Enzymes and Cholesterol Humira 11/2022: Skin Rash Tocilizumab since 03/2023 DC 07/2023 ineffective Rinvoq restarted 07/2023 effective Code(s): M05.9 - Rheumatoid arthritis with rheumatoid factor, unspecified Category: Medical Plan: #Seropositive RA Patient is a 58-year-old male with seropositive RA who presents for follow-up. Patient has been taking Rinvoq regularly, doing well with no active synovitis on exam. Inflammatory markers are normal. 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 Patient has multiple factors for cardiovascular disease including heavy smoking, chronic ETOH use (3 beers everyday), and hyperlipidemia with known nonobstructive CAD as well. In his case patient failed multiple DMARDs. Rinvoq seems to be most effective. With regards to lowering cardiovascular risk it is important to maximize RA control which seems to be achieved with Rinvoq in his case. I spoke about the importance of controlling his cardiovascular risks, he continues to smoke heavily and has no intention to quit Plan - Rinvoq 15mg PO daily - Prednisone 5mg x 15 tabs - Follow up labs done today - RTC 6 months - Labs before visit: CBC, CMP, ESR, CRP (2) Transaminitis: Code(s): R74.01 - Elevation of levels of liver transaminase levels Plan: #Transaminitis Patient is a current everyday drinker, drinking about 3 beers every day hormone my suspicion is he is drinking more than that. Elastography done without evidence of cirrhosis at this time. MRI of abdomen also noted Continue follow up with GI Plan - Discussed ETOH cessation patient not interested (3) Vitamin D deficiency: Code(s): E55.9 - Vitamin D deficiency, unspecified Plan: #Vit D deficiency Patient with severe vitamin-D deficiency. 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: Code(s): Z79.622 - residential (current) use of Janus kinase inhibitor Plan: #Long-term Use of ALIZA inhibitor: Rinvoq Discussed with patient the benefits and risks of ALIZA inhibitors for the management of the rheumatic condition Benefits include reduce pain, maintenance of remission and reduction of flares Risks include thromboembolic events, skin cancer and nonmelanoma skin cancers, other forms of cancer, cardiovascular alcohol and mortality Advise patient that they are to hold the medication and for up to 1 week after a febrile illness or an open skin wound (6) exterminator termite current use of systemic steroids: Code(s): Z79.52 - residential (current) use of systemic steroids Plan: #Long-term Use of Steroids Discussed with patient the risks and benefits of steroid for managing the rheumatic condition Benefits include: - Reduced pain, improved mobility, increased participation in activities, and decreased progression of disease Risks include: - GI upset, potential ultrasound worsening or formation (especially in patients > 65 years old), elevated blood pressure/worsening hypertension, elevated blood sugar/worsening diabetes control, worsening of bone density, elevated lipids/worsening triglycerides, cataract formation, weight gain Recommended using proton pump inhibitors (PPIs) for the duration of steroid use to reduce the risk of gastric ulcers and vitamin-D daily to reduce the risk of osteoporosis Labs checked: A1c, T spot, hepatitis-B and C serologies Pneumocystis jiroveci prophylaxis: Patient with risk factors including steroids greater than 50 mg for more than 30 days, age greater than 60 years, and lung involvement from underlying rheumatic disease requires prophylaxis and will be given so Plan I spent 32 minutes reviewing the record and labs, taking a history, examining the patient, discussing the treatment plan, and documenting in the medical record Orders: Orders Comprehensive Met. Panel 6 Months M05.9 - Rheumatoid arthritis with rheumatoid factor, unspecified C Reactive Protein 6 Months M05.9 - Rheumatoid arthritis with rheumatoid factor, unspecified Complete Blood Count Auto Diff 6 Months M05.9 - Rheumatoid arthritis with rheumatoid factor, unspecified Erythrocyte Sedimentation Rate 6 Months M05.9 - Rheumatoid arthritis with rheumatoid factor, unspecified Medications: Changed From prednisone 2.5 mg (1/2 x 5 mg) PO DAILY PRN 30 tabs 2RF Joint pain M05.9 - Rheumatoid arthritis with rheumatoid factor, unspecified To prednisone 5 mg PO DAILY PRN 15 tabs 5RF Joint pain M05.9 - Rheumatoid arthritis with rheumatoid factor, unspecified Refilled upadacitinib ER (Rinvoq) 15 mg PO DAILY 30 tabs 5RF M05.9 - Rheumatoid arthritis with rheumatoid factor, unspecified Coding Level of Care Code Est Pt Level 4 (72789) Complex EM visit Add On G2211 Diagnoses Seropositive rheumatoid arthritis M05.9 Transaminitis R74.01 Vitamin D deficiency E55.9 Plantar fasciitis, left M72.2 exterminator termite (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
--- OUTSIDE RECORDS SUMMARY | 2024-08-23 12:39 | XMS_ITS | Clinical Summary ---
Author Organization [facility] Address [address] [place] [address] Care Team Providers Care Chin Strap Cutter Name Role Phone Unavailable Primary Care Provider [...] 2023-2 5 season) 2023 Influenza Vaccine (#1) 2024 HIB Vaccines Aged Out No longer [...] 5 Years) and At-Risk Patients (6 to 49 Years) Aged Out No longer eligible b ased on patient's age to complete this topic RSV Immunization Patients Un quita 20 months Aged Out No longer eligible b ased on patient's age to complete this topic Varicella Vaccines Aged Out No longer eligible based on patient's age to complete this topic
== END 2024-08-23 12:08 | disposition home or self-care (01) ==
LOC: HO.RHE 11:36
PROVIDERS: PCP Internal Medicine; Visit Provider Student in an Organized Health Care Education/Training Program
DX: M05.79 Rheumatoid arthritis with rheumatoid factor of multiple sites without organ or systems involvement (principal); R74.01 Elevation of levels of liver transaminase levels; E55.9 Vitamin D deficiency, unspecified; M72.2 Plantar fascial fibromatosis; Z79.622 Long term (current) use of Janus kinase inhibitor; Z79.52 Long term (current) use of systemic steroids
CPT/HCPCS: 99214; G2211

== ENCOUNTER 2024-08-23 12:13 | Outpatient (REF) | payer OTHER, SELFPAY ==
[2024-08-23 13:40] LABS: MANUAL DIFF FLAG NO
[2024-08-23 13:56] LABS: Hematocrit 39.1 % (42.0-52.0); Hemoglobin 13.5 g/dl (14.0-18.0); Imm Gran Abs Auto 0.05 X10*3/uL (0.00-0.03); Imm Gran Pct Auto 0.4 % (0.0-0.4); Lymphocytes Absolute Auto 3.1 X10*3/uL (1.2-4.9); Mean Corpuscular HGB Conc 34.5 g/dl (31.0-36.0); Mean Corpuscular Hemoglobin 30.7 pg (27.0-33.0); Mean Corpuscular Volume 88.9 fL (80.0-98.0); NRBC Abs Auto 0.000 X10*3/uL (0.0-0.012); NRBC Pct Auto 0.0 /100WBC (0.0-0.2); Platelet Count 344 X10*3/uL (160-400); Red Blood Count 4.40 X10*6/uL (4.60-5.80); White Blood Count 13.8 X10*3/uL (4.8-10.8)
[2024-08-23 14:27] LABS: Alanine Aminotransferase 48 U/L (0-40); Albumin Level 4.8 g/dL (3.5-5.0); Alkaline Phosphatase 81 U/L (39-117); Anion Gap 11 (12-20); Aspartate Amino Transferase 34 U/L (5-37); Blood Urea Nitrogen 11 mg/dL (9-16); Calcium 9.5 mg/dL (8.4-10.2); Carbon Dioxide 27 mmol/L (22-29); Chloride 102 mmol/L (96-108); Estimated Glomerular Filt Rate > 60; Potassium 4.2 mmol/L (3.3-5.1); Sodium 136 mmol/L (135-145); Total Protein 7.4 g/dL (6.5-8.0)
[2024-08-23 14:37] LABS: HBS Num1 48.45 mIU/mL (0-7.99); HBc Num1 0.07 S/CO (0.00-0.79); HBsAGNum1 0.31 S/CO (0.00-0.99); Hepatitis A Antibody IgM 0.50 Index (0-0.79); Hepatitis B Surface Antigen Negative (Negative); ~HepC Num1 0.10 S/CO (0.00-0.79); ~Hepatitis A Antibody IgM Nonreactive (Nonreactive); ~Hepatitis B Surface Antibody REACTIVE (Nonreactive); ~Hepatitis C Antibody Nonreactive (Nonreactive)
[2024-08-26 21:38] LABS: TS Negative Control Passed; TS Panel A 0; TS Panel B 1; TS Positive Control Passed; TSpotTB Negative (Negative)
[2024-08-27 15:23] LABS: Vitamin D 25-OH, D2 <4 ng/mL; Vitamin D 25-OH, D3 17 ng/mL; Vitamin D 25-OH, Total 17 ng/mL (30-100)
== END 2024-08-23 12:14 | disposition home or self-care (01) ==
LOC: HO.10HDL 12:13
PROVIDERS: Visit Provider Student in an Organized Health Care Education/Training Program
DX: Z11.59 Encounter for screening for other viral diseases (principal); Z11.1 Encounter for screening for respiratory tuberculosis; M05.9 Rheumatoid arthritis with rheumatoid factor, unspecified; E55.9 Vitamin D deficiency, unspecified
CPT/HCPCS: 36415; 80053; 82306; 85025; 85652; 86140; 86481; 86704; 86706; 86709; 86803; 87340

== ENCOUNTER 2024-11-21 09:33 | Outpatient (AMB) | payer OTHER, SELFPAY ==
--- NOTE | 2024-11-21 10:00 | A.OFFVIS_ITS ---
Vital Signs 11/21/24 10:02 Height 5 ft 10 in Weight 185 lb 3.013 oz BMI 26.6 BP 128/68 Blood Pressure Location Lt brachial Position Sitting Pulse 105 H Pulse Source Monitor Intake Visit Reasons: r/s 10/05/24 6 mos followup Allergies adalimumab (From Humira) Allergy (Intermediate, Verified 08/23/24 11:40) Rash Medication List - Last Reconciled 11/21/24 by Ney Vega MD amlodipine 5 mg PO DAILY aspirin (Aspirin Childrens) 81 mg PO DAILY cholecalciferol (vitamin D3) 1,250 mcg PO QWEEK omega-3 fatty acids (Fish Oil Concentrate) 2,000 mg PO DAILY omeprazole 20 mg PO DAILY prednisone 5 mg PO DAILY PRN rosuvastatin (Crestor) 40 mg PO DAILY tumwfkhl-hjoi-wnuov-oreg-capry 100 mg-150 mg- 50 mg-150 mg 1 cap PO DAILY upadacitinib ER (Rinvoq) 15 mg PO DAILY HPI Comments Details: Teddy returns for follow-up regarding coronary artery disease. In the past, he was seen regarding nonexertional chest discomfort which led to further workup. Heavy smoker and still smokes about 30 cigarettes a day. Was also drinker but he states he has cut back on that. History of hypertension. He underwent a comprehensive workup including echocardiogram, stress test and coronary CTA. Since last seen, no new cardiac symptoms. No clear-cut exertional angina or in fact anything of cardiac nature. [facility] Medical History (Updated 06/27/24 @ 20:03 by Vi Gay [facility]) Impaired fasting glucose Back pain Alcohol dependence GERD (gastroesophageal reflux disease) CAD (coronary artery disease) Bilateral shoulder pain Thoracic aortic atherosclerosis Essential hypertension Seropositive rheumatoid arthritis Surgical History H/O wrist surgery Family History Father Hypertension Stented coronary artery Mother Hypertension Other Mental health disorder Social History Housing: House Alcohol intake: current Alcohol intake frequency: a few times a week Alcohol type: beer Patient Tobacco Use Status: Current everyday Tobacco user Tobacco use type: Cigarette Cigarettes Per Day: 30 Years Smoked: 35 e-Cigarette/Vaping Use: Never Used Second Hand Smoke Exposure: No service: No Current occupational status: 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 Cognitive needs: No Hearing needs: No Vision needs: Yes Review of Systems Const Denies weakness ENT Denies dizziness Card Denies chest pain, Denies chest pain with activity, Denies syncope, Denies rapid heart rate, Denies pedal edema, Denies edema, Denies leg edema, Denies lightheadedness, Denies palpitations, Denies dyspnea, Denies dyspnea on exertion and Denies orthopnea Resp Denies cough, Denies dyspnea and Denies dyspnea on exertion GI Denies hematochezia and Denies change in stool character Musc Denies abnormal gait, Denies muscle cramps, Denies muscle weakness, Denies numbness, Denies radiating pain into limb and Denies tingling Neuro Denies abnormal gait, Denies dizziness, Denies syncope, Denies numbness, Denies tingling and Denies weakness Endo Denies palpitations Physical Exam Vital Signs: Last Vital Signs Pulse 105 H 11/21/24 10: BP 128/68 11/21/24 10:02 BMI result Body Mass Index 26.6 Const General: comfortable and no acute distress Orientation/consciousness: patient oriented x3 HEENT Other: Unremarkable Head: Yes normal to inspection Neck Neck: Yes normal visual inspection Chest Chest palpation & inspection: normal inspection of the chest Resp Auscultation: clear to auscultation bilaterally Cardio Palpation: normal PMI Heart sounds: S1 normal heart sound present, S2 normal heart sound present, no gallops, no murmurs and no rubs GI Palpation (GI): Soft to palpation Back/Spine/Pelvis Other: unremarkable Skin General skin exam: no rashes or lesions noted Neuro General: patient oriented x3 Extrem General: Yes normal to inspection Psych Mental Status: mental status grossly normal Assessment & Plan Assessment & Plan (1) Atherosclerotic cardiovascular disease: Code(s): I25.10 - Atherosclerotic heart disease of [place] coronary artery without angina pectoris Category: Medical (2) Essential hypertension: Code(s): I10 - Essential (primary) hypertension Category: Medical (3) Smoking: Comment: Smoking damages our blood vessels, causes scaring of lungs leading to COPD and shortness of breath. It can also cause coronary artery disease leading to heart attack, and can cause degenerative disc disease , it can also predispose our body to certain cancers. Try to decrease cigarette use by 1 to 2 cigarettes/ week. When you are ready to quit let your primary care Know, or you can buy the nicotine patches there [id number]. Code(s): F17.200 - Nicotine dependence, unspecified, uncomplicated Category: Social Hx (4) Hyperlipidemia: Code(s): E78.5 - Hyperlipidemia, unspecified Category: Medical Qualifiers: Hyperlipidemia type: mixed hyperlipidemia Qualified Code(s): E78.2 - Mixed hyperlipidemia (5) Alcoholism: Code(s): F10.20 - Alcohol dependence, uncomplicated Category: Medical Plan Cardiac studies reviewed. Echocardiogram with LVEF of 62%. No wall motion abnormalities. Otherwise unremarkable. In the stress test, he reached 90% of max predicted heart rate, 7 METS, some shortness of breath but no chest pain. Borderline EKG changes. Hypertensive blood pressure response. In the coronary CTA, mostly nonobstructive CAD with mild to moderate stenosis. RCA not well visualized due to motion artifact. Distal RCA described to be normal supplying a small PDA/PLV. There was moderate atherosclerosis of the descending aorta with mural thrombus. Carotid Doppler does not show any significant carotid disease. Abdominal ultrasound does not show any evidence of abdominal aortic aneurysm. Overall, stable vascular disease without any acute symptoms. Remains on low-dose aspirin. Blood pressures seems stable on the current dose of amlodipine. With regard to lipids, on statins. Most recent LDL is 59 mg/dL and triglycerides slightly high at 231 mg/dL. Slight abnormality in ALT, but chronic. Smoking cessation, cut back on alcohol. Follow up in one year. In the interim, call with concerns or any cardiac symptoms. Discussion Notes During the visit, I discussed the importance of reducing smoking due to its impact on cardiovascular health, particularly the slightly elevated heart rate observed. We reviewed the patient's current medication regimen, including rosuvastatin for hyperlipidemia, and noted the slight improvement in liver function tests despite minor abnormalities. I reassured the patient about the absence of carotid artery blockages and emphasized the need for continued monitoring and lifestyle modifications. Patient was informed and verbally consented to the use of an ambient scribe for clinic note documentation during this visit. Patient Instructions: - Reduce smoking to improve heart health. - Continue taking rosuvastatin as prescribed. - Follow up for regular monitoring of liver function and cardiovascular health. Coding Level of Care Code Est Pt Level 4 (30126) Complex EM visit Add On G2211 Diagnoses Atherosclerotic cardiovascular disease I25.10 Essential hypertension I10 Smoking F17.200 Mixed hyperlipidemia E78.2 Hyperlipidemia type: mixed hyperlipidemia Alcoholism F10.20
[2024-11-21 10:02] VITALS: BP 128/68; PULSE 105; BMI 26.6
--- OUTSIDE RECORDS SUMMARY | 2024-11-21 10:54 | XMS_ITS | Clinical Summary ---
Author Organization [facility] Address [address] [place] [address] Care Team Providers Care [employer] Name Role Phone Unavailable Primary Care Provider [...] 10/17/2017 Zoster Vaccines (1 of 2) 10/17/2017 Depression Screening 02/17/2024 COVID-19 Vaccine (1 - 2023-2 5 season) 2024 Influenza Vaccine (#1) 2024 RSV Immunization Adult Patie nts (1 - 1-dose 75+ series) 10/17/2042 HIB Vaccines Aged Out No longer eligi [...]
== END 2024-11-21 10:15 | disposition home or self-care (01) ==
LOC: HO.HCS 09:33
PROVIDERS: PCP Internal Medicine; Visit Provider Internal Medicine
DX: I25.10 Atherosclerotic heart disease of native coronary artery without angina pectoris (principal); I10 Essential (primary) hypertension; F17.200 Nicotine dependence, unspecified, uncomplicated; E78.2 Mixed hyperlipidemia; F10.20 Alcohol dependence, uncomplicated
CPT/HCPCS: 93010; 99214; G2211

== ENCOUNTER → 2024-11-21 09:33 | Outpatient (BNVA) | payer OTHER, SELFPAY | PROVIDERS: PCP Internal Medicine; Visit Provider Internal Medicine | DX: I25.10 Atherosclerotic heart disease of native coronary artery without angina pectoris (principal); I10 Essential (primary) hypertension; E78.2 Mixed hyperlipidemia; F10.20 Alcohol dependence, uncomplicated; F17.210 Nicotine dependence, cigarettes, uncomplicated | CPT/HCPCS: 93005 ==

== ENCOUNTER 2024-11-30 09:49 | Outpatient (AMB) | payer OTHER, SELFPAY ==
--- NOTE | 2024-11-30 09:51 | A.OFFPC_ITS ---
Vital Signs 11/30/24 09:52 11/30/24 10:19 Height 5 ft 10 in Weight 193 lb BMI 27.7 BP 152/80 H 138/88 Blood Pressure Location Lt brachial Position Sitting Pulse 96 Pulse Source Pulse Oximeter Pulse Oximetry (%) 97 Intake Visit Reasons: Annual PE Allergies adalimumab (From Humira) Allergy (Intermediate, Verified 11/30/24 09:52) Rash Medication List - Last Reconciled 11/30/24 by Edinson Calle MD amlodipine 5 mg PO DAILY aspirin (Aspirin Childrens) 81 mg PO DAILY cholecalciferol (vitamin D3) 1,250 mcg PO QWEEK omega-3 fatty acids (Fish Oil Concentrate) 2,000 mg PO DAILY omeprazole 20 mg PO DAILY prednisone 5 mg PO DAILY PRN rosuvastatin (Crestor) 40 mg PO DAILY knhbaazy-hbvw-icdic-oreg-capry 100 mg-150 mg- 50 mg-150 mg 1 cap PO DAILY upadacitinib ER (Rinvoq) 15 mg PO DAILY Tobacco use date assessed: 04/12/24 Dental Screening Dental Screen Date: 04/12/24 HPI Annual PE HPI Details History of Present Illness The patient is a 59-year-old male presenting for an annual physical examination. Essential Hypertension: - Diagnosed previously. - Managed with Amlodipine 5 mg. - Blood pressure noted as 152/80 mmHg du ring the visit. Which came down to 138 x 88 later - Patient reports home measurements typi anuel around 124/82 mmHg and 128/68 mmHg. Hyperlipidemia: - Managed by a liaison inspection laboratory assistant. - Currently taking Rosuvastatin 40 mg. Coronary Artery Disease: - Under the management of a liaison inspection laboratory assistant . - Patient had a recent electrocardiogram showing sinus tachycardia, otherwise normal. Gastroesophageal Reflux Disease (GERD): - Managed with Omeprazole prescribed by a 3d designer. Positive Rheumatoid Arthritis: - Managed by a candy feeder. - Patient reports joint pain varies day to day, but it's manageable. Impaired Fasting Glucose: - Noted as part of medical history. Anemia: - Last hemoglobin level checked in August was slightly low at 13.5 g/dL. Vitamin D Deficiency: - Noted with low levels previously. - Patient advised to be on supplements Depression: - Patient reports feeling low energy, ti redness, and a lack of motivation. - No prior history of medication for dep ression. - Willing to start treatment for mood st abilization. Medical History: - Essential Hypertension - Hyperlipidemia - Coronary Artery Disease - Gastroesophageal Reflux Disease (GERD) - Positive Rheumatoid Arthritis - Impaired Fasting Glucose - Anemia - Vitamin D Deficiency - Depression (newly discussed) Social History: - Diet and exercise: Not specifically di scussed. - Social substance use: Recently reduced alcohol intake. 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 Health Maintenance - Colonoscopy done December 2023. - Last set of labs were reviewed, noting slightly low hemoglobin and low vitamin D levels. [place] [facility] [employer] - Procurement Manager: Manages coronary artery disease and lipid levels. - Hydraulic Jack Mechanic: Manages GERD and c onducts colonoscopy screenings. - Research Psychologist: Manages rheumatoid art hritis. Medications - Amlodipine 5 mg for hypertension - Rosuvastatin 40 mg for hyperlipidemia - Omeprazole for GERD - Rinvoq for rheumatoid arthritis Patient Instructions - Ensure daily intake of vitamin D suppl ements. - Contact pharmacy regarding vitamin D p rescription. - Monitor blood pressure at home and rep ort consistently high readings. - Start Duloxetine 20 mg daily as prescr ibed. - Return for a follow-up in approximatel y one month to assess response to depression treatment. Review of Systems - General: No fever no chills - Neurological: No headaches no dizzin ess - Ear nose throat: No sore throat no hearing difficulty no ear pain - Cardiovascular: No syncope, no chest pain, no palpitations - Gastrointestinal: No nausea vomiting or diarrhea - Endocrine: No polyuria polydipsia no heat intolerance - Genitourinary: No dysuria - Skin: No new complaints Physical Exam General: Cooperative, healthy appearing, comfortable, no acute distress Orientation: Patient oriented x3 Head: Normal to inspection Ears: Within normal limit visually Nose: Normal external nose present Face and sinus: Normal facial exam Eyes: Appearance normal, extraocular movement intact pupils reactive Neck: Normal visual inspection and supple Respiratory: Normal respiratory effort and able to speak in complete sentences. Clear to auscultation, no stridor Cardiovascular: S1-S2 regular rate and rhythm tachycardic GI: Normal to inspection. Soft to palpation and nontender Skin: Turgor normal, no acute findings Neuro: Patient oriented x3, motor sensory intact, balance intact, tandem pass Extremities: Normal to inspection . [facility] Medical History Impaired fasting glucose Back pain Alcohol dependence GERD (gastroesophageal reflux disease) CAD (coronary artery disease) Bilateral shoulder pain Thoracic aortic atherosclerosis Essential hypertension Seropositive rheumatoid arthritis Surgical History H/O wrist surgery Family History Father Hypertension Stented coronary artery Mother Hypertension Other Mental health disorder Social History Housing: House Alcohol intake: current Alcohol intake frequency: a few times a week Alcohol type: beer Patient Tobacco Use Status: Current everyday Tobacco user Tobacco use type: Cigarette Cigarettes Per Day: 30 Years Smoked: 35 e-Cigarette/Vaping Use: Never Used Second Hand Smoke Exposure: No service: No Current occupational status: 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 1. Little interest or pleasure in doing things: several days 2. Feeling down, depressed, or hopeless: more than half the days 3. Trouble falling or staying asleep, or sleeping too much: more than half the days 4. Feeling tired or having little energy: nearly every day 5. Poor appetite or overeating: more than half the days 6. Feeling bad about yourself - or that you are a failure or have let yourself or your family down: more than half the days 7. Trouble concentrating on things, such as reading the newspaper or watching television: more than half the days 8. Moving or speaking so slowly that other people could have noticed. Or the opposite - being so fidgety or restless that you have been moving around a lot more than usual: more than half the days 9. Thoughts that you would be better off or of hurting yourself in some way: several days Total score: 17 Depression Screening Interpretation: Positive Depression Screening Follow-up: New Medication prescribed Depression Screening Done: Yes 34948 - PHQ-9 Billing: Yes Source: Developed by Drs. Lorenzo Rojas, Shira Roche, Agus Chen and colleagues, with an educational mer from [employer]. Thrive Questionnaire Date Thrive assessed: 04/07/24 I am a: Patient What is your living situation today?: I choose not to answer this question Within the past 12 months, did the food you bought not last and you didn't have the money to get more?: I choose not to answer this question Within the past 12 months, did you worry whether your food would run out before you got money to buy more?: I choose not to answer this question Do you have trouble paying for medicines?: I choose not to answer this question Do you have trouble getting transportation to medical appointments?: I choose not to answer this question Do you have trouble paying your heating and electricity bill?: I choose not to answer this question Do you have trouble taking care of your child, family member or friend?: I choose not to answer this question Do you have trouble with day-to-day activities such as bathing, preparing meals, shopping, managing finances, etc.?: I choose not to answer this question Are you currently unemployed and looking for a job?: I choose not to answer this question Are you interested in more education?: I choose not to answer this question Please select the resources that you would like help with: None Currently or been in a relationship where the following occur: I choose not to answer THRIVE Score: 0 AUDIT C Alcohol Use Questionnaire (AUDIT-C) 1. How often do you have a drink containing alcohol?: 4 or more times a week 2. How many drinks containing alcohol do you have on a typical day when you are drinking?: 1 or 2 3. How often do you have six or more drinks on one occasion?: Monthly Total Score: 6 Score Reviewed/Action Taken: Yes COLUMBA-7 AMB Questionnaire COLUMBA-7 Date COLUMBA - 7 assessed: 11/30/24 Feeling nervous, anxious, or on edge: 3 = Nearly every day Not being able to stop or control worryin = Nearly every day Worrying too much about different things: 3 = Nearly every day Trouble relaxin = Nearly every day Being so restless that it is hard to sit still: 3 = Nearly every day Becoming easily annoyed or irritable: 3 = Nearly every day Feeling afraid as if something awful might happen: 3 = Nearly every day Total COLUMBA-7 score (0-4 normal; 5-9 mild; 10-14 moderate; 15-21 severe): 21 Source: Developed by Drs. Lorenzo Rojas, Shira Roche, Agus Chen and colleagues, with an educational mer from [employer]. COLUMBA-7 Assessment Billing COLUMBA-7 Assessment Tool: COLUMBA-7 Assessment 86390 Physical exam (Primary Care) Vital Signs: Last Vital Signs Pulse 96 11/30/24 09:52 BP 152/80 H 11/30/24 09:52 Pulse Ox 97 11/30/24 09:52 BMI result Body Mass Index 27.7 Tobacco/Smoking Status: Tobacco use Status Tobacco use date assessed 04/12/24 11/30/24 09:51 Patient Tobacco Use Status Current everyday Tobacco 11/30/24 09:51 Tobacco use type Cigarette 11/30/24 09:51 e-Cigarette/Vaping Use Never Used 11/30/24 09:51 PHQ-9: PHQ-9 Score PHQ-9: Total score 17 11/30/24 09:54 Depression Screening Interpretation: Positive Depression Screening Follow-up: New Medication prescribed Thrive Assessment: Date of Thrive Assessment Date Thrive assessed 04/07/24 11/30/24 09:51 Currently or been in a relationship where the following occur: I choose not to answer Coding Level of Care Code Est Pt Level 4 (35521) Est Pt Prev Care 40-64y(26915) Diagnoses Encounter for general adult medical examination with abnormal findings Z00.01 Depression, major, recurrent, mild F33.0 Anxiety, generalized F41.1 Essential hypertension I10 Tired R53.83 Seropositive rheumatoid arthritis M05.9 Chronic GERD K21.9 Impaired fasting blood sugar R73.01 Mixed hyperlipidemia E78.2 Hyperlipidemia type: mixed hyperlipidemia Atherosclerotic cardiovascular disease I25.10 Long-term use of immunosuppressant medication Z79.60 Additional Codes COLUMBA-7 Assessment Billing - COLUMBA-7 Assessment Tool: COLUMBA-7 Assessment 89108 ([id number]) PHQ-9 - 60587 - PHQ-9 Billing: Yes ([id number]) Assessment & Plan Assessment & Plan (1) Encounter for general adult medical examination with abnormal findings: Code(s): Z00.01 - Encounter for general adult medical examination with abnormal findings Category: Medical (2) Depression, major, recurrent, mild: Code(s): F33.0 - Major depressive disorder, recurrent, mild Category: Medical (3) Anxiety, generalized: Code(s): F41.1 - Generalized anxiety disorder Category: Medical (4) Essential hypertension: Code(s): I10 - Essential (primary) hypertension Category: Medical (5) Tired: Code(s): R53.83 - Other fatigue Category: Medical (6) Seropositive rheumatoid arthritis: Comment: +++RF+++CCP Humira 09/04- 03/2020 Enbrel March 2020 - September 2020 discontinued due to insurance Orencia denied by insurance Rinvoq September 2020 - present Prednisone 09/05/2019 - present Rinvoq: Elevated liver Enzymes and Cholesterol Humira 11/2022: Skin Rash Tocilizumab since 03/2023 DC 07/2023 ineffective Rinvoq restarted 07/2023 effective Code(s): M05.9 - Rheumatoid arthritis with rheumatoid factor, unspecified Category: Medical (7) Chronic GERD: Code(s): K21.9 - Gastro-esophageal reflux disease without esophagitis Category: Medical (8) Impaired fasting blood sugar: Code(s): R73.01 - Impaired fasting glucose Category: Medical (9) Hyperlipidemia: Code(s): E78.5 - Hyperlipidemia, unspecified Category: Medical Qualifiers: Hyperlipidemia type: mixed hyperlipidemia Qualified Code(s): E78.2 - Mixed hyperlipidemia (10) Atherosclerotic cardiovascular disease: Code(s): I25.10 - Atherosclerotic heart disease of [place] coronary artery without angina pectoris Category: Medical (11) Long-term use of immunosuppressant medication: Code(s): Z79.60 - terminal press operator (current) use of unspecified immunomodulators and immunosuppressants Category: Medical Plan Essential Hypertension: - Diagnosed previously. - Managed with Amlodipine 5 mg. - Blood pressure noted as 152/80 mmHg during the visit. Which came down to 138 x 88 later - Patient reports home measurements typically around 124/82 mmHg and 128/68 mmHg. Hyperlipidemia: - Managed by a liaison inspection laboratory assistant. - Currently taking Rosuvastatin 40 mg. Coronary Artery Disease: - Under the management of a liaison inspection laboratory assistant. - Patient had a recent electrocardiogram showing sinus tachycardia, otherwise normal. Gastroesophageal Reflux Disease (GERD): - Managed with Omeprazole prescribed by a 3d designer. Positive Rheumatoid Arthritis: - Managed by a candy feeder. - Patient reports joint pain varies day to day, but it's manageable. Impaired Fasting Glucose: - Noted as part of medical history. Anemia: - Last hemoglobin level checked in August was slightly low at 13.5 g/dL. Vitamin D Deficiency: - Noted with low levels previously. - Patient advised to be on supplements Depression: - Patient reports feeling low energy, tiredness, and a lack of motivation. - No prior history of medication for depression. - Willing to start treatment for mood stabilization. Medical History: - Essential Hypertension - Hyperlipidemia - Coronary Artery Disease - Gastroesophageal Reflux Disease (GERD) - Positive Rheumatoid Arthritis - Impaired Fasting Glucose - Anemia - Vitamin D Deficiency - Depression (newly discussed) Social History: - Diet and exercise: Not specifically discussed. - Social substance use: Recently reduced alcohol intake. 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 Health Maintenance - Colonoscopy done December 2023. - Last set of labs were reviewed, noting slightly low hemoglobin and low vitamin D levels. [place] [employer] - Procurement Manager: Manages coronary artery disease and lipid levels. - Hydraulic Jack Mechanic: Manages GERD and conducts colonoscopy screenings. - Research Psychologist: Manages rheumatoid arthritis. Medications - Amlodipine 5 mg for hypertension - Rosuvastatin 40 mg for hyperlipidemia - Omeprazole for GERD - Rinvoq for rheumatoid arthritis Patient Instructions - Ensure daily intake of vitamin D supplements. - Contact pharmacy regarding vitamin D prescription. - Monitor blood pressure at home and report consistently high readings. - Start Duloxetine 20 mg daily as prescribed. - Return for a follow-up in approximately one month to assess response to depression treatment. Medications: New duloxetine 20 mg PO ONCE 30 caps 0RF 30 days
[2024-11-30 09:52] VITALS: BP 152/80; PULSE 96; O2SAT 97; BMI 27.7
[2024-11-30 10:19] VITALS: BP 138/88
--- OUTSIDE RECORDS SUMMARY | 2024-11-30 11:17 | XMS_ITS | Clinical Summary ---
Author Organization [facility] Address [address] [place] [address] Care Team Providers Care Grinder Set Up Operator Name Role Phone Unavailable Primary Care Provider [...]
== END 2024-11-30 12:28 | disposition home or self-care (01) ==
LOC: HO.HMCC 09:49
PROVIDERS: PCP Internal Medicine; Visit Provider Internal Medicine
DX: Z00.01 Encounter for general adult medical examination with abnormal findings (principal); F33.0 Major depressive disorder, recurrent, mild; F41.1 Generalized anxiety disorder; M05.9 Rheumatoid arthritis with rheumatoid factor, unspecified; I10 Essential (primary) hypertension; R53.83 Other fatigue; K21.9 Gastro-esophageal reflux disease without esophagitis; R73.01 Impaired fasting glucose; E78.2 Mixed hyperlipidemia; I25.10 Atherosclerotic heart disease of native coronary artery without angina pectoris; Z79.60 Long term (current) use of unspecified immunomodulators and immunosuppressants

== ENCOUNTER → 2024-11-30 09:49 | Outpatient (BNVA) | payer OTHER, SELFPAY | PROVIDERS: PCP Internal Medicine; Visit Provider Internal Medicine | DX: Z00.01 Encounter for general adult medical examination with abnormal findings (principal); I10 Essential (primary) hypertension; E78.5 Hyperlipidemia, unspecified; I25.10 Atherosclerotic heart disease of native coronary artery without angina pectoris; K21.9 Gastro-esophageal reflux disease without esophagitis; M06.9 Rheumatoid arthritis, unspecified; R73.01 Impaired fasting glucose; D64.9 Anemia, unspecified; E55.9 Vitamin D deficiency, unspecified; F33.0 Major depressive disorder, recurrent, mild; F41.1 Generalized anxiety disorder; M05.9 Rheumatoid arthritis with rheumatoid factor, unspecified; E78.2 Mixed hyperlipidemia; Z79.60 Long term (current) use of unspecified immunomodulators and immunosuppressants | CPT/HCPCS: 96127 ==

== ENCOUNTER 2024-12-28 10:51 | Outpatient (AMB) | payer OTHER, SELFPAY ==
[2024-12-28 10:54] VITALS: BP 142/80; PULSE 86; O2SAT 97; BMI 28.0
--- NOTE | 2024-12-28 10:54 | A.OFFPC_ITS ---
Vital Signs 12/28/24 10:54 Height 5 ft 10 in Weight 195 lb BMI 28.0 BP 142/80 H Blood Pressure Location Lt brachial Position Sitting Pulse 86 Pulse Source Pulse Oximeter Pulse Oximetry (%) 97 Intake Visit Reasons: 1 month follow up Allergies adalimumab (From Humira) Allergy (Intermediate, Verified 12/28/24 10:57) Rash Medication List - Last Reconciled 12/28/24 by Edinson Calle MD amlodipine 5 mg PO DAILY aspirin (Aspirin Childrens) 81 mg PO DAILY cholecalciferol (vitamin D3) 1,250 mcg PO QWEEK duloxetine 20 mg PO ONCE 30 days omega-3 fatty acids (Fish Oil Concentrate) 2,000 mg PO DAILY omeprazole 20 mg PO DAILY prednisone 5 mg PO DAILY PRN rosuvastatin (Crestor) 40 mg PO DAILY gkvuvntp-krki-cpldk-oreg-capry 100 mg-150 mg- 50 mg-150 mg 1 cap PO DAILY upadacitinib ER (Rinvoq) 15 mg PO DAILY Tobacco use date assessed: 04/12/24 Dental Screening Dental Screen Date: 04/12/24 HPI 1 month follow up HPI Details History of Present Illness The patient is a 59-year-old male presenting for a follow-up visit for medication management of hypertension and anxiety. Essential Hypertension: - The patient is currently taking amlodi pine 5 mg. - His blood pressure today is 142/80 mmH g, and he reports a morning reading of 130. - He checks his blood pressure two to th ree times a week. Anxiety: - The patient has been taking duloxetine 20 mg for one month for nerves and anxiety. - He reports feeling a little better and is tolerating the medication without side effects. Medical History: - Hypertension - Anxiety - The patient receives care from a rheum atologist. Problem List - Essential Hypertension - Anxiety - Preventative care: Declined tetanus an d flu vaccines. Plan - Hypertension management: Increase amlo dipine dose from 5 mg to 10 mg daily due to elevated blood pressure readings. - Anxiety management: The patient will c ontinue taking duloxetine 20 mg for one month and then increase the dose to 30 mg. - A prescription for duloxetine 30 mg wi ll be sent next week to avoid confusion at the pharmacy. - Labs: The patient will complete the bl ood tests ordered by his workers compensation claims supervisor. - Vaccinations: The patient declined tet anus and flu vaccines but was advised he could receive them at a pharmacy. - Follow-up: The patient will follow up in 3 to 4 months. Review of Systems - General: No fever no chills - Neurological: No headaches no dizziness - Ear nose throat: No sore throat no hearing difficulty no ear pain - Cardiovascular: No syncope, no chest pain, no palpitations - Gastrointestinal: No nausea vomiting or diarrhea - Endocrine: No polyuria polydipsia no heat intolerance - Genitourinary: No dysuria , no blood in urine Physical Exam General: No acute distress HEENT: No acute findings Neck: Supple Respiratory system: Able to talk in full sentences, no audible wheeze Cardiovascular: S1-S2 regular in rate and rhythm, blood pressure is high at 142/80 Gastrointestinal: No pain Extremities: No new findings 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: Alert awake oriented x3 motor intact Skin: Normal turgor PFSH Medical History Impaired fasting glucose Back pain Alcohol dependence GERD (gastroesophageal reflux disease) CAD (coronary artery disease) Bilateral shoulder pain Thoracic aortic atherosclerosis Essential hypertension Seropositive rheumatoid arthritis Surgical History H/O wrist surgery Family History Father Hypertension Stented coronary artery Mother Hypertension Other Mental health disorder Social History Housing: House Alcohol intake: current Alcohol intake frequency: a few times a week Alcohol type: beer Patient Tobacco Use Status: Current everyday Tobacco user Tobacco use type: Cigarette Cigarettes Per Day: 30 Years Smoked: 35 e-Cigarette/Vaping Use: Never Used Second Hand Smoke Exposure: No service: No Current occupational status: 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 Cognitive needs: No Hearing needs: No Vision needs: Yes Questionnaire Thrive Questionnaire Date Thrive assessed: 04/07/24 I am a: Patient What is your living situation today?: I choose not to answer this question Within the past 12 months, did the food you bought not last and you didn't have the money to get more?: I choose not to answer this question Within the past 12 months, did you worry whether your food would run out before you got money to buy more?: I choose not to answer this question Do you have trouble paying for medicines?: I choose not to answer this question Do you have trouble getting transportation to medical appointments?: I choose not to answer this question Do you have trouble paying your heating and electricity bill?: I choose not to answer this question Do you have trouble taking care of your child, family member or friend?: I choose not to answer this question Do you have trouble with day-to-day activities such as bathing, preparing meals, shopping, managing finances, etc.?: I choose not to answer this question Are you currently unemployed and looking for a job?: I choose not to answer this question Are you interested in more education?: I choose not to answer this question Please select the resources that you would like help with: None Currently or been in a relationship where the following occur: I choose not to answer THRIVE Score: 0 COLUMBA-7 AMB Questionnaire COLUMBA-7 Date COLUMBA - 7 assessed: 11/30/24 Source: Developed by Drs. Lorenzo Rojas, Shira Roche, Agus Chen and colleagues, with an educational mer from [employer]. Physical exam (Primary Care) Vital Signs: Last Vital Signs Pulse 86 12/28/24 10:54 BP 142/80 H 12/28/24 10:54 Pulse Ox 97 12/28/24 10:54 BMI result Body Mass Index 28.0 Tobacco/Smoking Status: Tobacco use Status Tobacco use date assessed 04/12/24 12/28/24 10:54 Patient Tobacco Use Status Current everyday Tobacco 12/28/24 10:54 Tobacco use type Cigarette 12/28/24 10:54 e-Cigarette/Vaping Use Never Used 12/28/24 10:54 Thrive Assessment: Date of Thrive Assessment Date Thrive assessed 04/07/24 12/28/24 10:54 Currently or been in a relationship where the following occur: I choose not to answer Coding Level of Care Code Est Pt Level 3 (52999) Diagnoses Essential hypertension I10 Depression, major, recurrent, mild F33.0 Anxiety, generalized F41.1 Seropositive rheumatoid arthritis M05.9 Assessment & Plan Assessment & Plan (1) Essential hypertension: Code(s): I10 - Essential (primary) hypertension Category: Medical (2) Depression, major, recurrent, mild: Code(s): F33.0 - Major depressive disorder, recurrent, mild Category: Medical (3) Anxiety, generalized: Code(s): F41.1 - Generalized anxiety disorder Category: Medical (4) Seropositive rheumatoid arthritis: Comment: +++RF+++CCP Humira 09/04- 03/2020 Enbrel March 2020 - September 2020 discontinued due to insurance Orencia denied by insurance Rinvoq September 2020 - present Prednisone 09/05/2019 - present Rinvoq: Elevated liver Enzymes and Cholesterol Humira 11/2022: Skin Rash Tocilizumab since 03/2023 DC 07/2023 ineffective Rinvoq restarted 07/2023 effective Code(s): M05.9 - Rheumatoid arthritis with rheumatoid factor, unspecified Category: Medical Plan Essential Hypertension: - The patient is currently taking amlodipine 5 mg. - His blood pressure today is 142/80 mmHg, and he reports a morning reading of 130. - He checks his blood pressure two to three times a week. Anxiety: - The patient has been taking duloxetine 20 mg for one month for nerves and anxiety. - He reports feeling a little better and is tolerating the medication without side effects. Medical History: - Hypertension - Anxiety - The patient receives care from a workers compensation claims supervisor. Problem List - Essential Hypertension - Anxiety - Preventative care: Declined tetanus and flu vaccines. Plan - Hypertension management: Increase amlodipine dose from 5 mg to 10 mg daily due to elevated blood pressure readings. - Anxiety management: The patient will continue taking duloxetine 20 mg for one month and then increase the dose to 30 mg. - A prescription for duloxetine 30 mg will be sent next week to avoid confusion at the pharmacy. - Labs: The patient will complete the blood tests ordered by his workers compensation claims supervisor. - Vaccinations: The patient declined tetanus and flu vaccines but was advised he could receive them at a pharmacy. - Follow-up: The patient will follow up in 3 to 4 months. Medications: Changed From amlodipine 5 mg PO DAILY 90 tabs 0RF To amlodipine 10 mg PO DAILY 90 tabs 0RF
--- OUTSIDE RECORDS SUMMARY | 2024-12-28 13:10 | XMS_ITS | Clinical Summary ---
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
== END 2024-12-28 11:15 | disposition home or self-care (01) ==
LOC: HO.HMCC 10:52
PROVIDERS: PCP Internal Medicine; Visit Provider Internal Medicine
DX: I10 Essential (primary) hypertension (principal); F33.0 Major depressive disorder, recurrent, mild; F41.1 Generalized anxiety disorder; M05.9 Rheumatoid arthritis with rheumatoid factor, unspecified

== ENCOUNTER 2025-02-14 16:09 | Outpatient (REF) | payer OTHER, SELFPAY ==
[2025-02-14 17:20] LABS: Mean Corpuscular Volume 87.7 fL (80.0-98.0); NRBC Abs Auto 0.000 X10*3/uL (0.0-0.012); NRBC Pct Auto 0.0 /100WBC (0.0-0.2); PLT CLUMP 1; SCAN SMEAR FLAG 1
[2025-02-14 17:22] LABS: Hematocrit 46.5 % (42.0-52.0); Hemoglobin 16.3 g/dl (14.0-18.0); Imm Gran Abs Auto 0.03 X10*3/uL (0.00-0.03); Imm Gran Pct Auto 0.2 % (0.0-0.4); Lymphocytes Absolute Auto 3.6 X10*3/uL (1.2-4.9); MANUAL DIFF FLAG SCAN; Mean Corpuscular HGB Conc 35.1 g/dl (31.0-36.0); Mean Corpuscular Hemoglobin 30.8 pg (27.0-33.0); Red Blood Count 5.30 X10*6/uL (4.60-5.80)
[2025-02-14 17:32] LABS: Alanine Aminotransferase 96 U/L (0-40); Albumin Level 4.9 g/dL (3.5-5.0); Alkaline Phosphatase 89 U/L (39-117); Anion Gap 14 (12-20); Aspartate Amino Transferase 70 U/L (5-37); Blood Urea Nitrogen 10 mg/dL (9-16); Calcium 9.5 mg/dL (8.4-10.2); Carbon Dioxide 25 mmol/L (22-29); Chloride 102 mmol/L (96-108); Estimated Glomerular Filt Rate > 60; Potassium 4.0 mmol/L (3.3-5.1); Sodium 137 mmol/L (135-145); Total Protein 7.7 g/dL (6.5-8.0)
[2025-02-14 18:06] LABS: Platelet Count 271 X10*3/uL (160-400); White Blood Count 12.4 X10*3/uL (4.8-10.8)
--- OUTSIDE RECORDS SUMMARY | 2025-02-14 19:05 | XMS_ITS | Clinical Summary ---
Author Organization [facility] Address [address] [place] [address] Care Team Prov[address] Care [address] Assistant Name Role Phone Unavailable Primary Care Provider [...]
== END 2025-02-14 16:10 | disposition home or self-care (01) ==
LOC: HO.LAB 16:09
PROVIDERS: PCP Internal Medicine; Visit Provider Student in an Organized Health Care Education/Training Program
DX: M05.9 Rheumatoid arthritis with rheumatoid factor, unspecified (principal)
CPT/HCPCS: 36415; 80053; 85025; 85652; 86140